=== PATIENT | female | born 1995 | race Caucasian/White ===

== ENCOUNTER 2023-02-11 06:39 | Emergency (ER) | payer OTHER, SELFPAY ==
[2023-02-11 06:40] VITALS: BP 120/84; PULSE 80; RESP 18; TEMP 36.5; O2SAT 100
--- NOTE | 2023-02-11 07:34 | ED_ITS ---
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 Patient went to [facility] at that time, patient reported that they have done nothing for her at that time. The patient denies any tingling, numbness or weakness or radiation of pain. Pat ient schedule to go to work today Related Data Allergies Allergy/AdvReac Type Severity Reaction Status Date / Time No Known Allergies Allergy Verified 02/11/23 07:12 Review of Systems Review of Systems: All systems reviewed & are unremarkable except as noted in HPI and below Exam Narrative: General appearance: Well-developed, well-nourished Skin: Normal color Head: Normocephalic, nontraumatic Eyes: Clear conjunctiva ENT: Oropharynx normal, ears normal, nose normal Neck: Supple, nontender Chest and respiratory: Airway patent, no respiratory distress, no accessory musc le use Heart: Regular rate/rhythm Abdomen: Soft, nontender, no organomegaly, quiet bowel sounds Vascular: Normal peripheral pulses, normal capillary refill. 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, no gross motor deficit Course Vital Signs Vital signs: Vital Signs Temperature 36.5 C 02/11/23 06:40 Pulse Rate 80 02/11/23 06:40 Respiratory Rate 18 02/11/23 06:40 Blood Pressure 120/84 02/11/23 06:40 Pulse Oximetry 100 02/11/23 06:40 Oxygen Delivery Room Air 02/11/23 06:40 Temperature 36.5 C 02/11/23 06:40 Pulse Rate 80 02/11/23 06:40 Respiratory Rate 18 02/11/23 06:40 Blood Pressure 120/84 02/11/23 06:40 Pulse Oximetry 100 02/11/23 06:40 Oxygen Delivery Room Air 02/11/23 06:40 Critical Care Time Critical Care Time Critical Care Time: No Discharge Plan Discharge Clinical Impression: Strain of lumbar region Patient Disposition: Home, Self-Care Condition: Stable Instructions: Acute Low Back Pain (ED) Additional Instructions: Return if symptoms are worsening , call your family physician for appointment, take Tylenol as as needed for aches and pain, continue home medications. Prescriptions: New cyclobenzaprine 10 mg tablet 10 mg PO TID PRN (Reason: muscle spasm) Qty: 20 0RF naproxen [Naprosyn] 500 mg tablet 500 mg PO BID PRN (Reason: pain) Qty: 14 0RF Follow-up/Referrals: George Noriega MD [Physician] - 02/15/23 UNKNOWN,DOCTOR [Primary Care Provider] - Stand Alone Forms: Work/School Release IP
[2023-02-11] MEDS: IBUPROFEN 600 MG TABLET PO (08:23)
[2023-02-11] MEDS: HYDROcodone/acetaminophen (*CRX) 5-325 MG TABLET 1 TAB PO (08:23)
[2023-02-11 08:29] VITALS: BP 122/83; PULSE 70; RESP 16; O2SAT 100
== END 2023-02-11 08:30 | disposition home or self-care (01) ==
LOC: ANHED 08:01
PROVIDERS: Emergency Provider Emergency Medicine
DX: S39.012A Strain of muscle, fascia and tendon of lower back, initial encounter (principal); X50.0XXA Overexertion from strenuous movement or load, initial encounter; Y93.F2 Activity, caregiving, lifting
CPT/HCPCS: 99283; A9270

== ENCOUNTER 2023-10-06 15:40 | Emergency (ER) | payer OTHER, SELFPAY ==
--- NOTE | ~2023-10-06 | CT_ITS ---
EXAMINATION: CT abdomen pelvis w con DATE: 10/06/2023 20:32 INDICATION: L sided abd/flank pain, nausea TECHNIQUE: Computed tomography (CT) of the abdomen and pelvis was performed with 100 mL Omnipaque-350 intravenous contrast. Automated exposure control and iterative reconstruction technique were employe d. The dose-length product was 381.55 mGy-cm. COMPARISON: None. FINDINGS: Lower thorax: Unremarkable Liver: Normal. Biliary/Gallbladder: Gallbladder is normal. No bile duct dilation. Pancreas: No mass or duct dilation. Spleen: Normal. Adrenals:No mass. Kidneys: No suspicious mass, obstructing stone, or hydronephrosis. GI tract: Mild distal esophageal and gastric wall edema. No small or large bowel dilation. Normal sonam endix. Diverticulosis. Subtle pericolonic stranding in the mid descending colon. Mesentery/Peritoneum: No ascites, mass, or free air. Retroperitoneum: No mass. Pelvis: Partially distended urinary bladder with mild wall thickening. Normal uterus and bilateral ov dayron. Soft Tissues: Soft tissues and body wall unremarkable. Bones: No acute osseous finding. IMPRESSION: Mild esophagitis/gastritis. Subtle pericolonic inflammatory stranding in the mid descending colon, may represent mild/early acute uncomplicated diverticulitis. Cystitis versus bladder wall thickening from incomplete distention, correlate with urinalysis. Reviewed, dictated and finalized at location K. IMPRESSION: Mild esophagitis/gastritis. Subtle pericolonic inflammatory stranding in the mid descending colon, may repr esent mild/early acute uncomplicated diverticulitis. Cystitis versus bladder wall thickening from incomplete distention, correlate w ith urinalysis.
[2023-10-06 15:51] VITALS: BP 119/81; PULSE 84; RESP 16; TEMP 36.2; O2SAT 100
--- NOTE | 2023-10-06 18:01 | ED.ABDPAIN ---
HPI - Abdominal Pain General Chief Complaint: Abdominal Pain <AVIVA Lares Last Filed: 10/07/23 19:02> Stated Complaint: worsening L side pain since yesterday <AVIVA Lares Last Filed: 10/07/23 19:02> Time Seen by Provider: 10/06/23 18:01 <AVIVA Lares Last Filed: 10/07/23 19:02> Focused HPI: This is a 28-year-old female that presents to the emergency department for left-sided flank pain. Ongoing over the last several days. The pain is sharp in nature. Associated with nausea. Denies fevers, vomiting, dysuria, hematuria, or diarrhea. GENERAL: Well-appearing, well-nourished, and in no acute distress. HEAD: Normocephalic, atraumatic. CHEST: Clear to auscultation. ?No respiratory distress. HEART: Regular rate and rhythm.? NEURO: ?Alert and oriented x3. Patient screened in triage and initial orders placed.? ?Additional care and disposition to be based upon?diagnostic testing and treatment. <AVIVA Lares Last Filed: 10/07/23 19:02> History of Present Illness HPI narrative: Agree with above HPI Patient is a 28 y/o female who presents to the ED with c/o left-sided abdominal pain. Patient reports she has had diffuse bloating discomfort over the last 1 week. Yesterday afternoon, she began having more sharp pain throughout her left-sided lower abdomen, wrapping around to her left lower back. Persisted into today. She reports she takes Tylenol and ibuprofen daily for a recent shoulder strain, but denies improvement of abdominal pain with this. Does report nausea with eating over the last 1 week, denies vomiting, diarrhea, constipation, fevers, dysuria, hematuria. No history of kidney stones. <AVIVA Man Last Filed: 10/06/23 21:53> Related Data Allergies/Adverse Reactions: Allergies Allergy/AdvReac Type Severity Reaction Status Date / Time No Known Allergies Allergy Verified 02/11/23 07:12 <AVIVA Lares Last Filed: 10/07/23 19:02> Review of Systems Review of Systems: CONSTITUTIONAL: Denies fever, chills, or sweats. GASTROINTESTINAL: See HPI. GENITOURINARY: Denies dysuria or hematuria. MUSCULOSKELETAL: See HPI. <Maricel Quinones PA-C - Last Filed: 10/06/23 21:53> All systems reviewed & are unremarkable except as noted in HPI and below <Maricel Quinones PA-C - Last Filed: 10/06/23 21:53> PMFSH Past Medical History Medical History: Medical History (Updated 10/07/23 @ 19:02 by Merly Qui PA-C) History of anxiety <Merly Qiu PA-C - Last Filed: 10/07/23 19:02> Social History Social History: Social History (Updated 10/07/23 @ 19:02 by Merly Qiu PA-C) Substance use: never <Merly Qiu PA-C - Last Filed: 10/07/23 19:02> Exam Narrative: GENERAL: Well appearing, well-nourished, non-toxic, in no acute distress. HEAD: Normocephalic, atraumatic. RESPIRATORY: Airway patent, respirations nonlabored. Clear to auscultation bilaterally, no rales, rhonchi, wheezing. CARDIOVASCULAR: Regular rate and rhythm without murmurs, rubs, or gallops. ABDOMINAL: Soft, tenderness throughout left lower abdomen, no rebound. Nondistended. Normoactive BS. +CVA tenderness on L. MUSCULOSKELETAL: Moves all extremities. No gross deformities. TTP throughout L lumbosacral region. SKIN: Warm, dry, normal color. NEURO: A&O X3. Speech clear. Cranial nerves II-XII grossly intact. Steady gait. No ataxic movements. PSYCHIATRIC: Appropriate mood and affect. Normal interaction. <Maricel Quinones PA-C - Last Filed: 10/06/23 21:53> Course Vital Signs Vital signs: Vital Signs Temperature 97.1 F L 10/06/23 15:51 Pulse Rate 84 10/06/23 15:51 Respiratory Rate 16 10/06/23 15:51 Blood Pressure 119/81 10/06/23 15:51 Pulse Oximetry 100 10/06/23 15:51 Oxygen Delivery Room Air 10/06/23 15:51 Temperature 97.1 F L 10/06/23 15:51 Pulse Rate 78 10/06/23 19:39 R
[2023-10-06 18:11] LABS: Basophils Absolute Auto 0.1 K/mm3 (0.0-0.1); Basophils Percent Auto 0.5 % (0.2-1.2); Eosinophils Absolute Auto 0.1 K/mm3 (0-0.3); Eosinophils Percent Auto 1.4 % (0-4.4); Hematocrit 39.5 % (37.0-47.0); Hemoglobin 12.8 g/dL (12.0-15.0); Immature Granulocyte Absolute 0.03 K/mm3 (0.00-0.031); Immature Granulocyte Percent A 0.3 % (0-0.5); Lymphocytes Absolute Auto 2.21 K/mm3 (0.9-3.2); Mean Corpuscular HGB Conc 32.4 g/dl (32-36); Mean Corpuscular Hemoglobin 30.9 pg (26-34); Mean Corpuscular Volume 95.4 fl (80-100); Mean Platelet Volume 9.2 fl (7.4-10.4); Monocytes Absolute Auto 0.6 K/mm3 (0.1-0.6); Monocytes Percent Auto 6.4 % (2.6-8.5); Neutrophils Percent Auto 69.4 % (45.5-73.1); Platelet Count Result 310 k/mm3 (150-375); Red Blood Count 4.14 M/mm3 (4.2-5.4); White Blood Count 10.1 K/mm3 (4.5-10.0)
[2023-10-06 18:21] LABS: Alanine Aminotransferase 22 U/L (6-35); Albumin Level 4.5 g/dL (3.5-5.1); Alkaline Phosphatase 45 U/L (38-126); Anion Gap 8 mmol/L (4-12); Aspartate Amino Transferase 28 U/L (14-36); Bilirubin,Total 0.2 mg/dL (0.2-1.3); Blood Urea Nitrogen 13 mg/dL (7-17); Calcium 8.7 mg/dL (8.4-10.2); Carbon Dioxide 26 mmol/L (22-30); Chloride 105 mmol/L (98-107); Estimated CRCL calculation 97 ml/min; Estimated Glomerular Filt Rate > 60; Glucose 105 mg/dL (65-110); Lipase 212 U/L (23-300); Potassium 3.9 mmol/L (3.4-5.0); Sodium 139 mmol/L (137-145)
[2023-10-06 19:36] LABS: BEDSIDEPREGUCG Negative
[2023-10-06 19:39] VITALS: BP 135/95; PULSE 78; RESP 19; O2SAT 100
[2023-10-06] MEDS: ACETAMINOPHEN 500 MG TABLET 1000 MG PO (19:56)
--- NOTE | 2023-10-06 20:24 | ED.ABDPAIN ---
HPI - Abdominal Pain General Chief Complaint: Abdominal Pain Stated Complaint: worsening L side pain since yesterday Time Seen by Provider: 10/06/23 18:01 Source: patient Mode of arrival: ambulatory Limitations: no limitations History of Present Illness HPI narrative: Patient is a 28 y/o female who presents to the ED with c/o left-sided abdominal pain. Patient reports she has had diffuse bloating discomfort over the last 1 week. Yesterday afternoon, she began having more sharp pain throughout her left-sided lower abdomen, wrapping around to her left lower back. Persisted into today. She reports she takes Tylenol and ibuprofen daily for a recent shoulder strain, but denies improvement of abdominal pain with this. Does report nausea with eating over the last 1 week, denies vomiting, diarrhea, constipation, fevers, dysuria, hematuria. No history of kidney stones. Related Data Allergies Allergy/AdvReac Type Severity Reaction Status Date / Time No Known Allergies Allergy Verified 02/11/23 07:12 Review of Systems Review of Systems: CONSTITUTIONAL: Denies fever, chills, or sweats. GASTROINTESTINAL: See HPI. GENITOURINARY: Denies dysuria or hematuria. MUSCULOSKELETAL: See HPI. All systems reviewed & are unremarkable except as noted in HPI and below Exam Narrative: GENERAL: Well appearing, well-nourished, non-toxic, in no acute distress. HEAD: Normocephalic, atraumatic. RESPIRATORY: Airway patent, respirations nonlabored. Clear to auscultation bilaterally, no rales, rhonchi, wheezing. CARDIOVASCULAR: Regular rate and rhythm without murmurs, rubs, or gallops. ABDOMINAL: Soft, Tenderness throughout left lower abdomen, no rebound., nondistended. Normoactive BS. MUSCULOSKELETAL: Moves all extremities. No gross deformities. SKIN: Warm, dry, normal color. NEURO: A&O X3. Speech clear. Cranial nerves II-XII grossly intact. Steady gait. No ataxic movements. PSYCHIATRIC: Appropriate mood and affect. Normal interaction. Course Vital Signs Vital signs: Vital Signs Temperature 97.1 F L 10/06/23 15:51 Pulse Rate 84 10/06/23 15:51 Respiratory Rate 16 10/06/23 15:51 Blood Pressure 119/81 10/06/23 15:51 Pulse Oximetry 100 10/06/23 15:51 Oxygen Delivery Room Air 10/06/23 15:51 Temperature 97.1 F L 10/06/23 15:51 Pulse Rate 78 10/06/23 19:39 Respiratory Rate 19 10/06/23 19:39 Blood Pressure 135/95 H 10/06/23 19:39 Pulse Oximetry 100 10/06/23 19:39 Oxygen Delivery Room Air 10/06/23 15:51 MDM - Abdominal Pain Lab Data 10/06/23 18:05 10/06/23 18:06 Labs: Lab Results 10/06/23 10/06/23 10/06/23 Range/Units 18:05 18:06 19:32 WBC 10.1 H (4.5-10.0) K/mm3 RBC 4.14 L (4.2-5.4) M/mm3 Hgb 12.8 (12.0-15.0) g/dL Hct 39.5 (37.0-47.0) % MCV 95.4 (80-100) fl MCH 30.9 (26-34) pg MCHC 32.4 (32-36) g/dl RDW 13.0 (11.5-14.5) % Plt Count 310 (150-375) k/mm3 MPV 9.2 (7.4-10.4) fl Immature Gran % (Auto) 0.3 (0-0.5) % Neut % (Auto) 69.4 (45.5-73.1) % Lymph % (Auto) 22.0 (18.3-44.2) % [place] % (Auto) 6.4 (2.6-8.5) % Eos % (Auto) 1.4 (0-4.4) % Baso % (Auto) 0.5 (0.2-1.2) % Lymph # (Auto) 2.21 (0.9-3.2) K/mm3 [place] # (Auto) 0.6 (0.1-0.6) K/mm3 Eos # (Auto) 0.1 (0-0.3) K/mm3 Baso # (Auto) 0.1 (0.0-0.1) K/mm3 Abs Immat Gran (auto) 0.03 (0.00-0.031) K/mm3 Absolute Neuts (auto) 7.0 H (1.3-6.7) K/mm3 Absolute Nucleated RBC 0.000 (0.0-0.012) K/mm3 Nucleated RBC % 0.0 (0.0-0.2) % Sodium 139 (137-145) mmol/L Potassium 3.9 (3.4-5.0) mmol/L Chloride 105 (98-107) mmol/L Carbon Dioxide 26 (22-30) mmol/L Anion Gap 8 (4-12) mmol/L BUN 13 (7-17) mg/dL Creatinine 0.70 (0.7-1.0) mg/dL Estim Creat Clear Calc 97 ml/min Estimated GFR > 60 (59 - ) Glucose 105 (65-110) mg/dL Calcium 8.7 (8.4-10.2) mg/dL Total
[2023-10-06 20:27] LABS: Appearance Urine Clear (Clear); Bacteria Urine 1+ /hpf; Bilirubin Urine Negative (Negative); Blood Urine Negative (Negative); Color Urine Yellow (Yellow); Glucose Urine UA Negative (Negative); Ketones Urine Negative (Negative); Leukocyte Esterase Ur Trace LEU/UL (Negative); Nitrate Urine Negative (Negative); Non Pathogenic Casts 0-2; Protein Urine Negative (Negative); RBC Urine 0-2 /hpf (0-2); Squamous Epithelial Cell Urine Few /hpf (Few); WBC Urine 0-5 /hpf (0-3)
[2023-10-06 20:28] LABS: Add Urine Microscopic? YES
[2023-10-06] MEDS: AMOXICILLIN/CLAVULANATE K 875-125 MG TAB 1 TABLET PO (21:57)
== END 2023-10-06 22:02 | disposition home or self-care (01) ==
PROVIDERS: Physician Assistant; Emergency Provider Physician Assistant
DX: K57.32 Diverticulitis of large intestine without perforation or abscess without bleeding (principal); K20.90 Esophagitis, unspecified without bleeding; K29.70 Gastritis, unspecified, without bleeding; R93.41 Abnormal radiologic findings on diagnostic imaging of renal pelvis, ureter, or bladder
CPT/HCPCS: 36415; 74177; 80053; 81001; 81025; 83690; 85025; 87086; 99284; A9270; Q9967

== ENCOUNTER 2024-01-18 09:32 | Emergency (ER) | payer SELFPAY ==
--- NOTE | ~2024-01-18 | CT_ITS ---
EXAMINATION: CT abdomen pelvis w con DATE: 01/18/2024 10:42 INDICATION: Left lower quadrant abdominal pain. TECHNIQUE: Computed tomography (CT) of the abdomen and pelvis was performed with 100 mL Omnipaque 350 intravenous contrast. Automated exposure control and iterative reconstruction technique were employe d. The dose-length product was 349.70 mGy-cm. COMPARISON: CT abdomen and pelvis 10/06/2023 FINDINGS: The visualized portions of the lung bases demonstrate minimal atelectasis. No pleural effus ion. The heart size is normal. No pericardial effusion. The liver, gallbladder, spleen, pancreas, adr enal glands, and kidneys are normal. There is diverticulosis of the colon without evidence of diverti culitis. There are no dilated loops of bowel. The appendix is normal. There are no pathologically enl arged lymph nodes. There is no free intraperitoneal fluid. There is mild chronic anterior wedging of multiple lower thoracic vertebral bodies. There is mild lumbar spondylosis. IMPRESSION: 1. No etiology for the patient's symptoms. Reviewed, dictated and finalized at location A. TACKER
[2024-01-18 09:37] VITALS: BP 120/81; PULSE 89; RESP 17; TEMP 36.4; O2SAT 100
[2024-01-18 09:47] LABS: BEDSIDEPREGUCG Negative (Negative)
--- NOTE | 2024-01-18 10:03 | ED.ABDPAIN ---
HPI - Abdominal Pain General Chief Complaint: Abdominal Pain Stated Complaint: abd pain Time Seen by Provider: 01/18/24 09:34 History of Present Illness HPI narrative: Patient with recent diagnosis of diverticulitis presents here with pain in her left upper quadrant asthma to her left lower quadrant, feels like when she had diverticulitis a month ago. Related Data Allergies Allergy/AdvReac Type Severity Reaction Status Date / Time No Known Allergies Allergy Verified 01/18/24 09:46 Review of Systems Review of Systems: All systems reviewed & are unremarkable except as noted in HPI and below PMFSH Past Medical History Medical History (Updated 01/18/24 @ 11:18 by Vandana Turner MD) History of anxiety Social History Social History (Updated 10/07/23 @ 19:02 by Merly Qiu PA-C) Substance use: never Exam Narrative: EXAMINATION OF ORGAN SYSTEMS/BODY AREAS: Constitutional: Vital signs per nursing GENERAL:[No acute distress, non-toxic appearing.] HEAD: Normal with no signs of head trauma. EYES: EOMI, conjunctiva normal ENT: Hearing grossly intact LUNGS: Nonlabored breathing. HEART: [Regular rate and rhythm] ABD: [Soft], Slightly tender to palpation left lower quadrant EXT: Normal range of motion SKIN: [No rashes or lesions.] NEURO: [Alert and oriented x 3. No gross focal sensory or strength deficits.] PSYCH: Normal affect Course Vital Signs Vital signs: Vital Signs Temperature 97.6 F 01/18/24 09:37 Pulse Rate 89 01/18/24 09:37 Respiratory Rate 17 01/18/24 09:37 Blood Pressure 120/81 01/18/24 09:37 Pulse Oximetry 100 01/18/24 09:37 Oxygen Delivery Room Air 01/18/24 09:37 Temperature 97.6 F 01/18/24 09:37 Pulse Rate 89 01/18/24 09:37 Respiratory Rate 17 01/18/24 09:37 Blood Pressure 120/81 01/18/24 09:37 Pulse Oximetry 100 01/18/24 09:37 Oxygen Delivery Room Air 01/18/24 09:37 MDM - Abdominal Pain MDM Narrative Medical decision making narrative: Electronic medical record was reviewed. Patient presented to the ED with complaint of [abdominal pain LLQ]. Vitals [were within acceptable limits]. Physical exam revealed well-appearing patient with some slight tenderness to the left upper abdomen. Based on the patient's history and physical exam, my differential includes but is not limited to [gastritis, gastroenteritis, UTI, diverticulitis]. [IV access was established by nursing staff. Patient was given toradol after negative test]. CBC, BMP, lipase, LFTs, bilirubin and alk phos were obtained. Labs were pertinent for UTI. [Decision was made to obtain a CT-abdomen to evaluate for acute abdominal process. CT-abdomen per radiology interpretation is unremarkable for acute intra-abdominal process, no signs of hydronephrosis, cholecystitis, appendicitis.] patient started on antibiotics and given a course of antibiotics. On reevaluation, the patient states that they are feeling much better. There were no witnessed episodes of vomiting in the emergency department. They are not complaining of any new abdominal pain. Repeat examination did not show any significant guarding or rebound. No new tenderness. At this time I do not feel there is any further emergent treatment to be provided. The patient was given strict return precautions, if they are to develop any worsening abdominal pain, vomiting, or blood in the vomit they are to return to the emergency department immediately. Patient verbally acknowledges understanding these directions. [The patient was informed of the above diagnostic test findings.] No further workup is necessary at this time. They will be discharged home [with prescriptions]. They were advised to follow-up with [their PCP] in 2 days. The patient feels that this is appropriate medical decision making and verbalizes an understanding of the discharge instructions. Lab Data 01/18/24 09:52 01/18/24 09:52 Labs: Lab Results 01/18/24 01/18/24 Range/Units 09:45 09:52 WBC 5.9 (4.5-10.0) K/mm3 RBC 4.16 L (4.2-5.4) M/mm3 Hgb 12.9 (12.0-15.0) g/dL Hct 38.8 (37.0-47.0) % MCV 93.3 (80-100) fl MCH 31.0 (26-34) pg MCHC 33.2 (32-36) g/dl RDW 12.6 (11.5-14.5) % Plt Count 307 (150-375) k/mm3 MPV 9.3 (7.4-10.4) fl Immature Gran % (Auto) 0.2 (0-0.5) % Neut % (Auto) 54.5 (45.5-73.1) % Lymph % (Auto) 35.2 (18.3-44.2) % [place] % (Auto) 7.6 (2.6-8.5) % Eos % (Auto) 1.7 (0-4.4) % Baso % (Auto) 0.8 (0.2-1.2) % Lymph # (Auto) 2.09 (0.9-3.2) K/mm3 [place] # (Auto) 0.5 (0.1-0.6) K/mm3 Eos # (Auto) 0.1 (0-0.3) K/mm3 Baso # (Auto) 0.1 (0.0-0.1) K/mm3 Abs Immat Gran (auto) 0.01 (0.00-0.031) K/mm3 Absolute Neuts (auto) 3.2 (1.3-6.7) K/mm3 Absolute Nucleated RBC 0.000 (0.0-0.012) K/mm3 Nucleated RBC % 0.0 (0.0-0.2) % Sodium 139 (137-145) mmol/L Potassium 4.0 (3.4-5.0) mmol/L Chloride 108 H (98-107) mmol/L Carbon Dioxide 22 (22-30) mmol/L Anion Gap 9 (4-12) mmol/L BUN 11 (7-17) mg/dL Creatinine 0.70 (0.7-1.0) mg/dL Estim Creat Clear Calc Not Reportable Estimated GFR > 60 (59 - ) Glucose 100 (65-110) mg/dL Calcium 8.8 (8.4-10.2) mg/dL Total Bilirubin 0.6 (0.2-1.3) mg/dL AST 22 (14-36) U/L ALT 15 (6-35) U/L Alkaline Phosphatase 46 (38-126) U/L Total Protein 8.0 (6.3-8.2) g/dL Albumin 4.4 (3.5-5.1) g/dL Lipase 166 (23-300) U/L Urine Color Yellow (Yellow) Urine Appearance Turbid H (Clear) Urine pH 6.0 (5.0-9.0) Ur Specific [place] 1.018 (1.001-1.035) Urine Protein Negative (Negative) mg/dL Urine Glucose (UA) Negative (Negative) mg/dL Urine Ketones Trace H (Negative) mg/dL Ur Blood (Man) Negative (Negative) Urine Nitrate Negative (Negative) Urine Bilirubin Negative (Negative) Urine Urobilinogen 0.2 (<2.0) mg/dL Add Ur Microanalysis Reviewed Leukocyte Esterase Rfl 1+ H (Negative) SCOTT/UL Urine RBC 0-2 (0-2) /hpf Urine WBC 11-20 H (0-3) /hpf Ur Squamous Epith Cells Few (Few) /hpf Urine Bacteria 1+ H /hpf Urine Casts 0-2 POC Urine HCG, Qual Negative (Negative) Imaging Data Radiologist's impression: ITS Impressions Abdomen/Pelvis CT 01/18/24 11:01 IMPRESSION: 1. No etiology for the patient's symptoms. Discharge Plan Discharge Clinical Impression: UTI (urinary tract infection), Left lower quadrant abdominal pain Patient Disposition: Home, Self-Care Condition: Stable Instructions: Antibiotic Form, Urinary Tract Infection in Women (ED), Abdominal Pain (ED) Additional Instructions: Please follow up with a PCP, you can call the number below if you need a new primary care doctor, and take the medications as prescribed; you can always return for any further issues. Prescriptions: New sulfamethoxazole-trimethoprim [Bactrim DS] 800-160 mg tablet 1 tablet PO Q12H Qty: 14 0RF No Action hydrocodone-acetaminophen 5-325 mg tablet 1 tablet PO Q6H PRN (Reason: pain) Qty: 10 0RF ondansetron 4 mg tablet,disintegrating 4 mg PO Q8H PRN (Reason: nausea and vomiting) Qty: 10 0RF amoxicillin-pot clavulanate 875-125 mg tablet 1 tablet PO Q12H 7 Days Qty: 14 0RF cyclobenzaprine 10 mg tablet 10 mg PO TID PRN (Reason: muscle spasm) Qty: 20 0RF naproxen [Naprosyn] 500 mg tablet 500 mg PO BID PRN (Reason: pain) Qty: 14 0RF Follow-up/Referrals: PHYSICIAN NOT ON STAFF,NONSTAFF [Non-Staff] - George Noriega MD [Physician] - 2 Days
[2024-01-18 10:07] LABS: Basophils Absolute Auto 0.1 K/mm3 (0.0-0.1); Basophils Percent Auto 0.8 % (0.2-1.2); Eosinophils Absolute Auto 0.1 K/mm3 (0-0.3); Eosinophils Percent Auto 1.7 % (0-4.4); Hematocrit 38.8 % (37.0-47.0); Hemoglobin 12.9 g/dL (12.0-15.0); Immature Granulocyte Absolute 0.01 K/mm3 (0.00-0.031); Immature Granulocyte Percent A 0.2 % (0-0.5); Lymphocytes Absolute Auto 2.09 K/mm3 (0.9-3.2); Lymphocytes Percent Auto 35.2 % (18.3-44.2); Mean Corpuscular HGB Conc 33.2 g/dl (32-36); Mean Corpuscular Volume 93.3 fl (80-100); Mean Platelet Volume 9.3 fl (7.4-10.4); Monocytes Absolute Auto 0.5 K/mm3 (0.1-0.6); Monocytes Percent Auto 7.6 % (2.6-8.5); Neutrophils Absolute Auto 3.2 K/mm3 (1.3-6.7); Neutrophils Percent Auto 54.5 % (45.5-73.1); Platelet Count Result 307 k/mm3 (150-375); Red Blood Count 4.16 M/mm3 (4.2-5.4); Red Cell Distribution Width 12.6 % (11.5-14.5); White Blood Count 5.9 K/mm3 (4.5-10.0)
[2024-01-18 10:17] LABS: Alanine Aminotransferase 15 U/L (6-35); Albumin Level 4.4 g/dL (3.5-5.1); Alkaline Phosphatase 46 U/L (38-126); Anion Gap 9 mmol/L (4-12); Aspartate Amino Transferase 22 U/L (14-36); Bilirubin,Total 0.6 mg/dL (0.2-1.3); Blood Urea Nitrogen 11 mg/dL (7-17); Calcium 8.8 mg/dL (8.4-10.2); Carbon Dioxide 22 mmol/L (22-30); Chloride 108 mmol/L (98-107); Estimated Glomerular Filt Rate > 60; Glucose 100 mg/dL (65-110); Lipase 166 U/L (23-300); Sodium 139 mmol/L (137-145)
[2024-01-18 10:19] LABS: Add Urine Microscopic? YES; Appearance Urine Turbid (Clear); Bacteria Urine 1+ /hpf; Bilirubin Urine Negative (Negative); Blood Urine Negative (Negative); Color Urine Yellow (Yellow); Glucose Urine UA Negative (Negative); Ketones Urine Trace mg/dL (Negative); Leukocyte Esterase Ur 1+ LEU/UL (Negative); Need Manual Microscopic Reviewed; Nitrate Urine Negative (Negative); Non Pathogenic Casts 0-2; Protein Urine Negative (Negative); RBC Urine 0-2 /hpf (0-2); Specific Grav Ur 1.018 (1.001-1.035); Squamous Epithelial Cell Urine Few /hpf (Few); Urobilinogen Urine 0.2 mg/dL (<2.0)
--- NOTE | 2024-01-18 10:33 | PC.NURSE ---
pt in CT scan at this time.
[2024-01-18] MEDS: KETOROLAC 15 MG/ML VIAL (*BKC) IV PUSH (11:25)
[2024-01-18 11:43] VITALS: BP 119/91; PULSE 82; RESP 16; O2SAT 100
== END 2024-01-18 11:46 | disposition home or self-care (01) ==
PROVIDERS: Emergency Provider Emergency Medicine
DX: N39.0 Urinary tract infection, site not specified (principal); R10.32 Left lower quadrant pain
CPT/HCPCS: 36415; 74177; 80053; 81001; 81025; 83690; 85025; 87086; 96365; 96375; 99284; J0696; J1885; Q9967

== ENCOUNTER 2024-01-28 06:24 | Emergency (ER) | payer SELFPAY ==
--- NOTE | ~2024-01-28 | US_ITS ---
EXAMINATION: US pelvic complete w TV DATE: 01/28/2024 08:10 INDICATION: Pelvic pain. TECHNIQUE: Multiple transabdominal and transvaginal sonographic images of the pelvis were obtained. COMPARISON: CT abdomen and pelvis 01/18/2024 FINDINGS: TRANSABDOMINAL ULTRASOUND: The uterus measures 7.2 x 3.8 x 4.7. There is physiologic free fluid in the pelvis. TRANSVAGINAL ULTRASOUND: The endometrial complex measures 8 mm in thickness. The right ovary measures 2.6 x 2.7 x 3.1 cm. The left ovary measures 3.1 x 2.4 x 2.1 cm. There is normal vascular flow in the ovaries. IMPRESSION: 1. Normal pelvis. Reviewed, dictated and finalized at location A. [employer] IMPRESSION: 1. Normal pelvis.
--- NOTE | ~2024-01-28 | XR_ITS ---
EXAMINATION: XR abdomen/kub 1V DATE: 01/28/2024 08:24 INDICATION: Constipation. TECHNIQUE: A supine view of the abdomen on 2 radiographs was obtained. COMPARISON: CT abdomen and pelvis 01/18/2024 FINDINGS: There are no dilated loops of bowel. There is a small volume of stool in the colon. There a re phleboliths in the pelvis. IMPRESSION: 1. Normal bowel gas pattern. Reviewed, dictated and finalized at location A. MER SAWYER
[2024-01-28 06:30] VITALS: BP 133/85; PULSE 76; RESP 14; TEMP 36.4; O2SAT 100
[2024-01-28 06:50] LABS: Basophils Absolute Auto 0.1 K/mm3 (0.0-0.1); Basophils Percent Auto 1.1 % (0.2-1.2); Eosinophils Absolute Auto 0.1 K/mm3 (0-0.3); Eosinophils Percent Auto 2.4 % (0-4.4); Hematocrit 38.8 % (37.0-47.0); Hemoglobin 13.1 g/dL (12.0-15.0); Immature Granulocyte Absolute 0.01 K/mm3 (0.00-0.031); Immature Granulocyte Percent A 0.2 % (0-0.5); Lymphocytes Absolute Auto 1.84 K/mm3 (0.9-3.2); Mean Corpuscular HGB Conc 33.8 g/dl (32-36); Mean Corpuscular Hemoglobin 31.1 pg (26-34); Mean Corpuscular Volume 92.2 fl (80-100); Mean Platelet Volume 9.2 fl (7.4-10.4); Monocytes Absolute Auto 0.4 K/mm3 (0.1-0.6); Monocytes Percent Auto 6.5 % (2.6-8.5); Neutrophils Percent Auto 55.8 % (45.5-73.1); Platelet Count Result 328 k/mm3 (150-375); Red Blood Count 4.21 M/mm3 (4.2-5.4); Red Cell Distribution Width 12.7 % (11.5-14.5); White Blood Count 5.4 K/mm3 (4.5-10.0)
[2024-01-28 06:54] LABS: Add Urine Microscopic? YES; Appearance Urine Cloudy (Clear); Bacteria Urine None Seen /hpf; Bilirubin Urine Negative (Negative); Blood Urine Negative (Negative); Color Urine Yellow (Yellow); Glucose Urine UA Negative (Negative); Ketones Urine Trace mg/dL (Negative); Leukocyte Esterase Ur Negative LEU/UL (Negative); Nitrate Urine Negative (Negative); Non Pathogenic Casts 0-2; Protein Urine Negative (Negative); RBC Urine 0-2 /hpf (0-2); Specific Grav Ur 1.015 (1.001-1.035); Squamous Epithelial Cell Urine Few /hpf (Few); WBC Urine 0-5 /hpf (0-3)
[2024-01-28 07:08] LABS: Alanine Aminotransferase 23 U/L (6-35); Albumin Level 4.3 g/dL (3.5-5.1); Alkaline Phosphatase 47 U/L (38-126); Anion Gap 10 mmol/L (4-12); Aspartate Amino Transferase 38 U/L (14-36); Bilirubin,Total 0.4 mg/dL (0.2-1.3); Blood Urea Nitrogen 12 mg/dL (7-17); Calcium 8.7 mg/dL (8.4-10.2); Carbon Dioxide 21 mmol/L (22-30); Chloride 108 mmol/L (98-107); Estimated CRCL calculation 73 ml/min; Estimated Glomerular Filt Rate > 60; Glucose 98 mg/dL (65-110); Lipase 231 U/L (23-300); Potassium 4.1 mmol/L (3.4-5.0); Sodium 139 mmol/L (137-145)
--- NOTE | 2024-01-28 07:27 | PC.NURSE ---
Assumed care of pt. Pt resting with reg resp. Awaiting diagnostic results
--- NOTE | 2024-01-28 08:28 | ED_ITS ---
HPI - Abdominal Pain General Chief Complaint: Abdominal Pain Stated Complaint: abd and pelvic pain Time Seen by Provider: 01/28/24 07:01 History of Present Illness HPI narrative: patient is a 29-year-old female who presents ER with pelvic pain. Ongoing over last week. Was seen by OB and seen in the ER. She had a negative CT scan. No dysuria. Occasionally will radiate into the proximal legs bilaterally. No low back pain. She is concerned she has an ovarian cyst. She has not patient ultrasound ordered. No aggravating factors. Hematuria. She did finish a course of antibiotics but urine culture was negative. Related Data Allergies Allergy/AdvReac Type Severity Reaction Status Date / Time No Known Allergies Allergy Verified 01/28/24 06:24 Review of Systems Review of Systems: All systems reviewed & are unremarkable except as noted in HPI and below Constitutional: Constitutional: Reports no additional constitutional complaints ENT: Reports system reviewed and no additional complaints, except as documented Cardiovascular: Cardiovascular: Reports no additional cardiovascular complaints Respiratory: Respiratory: Reports no additional respiratory complaints Gastrointestinal: Gastrointestinal: Reports no additional gastrointestinal complaints Genitourinary: Genitourinary: Denies abnormal vaginal bleeding, Denies hematuria, Denies nocturia, Reports pelvic pain, Denies flank pain and Denies vaginal discharge [facility] Past Medical History Medical History (Updated 01/28/24 @ 09:20 by Yong Black MD) History of anxiety Social History Social History (Updated 10/07/23 @ 19:02 by Merly Qiu PA-C) Substance use: never Exam Narrative: GENERAL: Well-appearing, well-nourished, and in no acute distress. HEAD: Normocephalic, atraumatic. ENT: Mucous membranes moist. CHEST: Clear to auscultation. No respiratory distress. HEART: Regular rate and rhythm. Normal peripheral pulses. ABDOMEN: Soft, nontender, nondistended. EXTREMITIES: Normal range of motion. No edema. SKIN: Warm, dry, no rash. NEURO: Alert and oriented x3. PSYCH: Normal mood and affect. Course Course Emergency Course: Resting comfortably. Informed of results. Appropriate for discharge home. Vital Signs Vital signs: Vital Signs Temperature 97.6 F 01/28/24 06:30 Pulse Rate 76 01/28/24 06:30 Respiratory Rate 14 01/28/24 06:30 Blood Pressure 133/85 01/28/24 06:30 Pulse Oximetry 100 01/28/24 06:30 Oxygen Delivery Room Air 01/28/24 06:30 Temperature 97.6 F 01/28/24 06:30 Pulse Rate 72 01/28/24 09:07 Respiratory Rate 16 01/28/24 09:07 Blood Pressure 121/86 01/28/24 09:07 Pulse Oximetry 100 01/28/24 09:07 Oxygen Delivery Room Air 01/28/24 06:30 MDM - Abdominal Pain Lab Data 01/28/24 06:42 01/28/24 06:42 Labs: Lab Results 01/28/24 Range/Units 06:42 WBC 5.4 (4.5-10.0) K/mm3 RBC 4.21 (4.2-5.4) M/mm3 Hgb 13.1 (12.0-15.0) g/dL Hct 38.8 (37.0-47.0) % MCV 92.2 (80-100) fl MCH 31.1 (26-34) pg MCHC 33.8 (32-36) g/dl RDW 12.7 (11.5-14.5) % Plt Count 328 (150-375) k/mm3 MPV 9.2 (7.4-10.4) fl Immature Gran % (Auto) 0.2 (0-0.5) % Neut % (Auto) 55.8 (45.5-73.1) % Lymph % (Auto) 34.0 (18.3-44.2) % [place] % (Auto) 6.5 (2.6-8.5) % Eos % (Auto) 2.4 (0-4.4) % Baso % (Auto) 1.1 (0.2-1.2) % Lymph # (Auto) 1.84 (0.9-3.2) K/mm3 [place] # (Auto) 0.4 (0.1-0.6) K/mm3 Eos # (Auto) 0.1 (0-0.3) K/mm3 Baso # (Auto) 0.1 (0.0-0.1) K/mm3 Abs Immat Gran (auto) 0.01 (0.00-0.031) K/mm3 Absolute Neuts (auto) 3.0 (1.3-6.7) K/mm3 Absolute Nucleated RBC 0.000 (0.0-0.012) K/mm3 Nucleated RBC % 0.0 (0.0-0.2) % Sodium 139 (137-145) mmol/L Potassium 4.1 (3.4-5.0) mmol/L Chloride 108 H (98-107) mmol/L Carbon Dioxide 21 L (22-30) mmol/L Anion Gap 10 (4-12) mmol/L BUN 12 (7-17) mg/dL Creatinine 0.90 (0.7-1.0) mg/dL Estim Creat Clear Calc 73 ml/min Estimated GFR > 60 (59 - ) Glucose 98 (65-110) mg/dL Calcium 8.7 (8.4-10.2) mg/dL Total Bilirubin 0.4 (0.2-1.3) mg/dL AST 38 H (14-36) U/L ALT 23 (6-35) U/L Alkaline Phosphatase 47 (38-126) U/L Total Protein 7.0 (6.3-8.2) g/dL Albumin 4.3 (3.5-5.1) g/dL Lipase 231 (23-300) U/L Urine Color Yellow (Yellow) Urine Appearance Cloudy H (Clear) Urine pH 7.0 (5.0-9.0) Ur Specific [place] 1.015 (1.001-1.035) Urine Protein Negative (Negative) mg/dL Urine Glucose (UA) Negative (Negative) mg/dL Urine Ketones Trace H (Negative) mg/dL Ur Blood (Man) Negative (Negative) Urine Nitrate Negative (Negative) Urine Bilirubin Negative (Negative) Urine Urobilinogen 1.0 (<2.0) mg/dL Leukocyte Esterase Rfl Negative (Negative) SCOTT/UL Urine RBC 0-2 (0-2) /hpf Urine WBC 0-5 (0-3) /hpf Ur Squamous Epith Cells Few (Few) /hpf Urine Bacteria None seen /hpf Urine Casts 0-2 Imaging Data Radiologist's impression: ITS Impressions Pelvic/Transvag US 01/28/24 08:25 IMPRESSION: 1. Normal pelvis. Abdomen X-Ray 01/28/24 08:26 IMPRESSION: 1. Normal bowel gas pattern. Discharge Plan Discharge Clinical Impression: Pelvic pain Patient Disposition: Home, Self-Care Condition: Stable Instructions: Pelvic Pain (ED) Additional Instructions: Return to the emergency department if you develop severe abdominal pain, severe nausea and vomiting to the point where you are unable to keep down fluids, if you develop chest pain or difficulty breathing, blood in your stool, dizziness or fainting, or if you develop any other new or concerning symptoms as these could be signs of more serious medical illness. Try to stay well hydrated. May discussed with her roll mechanic whether you have pelvic congestion syndrome Prescriptions: No Action hydrocodone-acetaminophen 5-325 mg tablet 1 tablet PO Q6H PRN (Reason: pain) Qty: 10 0RF ondansetron 4 mg tablet,disintegrating 4 mg PO Q8H PRN (Reason: nausea and vomiting) Qty: 10 0RF amoxicillin-pot clavulanate 875-125 mg tablet 1 tablet PO Q12H 7 Days Qty: 14 0RF cyclobenzaprine 10 mg tablet 10 mg PO TID PRN (Reason: muscle spasm) Qty: 20 0RF naproxen [Naprosyn] 500 mg tablet 500 mg PO BID PRN (Reason: pain) Qty: 14 0RF sulfamethoxazole-trimethoprim [Bactrim DS] 800-160 mg tablet 1 tablet PO Q12H Qty: 14 0RF Follow-up/Referrals: UNKNOWN,DOCTOR [Primary Care Provider] - 1 Week
[2024-01-28 09:07] VITALS: BP 121/86; PULSE 72; RESP 16; O2SAT 100
[2024-01-31 10:01] LABS: BEDSIDEPREGUCG Negative (Negative)
== END 2024-01-28 09:47 | disposition home or self-care (01) ==
PROVIDERS: Emergency Medicine; Emergency Provider Emergency Medicine
DX: R10.2 Pelvic and perineal pain (principal)
CPT/HCPCS: 36415; 74018; 76830; 76856; 80053; 81001; 81025; 83690; 85025; 99284

== ENCOUNTER 2024-02-28 09:17 | Inpatient (IN) | payer SELFPAY ==
[2024-02-28] VITALS (9 sets, daily range): BP systolic 109–156; BP diastolic 59–90; PULSE 57–117; RESP 17–23; TEMP 36.3–37.3; O2SAT 98–100
--- NOTE | ~2024-02-28 | MR_ITS ---
EXAMINATION: MR brain/brain stem wo/w con DATE: 02/29/2024 06:48 INDICATION: New onset seizure TECHNIQUE: Magnetic resonance imaging (MRI) of the brain and brainstem was performed without and with 15 mL Multihance intravenous contrast. Sequences included sagittal and axial T1-weighted SE, axial d iffusion-weighted FS SE, axial 3D SWAN, axial T2-weighted FLAIR, and axial T2-weighted FSE. Postcontr ast axial and coronal T1-weighted SE was obtained. Apparent diffusion coefficient (ADC) maps were cre ated. COMPARISON: Head CT dated 02/28/2024 FINDINGS: There are no areas of restricted diffusion to suggest acute infarction. No intracranial hemorrhage or abnormal intracranial mass lesion. There are no intraparenchymal signal abnormalities seen on the ot her pulse sequences. The ventricles are symmetric and normal in size. No evident ta matter heteroto pias or other developmental neuronal migration abnormalities. There are no abnormal extra-axial fluid collections. Flow voids are seen in the cerebral arteries on the T2-weighted sequences consistent wi th their expected patency. Moderate mucosal thickening in the bilateral maxillary and left sphenoid s inuses and mild mucosal thickening in the bilateral ethmoid sinuses. Visualized orbits and soft tissu es are unremarkable. There are no areas of abnormal enhancement on the post contrast images. IMPRESSION: 1. Normal brain. 2. Sinus disease. Reviewed, dictated and finalized at location A. IR COIL WINDER
--- NOTE | ~2024-02-28 | CT_ITS ---
EXAMINATION: CT cervical spine wo con DATE: 02/28/2024 10:26 INDICATION: Found down TECHNIQUE: Computed tomography (CT) of the cervical spine was performed without intravenous contrast. Automated exposure control and iterative reconstruction technique were employed. The dose-length pro duct was 194.74 mGy-cm. COMPARISON: None FINDINGS: Alignment is normal. Vertebral body and disc heights are normal. No fracture. Disc bulges with mild c entral canal stenosis at C5-C6 and C6-C7. Multilevel mild cervical facet and uncovertebral osteoarthr itis. There is mild neural foraminal stenosis on the right at C3-C4 and on the left at C4-C5 through C6-C7. 9 mm right thyroid nodule. Cervical soft tissues are unremarkable. Visualized apices of lungs are clear. IMPRESSION: 1. Mild cervical spondylosis. No acute osseous abnormality. 2. Likely benign 9 mm right thyroid nodule. Reviewed, dictated and finalized at location A. LE STITCH OPERATOR
--- NOTE | ~2024-02-28 | XR_ITS ---
EXAMINATION: XR chest 1V portable DATE: 02/28/2024 10:35 INDICATION: Found down TECHNIQUE: frontal view of the chest was obtained. COMPARISON: Chest radiograph dated 03/10/2023 FINDINGS: The lungs remain clear with no focal airspace opacities, pulmonary edema, pleural effusion or pneumot horax. The cardiomediastinal silhouette is normal. Visualized bones and soft tissues are unremarkable . IMPRESSION: 1. No acute cardiopulmonary disease. Reviewed, dictated and finalized at location A. MARKER INSTALLER
--- NOTE | ~2024-02-28 | CT_ITS ---
CT brain wo con Ordering provider: Nick Ibarra APRN History: 29 years Female with . NEW ONSET SEIZURE . Comparison: None. Technique: CT of the head without contrast. Radiation reduction technique utilized. The dose-length product was 605.33 mGy-cm. FINDINGS: BRAIN PARENCHYMA AND CSF SPACES: No midline shift, mass effect or hemorrhage. The brain parenchyma a nd CSF spaces are otherwise normal. VISUALIZED PARANASAL SINUSES: Bilateral maxillary sinus disease. Bilateral ethmoid sinus disease. MASTOIDS: Well aerated. BONES: The bones appear intact. SOFT TISSUES: Visualized nasopharynx is normal. Superficial soft tissues are normal. IMPRESSION: No acute intracranial findings. Reviewed, dictated and finalized at location A. Y ASSOCIATE
--- NOTE | 2024-02-28 09:34 | ECG_ITS ---
Test Date: 2024-02-28 09:38:19 Measurements Intervals [place] Rate: 113 P: 37 NE: 136 QRS: 102 QRSD: 94 T: 7 QT: 327 QTc: 449 Interpretive Statements SINUS TACHYCARDIA RIGHT AXIS DEVIATION [QRS AXIS > 100] No previous ECG available for comparison Electronically Signed On 02-28-2024 12:06:00 AIR BRAKE MECHANIC by Aguilar Hinton M.D.
[2024-02-28] MEDS: levETIRAcetam 1000MG/NACL100ML 1,000 MG/100 ML BAG 400 MG IVPB (09:54)
--- NOTE | 2024-02-28 10:00 | PC.NURSE ---
1mg IV push of Ativan given for active seizure activity.
--- NOTE | 2024-02-28 10:10 | ED.SEIZURE ---
HPI - Seizure General Chief Complaint: Seizure Stated Complaint: seizure Time Seen by Provider: 02/28/24 09:39 History of Present Illness HPI Narrative: 29 y/o female presents via ems after the patient was found down at work having seizure like activity. patient has no hx of seizures. 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 patient is post-itcal at this time but does open eyes and follow some commands. patient is non-verbal at this time. patient arrived in c-collar. Onset (ago): hour(s) Witnessed: Yes - by Bystander Seizure History: No Place: work Treatments prior to arrival: cervical collar Related Data Home Medications ?Medication ?Instructions ?Recorded ?Confirmed ?Last Taken ?Type hydroxyzine HCl 25 mg tablet mg 02/28/24 Unknown History Allergies Allergy/AdvReac Type Severity Reaction Status Date / Time No Known Allergies Allergy Verified 01/28/24 06:24 Review of Systems Review of Systems: All systems reviewed & are unremarkable except as noted in HPI and below Neurologic: Comments: seizure [facility] Past Medical History Medical History (Updated 02/28/24 @ 11:55 by Nick Ibarra APRN) History of anxiety Social History Social History (Updated 10/07/23 @ 19:02 by Merly Qiu PA-C) Substance use: never Exam Const: General: healthy appearing Orientation/consciousness: confusion Limitations: altered mental status HENMT: Head: normal to inspection Eyes: Conjunctivae: conjunctivae normal Other: pupils is equal and reactive. patient has EOM Neck: Neck: normal visual inspection Chest: Chest palpation & inspection: normal inspection of the chest Resp: Effort & Inspection: normal respiratory effort Cardio: Rate: tachycardic Rhythm: regular rhythm GI: GI Palp: Yes Soft to palpation Back/Spine/Pelvis: Back: no CVA tenderness Skin: General skin exam: normal color Neuro: General: moves all extremities and no focal motor deficits Speech: Abnormal speech present (patient attempts to answer questions but difficult to comprehend ) garbled Extrem: General: normal to inspection Psych: Appearance: grossly normal and well kempt Course Course Emergency Course: will work-up for new onset of seizure. ativan ordered for seizure activity. patient given loading dose of keppra. seizure precautions initiated Reevaluation(s) Reevaluation #1: called to the patient's bedside r/t having seizure like activity. 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 patient was post-itcal and hyperventilating upon arrival to the room. patient then held breath for approximately 30 seconds and then took a big breath. patient 1 mg of Ativan Date: 02/28/24 Time: 10:00 Date: 02/28/24 Time: 11:15 Reevaluation #3: patient is groggy but answering questions appropriately. patient is A&OX3. will admit the patient for new onset of seizures Consultations Consultation #1: Dr. Vasques with neurology. will admit the patient to hospitalist team Date: 02/28/24 Time: 11:05 Consultation #2: Dr. Sherman who accepted the patient to hospitalist team Date: 02/28/24 Time: 11:10 Vital Signs Vital signs: Vital Signs Temperature 37.3 C 02/28/24 09:21 Pulse Rate 117 H 02/28/24 09:21 Respiratory Rate 17 02/28/24 09:21 Blood Pressure 156/89 H 02/28/24 09:21 Pulse Oximetry 100 02/28/24 09:21 Oxygen Delivery Room Air 02/28/24 09:21 Temperature 37.3 C 02/28/24 09:21 Pulse Rate 105 H 02/28/24 11:11 Respiratory Rate 23 H 02/28/24 11:11 Blood Pressure 119/59 L 02/28/24 11:11 Pulse Oximetry 100 02/28/24 11:11 Oxygen Delivery Room Air 02/28/24 10:47 MDM - Seizure Medical Records Medical records narrative: ddx: substance abuse vs intracranial abnormalities vs electrolyte imbalance vs new onset of seizures Lab Data 02/28/24 10:08 02/28/24 10:08 Labs: Lab Results 02/28/24 02/28/24 02/28/24 Range/Units 10:08 10:09 10:14 WBC 7.5 (4.5-10.0) K/mm3 RBC 3.89 L (4.2-5.4) M/mm3 Hgb 11.9 L (12.0-15.0) g/dL Hct 35.7 L (37.0-47.0) % MCV 91.8 (80-100) fl MCH 30.6 (26-34) pg MCHC 33.3 (32-36) g/dl RDW 13.1 (11.5-14.5) % Plt Count 354 (150-375) k/mm3 MPV 9.2 (7.4-10.4) fl Immature Gran % (Auto) 0.3 (0-0.5) % Neut % (Auto) 74.9 H (45.5-73.1) % Lymph % (Auto) 18.2 L (18.3-44.2) % [place] % (Auto) 5.5 (2.6-8.5) % Eos % (Auto) 0.4 (0-4.4) % Baso % (Auto) 0.7 (0.2-1.2) % Lymph # (Auto) 1.37 (0.9-3.2) K/mm3 [place] # (Auto) 0.4 (0.1-0.6) K/mm3 Eos # (Auto) 0.0 (0-0.3) K/mm3 Baso # (Auto) 0.1 (0.0-0.1) K/mm3 Abs Immat Gran (auto) 0.02 (0.00-0.031) K/mm3 Absolute Neuts (auto) 5.6 (1.3-6.7) K/mm3 Absolute Nucleated RBC 0.000 (0.0-0.012) K/mm3 Nucleated RBC % 0.0 (0.0-0.2) % PT 14.9 H (11.1-14.7) Seconds INR 1.1 APTT 27.4 (22.3-36.8) Seconds Sodium 138 (137-145) mmol/L Potassium 3.5 (3.4-5.0) mmol/L Chloride 111 H (98-107) mmol/L Carbon Dioxide 19 L (22-30) mmol/L Anion Gap 8 (4-12) mmol/L BUN 9 (7-17) mg/dL Creatinine 0.60 L (0.7-1.0) mg/dL Estim Creat Clear Calc 106 ml/min Estimated GFR > 60 (59 - ) Glucose 130 H (65-110) mg/dL POC Capillary Glucose 127 H (65-105) mg/dl Calcium 8.7 (8.4-10.2) mg/dL Total Bilirubin 0.4 (0.2-1.3) mg/dL AST 23 (14-36) U/L ALT 20 (6-35) U/L Alkaline Phosphatase 46 (38-126) U/L Total Creatine Kinase 56 (30-135) U/L Troponin I < 0.012 (0.000-0.034) ng/mL Total Protein 7.0 (6.3-8.2) g/dL Albumin 4.1 (3.5-5.1) g/dL TSH (Reflex) 0.740 (0.465-4.68) uIU/mL Urine Color Yellow (Yellow) Urine Appearance Clear (Clear) Urine pH 5.5 (5.0-9.0) Ur Specific [place] 1.007 (1.001-1.035) Urine Protein Negative (Negative) mg/dL Urine Glucose (UA) Negative (Negative) mg/dL Urine Ketones Negative (Negative) mg/dL Ur Blood (Man) Negative (Negative) Urine Nitrate Negative (Negative) Urine Bilirubin Negative (Negative) Urine Urobilinogen 0.2 (<2.0) mg/dL Leukocyte Esterase Rfl Negative (Negative) SCOTT/UL Urine Opiates Screen Negative (Negative) Urine Methadone Screen Negative (Negative) Ur Barbiturates Screen Negative (Negative) Ur Phencyclidine Scrn Negative (Negative) Ur Amphetamine Screen Negative (Negative) U Benzodiazepines Scrn Negative (Negative) Urine Cocaine Screen Negative (Negative) U Cannabinoids Screen Positive A (Negative) Ethyl Alcohol < 10 (<10) mg/dL Influenza A (RT-PCR) Negative (Negative) Influenza B (RT-PCR) Negative (Negative) SARS-CoV-2 RNA (RT-PCR) Negative (Negative) Imaging Data Radiologist's impression: normal head CT and cervical ct Discharge Plan Discharge Clinical Impression: New onset seizure Patient Disposition: Acute Care Hospital Condition: Stable Patient Language: Azeri Prescriptions: No Action hydrocodone-acetaminophen 5-325 mg tablet 1 tablet PO Q6H PRN (Reason: pain) Qty: 10 0RF ondansetron 4 mg tablet,disintegrating 4 mg PO Q8H PRN (Reason: nausea and vomiting) Qty: 10 0RF amoxicillin-pot clavulanate 875-125 mg tablet 1 tablet PO Q12H 7 Days Qty: 14 0RF hydroxyzine HCl 25 mg tablet cyclobenzaprine 10 mg tablet 10 mg PO TID PRN (Reason: muscle spasm) Qty: 20 0RF naproxen [Naprosyn] 500 mg tablet 500 mg PO BID PRN (Reason: pain) Qty: 14 0RF sulfamethoxazole-trimethoprim [Bactrim DS] 800-160 mg tablet 1 tablet PO Q12H Qty: 14 0RF Follow-up/Referrals: UNKNOWN,DOCTOR [Primary Care Provider] - Time of Disposition: 11:55
[2024-02-28 10:17] LABS: Basophils Absolute Auto 0.1 K/mm3 (0.0-0.1); Basophils Percent Auto 0.7 % (0.2-1.2); Eosinophils Percent Auto 0.4 % (0-4.4); Hematocrit 35.7 % (37.0-47.0); Hemoglobin 11.9 g/dL (12.0-15.0); Immature Granulocyte Absolute 0.02 K/mm3 (0.00-0.031); Immature Granulocyte Percent A 0.3 % (0-0.5); Lymphocytes Absolute Auto 1.37 K/mm3 (0.9-3.2); Lymphocytes Percent Auto 18.2 % (18.3-44.2); Mean Corpuscular HGB Conc 33.3 g/dl (32-36); Mean Corpuscular Hemoglobin 30.6 pg (26-34); Mean Corpuscular Volume 91.8 fl (80-100); Mean Platelet Volume 9.2 fl (7.4-10.4); Monocytes Absolute Auto 0.4 K/mm3 (0.1-0.6); Monocytes Percent Auto 5.5 % (2.6-8.5); Neutrophils Absolute Auto 5.6 K/mm3 (1.3-6.7); Neutrophils Percent Auto 74.9 % (45.5-73.1); Platelet Count Result 354 k/mm3 (150-375); Red Blood Count 3.89 M/mm3 (4.2-5.4); Red Cell Distribution Width 13.1 % (11.5-14.5); White Blood Count 7.5 K/mm3 (4.5-10.0)
[2024-02-28 10:17] LABS: Glucose Point of Care 127 mg/dl (65-105)
[2024-02-28 10:20] LABS: Add Urine Microscopic? NO; Appearance Urine Clear (Clear); Bilirubin Urine Negative (Negative); Blood Urine Negative (Negative); Color Urine Yellow (Yellow); Glucose Urine UA Negative (Negative); Ketones Urine Negative (Negative); Leukocyte Esterase Ur Negative LEU/UL (Negative); Nitrate Urine Negative (Negative); Protein Urine Negative (Negative); Specific Grav Ur 1.007 (1.001-1.035); Urobilinogen Urine 0.2 mg/dL (<2.0); pH Urine 5.5 (5.0-9.0)
[2024-02-28] MEDS: LORazepam INJ (*CRX) 2 MG/ML VIAL 1 MG IV PUSH (10:26)
[2024-02-28 10:27] LABS: Alanine Aminotransferase 20 U/L (6-35); Albumin Level 4.1 g/dL (3.5-5.1); Alkaline Phosphatase 46 U/L (38-126); Anion Gap 8 mmol/L (4-12); Aspartate Amino Transferase 23 U/L (14-36); Bilirubin,Total 0.4 mg/dL (0.2-1.3); Blood Urea Nitrogen 9 mg/dL (7-17); Calcium 8.7 mg/dL (8.4-10.2); Carbon Dioxide 19 mmol/L (22-30); Chloride 111 mmol/L (98-107); Estimated CRCL calculation 106 ml/min; Estimated Glomerular Filt Rate > 60; Glucose 130 mg/dL (65-110); Potassium 3.5 mmol/L (3.4-5.0); Sodium 138 mmol/L (137-145)
[2024-02-28 10:28] LABS: Creatine Kinase 56 U/L (30-135)
[2024-02-28 10:32] LABS: Ethanol < 10 mg/dL (<10)
[2024-02-28 10:38] LABS: INR 1.1; Prothrombin Time 14.9 Seconds (11.1-14.7)
[2024-02-28 10:39] LABS: Partial Thromboplastin Time 27.4 Seconds (22.3-36.8); Troponin I < 0.012 ng/mL (0.000-0.034)
[2024-02-28 10:42] LABS: Amphetamine Screen Urine Negative (Negative); Barbiturate Screen Urine Negative (Negative); Benzodiazepines Screen Urine Negative (Negative); Cannabinoid Screen Urine Positive (Negative); Cocaine Screen Urine Negative (Negative); Methadone Screen Urine Negative (Negative); Opiate Screen Urine Negative (Negative); Phencyclidine Screen Urine Negative (Negative)
[2024-02-28 10:56] LABS: Influenza A QL RT-PCR Negative (Negative); Influenza B QL RT-PCR Negative (Negative); SARS-CoV-2 RNA PCR Negative (Negative)
[2024-02-28] MEDS: levETIRAcetam 500MG/NACL 100ML 500 MG/100 ML BAG 400 MG IVPB (11:20)
--- NOTE | 2024-02-28 12:23 | ADMGEN ---
This patient, Feli Garcia, was admitted to [facility] Surg Room 314-02. Patient/family oriented to hospital policies and general routines including ID bracelet, bed and alarms, visiting hours, pain management, procedures, bathroom and other care routines, personal items, smoking policy, room service/diet, and visiting hours. Information on how to activate the Rapid Response Team has been discussed. Patient/Family are encouraged to report perceived risks to care and to ask questions if they do not understand what they are told or what they should do.
--- NOTE | 2024-02-28 12:54 | P.HP_ITS ---
H&P: HPI History of Present Illness Date/Time: 02/28/24 12:55 Chief Complaint: Possible seizure. Narrative: This is a 29-year-old female with anxiety who presented to the emergency department via EMS from her place of work for evaluation of seizure-like activity. The patient provides the following history. 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 As she was leaving a residence room she began to feel strange and she was told that she ?blacked out or had a seizure.? EMS was summoned and she was reportedly postictal on arrival. She denies prior history of seizures. She has a lot of stress and does not sleep well, may be 3 hours at night. She has been surviving on a lot of caffeine to get through her shifts though has cut back qu ite heavily. She has been taking [id number] cold and flu medication the last few days but denies other supplements. She smokes marijuana flower but does not use hard drugs and she denies significant alcohol intake. She denies fever, headache, vertigo, diplopia, focal weakness, paresthesias, tongue bite, and chest pain. In the ED: Vital signs were stable on arrival. Labs were significant for a WBC count of 7.5, hemoglobin 11.9, chloride 111, carbon dioxide 19, anion gap 8, total CK 56, glucose 130. Urine drug screen was positive for cannabinoids. CT of the brain and cervical spine were without acute findings and chest x-ray was unremarkable. She had 2 other episodes of tonic clonic seizure-like activity while in the ED for which she was given a 1500 mg loading dose of levetiracetam. She is being admitted in this setting for monitoring, further workup, and neurology consult. Review of Systems Review of Systems: 12 systems were reviewed and are negativ e except for as per HPI. [facility] Past Medical History Medical History Right thyroid nodule 9 mm right thyroid nodule noted on CT scan February 2024, likely benign Diverticulitis Anxiety Surgical History Surgical History (Updated 02/28/24 @ 20:30 by Denise Cui PA-C) History of open reduction and internal fixation (ORIF) procedure repair right 5th finger fracture History of microdiscectomy (2019) L4-L5 Social History Social History Social History: Surrogate medical decision maker: Lynda Garcia. Code status: Full code. Smoking status: Current every day smoker Tobacco type: e-cigarettes/vaping Alcohol intake: never Substance use: never Substance use type: does not use Do You Feel Safe in your Home?: Yes Lack of Transportation: No Lack of Food: Never True Current Housing: I Have Housing Concerned About Future Housing: No Difficulty Paying Gas/Electric Bills: No Difficulty Paying for Meds: No Currently Unemployed: No Education: Don't Know Difficulty w/ Childcare or Family Care: No Spiritual care concerns: No Meds Home Medications and Allergies Home Medications ?Medication ?Instructions ?Recorded ?Confirmed ?Type hydroxyzine HCl 25 mg tablet 25 mg PO PRN anxiety 02/28/24 History Allergies Allergy/AdvReac Type Severity Reaction Status Date / Time No Known Allergies Allergy Verified 02/28/24 12:27 Vital Signs Vital Signs - 24 hr 02/28/24 09:21 02/28/24 10:47 02/28/24 10:47 Temperature 99.2 F Pulse Rate 117 H 85 Respiratory Rate 17 Blood Pressure 156/89 H Pulse Oximetry 100 100 Oxygen Delivery Room Air Room Air 02/28/24 10:47 02/28/24 10:51 02/28/24 11:11 Temperature Pulse Rate 90 105 H Respiratory Rate 18 23 H Blood Pressure 118/80 119/59 L Pulse Oximetry 100 100 100 Oxygen Delivery Room Air 02/28/24 12:00 Temperature 97.9 F Pulse Rate 92 Respiratory Rate 18 Blood Pressure 117/79 Pulse Oximetry 98 Oxygen Delivery Exam Narrative: General: Well-developed, nontoxic-appearing female sitting up in bed. Weight: 72.7 kg. BMI: 26.7. HEENT: PERRL, EOMI. Sclera anicteric. Tacky mucous membranes. Neck: Supple. No midline vertebral tenderness. Respiratory: Lungs are clear to auscultation bilaterally. Cardiovascular: Regular rate and rhythm with S1-S2. Gastrointestinal: Abdomen is soft, nontender, and nondistended with positive bowel sounds. Skin: Warm and dry. No rash or lesions on limited exam. Extremities: No cyanosis, clubbing, or edema. Radial and pedal pulses intact. Neurological: Alert. Cranial nerves 2-12 are grossly intact. No gross focal deficits to casual conversation. Psychiatric: Cooperative with appropriate mood and flat affect. H&P: Results Labs Labs: Short CBC 02/28/24 Range/Units 10:08 WBC 7.5 (4.5-10.0) K/mm3 Hgb 11.9 L (12.0-15.0) g/dL Hct 35.7 L (37.0-47.0) % Plt Count 354 (150-375) k/mm3 BMP 02/28/24 10:08 Sodium 138 Potassium 3.5 Chloride 111 H Carbon Dioxide 19 L BUN 9 Creatinine 0.60 L Glucose 130 H Calcium 8.7 Cardiac Enzymes 02/28/24 Range/Units 10:08 Total Creatine Kinase 56 (30-135) U/L Troponin I < 0.012 (0.000-0.034) ng/mL Liver Function 02/28/24 Range/Units 10:08 Total Bilirubin 0.4 (0.2-1.3) mg/dL AST 23 (14-36) U/L ALT 20 (6-35) U/L Alkaline Phosphatase 46 (38-126) U/L Albumin 4.1 (3.5-5.1) g/dL Urine 02/28/24 Range/Units 10:09 Urine Color Yellow (Yellow) Urine Appearance Clear (Clear) Urine pH 5.5 (5.0-9.0) Ur Specific [place] 1.007 (1.001-1.035) Urine Protein Negative (Negative) mg/dL Urine Glucose (UA) Negative (Negative) mg/dL Imaging Head CT 02/28/24 10:36 IMPRESSION: 1. No acute intracranial findings. Chest X-Ray 02/28/24 10:42 IMPRESSION: 1. No acute cardiopulmonary disease. Cervical Spine CT 02/28/24 10:44 IMPRESSION: 1. Mild cervical spondylosis. No acute osseous abnormality. 2. Likely benign 9 mm right thyroid nodule. Assessment and Plan Assessment and plan (1) Seizure-like activity: Code(s): R56.9 - Unspecified convulsions Status: Acute (2) Right thyroid nodule: Code(s): E04.1 - Nontoxic single thyroid nodule Status: Acute Plan The patient presented to the emergency department for evaluation of seizure-like activity and to witnessed tonic clonic seizures in the ED as detailed in HPI. Labs, imaging, EKG, and all reports were personally reviewed. At this time she is being admitted to the medical floor for close monitoring and neurology consultation. Initiate seizure precautions. Brain MRI and EEG have been ordered. Vital signs were reviewed and they are stable. Small right thyroid nodule is likely benign according to the radiologist and can be monitored as an outpatient. Her home medications will be reviewed and resumed as appropriate. Findings and treatment plan were discussed with the patient. Questions were solicited and answered to satisfaction. The patient's medical management will be taken over by the hospitalist team in a.m. Quality VTE Prophylaxis VTE prophylaxis: mechanical ordered If No VTE Prophylaxis Answer both mechanical and pharmacologic: Reason no pharmacologic proph: low risk/not indicated The patient has been admitted under observation status. Hospitalist MIPS Advance Care Plan I have confirmed that the patient's Advanced Care Plan is present, code status is documented, or surrogate decision maker is listed in patient medical record.: Yes Medication Reconciliation I have utilized all available resources to obtain, update and review the patients current medications (includes all prescriptions, OTC, herbals, cannabis, and nutritional supplements).: Yes
--- NOTE | 2024-02-28 18:05 | P.CONNEU_ITS ---
Assessment and Plan Assessment and plan (1) New onset seizure: Code(s): R56.9 - Unspecified convulsions Status: Acute (2) Right thyroid nodule: Code(s): E04.1 - Nontoxic single thyroid nodule Status: Acute Plan The initial evaluation reveals the CBC chemistry profile and CT scan of brain did not show any significant abnormalities. An MRI of the brain with and without contrast and EEG are recommended. Seizure precautions are to maintain. Since the patient has had 2 seizures including the 1 after arrival I would suggest to give her Keppra 1500 mg followed by 750 mg twice a day. Her urine toxicology was positive for cannabis but no other chemicals were found. We should continue to observe her and further management depending upon her progress and findings. Consult date: 02/28/24 HPI: Feli Garcia is a 29 year old female Or present to the emergency room after having had a seizure at work. She has had a 2nd seizure while taken to the CT scan room. She apparently had complete loss of consciousness and jerking of the body. She might have had incontinence of urine but no tongue biting. Urine toxicology was positive for cannabis. The patient is talking slowly and whispering. Her mother and stepfather were present the time when I saw her in the emergency room. No other injuries identified. She has not had any febrile illness or head trauma. There is no history of childhood seizures. She has occasional headache. Otherwise a fairly healthy individual and lives with her own father is working. She denies any other symptoms at this time. Review of Systems 2 Review of Systems: Patient denies any other symptoms however she appears to be somewhat drowsy and not very reliable in terms of symptoms. Her mother PMFSH Past Medical History Medical History Right thyroid nodule 9 mm right thyroid nodule noted on CT scan February 2024, likely benign Diverticulitis Anxiety Social History Social History Social History: Surrogate medical decision maker: Lynda Radha. Code status: Full code. Smoking status: Current every day smoker Tobacco type: e-cigarettes/vaping Alcohol intake: never Substance use: never Substance use type: does not use Do You Feel Safe in your Home?: Yes Lack of Transportation: No Lack of Food: Never True Current Housing: I Have Housing Concerned About Future Housing: No Difficulty Paying Gas/Electric Bills: No Difficulty Paying for Meds: No Currently Unemployed: No Education: Don't Know Difficulty w/ Childcare or Family Care: No Spiritual care concerns: No Meds Home Medications and Allergies Home Medications ?Medication ?Instructions ?Recorded ?Confirmed ?Type hydroxyzine HCl 25 mg tablet 25 mg PO PRN anxiety 02/28/24 History Allergies Allergy/AdvReac Type Severity Reaction Status Date / Time No Known Allergies Allergy Verified 02/28/24 12:27 Vital Signs Vital Signs - 24 hr 02/28/24 09:21 02/28/24 10:47 02/28/24 10:47 Temperature 99.2 F Pulse Rate 117 H 85 Respiratory Rate 17 Blood Pressure 156/89 H Pulse Oximetry 100 100 Oxygen Delivery Room Air Room Air 02/28/24 10:47 02/28/24 10:51 02/28/24 11:11 Temperature Pulse Rate 90 105 H Respiratory Rate 18 23 H Blood Pressure 118/80 119/59 L Pulse Oximetry 100 100 100 Oxygen Delivery Room Air 02/28/24 12:00 02/28/24 14:00 02/28/24 16:00 Temperature 97.9 F 97.9 F 97.9 F Pulse Rate 92 93 86 Respiratory Rate 18 18 18 Blood Pressure 117/79 142/90 H 132/83 Pulse Oximetry 98 99 100 Oxygen Delivery Exam 2 Const: General: cooperative, well developed and alert O rientation/consciousness: patient oriented x3 HENMT: Head: atraumatic Mouth: Yes oropharynx normal Eyes: Alignment and Position: position normal Pupils: Equal, round and reactive pupils present EOM: EOMs intact bilaterally Neck: Neck: supple Resp: Effort & Inspection: normal respiratory effort Neuro: General: patient oriented x3 Cranial nerves: Yes CN's II-XII intact bilaterally, Yes facial sensation intact/muscles of mastication intact, Yes Equal, round and reactive pupils present, Yes facial symmetry and Yes Midline tongue present Motor exam (neuro): 5/5 motor strength present throughout S ensory Exam: normal sensation Coordination: [id number] test normal and Normal rapid alternating movements of the distal upper extremity present (Neuro) Other: the patient speaks slowly however no aphasia or dysarthria. She appears appropriate. Results Labs 02/28/24 10:08 02/28/24 10:08 Labs: Short CBC 02/28/24 Range/Units 10:08 WBC 7.5 (4.5-10.0) K/mm3 Hgb 11.9 L (12.0-15.0) g/dL Hct 35.7 L (37.0-47.0) % Plt Count 354 (150-375) k/mm3 BMP 02/28/24 10:08 Sodium 138 Potassium 3.5 Chloride 111 H Carbon Dioxide 19 L BUN 9 Creatinine 0.60 L Glucose 130 H Calcium 8.7 Cardiac Enzymes 02/28/24 Range/Units 10:08 Total Creatine Kinase 56 (30-135) U/L Troponin I < 0.012 (0.000-0.034) ng/mL Liver Function 02/28/24 Range/Units 10:08 Total Bilirubin 0.4 (0.2-1.3) mg/dL AST 23 (14-36) U/L ALT 20 (6-35) U/L Alkaline Phosphatase 46 (38-126) U/L Albumin 4.1 (3.5-5.1) g/dL Urine 02/28/24 Range/Units 10:09 Urine Color Yellow (Yellow) Urine Appearance Clear (Clear) Urine pH 5.5 (5.0-9.0) Ur Specific [place] 1.007 (1.001-1.035) Urine Protein Negative (Negative) mg/dL Urine Glucose (UA) Negative (Negative) mg/dL
[2024-02-29] VITALS (7 sets, daily range): BP systolic 109–128; BP diastolic 61–75; PULSE 59–76; RESP 16–20; TEMP 36–36.8; O2SAT 98–100; BMI 27.3
[2024-02-29 06:02] LABS: Hematocrit 34.6 % (37.0-47.0); Hemoglobin 11.4 g/dL (12.0-15.0); Mean Corpuscular HGB Conc 32.9 g/dl (32-36); Mean Corpuscular Hemoglobin 30.8 pg (26-34); Mean Corpuscular Volume 93.5 fl (80-100); Mean Platelet Volume 9.3 fl (7.4-10.4); Platelet Count Result 318 k/mm3 (150-375); Red Cell Distribution Width 13.1 % (11.5-14.5); White Blood Count 6.2 K/mm3 (4.5-10.0)
[2024-02-29 06:21] LABS: Anion Gap 3 mmol/L (4-12); Blood Urea Nitrogen 11 mg/dL (7-17); Calcium 8.5 mg/dL (8.4-10.2); Carbon Dioxide 23 mmol/L (22-30); Chloride 111 mmol/L (98-107); Creatine Kinase 49 U/L (30-135); Estimated CRCL calculation 92 ml/min; Estimated Glomerular Filt Rate > 60; Glucose 83 mg/dL (65-110); Magnesium 1.9 mg/dL (1.6-2.3); Potassium 4.1 mmol/L (3.4-5.0); Sodium 137 mmol/L (137-145)
[2024-02-29] MEDS: ACETAMINOPHEN 325 MG TABLET 650 MG PO (08:55)
--- NOTE | 2024-02-29 11:54 | P.PNIM_ITS ---
Progress Note: A&P Assessment and Plan (1) Seizure-like activity: Code(s): R56.9 - Unspecified convulsions Status: Acute Assessment and Plan: * Reported seizure-like activity, with no history of seizures * Head CT was negative * CT of the cervical spine showed a right thyroid nodule which is likely benign, no osseous abnormalities * She was given a dose of Ativan and Levaquin 1500 mg while in the ED * Neurology was consulted * Continue neuro checks * We can DC telemetry * Continue with Ativan p.r.n. * Continue Levaquin 750 mg b.i.d. * EEG is pending * Continue seizure precautions * Urine drug screen was positive for cannabinoids (2) Right thyroid nodule: Code(s): E04.1 - Nontoxic single thyroid nodule Status: Acute Assessment and Plan: * CT of the cervical spine shown a right thyroid nodule measuring 9 mm * (3) Anxiety: Code(s): F41.9 - Anxiety disorder, unspecified Status: Acute Assessment and Plan: * Will hold Atarax for now considering she is on Ativan as needed for seizure activity Time Spent With Patient Time with patient: 25 - 35 minutes Subjective Date/time seen: 02/29/24 11:54 Interval history: Interval history: This is a 29-year-old female with a past medical history of anxiety who presented to the hospital with seizure-like activity on 02/28/2024. Workup in the hospital included a head CT which was negative for any acute intracranial findings. A chest x-ray which was negative for any acute cardiopulmonary disease. Cervical spine CT showed mild cervical spondylosis, no acute osseous abnormality, likely benign 9 mm right thyroid nodule. Brain MRI showed a normal brain with sinus disease. Initial labs showed a normal white blood cell count of 7.5, hemoglobin 11.9, chloride 111, bicarb 19, creatinine 0.60, troponin negative, TSH 0.740. UA was obtained and was negative. Urine tox screen was positive for cannabinoids. Respiratory panel was negative for influenza a and B, COVID. EKG showed sinus tachycardia with a rate of 113, QTC 449. Patient was given a dose of Ativan and 1500 mg of Keppra while in the ED. Neurology was consulted and she was started on Keppra. Subjective: Patient denies any new complaints today. She wants to be discharged. Patient endorses. Labs and imaging reviewed. Review of Systems Review of Systems: All systems reviewed & are unremarkable except as noted in HPI and below Constitutional: Constitutional: Reports as per HPI and Reports no additional constitutional complaints Eyes: Eyes: Reports as per HPI and Reports no additional eye complaints ENT: Reports system reviewed and no additional complaints, except as documented and Reports as per HPI Cardiovascular: Cardiovascular: Reports as per HPI and Reports no additional cardiovascular complaints Respiratory: Respiratory: Reports as per HPI and Reports no additional respiratory complaints Gastrointestinal: Gastrointestinal: Reports as per HPI and Reports no additional gastrointestinal complaints Genitourinary: Genitourinary: Reports no additional female genitourinary complaints and Reports as per HPI Musculoskeletal: Musculoskeletal: Reports no additional musculoskeletal complaints and Reports as per HPI Integumentary/Breasts: Skin/Breast: Reports system reviewed and no additional complaints, except as docu and Reports as per HPI Neurologic: Reports system reviewed and no additional complaints, except as documented and Reports as per HPI Psychiatric: Psychiatric: Reports no additional psychiatric complaints and Reports as per HPI Exam Narrative: General: In no acute distress, well nourished Head: atraumatic, no encephalopathy Eyes: EOMI, PERRLA, sclera clear ENT: moist mucous membranes, nasal passages clear Neck: supple, no JVD, no adenopathy, trachea midline Cardiac: Normal S1 and S2. No murmur, gallops or friction rubs, peripheral puls es intact. Respiratory: Lungs clear to auscultation, no adventitious lung sounds Gastrointestinal: soft, non-distended, non-tender, normoactive bowel sounds. : voiding without difficulty. Extremities: moves all extremities well, no edema, good ROM, strength 5/5 Skin: clean, dry, intact. No wounds or lesions. Neuro: Alert and oriented x4, cranial nerves intact, no neuro deficits. Psych: normal mood, normal affect, interactive Objective Data Vital Signs Vital Signs: Vital Signs - 24 hr 02/28/24 12:00 02/28/24 14:00 02/28/24 16:00 Temperature 97.9 F 97.9 F 97.9 F Pulse Rate 92 93 86 Respiratory Rate 18 18 18 Blood Pressure 117/79 142/90 H 132/83 Pulse Oximetry 98 99 100 Oxygen Delivery 02/28/24 18:21 02/28/24 20:00 02/28/24 20:00 Temperature 97.5 F L Pulse Rate 83 Respiratory Rate 18 Blood Pressure 123/79 Pulse Oximetry 99 Oxygen Delivery Room Air Room Air 02/28/24 20:00 02/28/24 23:49 02/29/24 00:00 Temperature 97.4 F L Pulse Rate 88 57 L 68 Respiratory Rate 20 Blood Pressure 109/67 Pulse Oximetry 99 Oxygen Delivery 02/29/24 04:00 02/29/24 04:00 02/29/24 06:31 Temperature 96.8 F L 96.8 F L Pulse Rate 64 64 64 Respiratory Rate 18 18 Blood Pressure 109/61 109/61 Pulse Oximetry 98 98 Oxygen Delivery 02/29/24 07:40 02/29/24 08:00 Temperature 97.8 F Pulse Rate 60 76 Respiratory Rate 16 Blood Pressure 128/75 Pulse Oximetry 100 Oxygen Delivery Intake/Output Intake/Output: Intake & Output 02/26/24 02/27/24 02/28/24 02/29/24 23:59 23:59 23:59 23:59 Intake Total 440 480 Balance 440 480 Meds/Results Medications: Active Medications Generic Name Dose Route Start Last Admin Trade Name Freq PRN Reason Stop Dose Admin Acetaminophen 650 mg 02/28/24 13:20 02/29/24 08:55 Acetaminophen 325 Mg Tablet PO 650 mg Q6H PRN Administration Mild Pain (1-3) or Fever Lorazepam 2 mg 02/28/24 13:20 Lorazepam Inj (*Crx) 2 Mg/Ml Vial IV PUSH Q2H PRN Seizure Activity Radiology Results: ITS Impressions Head CT 02/28/24 10:36 IMPRESSION: No acute intracranial findings. Chest X-Ray 02/28/24 10:42 IMPRESSION: 1. No acute cardiopulmonary disease. Cervical Spine CT 02/28/24 10:44 IMPRESSION: 1. Mild cervical spondylosis. No acute osseous abnormality. 2. Likely benign 9 mm right thyroid nodule. Brain MRI 02/29/24 09:09 IMPRESSION: 1. Normal brain. 2. Sinus disease. Labs Labs: Laboratory Results - last 24 hr 02/29/24 05:39 WBC 6.2 RBC 3.70 L Hgb 11.4 L Hct 34.6 L MCV 93.5 MCH 30.8 MCHC 32.9 RDW 13.1 Plt Count 318 MPV 9.3 Sodium 137 Potassium 4.1 Chloride 111 H Carbon Dioxide 23 Anion Gap 3 L BUN 11 Creatinine 0.70 Estim Creat Clear Calc 92 Estimated GFR > 60 Glucose 83 Calcium 8.5 Magnesium 1.9 Total Creatine Kinase 49 Quality VTE Prophylaxis VTE prophylaxis: mechanical ordered
[2024-02-29] MEDS: levETIRAcetam Tablet 250 MG, levETIRAcetam Tablet 500 MG 750 MG PO (12:25)
--- NOTE | 2024-02-29 12:56 | WPDNEUROLOGY ---
Neurology EEG Report General Information Date of Study: 02/29/24 TEST Eeg. DIAGNOSIS New onset seizures. CONDITION OF RECORDING Awake, drowsy and asleep. EEG NUMBER [id number] CLINICAL HISTORY Patient reported,she was at work yesterday when she lost consciousness and was told she had a seizure. She gave no history of previous seizure disorder. EEG DESCRIPTION Basic resting occipital frequency consists of well-organized voltage 11 to 13 hertz per 2nd alpha activity admixed with low-voltage 15 to 18 hertz per 2nd beta activity. Alpha activity is symmetrical blocked with eyes opening. Good anteroposterior gradient is noted. Low-voltage beta activity is seen admixed with waxing and waning intermittent theta activity during drowsiness evolving into bilateral mixture of beta, theta, and alpha activity. Bilateral symmetrical sleep spindles are noted during sleep . Hyperventilation not done photic stimulation not done. Non paroxysmal. Nonfocal. Nonlateralizing. IMPRESSION Normal record ,which does not rule out the possibility of seizure ,clinical correlation recommended .
--- NOTE | 2024-02-29 16:40 | P.DS_ITS ---
DS: Admitting Diagnosis Discharge Date 02/29/24 Admitting Diagnosis Seizure like activity Right thyroid nodule DS: Summary Hospital Course Reason for hospitalization: Seizure like activity Right thyroid nodule Hospital Course: This is a 29-year-old female with a past medical history of anxiety who presented to the hospital with seizure-like activity on 02/28/2024. Workup in the hospital included a head CT which was negative for any acute intracranial findings. A chest x-ray which was negative for any acute cardiopulmonary disease. Cervical spine CT showed mild cervical spondylosis, no acute osseous abnormality, likely benign 9 mm right thyroid nodule. Brain MRI showed a normal brain with sinus disease. Initial labs showed a normal white blood cell count of 7.5, hemoglobin 11.9, chloride 111, bicarb 19, creatinine 0.60, troponin negative, TSH 0.740. UA was obtained and was negative. Urine tox screen was positive for cannabinoids. Respiratory panel was negative for influenza a and B, COVID. EKG showed sinus tachycardia with a rate of 113, QTC 449. Patient was given a dose of Ativan and 1500 mg of Keppra while in the ED. Neurology was consulted and she was started on Keppra. EEG was essentially normal. She denies any new complaints today. She has been seizure free ever since she has been on the Keppra. She is wanting to be discharged. VSS, she is afebrile, she is currently on room air. She is stable for discharge at this time and will have to follow up with Neurology in 1 month. No driving for 6 months. She was noted to have a thyroid nodule that will need further work up on an outpatient basis. This was an incidental finding. Final diagnosis: seizure, right thyroid nodule Status at Discharge Cognitive/behavioral status at discharge: alert and oriented x3 Functional status at discharge: independent ambulation Overall status at discharge: patient is progressing back to baseline Time Spent with Patient Time attestation: Total time spent providing and/or coordinating discharge services: Time spent: Greater than 30 minutes Exam Narrative: General: In no acute distress, well nourished Head: atraumatic, no encephalopathy Eyes: EOMI, PERRLA, sclera clear ENT: moist mucous membranes, nasal passages clear Neck: supple, no JVD, no adenopathy, trachea midline Cardiac: Normal S1 and S2. No murmur, gallops or friction rubs, peripheral pulses intact. Respiratory: Lungs clear to auscultation, no adventitious lung sounds, currently on room air Gastrointestinal: soft, non-distended, non-tender, normoactive bowel sounds. : voiding without difficulty. Extremities: moves all extremities well, no edema, good ROM, strength 5/5 Skin: clean, dry, intact. No wounds or lesions. Neuro: Alert and oriented x4, cranial nerves intact, no neuro deficits. Psych: normal mood, normal affect, interactive DS: Data Data Completed and Pending Completed studies during hospitalization: Brain MRI Cervical spine CT Chest x-ray Pending studies at discharge: None Labs on day of discharge: Labs from last 24 hours 02/29/24 05:39 WBC 6.2 RBC 3.70 L Hgb 11.4 L Hct 34.6 L MCV 93.5 MCH 30.8 MCHC 32.9 RDW 13.1 Plt Count 318 MPV 9.3 Sodium 137 Potassium 4.1 Chloride 111 H Carbon Dioxide 23 Anion Gap 3 L BUN 11 Creatinine 0.70 Estim Creat Clear Calc 92 Estimated GFR > 60 Glucose 83 Calcium 8.5 Magnesium 1.9 Total Creatine Kinase 49 Procedures/Treatments: None Discharge Plan Discharge Attending physician on discharge: Benji Tan Consulting providers: Stef Vasques Discharging Clinician: Marie Smith Anticipated Discharge Date/Time: 02/29/24 16:36 Patient Disposition: Home, Self-Care Activity: as tolerated Diet: as tolerated Discharge Instructions: * Keep taking Keppra 750mg BID * No driving for 6 months * Follow up with Neurology in 1 month * You were noted to have a thyroid nodule on your Cervical spine CT. This is likely benign but you will need to see your primary care doctor in 1 week to send you for biopsy of this nodule. A requisite will be provided for the US guided biopsy of the thyroid nodule. Patient Instructions: Antibiotic Form Patient Language: Palauan Stand Alone Forms: General Discharge Information Follow-up/Referrals: Stef Vasques MD [Physician] - 4 Weeks Discharge Medications: New levetiracetam 750 mg Tablet 750 mg PO Q12HR Qty: 60 0RF Continued hydroxyzine HCl 25 mg tablet 25 mg PO Q8H PRN (Reason: anxiety) Other Ambulatory Orders: US biopsy thyroid (Routine) Timeframe: 1 Week Location: Determined by Patient Ordered By: Marie Smith Date of admission: 02/28/24 11:11 Primary Care Provider: UNKNOWN,DOCTOR Admitting Provider: Benji Tan Attending physician on admission: Marie Smith Condition: Improved
--- OUTSIDE RECORDS SUMMARY | 2024-03-06 11:04 | XMS_ITS | Encounter Summary ---
Author Organization [facility] Address [address] [place] [address]. [place], [place] [id number] [place] [id number] Care Team Providers Care Meal Miller Name Role Phone Jamila Reyes [facility] Primary Care Provider + Encounter Details Date Type Department Care Team (Latest Contact Info) Description 02/17/2023 Travel Social History Tobacco Use Types Packs/Day Years Used Date Smoking Tobacco: Former Cigarettes 1 2 1 04/27/2020 - 05/29/2022 Smokeless Tobacco: Never Alcohol Use Standard Drinks/Week Comments Yes 0 (1 standard drink = 0.6 oz pur e alcohol) rarely AUDIT-C Answer Date Recorded Frequency of Alcohol Consumption Never 09/30/2018 Average Number of Drinks Not on file 019 Frequency of Binge Drinking Not on file 09/12 PHQ-2 Answer Date Recorded Patient Health Questionnaire-2 Score 0 07/31/2022 Education Answer Date Recorded What is the highest level of school you have completed or the highest degree you have received? High school graduate 09/30/2018 Comments No Sex and Gender Information Value Date Recorded Sex Assigned at Female 11/02/2018 8:50 AM CDT Legal Sex Female 8:23 PM CDT Gender Identity Female 11/02/2018 8:50 AM CDT Sexual Orientation Not on file documented as of this encounter Plan of Treatment Not on file documented as of this encounter Visit Diagnoses Not on filedocumented in this encounter Additional Health Concerns Assessment Noted Time PHQ-9 Depression Total Score: 27 023 3:27 PM RECYCLING COORDINATOR documented as of this encounter Care Teams Meal Miller Relationship Specialty Start Date End Date Jamila Reyes, [facility]- [id number], [address] [place] [address] PCP - General Nurse Practitioner Family 01/01/2305/13 documented as of this encounter
--- OUTSIDE RECORDS SUMMARY | 2024-03-06 11:04 | XMS_ITS | Encounter Summary ---
Author Organization [facility] Address [address] [place] [address]. [place] [id number] [place] [id number] Care Team Providers Care Life Skills Consultant Name Role Phone Jamila Reyes [facility] Primary Care Provider + Reason for Visit * Reason Comments Follow Up Er visit left lower back Encounter Details Date Type Department Care Team (Late st Contact Info) Description 02/12/2023 4:20 PM CHILLER TECHNICIAN Office Visit [facility] [id number] [place] [phone] Jamila Reyes, [facility] [id number] [place] [id number] Follow Up (Er visit left lower back) Social History Tobacco Use Types Packs/Day Years Used Date Smoking Tobacco: Former Cigarettes 1 2 1 04/27/2020 - 05/29/2022 Smokeless Tobacco: Never Tobacco Cessation:Counseling Given: No Alcohol Use Standard Drinks/Week Comments Yes 0 [...] on file documented as of this encounter Last Filed Vital Signs Vital Sign Reading Time Taken Comments Blood Pressure 122/81 02/12/2023 4:19 PM CHILLER TECHNICIAN Pulse 68 02/12/2023 4:19 PM CHILLER TECHNICIAN Temperature 36.9 ??C (98.4 ??F) 02/12/2023 4:19 PM CS T Respiratory Rate 16 02/12/2023 4:19 PM CHILLER TECHNICIAN Oxygen Saturation 100% 02/12/2023 4:19 PM CHILLER TECHNICIAN Inhaled Oxygen Concentration - - Weight 82.6 kg (182 lb) 02/12/2023 4:19 PM CHILLER TECHNICIAN Height 167.6 cm (5' 6 ) 02/12/2023 4:19 PM CHILLER TECHNICIAN Body Mass Index 29.38 02/12/2023 4:19 PM CHILLER TECHNICIAN documented in this encounter Patient Instructions * Patient Instructions* Jamila Reyes, PHOTO MASK INSPECTOR-BC - 02/12/2023 4:20 PM CHILLER TECHNICIAN Recommend applying ice pack or heating pad to your lower back for 10-15 minutes 4-5 times per day. Avoid heavy lifting (no more 15 lbs), twisting or bending until the pain is improved. For mild to moderate pain: You may take over the counter acetaminophen (Tylenol) 650 mg by mouth every 4-6 hours as needed (maximum dose 4,000 mg in 24 hours) or over the counter ibuprofen (Motrin) 400-600 mg by mouth every 6-9 hours as needed (maximum dose 3200 mg in 24 hours) for pain. Take medications with food to decrease stomach upset. Diclofenac 75 mg by mouth twice daily. Take with food. Avoid taking ibuprofen with this medication due to potential side effects. For muscle spasms: Take tizanidine (muscle relaxer) 2 mg by mouth every 8 hours as needed. Recommend starting with a bedtime dose, as this medication can cause drowsiness. Do not operate heavy machinery or drive while taking this medication due to drowsiness side effects. Do not mix this medicationwith narcotic medications as this can cause severe drowsiness, decreased breathing and potential . LER TECHNICIAN documented in this encounter Progress Notes * CHRISTINA Sandoval - 02/12/2023 4:20 PM CST Reason for Visit: Follow Up (Er visit left lower back) History of Present Illness: Feli Garcia is a 28-year-old female who presents to the clinic today for ED follow up for low back pain. Past medical history is significant for previous lumbar discectomy, anxiety, depression andGERD. 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 She was seen in the ED that day. Imaging was not obtained or warranted based on physical exam. She was prescribed valium 5 mgQ8 hours PRN and recommended to take ibuprofen 800 mg Q6 hours PRN. She reports today that valium, lidoderm 5% and ibuprofen have been ineffective. She still has moderate to severe pain, difficulty sleeping and has not been able to go to work. She denies weakness, paresthesia, saddle anesthesia, loss of bowel and bladder. Current Outpatient Medications on File Prior to Visit Medication Sig Dispense Refill albuterol sulfate HFA 108 (90 Base) MCG/ACT inhaler Inhale 2 puffs into the lungs every 6 (six) hours as needed. 18 g 0 buPROPion XL (WELLBUTRIN XL) 300 MG 24 hr tablet Take 1 tablet (300 mg total) by mouth daily. 90 tablet 0 busPIRone (BUSPAR) 5 MG tablet Take 1 tablet (5 mg total) by mouth 2 (two) times daily. (Patient taking differently: Take 0.5 tablets (2.5 mg total) by mouth 2 (two) times daily.) 60 tablet 3 diazePAM (VALIUM) 5 MG tablet Take 1 tablet (5 mg total) by mouth every 8 (eight) hours as needed for Anxiety or Muscle Spasms. 9 tablet 0 hydrOXYzine (ATARAX) 25 MG tablet Take 1/2 tablet (12.5 mg) to 1 tablet (25 mg) up to three times aday as needed for anxiety 30 tablet 0 ibuprofen (MOTRIN) 600 MG tablet Take 1 tablet (600 mg total) by mouth every 6 (six) hours as needed for Pain. 40 tablet 0 lidocaine (LIDODERM) 5 % Place 1 patch onto the skin daily for 7 days. Remove & Discard patch within 12 hours or as directed by 7 patch 0 No current facility-administered medications on file prior to visit. Allergies Allergen Reactions Seasonal Other (see comment) congestion Past Medical History: Diagnosis Date Anxiety Depression Past Surgical History: Procedure Laterality Date BACK SURGERY 03/18/2020 micro disectomy of L4-L5 - NONE Social History Socioeconomic History Marital status: Single Highest education level: High school graduate Tobacco Use Smoking status: Former Packs/day: 1.00 Years: 2.00 Additional pack years: 0.00 Total pack years: 2.00 Types: Cigarettes Start date: 02/24/2021 Quit date: 05/29/2022 Years since quittin.7 Smokeless tobacco: Never Vaping Use Vaping Use: Never used Substance and Sexual Activity Alcohol use: Yes Comment: rarely Drug use: Yes Types: Marijuana Comment: recreational Sexual activity: Yes Partners: Female Social History Narrative Lives with girlfriend and her sonFeli has custody of two nephews (6 and 3 01/01/20) Family History Problem Relation Name Age of Onset Lung Cancer Paternal Grandmother Diabetes Paternal Grandfather Hypertension Mother Other (blood clot history) Mother Review of Systems Musculoskeletal: Positive for back pain. Neurological: Negative for tingling, weakness and numbness. All other systems reviewed and are negative. Physical exam: Filed Vitals: 02/12/23 1619 BP: 122/81 Pulse: 68 Resp: 16 Temp: 98.4 ??F (36.9 ??C) TempSrc: Temporal SpO2: 100% Weight: 82.6 kg (182 lb) Height: 1.676 m (5' 6 ) Body mass index is 29.38 kg/m??. General: No acute respiratory distress. Well developed and well groomed adult female. Grimacing with movements. Skin: Warm and dry. Normal color for ethnicity. No open wounds, rashes or lesions. HEENT: Normocephalic. Mucous membranes pink and moist. Lungs: RR regular and unlabored. Heart: <3 sec cap refill. Radial and anterior tibial pulses +2 bilaterally. Abdomen: No suprapubic tenderness. Back: No midline spinal or paraspinal tenderness. No deformity or trauma noted. Tenderness to palpation left lateral back and buttock region. Extremities: No cyanosis, clubbing, edema noted. Pain with straight leg raise bilaterally 40 degrees right and 25 degrees left side. Neurological: Alert and oriented x4. Motor and sensory examination of the upper and lower extremities is normal. Gait steady. Psychiatric: Mildly anxious mood and affect. Cooperative. Speech clear and nonpressured. Assessment/Plan Encounter Diagnose(s) ICD-10-CM SNOMED CT(R) 1. Acute left-sided low back pain with left-sided sciatica M54.42 ACUTE BACK PAIN WITH SCIATICA tiZANidine (ZANAFLEX) 2 MG tablet Acute. Trial tizanidine 2-4 mg PO Q8 hours PRN. Continue rest, ice/heat, and OTC NSAIDs. Consider PT if pain persists. Medications were reviewed and reconciled. The patient was counseled on appropriate use of medication as well as about potential side effects. Patient verbalized understanding and agrees with treatment plan. Tobacco cessation counseling: N/A. Follow up FU PRN if pain persists, worsens or new symptoms develop. CHRISTINA SANDOVAL 02/12/2023 4:26 PM I spent 20 minutes today reviewing the patient's medical record, obtaining history, performing an exam, ordering medications, tests and/or procedures, documenting in the medical record, referring and/or communicating with other health care providers, counseling and educating the patient/family/caregiver. This includes time spent prior to the visit and after the visit in direct care of patient. Reviewing and communicating test results & coordination of care. LER TECHNICIAN documented in this encounter Plan of Treatment Not on file documented as of this encounter Visit Diagnoses Diagnosis Acute left-sided low back pain with left-sided sciatica- Primary documented in this encounter Additional Health Concerns Assessment Noted Time PHQ-9 Depression Total Score: 27 023 3:27 PM CHILLER TECHNICIAN documented as of this encounter Care Teams Life Skills Consultant Relationship Specialty Start Date End Date Jamila Reyes FNP-BC [id number], [address] [place] [address] PCP - General Nurse Practitioner Family 01/01/2305/13 documented as of this encounter
--- OUTSIDE RECORDS SUMMARY | 2024-03-06 11:04 | XMS_ITS | Encounter Summary ---
Author Organization [facility] Address [address] [place] [address]. [place] [id number] [place] [address] Care Team Providers Care Second Worker Name Role Phone Indira Brown PA-C Primary Care Provider [phone] Reason for Referral * Imaging (Emergency) - New Request Specialty Diagnoses / Procedures Referred By Lele cornell Referred To Contact RADIOLOGY Procedures CT ABD+PEL WO CON Becki Cuba MD [address] [place] [address] Phone: tel: fax: Referral ID Status Reason Start Date Expiration Date V isits Requested Visits Authorized [id number] New Request 07/30/2023 07/29/2024 1 1 Reason for Visit * Reason Comments Pelvic Pain Encounter Details Date Type Department Care Team (Late st Contact Info) Description 07/30/2023 7:26 PM CDT - 07/30/2023 9:44 PM CDT Emergency [facility] Emergency Room [id number] [place] [address] Becki Cuba MD [address] [place] [address] Pelvic Pain Discharge Disposition: Home or Self Care (Routine Discharge) Social History Tobacco Use Types Packs/Day Years [...] have received? High school graduate 09/30/2018 Comments Unknown Sex and Gender Information Value Date Recorded Sex Assigned at Female 11/02/2018 8:50 AM CDT Legal Sex Female 8:23 PM CDT Gender Identity Female 11/02/2018 8:50 AM CDT Sexual Orientation Not on file documented as of this encounter Last Filed Vital Signs Vital Sign Reading Time Taken Comments Blood Pressure 140/90 07/30/2023 9:42 PM CDT Pulse 90 07/30/2023 9:42 PM CDT Temperature 36.3 ??C (97.3 ??F) 07/30/2023 9:42 PM CD T Respiratory Rate 18 07/30/2023 9:42 PM CDT Oxygen Saturation 100% 07/30/2023 9:42 PM CDT Inhaled Oxygen Concentration - - Weight 85.7 kg (189 lb) 07/30/2023 7:29 PM CDT Height 167.6 cm (5' 6 ) 07/30/2023 7:29 PM CDT Body Mass Index 30.51 07/30/2023 7:29 PM CDT documented in this encounter Discharge Instructions * Attachments The following attachments cannot be sent through Care Everywhere. * Urinary Tract Infection, Adult ED (Qatari) * Trichomoniasis (Qatari) documented in this encounter Medications at Time of Discharge hydrOXYzine (ATARAX) 25 MG tabletIndications :Anxiety TAKE 1/2 TO 1 (ONE-HALF TO ONE) TABLET BY MOUTH UP TO THREE TIMES DAILY NEEDED FOR ANXIETY 60 tablet 2 03/05/2023 cephALEXin (KEFLEX) 500 MG capsule Take 1 capsule (500 mg total) by mouth 3 (three) times daily for 7 days. 21 capsule 07/30/2023 08/06/2023 metroNIDAZOLE (FLAGYL) 500 MG tablet Take 1 tablet (500 mg total) by mouth 3 (three) times daily for 10 days. 30 tablet 07/30/2023 08/09/2023 documented as of this encounter ED Notes * Becki Cuba MD - 07/30/2023 9:16 PM CDT Emergency Department Note Chief Complaint Chief Complaint Patient presents with Pelvic Pain History of Present Illness 28-year-old female with no significant past medical history presents with 2 months of pelvic pain. She states the pain improves during her period. She denies any fevers or chills. She has noted a vaginal discharge. She has had some dysuria as well. She does note that in April she had unprotectedsexual activity. Medical History ALLERGIES: Review of patient's allergies indicates: Allergen Reactions Seasonal Other (see comment) congestion MEDICATIONS: Prior to Admission medications Medication Sig Start Date End Date Taking? Authorizing Provider cephALEXin (KEFLEX) 500 MG capsule Take 1 capsule (500 mg total) by mouth 3 (three) times daily for7 days. 07/30/23 08/06/23 Yes Becki Cuba MD hydrOXYzine (ATARAX) 25 MG tablet TAKE 1/2 TO 1 (ONE-HALF TO ONE) TABLET BY MOUTH UP TO THREE TIMESDAILY NEEDED FOR ANXIETY 03/05/23 Jamila Reyes, [facility]- metroNIDAZOLE (FLAGYL) 500 MG tablet Take 1 tablet (500 mg total) by mouth 3 (three) times daily for 10 days. 07/30/23 08/09/23 Yes Becki Cuba MD PAST MEDICAL HISTORY: Past Medical History: Diagnosis Date Anxiety Depression PAST SURGICAL HISTORY: Past Surgical History: Procedure Laterality Date BACK SURGERY 03/18/2020 micro disectomy of L4-L5 - NONE FAMILY HISTORY: Family History Problem Relation Name Age of Onset Lung Cancer Paternal Grandmother Diabetes Paternal Grandfather Hypertension Mother Other (blood clot history) Mother SOCIAL HISTORY: Social History Tobacco Use Smoking status: Former Current packs/day: 0.00 Average packs/day: 1 pack/day for 2.0 years (2.0 ttl pk-yrs) Types: Cigarettes Start date: 02/24/2021 Quit date: 05/29/2022 Years since quittin.1 Smokeless tobacco: Never Vaping Use Vaping status: Never Used Substance Use Topics Alcohol use: Yes Comment: rarely Drug use: Yes Types: Marijuana Comment: recreational Review of Systems Review of systems included in HPI, otherwise 10 systems are reviewed and negative. Physical Exam Filed Vitals: 07/30/231928 BP: (!) 141/99 Pulse: 91 Resp: 20 Temp: 97.3 ??F (36.3 ??C) TempSrc: Temporal SpO2: 100% Weight: 85.7 kg (189 lb) Height: 1.676 m (5' 6 ) Pulse oximetry on room air is 100% which is normal. Physical Exam General-no distress HEENT-pupils equal reactive, sclera anicteric, oral mucosa pink and moist Neck-supple, no meningismus Chest-clear to auscultation, no rales rhonchi or wheezes Cardiovascular-regular rate and rhythm, no murmurs rubs or gallops Abdomen-soft, nontender, nondistended, normal bowel sounds -deferred Extremities-capillary refills less than 2 seconds, full range of motion without pain Skin-warm, no pallor Neuro-5 out of 5 strength bilateral upper and lower extremities, no facial droop, clear speech Psychiatric-patient appears calm, no signs of anxiety or distress Diagnostic Studies / Procedures LABORATORY STUDIES: Results for orders placed or performed during the hospital encounter of 07/30/23 URINALYSIS, AUTO, COMPLETE Result Value Ref Range COLOR (U) YELLOW TRANSPARENCY HAZY SPECIFIC GRAVITY (U) >1.030 (H) 1.000 - 1.030 U PH 6.0 5.0 - 9.0 LEUKOCYTES (U) 2+ (A) NEGATIVE NITRITES NEGATIVE NEGATIVE PROTEIN RANDOM (U) NEGATIVE NEGATIVE GLUCOSE (U) NEGATIVE NEGATIVE KETONES (U) 1+ (A) NEGATIVE BILIRUBIN (U) NEGATIVE NEGATIVE BLOOD (U) NEGATIVE NEGATIVE WBC/HPF 25-50 0 - 5 /HPF RBC/HPF 0-5 0 - 5 /HPF EPI/HPF MODERATE /HPF CULTURE & SENSITIVITY INDICATED? SPECIMEN SETUP FOR CULTURE CRYSTALS (U) FEW /HPF URINE RASMUSSEN MOTILE TRICHOMONAS SEEN TEST URINE Result Value Ref Range URINE HCG TEST NEGATIVE NEGATIVE IMAGING STUDIES CT ABD+PEL WO CON Final Result by User, [id number] (07/30 2055) PROCEDURE: CT ABD+PEL WO CON HISTORY: Pelvic pain. TECHNIQUE: Helical CT of the abdomen and pelvis was performed without intravenous contrast. A dose lowering technique was used for this procedure, which may include, but is not limited to, dose reduction technique, automated exposure control, the use of iterative reconstruction, and ALARA (As Low As Reasonably Achievable) / Image Gently techniques. COMPARISON: None. FINDINGS CT ABDOMEN/PELVIS: Lower thorax: The lung bases are clear. The heart size is normal. Liver: The liver is normal in size. No intrahepatic mass is seen on this non-contrast exam. Biliary tree: The gallbladder is present. There is no biliary ductal dilatation. Spleen: The spleen is normal in size. Pancreas: The pancreas is normal in size. There are no pancreatic calcifications. The pancreatic duct is not dilated. Adrenal glands: The adrenal glands are normal in size and shape. Kidneys: There is no hydronephrosis. No renal stones are seen. Lymph nodes: Abdomen: There is no abdominal adenopathy. Pelvis: There is no pelvic adenopathy. Vasculature: The aorta is normal caliber. Peritoneum/mesentery/omentum: There is no free fluid or free air. GI tract: There is no bowel obstruction. The appendix is normal. There is no abnormal bowel wall thickening to suggest acute inflammation. Pelvic urogenital structures:The bladder is grossly unremarkable. The uterus is present. There is no adnexal mass. Body wall: The osseous structures are unremarkable. Limitations: Evaluation of the solid parenchymal organs and vasculature is limited due to lack of intravenous contrast. Rasmussen: (S/I) = series number / image number IMPRESSION: No acute abnormality is seen within the abdomen or pelvis. Ordered By: BECKI CUBA Interpreted By: Shiva Ray MD, 07/30/2023 8:50 PM ED Course / Medical Decision Making Medical Decision Making Patient presents with pelvic pain. No ultrasound available, therefore CT of the abdomen pelvis was obtained which is unremarkable. GC chlamydia is still pending. Urine does show positive for trichomoniasis and UTI. She is started on Flagyl and Keflex. 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 Return for worsening or any concerns. Medications cephALEXin (KEFLEX) capsule 500 mg (has no administration in time range) metroNIDAZOLE (FLAGYL) tablet 500 mg (has no administration in time range) Clinical Impression UTI (urinary tract infection) (Primary) Trichomoniasis Current Discharge Medication List START taking these medications Details cephALEXin (KEFLEX) 500 MG capsule Take 1 capsule (500 mg total) by mouth 3 (three) times daily for7 days. Qty: 21 capsule, Refills: 0 Class: Eprescribe Pharmacy: [facility] [address] [place] [address] [address] (Ph #: [phone]) metroNIDAZOLE (FLAGYL) 500 MG tablet Take 1 tablet (500 mg total) by mouth 3 (three) times daily for 10 days. Qty: 30 tablet, Refills: 0 Class: Eprescribe Pharmacy: [facility] [address] [place] [address] [address] (Ph #: [phone]) Disposition: Discharge Follow-Up: Indira Brown PA-C [address] [facility] [address] [place], [place] [id number] In 2 days As needed BECKI CUBA MD 07/30/2023 9:19 PM Becik Cuba MD 07/30/232118 * Mahnaz Lentz RN - 07/30/2023 7:26 PM CDT TO ED with c/o pelvic pain. Patient states she started having pelvic pain at the end Apr. Has her period and everything is fine, but then after she has a bloated pressure like feeling. Rates pain at a 5/10 pressure. documented in this encounter Plan of Treatment Not on file documented as of this encounter Procedures Procedure Name Priority Date/Time Associated Diagnosis Comments CT ABD+PEL WO CON STAT 07/30/2023 8:2 3 PM CDT CHLAMYDIA GC RNA STAT 07/30/2023 7:45 PM CDT TEST URINE STAT 07/30/2023 7:45 PM CDT URINE BACTERIA CULTURE Routine 07/30/2023 7:45 PM CDT URINALYSIS, AUTO, COMPLETE STAT 07/30/2023 7:45 PM CDT documented in this encounter Results * CT ABD+PEL WO CON (07/30/2023 8:23 PM CDT) Anatomical Region Laterality Modality Abdomen Computed Tomogra phy 07/30/2023 8:50 PM CDT Impressions 07/30/2023 8:53 PM CDT IMPRESSION: ?? No acute abnormality is seen within the abdomen or pelvis. Ordered By: BECKI CUBA Interpreted By: Shiva Ray MD, 07/30/2023 8:50 PM Narrative 07/30/2023 8:53 PM CDT PROCEDURE: ??CT ABD+PEL WO CON HISTORY: ??Pelvic pain. TECHNIQUE: ??Helical CT of the abdomen and pelvis was performed without intravenous contrast. ?? A dose lowering technique was used for this procedure, which may include, but is not limited to, dose reduction technique, automated exposure control, the use of iterative reconstruction, and ALARA (As Low As Reasonably Achievable) / Image Gently techniques. COMPARISON: ??None. FINDINGS CT ABDOMEN/PELVIS: Lower thorax: ??The lung bases are clear. The heart size is normal. Liver: The liver is normal in size. No intrahepatic mass is seen on this non- contrast exam. Biliary tree: The gallbladder is present. There is no biliary ductal dilatation. Spleen: The spleen is normal in size. Pancreas: ??The pancreas is normal in size. There are no pancreatic calcifications. The pancreatic duct is not dilated. Adrenal glands: ??The adrenal glands are normal in size and shape. Kidneys: ??There is no hydronephrosis. No renal stones are seen. Lymph nodes: Abdomen: There is no abdominal adenopathy. Pelvis: There is no pelvic adenopathy. Vasculature: The aorta is normal caliber. Peritoneum/mesentery/omentum: ??There is no free fluid or free air. GI tract: ??There is no bowel obstruction. The appendix is normal. There is no abnormal bowel wall thickening to suggest acute inflammation. Pelvic urogenital structures:The bladder is grossly unremarkable. ??The uterus is present. There is no adnexal mass. Body wall: ??The osseous structures are unremarkable. Limitations: Evaluation of the solid parenchymal organs and vasculature is limited due to lack of intravenous contrast. Rasmussen: (S/I) = series number / image number Procedure Note Shiva Ray MD - 07/30/2023 PROCEDURE: CT ABD+PEL WO CON HISTORY: Pelvic pain. TECHNIQUE: Helical CT of the abdomen and pelvis was performed withoutintravenous contrast. A dose lowering technique was used for this procedure, which may include,but is not limited to, dose reduction technique, automated exposurecontrol, the use of iterative reconstruction, and ALARA (As Low AsReasonably Achievable) / Image Gently techniques. COMPARISON: None. FINDINGS CT ABDOMEN/PELVIS: Lower thorax: The lung bases are clear. The heart size is normal. Liver: The liver is normal in size. No intrahepatic mass is seen on thisnon- contrast exam. Biliary tree: The gallbladder is present. There is no biliary ductaldilatation. Spleen: The spleen is normal in size. Pancreas: The pancreas is normal in size. There are no pancreaticcalcifications. The pancreatic duct is not dilated. Adrenal glands: The adrenal glands are normal in size and shape. Kidneys: There is no hydronephrosis. No renal stones are seen. Lymph nodes: Abdomen: There is no abdominal adenopathy. Pelvis: There is no pelvic adenopathy. Vasculature: The aorta is normal caliber. Peritoneum/mesentery/omentum: There is no free fluid or free air. GI tract: There is no bowel obstruction. The appendix is normal. There isno abnormal bowel wall thickening to suggest acute inflammation. Pelvic urogenital structures:The bladder is grossly unremarkable. Theuterus is present. There is no adnexal mass. Body wall: The osseous structures are unremarkable. Limitations: Evaluation of the solid parenchymal organs and vasculature islimited due to lack of intravenous contrast. Rasmussen: (S/I) = series number / image number IMPRESSION: No acute abnormality is seen within the abdomen or pelvis. Ordered By: BECKI CUBA Interpreted By: Shiva Ray MD, 07/30/2023 8:50 PM us Becki Cuba MD CT Final Result * URINE BACTERIA CULTURE (07/30/2023 7:45 PM CDT) SPEC DESCRIPTION URINE CLEAN CATCH 07/30/2023 8:28 PM CDT [facility] SPECIAL REQUESTS NO SPECIAL REQUEST 07/30/2023 8:28 PM CDT [facility] CULTURE RESULT POLYMICROBIAL GROWTH CONSISTENT WITH NORMAL GENITAL SERENITY. ?? SUSCEPTIBILITIES NOT ROUTINELY PERFORMED. 08/01/2023 11:09 AM CDT [facility] URINE SPECIMEN OBTAINED BY CLEAN CATCH PROCEDURE / Unknown 07/30/2023 7:45 PM CDT 07/30/2023 8:27 PM CDT us Becki Cuba MD MICROBIOLOGY - GENERAL ORDERAB LES Final Result Performing Organization Address City/[facility]/ZIP Co de Phone Number [facility] [address] [place] [address], [place] [phone] [facility] [address] [place] [address], [place] [phone] * TEST URINE (07/30/2023 7:45 PM CDT) URINE HCG TEST NEGATIVE NEGATIVE 07/30/2023 7:57 PM CDT [facility] Comment: VERY DILUTE URINE SPECIMENS MAY NOT CONTAIN HELP DESK ADMINISTRATOR LEVELS OF HCG. IF IS STILL SUSPECTED, A SERUM HCG TEST IS RECOMMENDED. URINE SPECIMEN FROM URETHRA / Unknown 07/30/2023 7:45 PM CDT us Becki Cuba MD URINE ORDERABLES Final Result [facility] [address] [place] [address], [place] [phone] * (ABNORMAL) URINALYSIS, AUTO, COMPLETE (07/30/2023 7:45 PM CDT) COLOR (U) YELLOW 07/30/2023 8:[address] [facility] TRANSPARENCY HAZY 07/30/2023 8:[address] [facility] SPECIFIC GRAVITY (U) >1.030(H) 1.000 - 1.030 07/30/2023 8:25 PM CDT [facility] U PH 6.0 5.0 - 9.0 07/30/2023 8:25 PM CDT [facility] LEUKOCYTES (U) 2+(A) NEGATIVE 07/30/2023 8:25 PM CDT [facility] NITRITES NEGATIVE NEGATIVE 07/30/2023 8:25 PM CDT [facility] PROTEIN RANDOM (U) NEGATIVE NEGATIVE 07/30/2023 8:25 PM CDT [facility] GLUCOSE (U) NEGATIVE NEGATIVE 07/30/2023 8:25 PM T [facility] KETONES MG/DL (U) 1+(A) NEGATIVE 07/30/2023 8:25 PM CDT [facility] BILIRUBIN (U) NEGATIVE NEGATIVE 07/30/2023 8:25 PM T [facility] BLOOD (U) NEGATIVE NEGATIVE 07/30/2023 8:25 PM CDT [facility] WBC/HPF 25-50 0 - 5 /HPF 07/30/2023 8:25 PM CDT [facility] RBC/HPF 0-5 0 - 5 /HPF 07/30/2023 8:25 PM CDT [facility] EPI/HPF MODERATE /HPF 07/30/2023 8:25 PM CDT [facility] CULTURE & SENSITIVITY INDICATED? SPECIMEN SETUP FOR CULTURE 07/30/2023 8:25 PM CDT [facility] CRYSTALS (U) FEW /HPF 07/30/2023 8:25 PM CDT [facility] Comment:CA OXALATE URINE RASMUSSEN MOTILE TRICHOMONAS SEEN 07/30/2023 8:25 PM CDT [facility] URINE SPECIMEN OBTAINED BY CLEAN CATCH PROCEDURE / Unknown 07/30/2023 7:45 PM CDT Becki Cuba MD URINE ORDERABLES Final Result Performing Organization Address City/[facility]/ZIP Co de Phone Number [facility] [address] [place] [address], [place] [phone] * CHLAMYDIA GC RNA (07/30/2023 7:45 PM CDT) SPECIMEN SOURCE URINE 7:44 PM CDT [facility] CHLAMYDIA PCR NEGATIVE NEGATIVE 08/03/2023 2:01 AM CDT [facility] Comment:PERFORMED BY NUCLEIC ACID AMPLIFICATION N.GONORRHOEAE RNA TMA NEGATIVE NEGATIVE 08/03/2023 2:01 AM CDT [facility] Comment:PERFORMED BY NUCLEIC ACID AMPLIFICATION URINE SPECIMEN / Unknown 07/30/2023 7:45 PM CDT Becki Cuba MD MICROBIOLOGY - GENERAL ORDERAB LES Final Result [facility] [address] [place] [address], [place] [phone] [facility] [address] [place] [address], [place] [phone] documented in this encounter Visit Diagnoses Diagnosis UTI (urinary tract infection)- Primary Urinary tract infection, site not specified Trichomoniasis Trichomoniasis, unspecified documented in this encounter Administered Medications Inactive Administered Medications - up to 3 most recent administrations Medication Order MAR Action Action Date Dose Rate Site cephALEXin (KEFLEX) capsule 500 mg 500 mg, Oral, Once, 1 dose, On Wed07/30/23 at 2129 Given 07/30/2023 9:24 PM CDT 500 mg metroNIDAZOLE (FLAGYL) tablet 500 mg 500 mg, Oral, Once, 1 dose, On Wed07/30/23 at 2129 Given 07/30/2023 9:24 PM CDT 500 mg documented in this encounter Active and Recently Administered Medications Times are shown in CDT. Scheduled Medication Order 07/28/2023 07/29/2023 07/30/2023 cephALEXin (KEFLEX) capsule 500 mg (COMPLETED) 500 mg, Oral, Once, 1 dose, On Wed07/30/23 at 2129 2123 (Given - Provid er: Mahnaz Lentz RN) metroNIDAZOLE (FLAGYL) tablet 500 mg (COMPLETED) 500 mg, Oral, Once, 1 dose, On Wed07/30/23 at 2129 2123 (Given - Provid er: Mahnaz Lentz RN) documented in this encounter Additional Health Concerns Assessment Noted Time PHQ-9 Depression Total Score: 27 023 3:27 PM PUBLIC HEALTH EPIDEMIOLOGIST documented as of this encounter Care Teams Second Worker Relationship Specialty Start Date End Date Indira Brown PA-C [address] [address] PCP - General PHYSICIAN ENVIRONMENTAL MONITORING SPECIALIST 05/24/23 documented as of this encounter
--- OUTSIDE RECORDS SUMMARY | 2024-03-06 11:04 | XMS_ITS | Encounter Summary ---
Author Organization [facility] Address [address] [place] [address]. [place] [id number] [place] [address] Care Team Providers Care Quality Review Trainer Name Role Phone Abimbola Cuba [facility] Primary Care Provider + Jamila Reyes [facility] Primary Care Provider + Indira Brown-Allyn Primary Care Provider [phone] Encounter Details Date Type Department Care Team (Late st Contact Info) Description 08/27/2022 MyCTasspasst Message Enc [facility] Family & Internal Medicine [address] [address] Abimbola Cuba [facility] [address] [place] [address] Therapist Social History Tobacco Use Types Packs/Day Years Used Date Smoking Tobacco: Former Cigarettes 1 2 1 04/27/2020 - 05/29/2022 Smokeless Tobacco: Never Alcohol Use Standard Drinks/Week Comments No 0 (1 standard drink = 0.6 oz pur e alcohol) AUDIT-C Answer Date Recorded Frequency of Alcohol [...] AM CDT Sexual Orientation Not on file COVID-19 Exposure Response Date Recorded In the last 10 days, have yo u been in contact with someone who was confirmed or suspected to have Coronavirus/COVID-19? No / Unsure 07/31/2022 11:41 AM CDT documented as of this encounter Progress Notes * CHRISTINA Escalona - 09/09/2022 1:34 PM CDT Okay to initiate referral however one is generally not needed for therapy. Recommend to contact insurance for in network providers and then she can call to schedule an appointment. * Alejandra Hall MA - 08/27/2022 3:02 PM CDT Ok for referral?? 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
--- OUTSIDE RECORDS SUMMARY | 2024-03-06 11:04 | XMS_ITS | Encounter Summary ---
Author Organization [facility] Address [address] [place] [address]. [place], [place] [id number] [place] [id number] Care Team Providers Care Band Reamer Machine Operator Name Role Phone Indira Brown PA-C Primary Care Provider [phone] Reason for Visit * Reason Comments URI S/s x 5-6 days Encounter Details Date Type Department Care Team (Late st Contact Info) Description 02/14/2024 9:00 AM MATCHER LEATHER [employer]S Office Visit [facility] Family & Internal Medicine [facility] [address] [place] [address] Elodia Uriostegui [place] [id number] [place] [id number] URI (S/s x 5-6 days ) Social History Tobacco Use Types Packs/Day Years [...] Date Recorded Patient Health Questionnaire-2 Score 0 02/14/2024 Education Answer Date Recorded What is the [...] Sign Reading Time Taken Comments Blood Pressure 133/87 02/14/2024 8:59 AM MATCHER LEATHER [employer]S Pulse 79 02/14/2024 8:59 AM M[employer]ATHER [employer]S Temperature 37.3 ??C (99.2 ??F) 02/14/2024 8:59 AM CS T Respiratory Rate 16 02/14/2024 8:59 AM MATCHER LEATHER [employer]S Oxygen Saturation 97% 02/14/2024 8:59 AM MATCHER LE[employer]ER [employer]S Inhaled Oxygen Concentration - - Weight 73.3 kg (161 lb 9.6 oz) 02/14/2024 8:59 A M M[employer] LE[employer]ER [employer]S Height 167.6 cm (5' 6 ) 02/14/2024 8:59 AM MATCHER LEATHER [employer]S Body Mass Index 26.08 02/14/2024 8:59 AM MATCHER LEATHER [employer]S documented in this encounter Patient Instructions * Attachments The following attachments cannot be sent through Care Everywhere. * Acute bronchitis (Japanese) documented in this encounter Progress Notes * YAEL Freire - 02/14/2024 9:00 AM CST Images from the original note were not included. _ Reason for Visit: URI (S/s x 5-6 days ) [facility] Bsom History of Present Illness: HPI Feli Garcia is a 29-year-old female here for patient or evaluation through the walk-in clinic for symptoms of upper respiratory infection to include nasal congestion, sore throat, and headache. Patient denies symptoms of visual disturbance or vomiting. Patient hasnoticed a fever. Patient has a cough with out wheezing. Patient denies shortness of breath. Patienthas not had loose stools. Patient has been symptomatic for almost a week and is not improving with symptoms. ROS: Review of Systems Feeling ill. Denies vision or hearing problems. Denies dysphagia, heartburn or indigestion. No dyspnea or chest pain on exertion. No nausea, abdominal pain, change in bowel habits, black or bloody stools. No urinary tract symptoms. No muscle or joint aches or pains. No foot or leg edema. No numbness, tingling,or weakness. No anxiety or depressive symptoms, Sleeping well. No significant weight gain or loss. Positive fatigue. Medications: Outpatient Medications Marked as Taking for the 02/14/24 encounter (Office Visit) with YAEL Freire Medication Sig Dispense Refill doxycycline hyclate (VIBRAMYCIN) 100 MG capsule Take 1 capsule (100 mg total) by mouth 2 (two) times daily for 10 days. 20 capsule 0 HYDROcodone-acetaminophen (NORCO) 5-325 MG tablet Take 1 tablet by mouth every 6 (six) hours as needed. hydrOXYzine (ATARAX) 25 MG tablet TAKE 1/2 TO 1 (ONE-HALF TO ONE) TABLET BY MOUTH UP TO THREE TIMESDAILY NEEDED FOR ANXIETY 60 tablet 2 Review of patient's allergies indicates: Allergen Reactions Seasonal Other (see comment) congestion Past Medical History: Diagnosis Date Anxiety Depression Past Surgical History: Procedure Laterality Date BACK SURGERY 03/18/2020 micro disectomy of L4-L5 - NONE Social History Tobacco Use Smoking status: Former Current packs/day: 0.00 Average packs/day: 1 pack/day for 2.0 years (2.0 ttl pk-yrs) Types: Cigarettes Start date: 02/24/2021 Quit date: 05/29/2022 Years since quittin.7 Smokeless tobacco: Never Vaping Use Vaping status: Never Used Substance Use Topics Alcohol use: Yes Comment: rarely Drug use: Yes Types: Marijuana Comment: recreational Family History Problem Relation Name Age of Onset Lung Cancer Paternal Grandmother Diabetes Paternal Grandfather Hypertension Mother Other (blood clot history) Mother Family Status Relation Name Status PGM PGF Mother Alive Father Alive No partnership data on file Physical Exam Constitutional: Patient is oriented to person, place, and time. Patient appears well-developed and well-nourished. HENT: Right Ear: External ear normal. Left Ear: External ear normal. Head: Normocephalic. Positive frontal sinus tenderness Nose: Nose normal. Turbinates are swollen Mouth/Throat: Oropharynx is clear and moist. Positive postnasal drainage yellow drainage Eyes: Pupils are equal, round, and reactive to light. Neck: No JVD present. No thyromegaly present. No nuchal rigidity Cardiovascular: Normal rate, regular rhythm, normal heart sounds and intact distal pulses. No murmur heard. Pulmonary/Chest: No respiratory distress. Patient has no wheezes. Patient has no rales. Patient exhibits no tenderness. Rhonchi is noted Abdominal: Patient exhibits no distension and no mass. There is no tenderness. There is no rebound and no guarding. Musculoskeletal: Normal range of motion. Patient exhibits no edema, tenderness or deformity. Lymphadenopathy: Patient has positive cervical adenopathy. Neurological: Patient is alert and oriented to person, place, and time. Skin: No rash noted. No erythema. Psychiatric: Patient has a normal mood and affect. The behavior is normal. Thought content normal. No data to display Vitals: 02/14/24 0859 BP: 133/87 Pulse: 79 Body mass index is 26.08 kg/m??. Assessment and Plan Encounter Diagnose(s) ICD-10-CM SNOMED CT(R) 1. Acute non-recurrent frontal sinusitis J01.10 ACUTE FRONTAL SINUSITIS doxycycline hyclate (VIBRAMYCIN) 100 MG capsule 2. Bronchitis J40 BRONCHITIS doxycycline hyclate (VIBRAMYCIN) 100 MG capsule Orders Placed This Encounter doxycycline hyclate (VIBRAMYCIN) 100 MG capsule Patient was told to push liquids and get lots of rest. Patient was told to use Tylenol for fever. Patient was told that if symptoms do not improve to utilize the emergency room, call their PCP, or follow back up with the walk-in clinic. If patient needs any additional time off not discussed and spelled out in a work release at this office visit they will need to contact the PCP or be seen in the walk in clinic. Patient should follow annual wellness exams recommended for age and sex of patient. Items to consider but not limited included yearly annual fasting labs, colonscopy or cologuard when indicated. PSA and prostate for males. Mammogram and female exam for females, Portions of this note were dictated using [employer] speech recognition software. Occasional wrong wordor sound-alike substitutions may have occurred due to the inherent limitations of voice recognition software. Please read the chart carefully and recognize, using context, where the substitutions may have occurred. Elodia Uriostegui PA-C evaluated and Dr. Tiarra Mckay reviewed and agrees with plan. HER [employer]ATHER [employer]S documented in this encounter Plan of Treatment Not on file documented as of this encounter Visit Diagnoses Diagnosis Acute non-recurrent frontal sinusitis- Primary Bronchitis Bronchitis, not specified as acute or chronic documented in this encounter Additional Health Concerns Assessment Noted Time PHQ-9 Depression Total Score: 27 023 3:27 PM [employer] documented as of this encounter Care Teams Band Reamer Machine Operator Relationship Specialty Start Date End Date Indira Brown PA-C [address] [place] [address] PCP - General PHYSICIAN [employer] 05/24/23 documented as of this encounter
--- OUTSIDE RECORDS SUMMARY | 2024-03-06 11:04 | XMS_ITS | Encounter Summary ---
Author Organization [facility] Address [address] [place] [address]. [place], [place] [id number] [place] [id number] Care Team Providers Care Seamless Tube Roller Name Role Phone Jamila Reyes 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
--- OUTSIDE RECORDS SUMMARY | 2024-03-06 11:04 | XMS_ITS | Encounter Summary ---
Author Organization [facility] Address [address] [place] [address]. [place], [place] [id number] [place] [id number] Care Team Providers Care Design Transferrer Name Role Phone Abimbola CubaJUAN JOSE Primary Care Provider + Reason for Referral * Surgical (Routine) - Closed Specialty Diagnoses / Procedures Referred By Lele cornell Referred To Contact PLASTIC SURGERY Diagnoses Chronic midline low back pain without sciatica Excess skin of abdomen Procedures OFFICE/OUTPT VISIT,NEW,LEVL III OFFICE/OUTPT VISIT,NEW,LEVL IV OFFICE/OUTPT VISIT,NEW,LEVL V OFFICE/OUTPT VISIT,EST,LEVL III OFFICE/OUTPT VISIT,EST,LEVL IV OFFICE/OUTPT VISIT,EST,LEVL V Abimbola Cuba FNP-BC Phone: tel: fax: Nick Gardiner MD [address] [facility] [address] [place] [address] Phone: tel: fax: Referral ID Status Reason Start Date Expiration Date V isits Requested Visits Authorized [id number] Closed Specialty Services 07/31/2022 08/30/2023 1 1 * Consultation (Routine) - Closed Specialty Diagnoses / Procedures Referred By Lele cornell Referred To Contact Psychiatry Diagnoses Severe depression ([facility]) Anxiety Procedures OFFICE/OUTPT VISIT,NEW,LEVL III OFFICE/OUTPT VISIT,NEW,LEVL IV OFFICE/OUTPT VISIT,NEW,LEVL V OFFICE/OUTPT VISIT,EST,LEVL III OFFICE/OUTPT VISIT,EST,LEVL IV OFFICE/OUTPT VISIT,EST,LEVL V Abimbola Cuba FNP-BC Phone: tel: fax: Wang Tenorio MD [facility] [place] [address] Phone: tel: fax: Referral ID Status Reason Start Date Expiration Date V isits Requested Visits Authorized [id number] Closed Specialty Services 07/31/2022 08/30/2023 1 1 * Physical Medicine (Routine) - Closed Specialty Diagnoses / Procedures Referred By Lele cornell Referred To Contact PHYSICAL THERAPY / [facility] Physical Therapy Diagnoses Chronic midline low back pain without sciatica Excess skin of abdomen Procedures OFFICE/OUTPT VISIT,NEW,LEVL III OFFICE/OUTPT VISIT,NEW,LEVL IV OFFICE/OUTPT VISIT,NEW,LEVL V OFFICE/OUTPT VISIT,EST,LEVL III OFFICE/OUTPT VISIT,EST,LEVL IV OFFICE/OUTPT VISIT,EST,LEVL V Abimbola Cuba FNP-BC Phone: tel: fax: [facility] [address] [place] [address] Phone: tel: fax: Referral ID Status Reason Start Date Expiration Date V isits Requested Visits Authorized [id number] Closed Physical Therapy 07/31/2022 08/30/2023 1 1 Reason for Visit * Reason Comments Depression Follow Up 4 week Encounter Details Date Type Department Care Team (Late st Contact Info) Description 07/31/2022 12:20 PM CDT Office Visit [facility] Family & Internal Medicine [facility] [address] [place] [address] Abimbola Cuba, [facility] [address] [place] [address] Depression; Follow Up (4 week) Social History Tobacco Use Types Packs/Day Years Used Date Smoking Tobacco: Former Cigarettes 1 2 1 04/27/2020 - 05/29/2022 Smokeless Tobacco: Never Tobacco Cessation:Counseling Given: No Alcohol Use Standard Drinks/Week Comments No 0 [...] AM CDT documented as of this encounter Last Filed Vital Signs Vital Sign Reading Time Taken Comments Blood Pressure 118/81 07/31/2022 12:02 PM CDT Pulse 59 07/31/2022 12:02 PM CDT Temperature 37.2 ??C (98.9 ??F) 07/31/2022 12:02 PM C DT Respiratory Rate 12 07/31/2022 12:02 PM CDT Oxygen Saturation 99% 07/31/2022 12:02 PM CDT Inhaled Oxygen Concentration - - Weight 84.5 kg (186 lb 3.2 oz) 07/31/2022 12:02 PM CDT Height 167.6 cm (5' 6 ) 07/31/2022 12:02 PM CDT Body Mass Index 30.05 07/31/2022 12:02 PM CDT documented in this encounter Patient Instructions * Patient Instructions* CHRISTINA Escalona - 07/31/2022 12:20 PM CDT Thank you for your visit! - Increase wellbutrin to 300 mg daily. - Continue buspar and hydroxyzine as needed. - Referrals have been entered for psychiatry. The referral team will contact you regarding who you may call to schedule an appointment. - Physical therapy referral has been entered for [facility]. You may call [phone] to schedule an appointment. - A referral for plastics has been entered. You will be called regarding an appointment. - Continue healthy diet choices. - Continue exercise as able. -Over the counter pain medications fall into two groups. Anti-inflammatories include ibuprofen and naproxen. Analgesics include Tylenol. Please read the product label for possible side effects. If you are NOT allergic and do NOT have a medical condition that stops you from taking, you may take the following: Ibuprofen (other names are motrin or advil) comes in 200 mg tablets. You may take 600 mg (3 tablets) to 800 mg (4 tablets) every 8 hours with food. Do not take more than 2400 mg in a 24 hour period. Naproxen (other name Aleve) comes in 200 mg tablets. You may take 400 mg (2 tablets) every 12 hourswith food. Acetaminophen (other name Tylenol) comes in 325 mg and 500 mg tablets. You may take up to 1000 mg every 8 hours. Do not take more than 3000 mg in a 24 hour period. May take ibuprofen + tylenol or aleve + tylenol. Do NOT take Aleve + Ibuprofen Congrats on stopping smoking!!!!!! * Attachments The following attachments cannot be sent through Care Everywhere. * TMJ Exercises (Bolivian) documented in this encounter Progress Notes * CHRISTINA Escalona - 07/31/2022 12:20 PM CDT Images from the original note were not included. Reason for Visit: Depression and Follow Up (4 week) History of Present Illness: Feli Garcia is a 27-year-old female who presents to the office for chronic disease management. Past medical history significant for anxiety, depression obesity, among others. Reports taking medications as prescribed with no known adverse effects or intolerances. At last visit mental health medications were restarted due to exacerbation of anxiety and depression that was affecting her relationship as well as her job. Symptoms manifest as irritability, anger, outbursts. Overall feels an improvement in her mental health. Denies suicidal or homicidal ideation. Has not restarted counseling however is making significant improvements in her overall health. Since last visit she has stopped smoking. Significant family history of mental health disorders. Stopping smoking she was chewing or gum. Reports her jaws sore. Previous issues with popping and locking of her jaw. No formal diagnosis of TMJ. Has been working diligently to lose weight. Her weight loss journey began approximately when she had her back surgery. She was 298 pounds prior to surgery with current weight to date of 186pounds. Weight loss through lifestyle modifications. Notes some improvement in her back pain however due to her excess abdominal skin back she is actually having increased pain at this time. 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 Her excess skin is also negatively impacting her mental health and her relationships. Would like to discuss potential surgical intervention with the goal of improving her back pain. ROS: Review of Systems Constitutional: Negative. Negative for chills, fever and malaise/fatigue. HENT: Negative. Negative for congestion, ear pain, sinus pain and sore throat. Eyes: Negative. Respiratory: Negative. Negative for cough and shortness of breath. Cardiovascular: Negative. Negative for chest pain and palpitations. Gastrointestinal: Negative. Negative for abdominal pain, constipation, diarrhea, nausea and vomiting. Genitourinary: Negative. Negative for dysuria. Musculoskeletal: Positive for back pain. Negative for myalgias. Skin: Negative. Negative for rash. Neurological: Negative. Negative for headaches. Endo/Heme/Allergies: Negative. Psychiatric/Behavioral: Positive for depression. Negative for hallucinations, substance abuse and suicidal ideas. The patient is nervous/anxious. PHQ-9: 05/15/2022 3:27 PM 07/31/2022 12:36 PM PHQ2/PHQ 9 DEPRESSION SCREEN QUESTIONAIRE Little interest or pleasure in doing things Almost all Not at all Feeling down, depressed, or hopeless Almost all Not at all Patient Health Questionnaire-2 Score 6 0 Trouble falling or staying asleep, or sleeping too much Almost all Feeling tired or having little energy Almost all Poor appetite or overeating Almost all Feeling bad about yourself - or that you are a failure or have let yourself or your family down Almost all Trouble concentrating on things, such as reading the newspaper or watching television Almost all Moving or speaking so slowly that other people could have noticed? Or the opposite - being so fidgety or restless that you have been moving around a lot more than usual. Almost all Thoughts that you would be better off or hurting yourself in some way Almost all Patient Health Questionnaire-9 Score 27 How difficult have these problems made it for you to do your work, take care of things at home, or get along with other people? Extremely difficult Medications: Current Outpatient Medications: buPROPion XL (WELLBUTRIN XL) 300 MG 24 hr tablet, Take 1 tablet (300 mg total) by mouth daily., Disp: 90 tablet, Rfl: 0 busPIRone (BUSPAR) 5 MG tablet, Take 1 tablet (5 mg total) by mouth 2 (two) times daily. (Patient taking differently: Take 0.5 tablets (2.5 mg total) by mouth 2 (two) times daily.), Disp: 60 tablet, Rfl: 3 hydrOXYzine (ATARAX) 25 MG tablet, Take 1/2 tablet (12.5 mg) to 1 tablet (25 mg) up to three times a day as needed for anxiety, Disp: 30 tablet, Rfl: 0 Review of patient's allergies indicates: Allergen Reactions Seasonal Other (see comment) congestion Past Medical History: Diagnosis Date Anxiety Depression Past Surgical History: Procedure Laterality Date BACK SURGERY 03/18/2020 micro disectomy of L4-L5 - NONE Social History Tobacco Use Smoking status: Former Packs/day: 1.00 Years: 2.00 Pack years: 2.00 Types: Cigarettes Start date: 02/24/2021 Quit date: 05/29/2022 Years since quittin.1 Smokeless tobacco: Never Vaping Use Vaping Use: Never used Substance Use Topics Alcohol use: No Drug use: Yes Types: Marijuana Comment: recreational Family History Problem Relation Name Age of Onset Lung Cancer Paternal Grandmother Diabetes Paternal Grandfather Hypertension Mother Other (blood clot history) Mother Family Status Relation Name Status PGM PGF Mother Alive Father Alive Physical Exam Vitals and nursing note reviewed. Constitutional: Appearance: Normal appearance. She is well-developed and well-groomed. HENT: Head: Normocephalic and atraumatic. Right Ear: External ear normal. Left Ear: External ear normal. Eyes: General: Lids are normal. Extraocular Movements: Extraocular movements intact. Conjunctiva/sclera: Conjunctivae normal. Neck: Trachea: Trachea normal. No tracheal deviation. Cardiovascular: Rate and Rhythm: Normal rate and regular rhythm. Heart sounds: Normal heart sounds. Pulmonary: Effort: Pulmonary effort is normal. Breath sounds: Normal breath sounds. Abdominal: Comments: Excess skin of the lower abdomen that is hanging to the bilateral groin area. Musculoskeletal: Cervical back: Full passive range of motion without pain, normal range of motion and neck supple. Lumbar back: Tenderness and bony tenderness present. Decreased range of motion. Positive right straight leg raise test and positive left straight leg raise test. Back: Neurological: Mental Status: She is alert. Psychiatric: Mood and Affect: Mood and affect normal. Speech: Speech normal. Behavior: Behavior normal. Behavior is cooperative. Thought Content: Thought content normal. Judgment: Judgment normal. Filed Vitals: 07/31/22 1202 BP: 118/81 Pulse: (!) 59 Resp: 12 Temp: 98.9 ??F (37.2 ??C) TempSrc: Temporal SpO2: 99% Weight: 84.5 kg (186 lb 3.2 oz) Height: 5' 6 (1.676 m) Assessment Encounter Diagnose(s) ICD-10-CM ICD-9-CM SNOMED CT(R) 1. Severe depression (CMS/HCC) F32.2 311 SEVERE DEPRESSION buPROPion XL (WELLBUTRIN XL) 300 MG 24 hr tablet Ambulatory Referral to Psychiatry 2. Generalized anxiety disorder F41.1 300.02 GENERALIZED ANXIETY DISORDER Ambulatory Referral to Psychiatry 3. Chronic midline low back pain without sciatica M54.50 724.2 CHRONIC LOW BACK PAIN Ambulatory referral to Physical Therapy G89.29 338.29 Ambulatory referral to Plastic Surgery 4. Excess skin of abdomen L98.7 701.9 EXCESS SKIN OF ABDOMINAL WALL Ambulatory referral to PhysicalTherapy Ambulatory referral to Plastic Surgery 5. Annual physical exam Z00.00 V70.0 PATIENT ENCOUNTER STATUS CBC W/DIFF AUTOMATED COMPREHENSIVE METABOLIC PANEL LIPID PANEL TSH W/REFLEX CBC W/DIFF AUTOMATED COMPREHENSIVE METABOLIC PANEL LIPID PANEL TSH W/REFLEX VENIPUNC ARM DRAW 6. Lipid screening Z13.220 V77.91 PATIENT ENCOUNTER STATUS LIPID PANEL LIPID PANEL VENIPUNC ARM DRAW 7. Thyroid disorder screening Z13.29 V77.0 PATIENT ENCOUNTER STATUS TSH W/REFLEX TSH W/REFLEX VENIPUNC ARM DRAW Recommendations and Plan: 1. Severe depression (CMS/HCC) 2. Generalized anxiety disorder -Chronic. Significantly improved. -Due to continued underlying anger and short fuse mutually agreed to increase Wellbutrin to 300 mg daily. -Currently taking half dose of BuSpar as she reports full dose causes her to be excessively tired. -Continue use of hydroxyzine as needed. -Patient referred for psychiatry for further evaluation and treatment. Appreciate input. - buPROPion XL (WELLBUTRIN XL) 300 MG 24 hr tablet; Take 1 tablet (300 mg total) by mouth daily. Dispense: 90 tablet; Refill: 0 - Ambulatory Referral to Psychiatry 3. Chronic midline low back pain without sciatica -Acute on chronic. Stable. - No red flag symptoms noted. -Referral to physical therapy for core strengthening, as well as further evaluation and treatment. -May use tyfp-mby-[id number] medications as needed. -Limit activities that cause pain and slowly increase activities as pain allows -Given amount of excess abdominal skin it is pulling on lumbar spine which is exacerbating her chronic pain. - Ambulatory referral to Physical Therapy - Ambulatory referral to Plastic Surgery 4. Excess skin of abdomen -Aggressively worsening given weight loss. -No sign of infection today under skin fold. -Condition is negatively impacting mental health as well as impact on chronic back pain. -Referral to plastic surgery for further evaluation and treatment. - Ambulatory referral to Physical Therapy - Ambulatory referral to Plastic Surgery 5. Class 1 obesity due to excess calories without serious comorbidity with body mass index (BMI) of30.0 to 30.9 in adult -Chronic. Progressively improving. - Continue to try to work on healthy diet choices. Try to work on getting regular exercise; goal isto increase to 30 minutes 5 days a week as tolerated. 6. Annual physical exam 7. Lipid screening 8. Thyroid disorder screening -Labs ordered to be completed with physical to be completed at next visit. - CBC W/DIFF AUTOMATED; Future - COMPREHENSIVE METABOLIC PANEL; Future - LIPID PANEL; Future - TSH W/REFLEX; Future - CBC W/DIFF AUTOMATED - COMPREHENSIVE METABOLIC PANEL - LIPID PANEL - TSH W/REFLEX - VENIPUNC ARM DRAW 9. Former smoker -Congratulated on smoking cessation. -Jaw exercises provided due to soreness. Follow up 3 months for annual physical. Return to clinic with new, persistent, or worsening symptoms. Feli Garcia is in agreement to and verbalized understanding of treatment plan with no further questions at this time. CHRISTINA ESCALONA 07/31/2022 1:06 PM * CHRISTINA Escalona - 07/31/2022 12:20 PM CDT Feli Labs are normal. Thanks! CHRISTINA ESCALONA documented in this encounter Plan of Treatment Scheduled Referrals Name Type Priority Associated Diagnoses Orde r Schedule Ambulatory referral to Physical Therapy Referral Routine Chronic midline low back pain without sciatica Excess skin of abdomen Ordered: 07/31/2022 Ambulatory Referral to Psychiatry Referral Routine Severe depression (CMS/HCC HHS/HCC) Generalized anxiety disorder Ordered: 07/31/2022 Ambulatory referral to Plastic Surgery Referral Routine Chronic midline low back pain without sciatica Excess skin of abdomen Ordered: 07/31/2022 documented as of this encounter Procedures Procedure Name Priority Date/Time Associated Diagnosis Comments VENIPUNC ARM DRAW Routine 07/31/2022 12: 35 PM CDT Annual physical exam Lipid screening Thyroid disorder screening TSH W/REFLEX Routine 07/31/2022 12:35 PM CDT Annual physical exam Thyroid disorder screening COMPREHENSIVE METABOLIC PANEL Routine 07/31/2022 12:35 PM CDT Annual physical exam LIPID PANEL Routine 07/31/2022 12:35 PM CDT Annual physical exam Lipid screening CBC W/DIFF AUTOMATED Routine 07/31/2022 12:35 PM CDT Annual physical exam documented in this encounter Results * TSH W/REFLEX (07/31/2022 12:35 PM CDT) TSH 1.54 mIU/L [facility] [employer] [facility] Comment: ?Reference Range ?> or = 20 Years ??0.40-4.50 ? Ranges ?First trimester ?0.26-2.66 ?Second trimester ?? 0.55-2.73 ?Third trimester ?0.43-2.91 07/31/2022 12:3 5 PM CDT 08/01/2022 4:36 AM CDT Narrative Resulting Agency Comment Performing Organization Information: ?Site ID: [place] ?Name: [employer] ?Address: [address] [place] [address] ?Director: Jaquan Arias MD Abimbola [facility] Final Re sult [employer] [facility] [address] [place] [address], * (ABNORMAL) LIPID PANEL (07/31/2022 12:35 PM CDT) CHOLESTEROL 146 <200 mg/dL [facility] [employer] [facility] HDL 43(L) > OR = 50 mg/dL [facility] [employer] [facility] TRIGLYCERIDES 61 <150 mg/dL [facility] [employer] [facility] LDL (CALCULATED) 88 mg/dL (calc) [facility] Comment: Reference range: <100 Desirable range <100 mg/dL for primary prevention; ?? <70 mg/dL for patients with CHD or diabetic patients with > or = 2 CHD risk factors. LDL-C is now calculated using the Garcia calculation, which is a validated novel method providing better accuracy than the Friedewald equation in the estimation of LDL-C. Nirmal RYAN et al. WING. 2013;310(19): 0517-1447 (http://education.MOBEXO/faq/PCD317) CHOL/HDL RATIO 3.4 <5.0 (calc) [employer] [facility] NON HDL CHOLESTEROL 103 <130 mg/dL (calc) [employer] [facility] Comment: For patients with diabetes plus 1 major ASCVD risk factor, treating to a non-HDL-C goal of <100 mg/dL (LDL-C of <70 mg/dL) is considered a therapeutic option. 07/31/2022 12:3 5 PM CDT 08/01/2022 4:36 AM CDT Narrative Resulting Agency Comment Performing Organization Information: ?Site ID: [place] ?Name: [employer] ?Address: [address] [place] [address] ?Director: Jaquan Arias MD Abimbola Cuba [facility] Final Re sult [employer] [facility] [address] [place] [address], * COMPREHENSIVE METABOLIC PANEL (07/31/2022 12:35 PM CDT) [facility] GLUCOSE 88 65 - 99 mg/dL [facility] [employer] [facility] Comment: ? Fasting reference interval BUN 14 7 - 25 mg/dL [facility] CREATININE S/P/B 0.82 0.50 - 0.96 mg/dL [employer] GFR ESTIMATE 100 > OR = 60 mL/min/1 .73m2 [employer] Comment: The eGFR is based on the CKD-EPI 2020 equation. To calculate the new eGFR from a previous Creatinine or Cystatin C result, go to https://www.kidney.org/professionals/ kdoqi/gfr%5Fcalculator BUN CREATININE RATIO NOT APPLICABLE 6 - 22 (calc) [facility] SODIUM S/P/B 139 135 - 146 mmol/L [facility] POTASSIUM S/P/B 4.2 3.5 - 5.3 mmol/L [facility] CHLORIDE S/P/B 110 98 - 110 mmol/L [employer] CO2 22 20 - 32 mmol/L [facility] CALCIUM S/P/B 9.0 8.6 - 10.2 mg/dL [facility] TOTAL PROTEIN S/P/B 6.6 6.1 - 8.1 g/dL [facility] ALBUMIN S/P/B 4.2 3.6 - 5.1 g/dL [facility] GLOBULIN 2.4 1.9 - 3.7 g/dL (calc) [facility] ALBUMIN/GLOBULI N RATIO 1.8 1.0 - 2.5 (calc) [facility] BILIRUBIN TOTAL S/P/B 0.5 0.2 - 1.2 mg/dL [facility] ALKALINE PHOSPHATASE S/P/B 40 31 - 125 U/L [facility] AST 13 10 - 30 U/L [employer] ALT 13 6 - 29 U/L [facility] 07/31/2022 12:3 5 PM CDT 08/01/2022 4:36 AM CDT Narrative Resulting Agency Comment Performing Organization Information: ?Site ID: [place] ?Name: [employer] ?Address: [address] [place] [address] ?Director: Jaquan Arias MD Abimbola [facility] Final Re sult [employer] [address] [facility] [id number] [place] [address], * CBC W/DIFF AUTOMATED (07/31/2022 12:35 PM CDT) WBC 6.4 3.8 - 10.8 Thousand/u L [employer] [facility] RBC 4.19 3.80 - 5.10 Million/uL [employer] HGB 12.3 11.7 - 15.5 g/dL [facility] HCT 37.0 35.0 - 45.0 % [facility] MCV 88.3 80.0 - 100.0 fL [facility] MCH 29.4 27.0 - 33.0 pg [facility] MCHC 33.2 32.0 - 36.0 g/dL [facility] RDW 12.8 11.0 - 15.0 % [employer] PLT 350 140 - 400 Thousand/u L [employer] MPV 10.3 7.5 - 12.5 fL [employer] [facility] ABS. NEUTROPHILS 3,181 1,500 - 7,800 cells/uL [employer] [facility] ABS. LYMPHOCYTES 2,630 850 - 3,900 cells/uL [employer] [facility] ABS. MONOCYTES 429 200 - 950 cells/uL [employer] [facility] ABS. EOSINOPHILS 102 15 - 500 cells/uL [employer] [facility] ABS. BASOPHILS 58 0 - 200 cells/uL [employer] [facility] SEG NEUTROPHILS 49.7 % [facility] LYMPHOCYTES 41.1 % [employer] [facility] MONOCYTES 6.7 % [employer] [facility] EOSINOPHILS 1.6 % [employer] JOEY BASOPHILS 0.9 % [employer] 07/31/2022 12:3 5 PM CDT 08/01/2022 4:36 AM CDT Narrative Resulting Agency Comment Performing Organization Information: ?Site ID: [place] ?Name: [employer] ?Address: [address] [place] [address] ?Director: Jaquan Arias MD Abimbola Cuba [facility] Final Re sult [employer] [facility] [address] [place], [place] [address] documented in this encounter Visit Diagnoses Diagnosis Severe depression (CMS/HCC HHS/HCC)- Primary Depressive disorder, not elsewhere classified Generalized anxiety disorder Chronic midline low back pain without sciatica Excess skin of abdomen Unspecified hypertrophic and atrophic condition of skin Class 1 obesity due to excess calories without serious comorbidity with body mass index (BMI) of 30.0 to 30.9 in adult Annual physical exam Routine general medical examination at a health care facility Lipid screening Screening for lipoid disorders Thyroid disorder screening Screening for thyroid disorder Former smoker Personal history of tobacco use, presenting hazards to health documented in this encounter Additional Health Concerns Assessment Noted Time PHQ-9 Depression Total Score: 27 05/15/ 023 3:27 PM [employer] documented as of this encounter Care Teams Design Transferrer Relationship Specialty Start Date End Date Abimbola Cuba FNP- PCP - General Nurse Practitioner Family 01/01/20 documented as of this encounter
--- OUTSIDE RECORDS SUMMARY | 2024-03-06 11:04 | XMS_ITS | Encounter Summary ---
Author Organization [facility] Address [address] [place] [address]. [place] [id number] [place] [id number] Care Team Providers Care Curing Pickling Packer Name Role Phone Indira Brown PA-C Primary Care Provider [phone] Encounter Details Date Type Department Care Team (Latest Contact Info) Description 07/30/2023 Travel Social History Tobacco Use Types Packs/Day [...] Depression Total Score: 27 023 3:27 PM ORDER ANALYST documented as of this encounter Care Teams Curing Pickling Packer Relationship Specialty Start Date End Date Indira Brown PA-C [address] [place] [address] PCP - General PHYSICIAN DATA CONTROL CLERK 05/24/23 documented as of this encounter
--- OUTSIDE RECORDS SUMMARY | 2024-03-06 11:04 | XMS_ITS | Encounter Summary ---
Author Organization [facility] Address [address] [place] [address]. [place], [place] [id number] [place] [address] Care Team Providers Care Cost Control Supervisor Name Role Phone Jamila Reyes [facility] Primary Care Provider + Encounter Details Date Type Department Care Team (Latest Contact Info) Description 02/12/2023 Travel Social History Tobacco Use Types Packs/Day [...] Depression Total Score: 27 023 3:27 PM BUTCHER documented as of this encounter Care Teams Cost Control Supervisor Relationship Specialty Start Date End Date Jamila Reyes, [facility]- [address] [place] [address] PCP - General Nurse Practitioner Family 01/01/2305/13 documented as of this encounter
--- OUTSIDE RECORDS SUMMARY | 2024-03-06 11:04 | XMS_ITS | Encounter Summary ---
Author Organization [facility] Address [address] [place] [address]. [place], [place] [id number] [place] [address] Care Team Providers Care Rotary Drier Feeder Name Role Phone Travis Vaughn [facility] Primary Care Provider + Reason for Visit * Reason Comments WorkComp/Disability/FMLA Report (SCAN) W ORK COMP FOLLOW UP Encounter Details Date Type Department Care Team (Late st Contact Info) Description 02/17/2023 7:40 AM AUTOMOBILE SPRING REPAIRER Office Visit [facility] [address] [place] [phone] Travis Vaughn, [address] [address] WorkComp/Disability/F MLA Report (SCAN) (WORK COMP FOLLOW UP) Social History Tobacco Use Types Packs/Day Years [...] Sign Reading Time Taken Comments Blood Pressure 121/67 02/17/2023 7:35 AM AUTOMOBILE SPRING REPAIRER Pulse 68 02/17/2023 7:35 AM AUTOMOBILE SPRING REPAIRER Temperature 36.2 ??C (97.2 ??F) 02/17/2023 7:35 AM CS T Respiratory Rate 16 02/17/2023 7:35 AM AUTOMOBILE SPRING REPAIRER Oxygen Saturation 100% 02/17/2023 7:35 AM AUTOMOBILE SPRING REPAIRER Inhaled Oxygen Concentration - - Weight 85.7 kg (189 lb) 02/17/2023 7:35 AM AUTOMOBILE SPRING REPAIRER Height 167.6 cm (5' 6 ) 02/17/2023 7:35 AM AUTOMOBILE SPRING REPAIRER Body Mass Index 30.51 02/17/2023 7:35 AM AUTOMOBILE SPRING REPAIRER documented in this encounter Progress Notes * Travis Vaughn, CLOTH INSPECTOR-BC - 02/17/2023 7:40 AM CST Reason for Visit: Work comp follow up History of Present Illness: Feli Garcia is a 28-year-old female who presents to the clinic today for follow up for low back pain. She was seen in the office on 02/12/23 for similar complaint and prescribed tizanidine. She reports over the weekend her back pain was somewhat improved, however, she returned to work on Wednesday and had significant pain even with light duty. 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 The muscle relaxant and heating pad have helped some. She still has intermittent numbness toher left leg, but no saddle anesthesia or bowel and bladder dysfunction. Pain is chronic, but worsewith moving and is a pulling sensation Current Outpatient Medications on File Prior to [...] facility-administered medications on file prior to visit. Review of patient's allergies indicates: Allergen Reactions [...] systems reviewed and are negative. Physical exam: Vitals: 02/17/23 0735 BP: 121/67 Pulse: 68 Resp: 16 Temp: 97.2 ??F (36.2 ??C) SpO2: 100% Body mass index is 30.51 kg/m??. General: No acute respiratory distress. Well [...] 40 degrees right and 25 degrees left side unchanged. Neurological: Alert and oriented x4. Motor and sensory examination of the upper and lower extremities is normal. Gait steady. Psychiatric: Neutral mood and affect. Cooperative. Speech clear and nonpressured. Assessment/Plan Encounter Diagnose(s) ICD-10-CM SNOMED CT(R) 1. Acute left-sided low back pain with left-sided sciatica M54.42 ACUTE BACK PAIN WITH SCIATICA Acute. Was improving but worsened with return to work. Continue RICE. Continue tizanidine 2-4 mg POQ8 hours PRN. Continue rest, ice/heat, and OTC NSAIDs. Work excuse note given. Consider PT if pain persists. Medications were reviewed and reconciled. The patient was counseled on appropriate use of medication as well as about potential side effects. Patient verbalized understanding and agrees with treatment plan. Tobacco cessation counseling: N/A. Follow up FU PRN if pain persists, worsens or new symptoms develop. CHRISTINA SANDOVAL 02/17/2023 7:13 AM I spent 15 minutes today reviewing the patient's medical record, obtaining history, performing an exam, ordering medications, tests and/or procedures, documenting in the medical record, referring and/or communicating with other health care providers, counseling and educating the patient/family/caregiver. This includes time spent prior to the visit and after the visit in direct care of patient. Reviewing and communicating test results & coordination of care. MOBILE SPRING REPAIRER documented in this encounter Plan of Treatment Not on file documented as of this encounter Results * XR LUMB SPINE 3V (02/17/2023 10:10 AM AUTOMOBILE SPRING REPAIRER) Anatomical Region Laterality Modality Spine Radiographic Bailey ging 02/17/2023 11:2 1 AM AUTOMOBILE SPRING REPAIRER Impressions 02/17/2023 11:24 AM AUTOMOBILE SPRING REPAIRER IMPRESSION: Minimal degenerative changes and similar to 2021 study. Ordered By: TRAVIS VAUGHN Interpreted By: Mario Clark, 02/17/2023 11:21 AM Narrative 02/17/2023 11:24 AM AUTOMOBILE SPRING REPAIRER IMAGING STUDIES: XR LUMB SPINE 3V ? DATE: ??02/17/2023 9:54 AM HISTORY: ??back pain ?28-year-old female. Lower back pain. COMPARISON: ??Lumbar spine radiographs 12/10/2021. DISCUSSION: AP, lateral, and coned lateral view at the lumbosacral spine. Five lumbar vertebral bodies. Mild right to left angulation of the spine from superior to inferior is likely due to positioning. Mild disc space narrowing at L5-S1 is similar to 202 study. Facet degenerative changes most prominent in the mid to lower lumbar spine and probably greatest at L5-S1 level. Mild endplate hypertrophic changes at T11-T12 level. Sacroiliac joints within normal limits. Mild colonic stool. Bilateral pelvic phleboliths. Procedure Note Mario Clark MD - 02/17/2023 IMAGING STUDIES: XR LUMB SPINE 3VDATE: 02/17/2023 9:54 AM HISTORY: back pain 28-year-old female. Lower back pain. COMPARISON: Lumbar spine radiographs 12/10/2021. DISCUSSION: AP, lateral, and coned lateral view at the lumbosacral spine. Five lumbar vertebral bodies. Mild right to left angulation of the spine from superior to inferior islikely due to positioning. Mild disc space narrowing at L5-S1 is similar to 202 study. Facetdegenerative changes most prominent in the mid to lower lumbar spine andprobably greatest at L5-S1 level. Mild endplate hypertrophic changes at T11-T12 level. Sacroiliac joints within normal limits. Mild colonic stool. Bilateral pelvic phleboliths. IMPRESSION: Minimal degenerative changes and similar to 2021 study. Ordered By: TRAVIS VAUGHN Interpreted By: Mario Clark, 02/17/2023 11:21 AM us Travis Vaughn CLOTH INSPECTOR-BC GENERAL IMAGING Final Re sult documented in this encounter Visit Diagnoses Diagnosis Acute left-sided low back pain with left-sided sciatica- Primary Acute left-sided low back pain with left-sided sciatica documented in this encounter Additional Health Concerns Assessment Noted Time PHQ-9 Depression Total Score: 27 05/15/ 023 3:27 PM AUTOMOBILE SPRING REPAIRER documented as of this encounter Care Teams Rotary Drier Feeder Relationship Specialty Start Date End Date Travis Vaughn, CLOTH INSPECTOR-BC [address] [facility], [address] [place] [address] PCP - General Nurse Practitioner Family 01/01/2305/13 documented as of this encounter
--- OUTSIDE RECORDS SUMMARY | 2024-03-06 11:04 | XMS_ITS | Encounter Summary ---
Author Organization [facility] Address [address] [place] [address]. [place], [place] [id number] [place] [address] Care Team Providers Care Arrt Technologist Name Role Phone Jamila Reyes CLINICAL RESEARCH TECH- Primary Care Provider + Reason for Visit * Reason Comments Back Pain Encounter Details Date Type Department Care Team (Late st Contact Info) Description 02/07/2023 2:22 PM WOOD PATTERNMAKER - 02/07/2023 4:21 PM WOOD PATTERNMAKER Emergency [facility] Emergency Room [address] [place] [address] Negrita Mathews MD [address] [place] [address] Back Pain Discharge Disposition: Home or Self Care [...] Sign Reading Time Taken Comments Blood Pressure 110/66 02/07/2023 2:23 PM WOOD PATTERNMAKER Pulse 77 02/07/2023 2:23 PM WOOD PATTERNMAKER Temperature 37 ??C (98.6 ??F) 02/07/2023 2:23 PM WOOD PATTERNMAKER Respiratory Rate 20 02/07/2023 2:23 PM WOOD PATTERNMAKER Oxygen Saturation 100% 02/07/2023 2:23 PM WOOD PATTERNMAKER Inhaled Oxygen Concentration - - Weight 78.9 kg (174 lb) 02/07/2023 2:23 PM WOOD PATTERNMAKER Height 167.6 cm (5' 6 ) 02/07/2023 2:23 PM WOOD PATTERNMAKER Body Mass Index 28.08 02/07/2023 2:23 PM WOOD PATTERNMAKER documented in this encounter Discharge Instructions * Discharge Instructions* Negrita Mathews MD - 02/07/2023 4:10 PM WOOD PATTERNMAKER It is imperative that you follow-up closely with your primary care physician for reevaluation. If your pain persists or if you develop any other concerning symptoms, you will require outpatient imaging for further evaluation. Please return to the emergency department for any worsening, new symptomsor other concerns. PATTERNMAKER * Attachments The following attachments cannot be sent through Care Everywhere. * Low Back Pain Discharge Instructions ([place]) * Back Muscle Strain ([place]) documented in this encounter Medications at Time of Discharge albuterol sulfate HFA 108 (90 Base) MCG/ACT inhalerIndicatio ns:COVID-19 Inhale 2 puffs into the lungs every 6 (six) hours as needed. 18 g 12/08/2022 07/30/2023 buPROPion XL (WELLBUTRIN XL) 300 MG 24 hr tabletIndication s:Severe depression (CMS/HCC HHS/HCC) Take 1 tablet (300 mg total) by mouth daily. 90 tablet 08/03/2022 07/30/2023 busPIRone (BUSPAR) 5 MG tabletIndication s:Anxiety Take 1 tablet (5 mg total) by mouth 2 (two) times daily. 60 tablet 3 05/15/2022 07/30/2023 diazePAM (VALIUM) 5 MG tabletIndication s:Lumbar strain Take 1 tablet (5 mg total) by mouth every 8 (eight) hours as needed for Anxiety or Muscle Spasms. 9 tablet 02/07/2023 07/30/2023 hydrOXYzine (ATARAX) 25 MG tabletIndication s:Anxiety Take 1/2 tablet (12.5 mg) to 1 tablet (25 mg) up to three times a day as needed for anxiety 30 tablet 01/27/2023 02/21/2023 ibuprofen (MOTRIN) 600 MG tablet Take 1 tablet (600 mg total) by mouth every 6 (six) hours as needed for Pain. 40 tablet 02/07/2023 02/17/2023 lidocaine (LIDODERM) 5 % Place 1 patch onto the skin daily for 7 days. Remove & Discard patch within 12 hours or as directed by 7 patch 02/07/2023 02/14/2023 documented as of this encounter ED Notes * Negrita Mathews MD - 02/07/2023 4:21 PM CST Chief Complaint Chief Complaint Patient presents with Back Pain History of Present Illness 28-year-old female presents complaining of left lumbar pain. The patient reports that when she was at work at [employer] about an hour ago, she was standing on the side of someone's toilet and attempting to help to lift them off of it, and states that she suddenly experienced onset of left-sided lumbar pain that radiates into her left buttock. She states that she had a microdiscectomy performed on her lumbar spine years ago after a fall at [facility]. She does not have any associated urinary or fecal incontinence or retention, she does not have any radiation of pain into her left lower extremity, she denies any tingling or numbness or weakness in the lower extremity. She states that after her pain began, she had a panic attack, which caused her to have upper carpal spasm, which is now improving. She arrives via EMS. She states that she has not taken any pain medications for this thus far. She denies a history of chronic daily back pain. She denies the possibility of since she is a lesbian. Medical History ALLERGIES: Allergies Allergen Reactions Seasonal Other (see comment) congestion MEDICATIONS: Prior to Admission medications Medication Sig Start Date End Date Taking? Authorizing Provider buPROPion XL (WELLBUTRIN XL) 300 MG 24 hr tablet Take 1 tablet (300 mg total) by mouth daily. 08/03/22 Yes CHRISTINA Escalona busPIRone (BUSPAR) 5 MG tablet Take 1 tablet (5 mg total) by mouth 2 (two) times daily. Patient taking differently: Take 0.5 tablets (2.5 mg total) by mouth 2 (two) times daily. 05/15/22 Yes CHRISTINA Escalona diazePAM (VALIUM) 5 MG tablet Take 1 tablet (5 mg total) by mouth every 8 (eight) hours as needed for Anxiety or Muscle Spasms. 02/07/23 Yes Negrita Mathews MD ibuprofen (MOTRIN) 600 MG tablet Take 1 tablet (600 mg total) by mouth every 6 (six) hours as needed for Pain. 02/07/23 02/17/23 Yes Negrita Mathews MD lidocaine (LIDODERM) 5 % Place 1 patch onto the skin daily for 7 days. Remove & Discard patch within 12 hours or as directed by 02/07/23 02/14/23 Yes Negrita Mathews MD albuterol sulfate HFA 108 (90 Base) MCG/ACT inhaler Inhale 2 puffs into the lungs every 6 (six) hours as needed. 12/08/22 Ileana Lentz APRN hydrOXYzine (ATARAX) 25 MG tablet Take 1/2 tablet (12.5 mg) to 1 tablet (25 mg) up to three times aday as needed for anxiety 01/27/23 CHRISTINA Carvajal PAST MEDICAL HISTORY: Past Medical History: Diagnosis [...] date: 02/24/2021 Quit date: 05/29/2022 Years since quittin.6 Smokeless tobacco: Never Vaping Use Vaping Use: Never used Substance Use Topics Alcohol use: No Drug use: Not Currently Types: Marijuana Comment: recreational Review of Systems Review of Systems Constitutional: Negative for fever. Gastrointestinal: Negative for abdominal pain and vomiting. Musculoskeletal: Positive for back pain. All other systems reviewed and are negative. Physical Exam Filed Vitals: 02/07/23 1423 BP: 110/66 Pulse: 77 Resp: 20 Temp: 98.6 ??F (37 ??C) TempSrc: Temporal SpO2: 100% Weight: 78.9 kg (174 lb) Height: 1.676 m (5' 6 ) Physical Exam Vitals and nursing note reviewed. Constitutional: General: She is in acute distress (mild). Appearance: Normal appearance. HENT: Head: Normocephalic and atraumatic. Eyes: Conjunctiva/sclera: Conjunctivae normal. Cardiovascular: Rate and Rhythm: Normal rate. Pulmonary: Effort: Pulmonary effort is normal. Musculoskeletal: Comments: No midline vertebral tenderness. No tenderness to palpation in the lumbar spine. No back abrasion, erythema, swelling or external evidence of trauma is present. Skin: General: Skin is warm. Neurological: Mental Status: She is alert and oriented to person, place, and time. Comments: Normal sensation to light touch throughout the bilateral lower extremities. 2+ bilateral patellar and Achilles reflexes. 5/5 strength bilateral hip flexion, knee flexion, knee extension, plantarflexion, dorsiflexion. Psychiatric: Mood and Affect: Mood normal. Behavior: Behavior normal. Diagnostic Studies / Procedures ELECTROCARDIOGRAMS: No results found for this visit on 02/07/23. LABORATORY STUDIES: No results found for this visit on 02/07/23. IMAGING STUDIES No orders to display ED Course / Medical Decision Making Medical Decision Making 28-year-old female presents with left low back pain that radiates into her buttock without associated neurologic symptoms nor deficit appreciated on exam. 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 She has no midline tenderness or step-off, I do not suspect a fracture at this time and do not feel that an x- ray or CT would be of much benefit. Her presentation appears to be consistent with a likely lumbar strain. She has no motor or sensory or reflex abnormality on exam of her lower extremities. The patient was given Valium for muscle spasm, a Toradol injection, and a lidocaine patch for pain. She was advised follow-up closely with her primary care physician for reevaluation, as she was instructed that ifthis pain persists, she may benefit from outpatient MRI for further evaluation, although without any neurologic symptoms nor deficit on exam, an MRI is not indicated emergently. I will prescribe Valium for muscle spasm, I did review her PDMP prior to prescribing this. I also instructed her to take i buprofen for its anti-inflammatory effect, and I will also prescribe lidocaine patches and instructed her that she can also take x-ray strength Tylenol at home at a recommended dose for help with this pain. Instructed to return for reevaluation with any worsening, new symptoms or other concerns. The patient was ambulatory in the room upon my reevaluation, seemingly much improved compared to when she first arrived and was having difficulty with movement secondary to pain. Provided with a work note per her request. Problems Addressed: Lumbar strain: acute illness or injury Risk OTC drugs. Prescription drug management. Clinical Impression Lumbar strain (Primary) Disposition: Discharge Negrita Mathews MD 02/08/23 0822 PATTERNMAKER * Kathleen Felix RN - 02/07/2023 2:25 PM CST Was at work at [employer] and states I was moving a patient and felt a pull in my low back Hyperventilating States she has has had previous back surgery PRACTICE CLINICIAN intact PATTERNMAKER documented in this encounter Plan of Treatment Not on file documented as of this encounter Visit Diagnoses Diagnosis Lumbar strain- Primary Sprain of lumbar region documented in this encounter Administered Medications Inactive Administered Medications - up to 3 most recent administrations Medication Order MAR Action Action Date Dose Rate Site diazePAM (VALIUM) tablet 5 mg 5 mg, Oral, Once, 1 dose, On 02/07/23 at 1445 Given 02/07/2023 2:53 PM WOOD PATTERNMAKER 5 mg ketorolac (TORADOL) injection 30 mg 30 mg, Intramuscular, Once, 1 dose, On 02/07/23 at 1500, For IV administration, give over 15 seconds. Given 02/07/2023 2:54 PM WOOD PATTERNMAKER 30 mg Left Deltoid lidocaine 4 % patch 1 patch 1 patch, Transdermal, Administer over 12 Hours, Once, 1 dose, On 02/07/23 at 1445 Patch Applied 02/07/2023 2:54 PM WOOD PATTERNMAKER 1 patch Back documented in this encounter Active and Recently Administered Medications Times are shown in WOOD PATTERNMAKER. Scheduled Medication Order 02/05/2023 02/06/2023 02/07/2023 diazePAM (VALIUM) tablet 5 mg (COMPLETED) 5 mg, Oral, Once, 1 dose, On 02/07/23 at 1445 1453 (Given - Provid er: Kathleen Felix RN) ketorolac (TORADOL) injection 30 mg (COMPLETED) 30 mg, Intramuscular, Once, 1 dose, On 02/07/23 at 1500, For IV administration, give over 15 seconds. 1454 (Given - Provid er: Kathleen Felix RN) lidocaine 4 % patch 1 patch 1 patch, Transdermal, Administer over 12 Hours, Once, 1 dose, On 02/07/23 at 1445 1454 (Patch Applied - Provider: Kathleen Felix RN)1621 (Due: Patch Removed - Provider: Automatic Discharge Provider - Comment: Time automatically adjusted from order being discontinued) documented in this encounter Additional Health Concerns Assessment Noted Time PHQ-9 Depression Total Score: 27 05/15/ 023 3:27 PM WOOD PATTERNMAKER documented as of this encounter Care Teams Arrt Technologist Relationship Specialty Start Date End Date Jamila Reyes, [facility]- [address] [place] [address] PCP - General Nurse Practitioner Family 01/01/2305/13 documented as of this encounter
--- OUTSIDE RECORDS SUMMARY | 2024-03-06 11:04 | XMS_ITS | Encounter Summary ---
Author Organization [facility] Address [address] [place] [address]. [place] [id number] [place] [address] Care Team Providers Care Field Staff Name Role Phone Abimbola Cuba [facility] Primary Care Provider + Reason for Visit * Reason Comments Congestion Covid positive 12/04/22CongestionChest tightness and sob x2 days Encounter Details Date Type Department Care Team (Late st Contact Info) Description 12/08/2022 1:40 PM CDT Office Visit [facility] Family & Internal Medicine [facility] [id number] [place] [phone] Ileana Lentz, CAR STARTER [address] [address] Congestion (Covid positive Wednesday12/04/22/Congestion/Ch est tightness and sob x2 days) Social History Tobacco Use Types Packs/Day Years [...] Sign Reading Time Taken Comments Blood Pressure 125/89 12/08/2022 12:18 PM CDT Pulse 73 12/08/2022 12:18 PM CDT Temperature 36.9 ??C (98.4 ??F) 12/08/2022 12:18 PM C DT Respiratory Rate 18 12/08/2022 12:18 PM CDT Oxygen Saturation 100% 12/08/2022 12:18 PM CDT Inhaled Oxygen Concentration - - Weight 79.2 kg (174 lb 9.6 oz) 12/08/2022 12:18 PM CDT Height 167.6 cm (5' 6 ) 12/08/2022 12:18 PM CDT Body Mass Index 28.18 12/08/2022 12:18 PM CDT documented in this encounter Patient Instructions * Patient Instructions* Ileana Lentz APRN - 12/08/2022 1:40 PM CDT Thank you for your visit today! Please restart zyrtec/claritin/allergra and utilize nasal supportive therapy with ibuprofen or tylenol as listed below. Also increase fluid intake to help thin nasal secretions. Sore throat-May try as needed: salt water gargles (1/4-1/2 teaspoon of salt per 8 oz glass warm water), Chloroseptic spray as directed on the bottle for age/weight, cough drops as directed on the package for age/weight or hard candy, or teaspoon honey or heavy peach syrup. Nasal congestion-May try as needed: May utilize nasal saline flushes/Deja Pot and then Flonase/Nasacort. May try oral antihistamines (claritin/ant/zyrtec) as directed on the package for age/weight. Headache: May try Tylenol (acetaminophen) 500 to 1000mg every 6 hours or Advil/Motrin (ibuprofen) 600-800mg every 6 hours as directed on the bottle for age/weight as needed. documented in this encounter Progress Notes * Ileana Lentz APRN - 12/08/2022 1:40 PM CDT Reason for Visit: Congestion (Covid positive Wednesday12/04/22/Congestion/Chest tightness and sob x2 days) History of Present Illness: Feli Garcia is a 27-year-old female who presents to the office with acute concern for COVID symptoms. Congestion Associated symptoms include congestion, coughing, fatigue, headaches, a sore throat and swollen glands. Pertinent negatives include no abdominal pain, chest pain, chills, fever, nausea, rash or vomiting. ROS: Review of Systems Constitutional: Positive for fatigue. Negative for activity change, appetite change, chills, fever and night sweats. HENT: Positive for congestion, postnasal drip and sore throat. Negative for sinus pressure. Eyes: Negative for pain. Respiratory: Positive for cough, chest tightness, shortness of breath and wheezing. Negative for sputum production. Cardiovascular: Negative for chest pain and palpitations. Gastrointestinal: Negative for abdominal pain, bowel incontinence, diarrhea, nausea and vomiting. Genitourinary: Negative for dysuria. Skin: Negative for rash. Neurological: Positive for headaches. Negative for dizziness, imbalance, bowel incontinence and bladder incontinence. Medications: Current Outpatient Medications: albuterol sulfate HFA 108 (90 Base) MCG/ACT inhaler, Inhale 2 puffs into the lungs every 6 (six) hours as needed., Disp: 18 g, Rfl: 0 busPIRone (BUSPAR) 5 MG tablet, [...] for anxiety, Disp: 30 tablet, Rfl: 0 predniSONE (DELTASONE) 20 MG tablet, Take 2 tablets (40 mg total) by mouth every morning for 5 days., Disp: 10 tablet, Rfl: 0 benzonatate (TESSALON PERLES) 100 MG capsule, Take 2 capsules (200 mg total) by mouth 3 (three) times daily as needed., Disp: 20 capsule, Rfl: 0 buPROPion XL (WELLBUTRIN XL) 300 MG 24 hr tablet, Take 1 tablet (300 mg total) by mouth daily., Disp: 90 tablet, Rfl: 0 Review of patient's allergies [...] date: 02/24/2021 Quit date: 05/29/2022 Years since quittin.5 Smokeless tobacco: Never Vaping Use Vaping Use: Never used Substance and Sexual Activity Alcohol use: No Drug use: Not Currently Types: Marijuana Comment: recreational Sexual activity: Yes Partners: Female Social History Narrative Lives with girlfriend and her son, Feli has custody of two nephews (6 and 3 01/01/20) E-Cigarettes Questions Responses E-Cigarette Use Never User Family History Problem Relation Name Age of Onset Lung Cancer Paternal Grandmother Diabetes Paternal Grandfather Hypertension Mother Other (blood clot history) Mother Family Status Relation Name Status PGM PGF Mother Alive Father Alive Physical Exam Vitals reviewed. Constitutional: General: She is awake. She is not in acute distress. Appearance: Normal appearance. She is well-developed and well-groomed. She is not toxic-appearing or diaphoretic. HENT: Head: Normocephalic and atraumatic. Right Ear: Tympanic membrane, external ear and ear canal normal. Patient has no impacted cerumen right. Left Ear: Tympanic membrane, external ear and ear canal normal. Patient has no impacted cerumen left. Nose: Rhinorrhea present. Mouth/Throat: Uvula is midline. Mucous membranes are dry. Posterior oropharyngeal erythema present. Eyes: General: Lids are normal. Right eye: No discharge. Left eye: No discharge. Extraocular Movements: Extraocular movements intact. Conjunctiva/sclera: Conjunctivae normal. Cardiovascular: Rate and Rhythm: Normal rate and regular rhythm. Heart sounds: No murmur heard. Pulmonary: Effort: Pulmonary effort is normal. No respiratory distress. Breath sounds: Normal breath sounds and air entry. No stridor. No wheezing. Musculoskeletal: General: Normal range of motion. Cervical back: Normal range of motion and neck supple. No tenderness. Skin: General: Skin is warm and dry. Findings: No rash. Neurological: Mental Status: She is alert and oriented to person, place, and time. Psychiatric: Attention and Perception: Attention normal. Mood and Affect: Affect normal. Speech: Speech normal. Behavior: Behavior is cooperative. Cognition and Memory: Cognition normal. Filed Vitals: 12/08/22 1218 BP: 125/89 Pulse: 73 Resp: 18 Temp: 98.4 ??F (36.9 ??C) TempSrc: Temporal SpO2: 100% Weight: 79.2 kg (174 lb 9.6 oz) Height: 5' 6 (1.676 m) Diagnoses/Impression: 1. COVID-19 albuterol sulfate HFA 108 (90 Base) MCG/ACT inhaler 2. Nasal congestion predniSONE (DELTASONE) 20 MG tablet 3. Acute cough benzonatate (TESSALON PERLES) 100 MG capsule Recommendations and Plan: 1. COVID-19 - tested positive for COVID at home. - albuterol sulfate HFA 108 (90 Base) MCG/ACT inhaler; Inhale 2 puffs into the lungs every 6 (six) hours as needed. Dispense: 18 g; Refill: 0 2. Nasal congestion - Discussed differentials and etiologies; viral vs allergic given seasons. Reviewed supportive careas below. Increase fluid intake and get plenty of rest. Sore throat-May try as needed: salt water gargles (1/4-1/2 teaspoon of salt per 8 oz glass warm water), Chloroseptic spray as directed on the bottle for age/weight, cough drops as directed on the package for age/weight or hard candy, or teaspoon honey or heavy peach syrup. Nasal congestion-May try as needed: May utilize nasal saline flushes/Deja Pot and then Flonase/Nasacort. May try oral antihistamines (claritin/ant/zyrtec) as directed on the package for age/weight. Headache: May try Tylenol (acetaminophen) 500 to 1000mg every 6 hours or Advil/Motrin (ibuprofen) 600-800mg every 6 hours as directed on the bottle for age/weight as needed. - predniSONE (DELTASONE) 20 MG tablet; Take 2 tablets (40 mg total) by mouth every morning for 5 days. Dispense: 10 tablet; Refill: 0 3. Acute cough - benzonatate (TESSALON PERLES) 100 MG capsule; Take 2 capsules (200 mg total) by mouth 3 (three) times daily as needed. Dispense: 20 capsule; Refill: 0, Orders Placed This Encounter predniSONE (DELTASONE) 20 MG tablet albuterol sulfate HFA 108 (90 Base) MCG/ACT inhaler benzonatate (TESSALON PERLES) 100 MG capsule Return to clinic with new, persistent, or worsening symptoms. Feli Garcia is in agreement to andverbalized understanding of treatment plan with no further questions at this time. Reviewed and updated this visit by provider: ILEANA LENTZ APRN Referring Provider: No ref. provider found PCP: CHRISTINA VIVEROS documented in this encounter Plan of Treatment Not on file documented as of this encounter Visit Diagnoses Diagnosis COVID-19- Primary Nasal congestion Other diseases of nasal cavity and sinuses Acute cough documented in this encounter Additional Health Concerns Assessment Noted Time PHQ-9 Depression Total Score: 27 023 3:27 PM PHONE TECHNICIAN documented as of this encounter Care Teams Field Staff Relationship Specialty Start Date End Date Abimbola Cuba FNP-BC PCP - General Nurse Practitioner Family 01/01/20 documented as of this encounter
--- OUTSIDE RECORDS SUMMARY | 2024-03-06 11:04 | XMS_ITS | Clinical Summary ---
Author Organization [facility] Address [address] [place] [address]. [place], [place] [address] [place] [address] Care Team Providers Care Button Attaching Machine Operator Name Role Phone Indira Brown PA-C Primary Care Provider [phone] Allergies Active Allergy Reactions Criticality Noted Date Comments Seasonal Other (see comment) Low 07/15/2011 congestion Medications hydrOXYzine (ATARAX) 25 MG tabletIndications: Anxiety TAKE 1/2 TO 1 (ONE-HALF TO ONE) TABLET BY MOUTH UP TO THREE TIMES DAILY NEEDED FOR ANXIETY 60 tablet 2 03/05/20 23 Active HYDROcodone-acetam inophen (NORCO) 5-325 MG tablet Take 1 tablet by mouth every 6 (six) hours as needed. 10/07/19 24 Active ondansetron (ZOFRAN-ODT) 4 MG disintegrating tablet DISSOLVE 1 TABLET IN MOUTH EVERY 8 HOURS NEEDED FOR NAUSEA AND VOMITING 10/07/19 24 Active amoxicillin-clavul anate (AUGMENTIN) 875-125 MG tablet Take 1 tablet (875 mg total) by mouth every 12 (twelve) hours. for 7 days 10/07/19 24 024 Discontinu ed(Therapy completed) doxycycline hyclate (VIBRAMYCIN) 100 MG capsuleIndications :Acute non-recurrent frontal sinusitis,Bronchit is Take 1 capsule (100 mg total) by mouth 2 (two) times daily for 10 days. 20 capsule 02/14/20 24 024 Active Problems Problem Noted Date Diagnosed Date Chronic midline low back pain without sciatica 0 07/31/2022 Excess skin of abdomen 07/31/2022 Former smoker 07/31/2022 Closed nondisplaced fracture of distal phalanx of right little finger 12/11/2020 Class 1 obesity due to exces s calories without serious comorbidity with body mass index (BMI) of 30.0 to 30.9 in adult 11/27/2019 Gastroesophageal reflux disease without esophagi tis 02/01/2019 Acute upper respiratory infection 11/29/2018 Fatigue, unspecified type 09/30/2018 Severe depression ([facility]) 09/30/2018 Anxiety 02/11/2016 Abnormal heart rhythm 04/30/2015 Encounters Date Type Department Care Team Description 02/14/2024 9:00 AM SHEAR SETTER Office Visit [facility] Medical Group Family & Internal Medicine [address] [address] Elodia Uriostegui, YAEL URI (S/s x 5-6 days ) 02/14/2024 Travel from Last 3 Months Immunizations Name Administration Dates Next Due Dtap 10/23/1999 Dtp/Hib 05/02/1996, 6,1995,04/12 Fluzone 6 Months+ Quad (0.5 mL Prefilled Syringe) 01/01/2020 HPV4 (Gardasil) 09/10/2010,05/09/2010,12/25/2009 Hepatitis A (Generic) 09/10/2010,12/25/2009 Hepatitis B Pediatric 1995, 996,1995,01/22 MMR 10/23/1999,01/27/1996 MODERNA COVID-19 (12+) MRNA, LNP-S, PF, 100 MCG/ 0.5 ML DOSE 08/29/2020,07/30/2020 MODERNA COVID-19 (CENTERLESS GRINDER OPERATOR OSMAN BREA), MRNA, LNP-S, PF, 50 MCG/ 0.25 ML DOSE 04/12/2021 Meningococcal (Generic) 05/09/2010 Opv 05/02/1996, 6,1995,04/12 Polio Ipv (Generic) 10/23/1999 Tdap (Adacel) 05/11/2017,02/13/2016 Tdap (Boostrix) 12/25/2009 Family History Medical History Relation Comments Hypertension Mother blood clot history Mother Diabetes Paternal Grandfather Lung Cancer Paternal Grandmother Relation Status Comments Father Alive Mother Alive Paternal Grandfather Paternal Grandmother Social History Tobacco Use Types Packs/Day Years [...] AM CDT Sexual Orientation Not on file Last Filed Vital Signs Vital Sign Reading Time Taken Comments Blood Pressure 133/87 02/14/2024 8:59 AM SHEAR SETTER Pulse 79 02/14/2024 8:59 AM SHEAR SETTER Temperature 37.3 ??C (99.2 ??F) 02/14/2024 8:59 AM CS T Respiratory Rate 16 02/14/2024 8:59 AM SHEAR SETTER Oxygen Saturation 97% 02/14/2024 8:59 AM SHEAR SETTER Inhaled Oxygen Concentration - - Weight 73.3 kg (161 lb 9.6 oz) 02/14/2024 8:59 A M SHEAR SETTER Height 167.6 cm (5' 6 ) 02/14/2024 8:59 AM SHEAR SETTER Body Mass Index 26.08 02/14/2024 8:59 AM SHEAR SETTER Plan of Treatment Health Maintenance Due Date Last Done Comments Cervical Cancer Screening Pap Smear (Age 21 to 29) Every 3 Years 1995 Cervical Cancer Screening 1995 Annual Physical 1998 Hepatitis C 2013 COVID-19 Vaccine ( season) 2023 04/12/2021, 08/29/2020, 07/30/2020 Influenza Adult (#1) 2023 01/01/2020 DTaP, Tdap and Td Vaccines (5 - Td or Tdap) 05/11/2027 05/11/2017, 02/13/2016, 12/25/2009, Additional history exists Hepatitis B Vaccines Completed 1995, 1995, 1995, Additional history exists Meningococcal Vaccine Aged Out 05/09/2010 No milla jagruti eligible based on patient's age to complete this topic HPV Vaccines Completed 09/10/2010, 04/16, 12/25/2009 Pneumococcal Vaccine: Pediatrics (0 to 5 Years) and At-Risk Patients (6 to 64 Years) Aged Out No longer eligible based on patient's age to complete this topic RSV Immunizations Under 20 Months Aged Out No longer eligible based on patient's age to complete this topic Care Teams Button Attaching Machine Operator Relationship Specialty Start Date End Date Indira Brown PA-C [address] [facility] [address] [place] [id number] PCP - General PHYSICIAN GASKET NOTCHER 05/24/23
--- OUTSIDE RECORDS SUMMARY | 2024-03-06 11:04 | XMS_ITS | Encounter Summary ---
Author Organization [facility] Address [address] [place] [address]. [place], [place] [address] [place] [address] Care Team Providers Care Ethnic Origins Teacher Name Role Phone Jamila Reyes [facility] Primary Care Provider + Indira Brown PA-C Primary Care Provider [phone] Encounter Details Date Type Department Care Team (Late st Contact Info) Description 02/16/[address] [facility] Family & Internal Medicine [facility] [address] [place] [address] Jamila Reyes, [facility] [address] [facility] [address] [place] [address] Back Pain Social History Tobacco Use Types Packs/Day Years [...] on file documented as of this encounter Progress Notes * Namrata Colbert RN - 02/22/2023 2:17 PM CST Please advise. She will need to be seen correct? L PRESS OPERATOR NUMERICAL CONTROL * Bambi Denton LPN - 02/22/2023 1:04 PM CST Pt is set to go back to work on 02/25/23 the workman's comp wants her seen before she goes back to work Jamila has a 02/25/23 appt available pt declined states that is the day I go back to work will jamila just go ahead and release her sooner pt said she is feeling a lot better and wants released sooner Please call back L PRESS OPERATOR NUMERICAL CONTROL * Namrata Colbert RN - 02/16/2023 12:00 PM CST Patient came to office to be seen. Prefers to be seen by previous provider-appt made for 02/17/2023 7:40 am. Letter given to patient to be off work today and tomorrow and instructed if she tarts feeling worse or if the pain is unbearable she should go to the ER-voiced understanding. L PRESS OPERATOR NUMERICAL CONTROL documented in this encounter Plan of Treatment Not on file documented as of this encounter Visit Diagnoses Not on filedocumented in this encounter Additional Health Concerns Assessment Noted Time PHQ-9 Depression Total Score: 27 023 3:27 PM DRILL PRESS OPERATOR NUMERICAL CONTROL documented as of this encounter Care Teams Ethnic Origins Teacher Relationship Specialty Start Date End Date Jamila Reyes, RADIATION THERAPY TECHNICIAN- [address] [place] [address] PCP - General Nurse Practitioner Family 01/01/2305/13 Indira Brown PA-C [address] [place] [address] PCP - General PHYSICIAN INDUSTRIAL GAS FITTER HELPER 05/24/23 documented as of this encounter
--- OUTSIDE RECORDS SUMMARY | 2024-03-06 11:04 | XMS_ITS | Encounter Summary ---
Author Organization [facility] Address [address] [place] [address]. [place], [place] [address] [place] [address] Care Team Providers Care Continuous Improvement Consultant Name Role Phone Abimbola Cuba [facility] Primary Care Provider + Encounter Details Date Type Department Care Team (Latest Contact Info) Description 07/31/2022 Travel Social History Tobacco Use Types Packs/Day [...] AM CDT documented as of this encounter Plan of Treatment Not on file documented as of this encounter Visit Diagnoses Not on filedocumented in this encounter Additional Health Concerns Assessment Noted Time PHQ-9 Depression Total Score: 27 05/15/ 023 3:27 PM CLINICAL INFORMATICS MANAGER documented as of this encounter Care Teams Continuous Improvement Consultant Relationship Specialty Start Date End Date Abimbola Cuba FNP- PCP - General Nurse Practitioner Family 01/01/20 documented as of this encounter
--- OUTSIDE RECORDS SUMMARY | 2024-03-06 11:04 | XMS_ITS | Encounter Summary ---
Author Organization [facility] Address [address] [place] [address]. [place] [id number] [place] [address] Care Team Providers Care Construction Representative Name Role Phone Indira Brown PA-C Primary Care Provider [phone] Encounter Details Date Type Department Care Team (Latest Contact Info) Description 02/14/2024 Travel Social History Tobacco Use Types Packs/Day [...] Depression Total Score: 27 023 3:27 PM MIMEOGRAPH OPERATOR documented as of this encounter Care Teams Construction Representative Relationship Specialty Start Date End Date Indira Brown PA-C [address] [place] [address] PCP - General PHYSICIAN SUPPLY CHAIN TECHNICIAN 05/24/23 documented as of this encounter
--- OUTSIDE RECORDS SUMMARY | 2024-03-06 11:04 | XMS_ITS | Encounter Summary ---
Author Organization [facility] Address [address] [place] [address]. [place] [id number] [place] [address] Care Team Providers Care Lead Sharepoint Developer Name Role Phone Indira Brown PA-C Primary Care Provider [phone] Reason for Visit * Reason Onset Date Comments Error 05/24/2023 Encounter Details Date Type Department Care Team (Late Contact Info) Description 05/24/2023 Telephone [facility] Family & Internal Medicine [facility] [address] [place] [address] Jamila Reyes, [facility] [id number] [place] [address], [address] [place] [address] Error Social History Tobacco Use Types Packs/Day Years [...] as of this encounter Progress Notes * Mariah Diaz - 05/24/2023 2:35 PM CDT error documented in this encounter Plan of Treatment Not on file documented as of this encounter Visit Diagnoses Not on filedocumented in this encounter Additional Health Concerns Assessment Noted Time PHQ-9 Depression Total Score: 27 023 3:27 PM INFRASTRUCTURE SOLUTIONS ARCHITECT documented as of this encounter Care Teams Lead Sharepoint Developer Relationship Specialty Start Date End Date Indira Brown PA-C [address] [place] [address] PCP - General PHYSICIAN TAPE FASTENER MACHINE OPERATOR 05/24/23 documented as of this encounter
--- OUTSIDE RECORDS SUMMARY | 2024-03-06 11:04 | XMS_ITS | Encounter Summary ---
Author Organization [facility] Address [address] [place] [address]. [place], [place] [address] [place] [address] Care Team Providers Care Tool Design Drafter Name Role Phone Abimbola Cuba [facility] Primary Care Provider + Reason for Visit * Reason Onset Date Comments Medication Problem 08/03/2022 Encounter Details Date Type Department Care Team (Late st Contact Info) Description 08/03/2022 Telephone [facility] Medical Group Family & Internal Medicine [facility] [address] [place] [address] Abimbola Cuba [place] [address] [place] [id number] Medication Problem Social History Tobacco Use Types Packs/Day Years [...] as of this encounter Progress Notes * Cristina Link MA - 08/03/2022 7:25 AM CDT Sent to [facility] and cancelled at [facility]. * Bambi Denton LPN - 08/03/2022 7:09 AM CDT Pt called please resend bupropion xl 300 mg to [facility] [phone] documented in this encounter Plan of Treatment Not on file documented as of this encounter Visit Diagnoses Not on filedocumented in this encounter Additional Health Concerns Assessment Noted Time PHQ-9 Depression Total Score: 27 05/15/ 023 3:27 PM HAM DOCTOR documented as of this encounter Care Teams Tool Design Drafter Relationship Specialty Start Date End Date Abimbola Cuba FNP-JUAN JOSE PCP - General Nurse Practitioner Family 01/01/20 documented as of this encounter
--- OUTSIDE RECORDS SUMMARY | 2024-03-06 11:04 | XMS_ITS | Encounter Summary ---
Author Organization [facility] Address [address] [place] [address]. [place] [phone] [place] [address] Care Team Providers Care Union Carpenter Name Role Phone Abimbola Cuba [facility] Primary Care Provider + Encounter Details Date Type Department Care Team (Latest Contact Info) Description 12/08/2022 Travel Social History Tobacco Use Types Packs/Day [...] Depression Total Score: 27 023 3:27 PM CONSTRUCTION PROJECT ADMINISTRATOR documented as of this encounter Care Teams Union Carpenter Relationship Specialty Start Date End Date Abimbola Cuba, [facility] PCP - General Nurse Practitioner Family 01/01/20 documented as of this encounter
--- OUTSIDE RECORDS SUMMARY | 2024-03-06 11:04 | XMS_ITS | Encounter Summary ---
Author Organization [facility] Address [address] [place] [address]. [place], [place] [id number] [place] [address] Care Team Providers Care Supervisor Car Installations Name Role Phone Travis Vaughn [facility] Primary Care Provider + Encounter Details Date Type Department Care Team (Latest Contact Info) Description 02/17/2023 9:50 AM ELECTRONIC DESIGN ENGINEER - 02/17/2023 11:59 PM [facility] Hospital Encounter [facility] [address] [facility] [place] [place] [address] Travis Vaughn, [facility] [address] [facility], [address] [address] Discharge Disposition: Home or Self Care (Routine [...] on file documented as of this encounter Medications at Time of Discharge albuterol sulfate HFA 108 (90 Base) MCG/ACT inhalerIndication s:COVID-19 Inhale 2 puffs into the lungs every 6 (six) hours as needed. 18 g 12/08/2022 07/30/2023 buPROPion XL (WELLBUTRIN XL) 300 MG 24 hr tabletIndications :Severe depression (CMS/HCC HHS/HCC) Take 1 tablet (300 mg total) by mouth daily. 90 tablet 08/03/2022 07/30/2023 busPIRone (BUSPAR) 5 MG tabletIndications :Anxiety Take 1 tablet (5 mg total) by mouth 2 (two) times daily. 60 tablet 3 05/15/2022 07/30/2023 cyclobenzaprine (FLEXERIL) 10 MG tablet Take 1 tablet (10 mg total) by mouth 3 (three) times daily as needed for Muscle Spasms. 02/11/2023 07/30/2023 diazePAM (VALIUM) 5 MG tabletIndications :Lumbar strain Take 1 tablet (5 mg total) by mouth every 8 (eight) hours as needed for Anxiety or Muscle Spasms. 9 tablet 02/07/2023 07/30/2023 hydrOXYzine (ATARAX) 25 MG tabletIndications :Anxiety Take 1/2 tablet (12.5 mg) to 1 tablet (25 mg) up to three times a day as needed for anxiety 30 tablet 01/27/2023 02/21/2023 methylPREDNISolon e, DARLIN, (MEDROL DOSEPAK) 4 MG tabletIndications :Acute left-sided low back pain with left-sided sciatica 6 TABLETS ON DAY ONE, 5 TABLETS DAY TWO, 4 TABLETS DAY THREE, 3 TABLETS DAY FOUR, 2 TABLETS DAY FIVE, AND 1 TABLET DAY SIX 1 each 02/17/2023 07/30/2023 naproxen (NAPROSYN) 500 MG tablet Take 1 tablet (500 mg total) by mouth 2 (two) times daily as needed. 02/11/2023 07/30/2023 tiZANidine (ZANAFLEX) 2 MG tabletIndications :Acute left-sided low back pain with left-sided sciatica Take 1 tablet (2 mg total) by mouth every 8 (eight) hours as needed. 30 tablet 02/12/2023 02/22/2023 documented as of this encounter Plan of Treatment Not on file documented as of this encounter Procedures Procedure Name Priority Date/Time Associated Diagnosis Comments XR LUMB SPINE 3V Today 02/17/2023 10:1 0 AM ELECTRONIC DESIGN ENGINEER Acute left-sided low back pain with left-sided sciatica documented in this encounter Results * XR LUMB SPINE 3V (02/17/2023 10:10 AM ELECTRONIC DESIGN ENGINEER) Anatomical Region Laterality Modality Spine Radiographic Bailey ging 02/17/2023 11:2 1 AM ELECTRONIC DESIGN ENGINEER Impressions 02/17/2023 11:24 AM ELECTRONIC DESIGN ENGINEER IMPRESSION: Minimal degenerative changes and similar to 2021 study. Ordered By: TRAVIS VAUGHN Interpreted By: Mario Clark, 02/17/2023 11:21 AM Narrative 02/17/2023 11:24 AM ELECTRONIC DESIGN ENGINEER IMAGING STUDIES: XR LUMB SPINE 3V ? [...] space narrowing at L5-S1 is similar to 2021 study. Facet degenerative changes most prominent in [...] space narrowing at L5-S1 is similar to 2021 study. Facetdegenerative changes most prominent in the mid to lower lumbar spine andprobably greatest at L5-S1 level. Mild endplate hypertrophic changes at T11-T12 level. Sacroiliac joints within normal limits. Mild colonic stool. Bilateral pelvic phleboliths. IMPRESSION: Minimal degenerative changes and similar to 2021 study. Ordered By: TRAVIS VAUGHN Interpreted By: Mario Clark, 02/17/2023 11:21 AM Travis Vaughn FRONT OFFICE CLERK-BC GENERAL IMAGING Final Re sult documented in this encounter Visit Diagnoses Diagnosis Acute left-sided low back pain with left-sided sciatica documented in this encounter Additional Health Concerns Assessment Noted Time PHQ-9 Depression Total Score: 27 023 3:27 PM ELECTRONIC DESIGN ENGINEER documented as of this encounter Care Teams Supervisor Car Installations Relationship Specialty Start Date End Date Travis Vaughn, FRONT OFFICE CLERK-BC [address] [facility], [address] [place] [address] PCP - General Nurse Practitioner Family 01/01/2305/13 documented as of this encounter
--- OUTSIDE RECORDS SUMMARY | 2024-03-06 11:04 | XMS_ITS | Encounter Summary ---
Author Organization [facility] Address [address] [place] [address]. [place], [place] [address] [place] [address] Care Team Providers Care Bearing Ring Assembler Name Role Phone Abimbola Cuba [facility] Primary Care Provider + Encounter Details Date Type Department Care Team (Latest Contact Info) Description 05/15/2022 Travel Social History Tobacco Use Types Packs/Day Years Used Date Smoking Tobacco: Every Day Cigarettes 1 2 Smokeless Tobacco: Never Alcohol Use Standard Drinks/Week Comments No 0 (1 standard drink = 0.6 oz pur e alcohol) AUDIT-C Answer Date Recorded Frequency of Alcohol Consumption Never 09/30/2018 Average Number of Drinks Not on file 019 Frequency of Binge Drinking Not on file 09/12 PHQ-2 Answer Date Recorded Patient Health Questionnaire-2 Score 6 05/15/2022 Education Answer Date Recorded What is the [...] suspected to have Coronavirus/COVID-19? No / Unsure 05/15/2022 2:39 PM DIRECTOR OF CORPORATE COMMUNICATIONS documented as of this encounter Plan of Treatment Not on file documented as of this encounter Visit Diagnoses Not on filedocumented in this encounter Additional Health Concerns Assessment Noted Time PHQ-9 Depression Total Score: 27 05/15/ 023 3:27 PM DIRECTOR OF CORPORATE COMMUNICATIONS documented as of this encounter Care Teams Bearing Ring Assembler Relationship Specialty Start Date End Date [facility]imbola [facility] P[facility] - General Nurse Practitioner Family 01/01/20 documented as of this encounter
--- OUTSIDE RECORDS SUMMARY | 2024-03-06 11:05 | XMS_ITS | Encounter Summary ---
Author Organization [facility] Address [address] [place] [address]. [place], [place] [id number] [place] [address] Care Team Providers Care Human Resources Executive Assistant Name Role Phone Ericka Ward NP Primary Care Provider Abimbola Soto [facility] Primary Care Provider + Jamila Reyes [facility] Primary Care Provider + Indira BrownC Primary Care Provider [phone] Encounter Details Date Type Department Care Team (Late st Contact Info) Description 12/06/2019 Telephone [facility] Cardiop[facility] Services [address] [place] [address] Lacey Hastings, ELECTRICAL DISCHARGE MACHINE OPERATOR Social History Tobacco Use Types Packs/Day Years Used Date Smoking Tobacco: Former Cigarettes 1 2 0 09/25/2017 - 09/26/2019 Smokeless Tobacco: Never Alcohol Use Standard Drinks/Week Comments No 0 (1 standard drink = 0.6 oz pur e alcohol) AUDIT-C Answer Date Recorded Frequency of Alcohol Consumption Never 09/30/2018 Average Number of Drinks Not on file 019 Frequency of Binge Drinking Not on file 09/12 PHQ-2 Answer Date Recorded PHQ-2 Score 5 11/27/2019 Education Answer Date Recorded What is the [...] Exposure Response Date Recorded In the last month, have you been in contact with someone who was confirmed or suspected to have Coronavirus / COVID-19? No / Unsure 11/27/2019 11:03 AM CDT documented as of this encounter Progress Notes * Lacey Hastings CRT - 12/06/2019 2:17 PM CDT Pt given date, time and location of Covid test needed for PFT on 12/11/19. documented in this encounter Plan of Treatment Not on file documented as of this encounter Visit Diagnoses Not on filedocumented in this encounter Additional Health Concerns Infection Onset Date Last Indicated Resolved Time COVID-19 Rule Out 01/07/2020 01/07/2020 01/08/2020 8:36 PM CDT COVID-19 Rule Out 01/29/2020 01/29/2020 02/02/2020 2:10 PM PARCEL POST ORDER CLERK COVID-19 Rule Out 02/19/2020 02/19/2020 02/19/2020 1:29 PM PARCEL POST ORDER CLERK COVID-19 Confirmed 02/19/2020 02/19/2020 12:34 AM PARCEL POST ORDER CLERK COVID-19 Rule Out 11/08/2020 11/08/2020 11/08/2020 12:43 PM CDT COVID-19 Rule Out 11/08/2020 11/08/2020 11/10/2020 3:30 AM CDT COVID-19 Rule Out 03/30/2021 03/30/2021 03/30/2021 10:39 AM PARCEL POST ORDER CLERK Assessment Noted Time PHQ-9 Depression Total Score: 23 020 9:31 AM CDT documented as of this encounter Care Teams Human Resources Executive Assistant Relationship Specialty Start Date End Date Ericka Ward NP PCP - General NURSE PRACTITIONER 09/30/18 12/31/19 Abimbola Cuba FNP-BC PCP - General Nurse Practitioner Family 01/01/20 Jamila Reyes, DIRECTOR BUILDING-BC [address] [place] [address] PCP - General Nurse Practitioner Family 01/01/2305/13 Indira Brown PA-C [address] [place] [address] PCP - General PHYSICIAN BASEBALL SEWER HAND 05/24/23 documented as of this encounter
--- OUTSIDE RECORDS SUMMARY | 2024-03-06 11:05 | XMS_ITS | Encounter Summary ---
Author Organization [facility] Address [address] [place] [address]. [place], [place] [id number] [place] [address] Care Team Providers Care Fisheries Inspector Name Role Phone Abimbola Cuba [facility] Primary Care Provider + Reason for Visit * Reason Onset Date Comments COVID-19 01/05/2020 PT GIVEN INSTRUC TIONS FOR COVID TEST FOR PFT Encounter Details Date Type Department Care Team (Late st Contact Info) Description 01/05/2020 Telephone [facility] Cardiopulmonary Services [address] [place] [address] Lacey Hastings, VORTEX OPERATOR COVID-19 (PT GIVEN INSTRUCTIONS FOR COVID TEST FOR PFT) Social History Tobacco Use Types Packs/Day Years [...] 09/12 PHQ-2 Answer Date Recorded PHQ-2 Score - If the patient scores above 3, please move on to questions 3-9 5 01/01/2020 Education Answer Date Recorded What is the [...] have Coronavirus / COVID-19? No / Unsure 01/01/2020 6:55 AM CDT documented as of this encounter Plan of Treatment Not on file documented as of this encounter Visit Diagnoses Not on filedocumented in this encounter Additional Health Concerns Assessment Noted Time PHQ-9 Depression Total Score: 26 020 7:37 AM CDT documented as of this encounter Care Teams Fisheries Inspector Relationship Specialty Start Date End Date Abimbola Cuba FNP- PCP - General Nurse Practitioner Family 01/01/20 documented as of this encounter
--- OUTSIDE RECORDS SUMMARY | 2024-03-06 11:05 | XMS_ITS | Encounter Summary ---
Author Organization [facility] Address [address] [place] [address]. [place], [place] [phone] [place] [address] Care Team Providers Care Production Line Name Role Phone Abimbola Cuba [facility] Primary Care Provider + Jamila Reyes [facility] Primary Care Provider + Indira Brown PA-C Primary Care Provider [phone] Encounter Details Date Type Department Care Team (Late st Contact Info) Description 07/22/2020 [facility] Patient Accounts [address] [place] [address] [employer], [facility] Provider [facility] Patient Financial Services Social History Tobacco Use Types Packs/Day Years [...] Last Indicated Resolved Time COVID-19 Rule Out 11/08/2020 11/08/2020 11/08/2020 12:43 PM CDT COVID-19 Rule Out 11/08/2020 11/08/2020 11/10/2020 3:30 AM CDT COVID-19 Rule Out 03/30/2021 03/30/2021 03/30/2021 10:39 AM RETIREMENT BENEFITS SPECIALIST Assessment Noted Time PHQ-9 Depression Total Score: 26 020 7:37 AM CDT documented as of this encounter Care Teams Production Line Relationship Specialty Start Date End Date Abimbola Cuba [facility] PCP - General Nurse Practitioner Family 01/01/20 Jamila Reyes, [facility] [address] [place] [address] PCP - General Nurse Practitioner Family 01/01/2305/13 Indira Brown PA-C [address] [place] [address] PCP - General PHYSICIAN STEEL POST INSTALLER SUPERVISOR 05/24/23 documented as of this encounter
--- OUTSIDE RECORDS SUMMARY | 2024-03-06 11:05 | XMS_ITS | Encounter Summary ---
Author Organization [facility] Address [address] [place] [address]. [place] [id number] [place] [address] Care Team Providers Care Tea Tree Farmer Name Role Phone Abimbola Cuba [facility] Primary Care Provider + Reason for Visit * Reason Comments Exposure Coronavirus (Covid-19) BEEN EXP OSED 4X IN A WEEK / FATIGUE / NO TEMP / SICK TO STOMACH / HEADACHES / HAD COVID IN FEBRUARY Encounter Details Date Type Department Care Team (Late st Contact Info) Description 11/08/2020 12:40 PM CDT Telemedicine [facility] Family & Internal Medicine [address] [phone] Marlene Pretty, NORA [address] [place] [id number] Exposure Coronavirus (Covid-19) (BEEN EXPOSED 4X IN A WEEK / FATIGUE / NO TEMP / SICK TO STOMACH / HEADACHES / HAD COVID IN FEBRUARY) Social History Tobacco Use Types Packs/Day Years [...] 3, please move on to questions 3-9 1 10/31/2020 Education Answer Date Recorded What is the [...] or suspected to have Coronavirus / COVID-19? Unable to assess 11/08/2020 10:22 AM CDT documented as of this encounter Progress Notes * Tiffanie Torres LPN - 11/08/2020 12:40 PM CDTAddended by: TIFFANIE TORRES on: 11/08/2020 12:49 PM Modules accepted: Orders * NORA Jorge - 11/08/2020 12:40 PM CDT Reason for Visit: Exposure Coronavirus (Covid-19) (BEEN EXPOSED 4X IN A WEEK / FATIGUE / NO TEMP / SICK TO STOMACH / HEADACHES / HAD COVID IN FEBRUARY) History of Present Illness: Feli Garcia is a 25-year-old female who presents via video visit with complaints of fatigue, nausea and headaches. Feli reports she has been exposed to covid several tiimes this week and notes hersymptoms started two days ago. She additionally reports congestion, rhinorrhea, post nasal drainage, productive cough and nausea. She has has been using sinus x and tylenol. She additionally notes body aches as well. She as been tolerating oral liquids. She denies fever, chills, sore throat, SOB, wheeze, vomiting, diarrhea or dizziness. She has no additional concerns today. I introduced and identified myself, received verbal consent?? from the patient to proceed with thisvideo visit and made the patient aware that the same confidentiality and career information specialist practices apply. The patient joined the video visit from Home. I completed the virtual visit from Office.The following clinical staff helped with this visit Nurse: Tiffanie Campos Total Time Spent in Minutes: 7 ROS: Review of Systems Constitutional: Positive for fatigue. Negative for chills and fever. HENT: Positive for congestion, postnasal drip and rhinorrhea. Negative for sore throat. Respiratory: Positive for cough and sputum production. Negative for shortness of breath. Gastrointestinal: Positive for nausea. Negative for diarrhea and vomiting. Musculoskeletal: Positive for myalgias. Neurological: Positive for headaches. Negative for dizziness. Medications: Current Outpatient Medications: ??? hydrOXYzine 25 MG tablet, Take 1/2 tablet (12.5 mg) to 1 tablet (25 mg) up to three times a dayas needed for anxiety, Disp: 30 tablet, Rfl: 0 ??? ibuprofen 800 MG tablet, Take 800 mg by mouth 2 (two) times daily., Disp: , Rfl: ??? omeprazole 40 MG capsule, Take 1 capsule (40 mg total) by mouth daily., Disp: 30 capsule, Rfl: 3 ??? ondansetron (ZOFRAN ODT) 4 MG disintegrating tablet, Take 1 tablet (4 mg total) by mouth every 8 (eight) hours as needed for Nausea., Disp: 12 tablet, Rfl: 0 Allergies Allergen Reactions ??? Seasonal Other (see comment) congestion Past Medical History: Diagnosis Date ??? Anxiety ??? Depression Past Surgical History: Procedure Laterality Date ??? NONE Social History Socioeconomic History ??? Marital status: Single Spouse name: Not on file ??? Number of children: Not on file ??? Years of education: Not on file ??? Highest education level: High school graduate Occupational History ??? Not on file Tobacco Use ??? Smoking status: Former Smoker Packs/day: 1.00 Years: 2.00 Pack years: 2.00 Types: Cigarettes Quit date: 09/26/2019 Years since quittin.1 ??? Smokeless tobacco: Never Used Substance and Sexual Activity ??? Alcohol use: No ??? Drug use: No ??? Sexual activity: Yes Other Topics Concern ??? Not on file Social History Narrative Lives with girlfriend and her son, Feli has custody of two nephews (6 and 3 01/01/20) Social Determinants of Health Financial Resource Strain: ??? Difficulty of Paying Living Expenses: Food Insecurity: ??? Worried About Running Out of Food in the Last Year: ??? Ran Out of Food in the Last Year: Transportation Needs: ??? Lack of Transportation (Medical): ??? Lack of Transportation (Non-Medical): Physical Activity: ??? Days of Exercise per Week: ??? Minutes of Exercise per Session: Stress: ??? Feeling of Stress : Social Connections: ??? Frequency of Communication with Friends and Family: ??? Frequency of Social Gatherings with Friends and Family: ??? Attends Religion Services: ??? Active Member of Clubs or Organizations: ??? Attends Club or Organization Meetings: ??? Marital Status: Intimate Partner Violence: ??? Fear of Current or Ex-Partner: ??? Emotionally Abused: ??? Physically Abused: ??? Sexually Abused: E-Cigarettes Questions Responses E-Cigarette Use Never User Family History Problem Relation Name Age of Onset ??? Lung Cancer Paternal Grandmother ??? Diabetes Paternal Grandfather ??? Hypertension Mother ??? Other (blood clot history) Mother Family Status Relation Name Status ??? PGM ??? PGF ??? Mother Alive ??? Father Alive Physical Exam Vitals and nursing note reviewed. Constitutional: General: She is awake. She is not in acute distress. Appearance: Normal appearance. She is well-developed and well-groomed. She is not ill-appearing, toxic-appearing or diaphoretic. Comments: Vitals and assessment are both limited due to video visit. HENT: Head: Normocephalic and atraumatic. Right Ear: Hearing and external ear normal. Left Ear: Hearing and external ear normal. Eyes: General: Lids are normal. Extraocular Movements: Extraocular movements intact. Conjunctiva/sclera: Conjunctivae normal. Pulmonary: Effort: Pulmonary effort is normal. Comments: Speaking clearly and in complete sentences without noted SOB or coughing. Musculoskeletal: Cervical back: Normal range of motion. Neurological: Mental Status: She is alert and oriented to person, place, and time. Psychiatric: Attention and Perception: Attention and perception normal. Mood and Affect: Mood and affect normal. Speech: Speech normal. Behavior: Behavior normal. Behavior is cooperative. Thought Content: Thought content normal. Cognition and Memory: Cognition and memory normal. Judgment: Judgment normal. There were no vitals filed for this visit. Diagnoses/Impression: 1. URI with cough and congestion CORONAVIRUS (COVID-19) ANTIGEN 2. Exposure to confirmed case of COVID-19 CORONAVIRUS (COVID-19) ANTIGEN Recommendations and Plan: 1. URI with cough and congestion Etiology, typical progression of symptoms, and duration of illness discussed for viral upper respiratory infections. Recommended to increase fluid intake, rest, use of cool mist humidification, steamfrom a hot shower, normal saline nasal spray, gargle with warm salt water, steroid nasal spray. Encouraged hand and respiratory hygiene with return demonstration of covering coughs. May use Tylenol and/or ibuprofen as needed per product recommendation. Recommend to monitor household contacts for similar symptoms and transmission of virus discussed. - CORONAVIRUS (COVID-19) ANTIGEN 2. Exposure to confirmed case of COVID-19 Patient with URI symptoms and concern for COVID-19. Recommended Tylenol(acetaminophen) as main fever pulpwood dealer and comfort per WHO recommendations. Discussed symptom care of increasing plain water intake, rest, and good handwashing. Patient advised to call PCP if symptoms do not improve, new fever after 10 days or symptoms longer than 14 days. ER precautions given in detail and patient agrees to follow-up if symptoms worsen. Advised to call ahead if ER treatment is needed. Discussed current self-quarantine recommendations in detail for the patient and current CDC and IDPH guidelines. - CORONAVIRUS (COVID-19) ANTIGEN Return to clinic with new, persistent, or worsening symptoms. Feli H Radha is in agreement to andverbalized understanding of treatment plan with no further questions at this time. Orders Placed This Encounter ??? CORONAVIRUS (COVID-19) ANTIGEN Reviewed and updated this visit by provider: NORA JORGE Referring Provider: No ref. provider found PCP: NORA VIVEROS- Cosigned by Chandrakant Garrison MD at 11/08/2020 11:23 AM CDT * NORA Jorge - 11/08/2020 12:40 PM CDT Patient aware of results and will send PCR testing sent. documented in this encounter Plan of Treatment Not on file documented as of this encounter Procedures Procedure Name Priority Date/Time Associated Diagnosis Comments CORONAVIRUS (COVID 19) Routine 11/08/2020 12:50 PM CDT URI with cough and congestion Exposure to confirmed case of COVID-19 CORONAVIRUS (COVID-19) ANTIGEN Routine 11/08/2020 URI with cough and congestion Exposure to confirmed case of COVID-19 documented in this encounter Results * [facility] SARS-COV RNA QUAL NAAT (11/08/2020 12:50 PM CDT) CORONAVIRUS SARS COV 2 PCR (RESP) NOT DETECTED NOT DETECTED [facility] [place] Comment: A Not Detected result means that SARS-CoV-2 RNA was not present in the specimen above the limit of detection. ?? A Not Detected result does not rule out the possibility of COVID-19 and should not be used as the sole basis for treatment or patient management decisions. If COVID-19 is still suspected, based on exposure history together with other clinical findings, re-testing should be considered in the context of clinical observations and epidemiological data for patient management decisions. ?? Test Method: Nucleic Acid Amplification Test including reverse business specialist polymerase chain reaction (RT-PCR and business specialist mediated amplification (TMA). The test method meets the [place] Centers for Disease Control and prevention (CDC) pre departure and arrival requirement for viral test for COVID-19 dated April 11, 2020. Testing requirements for traveling may change with time. The patient is responsible for determining the test requirements for each nation while they are traveling. This test has been authorized by the FDA under an Emergency Use Authorization (EUA) for use by authorized laboratories. ?? Please review the Fact Sheets and FDA authorized labeling available for health care providers and patients using the following websites: https://www.[employer].com/home/Covid-19/HCP/NAAT/fact-sheet2 https://www.[employer]/home/Covid-19/Patients/NAAT/ fact-sheet2 ?? Due to the current public health emergency, [facility] is accepting samples from appropriate clinical sources collected using wide variety of swabs and transport media for COVID-19. Not detected test results derived from specimens received in non- commercially manufactured viral collection kits or those not yet authorized by FDA for COVID-19 testing should be cautiously evaluated and take extra precautions such as such as additional clinical monitoring, including collection of an additional specimen. ? Additional information about COVID-19 can be found at the [facility] website: www.[employer]/Covid19. NASAL STRUCTURE / Unknown 11/08/2020 12:50 PM CDT 11/09/2020 8:27 AM CDT Malrene Pretty [facility] MICROBIOLOGY - GENERAL ORD ERABLES Final Result Performing Organization Address City/[facility]/ZIP Co de Phone Number [employer] DIAGNOSTICS - GEE ORDERS [facility] [address] [place] [address] * CORONAVIRUS (COVID-19) ANTIGEN (11/08/2020) CORONAVIRUS ANTIGEN [place] NEGATIVE NEGATIVE -[id number] CM CARDONAJennifer, [place] Internal Control: VALID VALID -[id number] CM BRENDANE, [place] Specimen from nose (specimen) NASAL STRUCTURE / Unknown 11/08/2020 Marlene Pretty [facility] MICROBIOLOGY - GENERAL ORD ERABLES Final Result Performing Organization Address City/[facility]/ZIP Co de Phone Number [phone], [place] [address] [place] [address], documented in this encounter Visit Diagnoses Diagnosis URI with cough and congestion- Primary Exposure to confirmed case of COVID-19 documented in this encounter Additional Health Concerns Infection Onset Date Last Indicated Resolved Time COVID-19 Rule Out 11/08/2020 11/08/2020 11/08/2020 12:43 PM CDT COVID-19 Rule Out 11/08/2020 11/08/2020 11/10/2020 3:30 AM CDT Assessment Noted Time PHQ-9 Depression Total Score: 1 11/01/19 21 1:56 PM CDT documented as of this encounter Care Teams Tea Tree Farmer Relationship Specialty Start Date End Date Abimbola Cuba FNP- PCP - General Nurse Practitioner Family 01/01/20 documented as of this encounter
--- OUTSIDE RECORDS SUMMARY | 2024-03-06 11:05 | XMS_ITS | Encounter Summary ---
Author Organization [facility] Address [address] [place] [address]. [place], [place] [id number] [place] [address] Care Team Providers Care Access Director Name Role Phone Abimbola Cuba [facility] Primary Care Provider + Encounter Details Date Type Department Care Team (Latest Contact Info) Description 01/10/2020 Travel Social History Tobacco Use Types Packs/Day [...] have Coronavirus / COVID-19? No / Unsure 01/10/2020 8:46 AM CDT documented as of this encounter Plan of Treatment Not on file documented as of this encounter Visit Diagnoses Not on filedocumented in this encounter Additional Health Concerns Assessment Noted Time PHQ-9 Depression Total Score: 26 020 7:37 AM CDT documented as of this encounter Care Teams Access Director Relationship Specialty Start Date End Date Abimbola Cuba FNP- PCP - General Nurse Practitioner Family 01/01/20 documented as of this encounter
--- OUTSIDE RECORDS SUMMARY | 2024-03-06 11:05 | XMS_ITS | Encounter Summary ---
Author Organization [facility] Address [address] [place] [address]. [place], [place] [id number] [place] [address] Care Team Providers Care Kettle Worker Name Role Phone Abimbola Cuba [facility] Primary Care Provider + Encounter Details Date Type Department Care Team (Latest Contact Info) Description 03/30/2021 Travel Social History Tobacco Use Types Packs/Day [...] have Coronavirus / COVID-19? No / Unsure 03/30/2021 9:57 AM YARD COUPLER documented as of this encounter Plan of Treatment Not on file documented as of this encounter Visit Diagnoses Not on filedocumented in this encounter Additional Health Concerns Infection Onset Date Last Indicated Resolved Time COVID-19 Rule Out 03/30/2021 03/30/2021 03/30/2021 10:39 AM YARD COUPLER Assessment Noted Time PHQ-9 Depression Total Score: 1 11/01/19 21 1:56 PM CDT documented as of this encounter Care Teams Kettle Worker Relationship Specialty Start Date End Date Abimbola Cuba FNP- PCP - General Nurse Practitioner Family 01/01/20 documented as of this encounter
--- OUTSIDE RECORDS SUMMARY | 2024-03-06 11:05 | XMS_ITS | Encounter Summary ---
Author Organization [facility] Address [address] [place] [address]. [place], [place] [address] [place] [address] Care Team Providers Care Civil Structural Designer Name Role Phone Abimbola Cuba [facility] Primary Care Provider + Encounter Details Date Type Department Care Team (Late st Contact Info) Description 02/18/2020 [facility] [address] [place] [address] [facility] Provider Social History Tobacco Use Types Packs/Day Years [...] documented as of this encounter Care Teams Civil Structural Designer Relationship Specialty Start Date End Date [facility] P[facility] - General Nurse Practitioner Family 01/01/20 documented as of this encounter
--- OUTSIDE RECORDS SUMMARY | 2024-03-06 11:05 | XMS_ITS | Encounter Summary ---
Author Organization [facility] Address [address] [place] [address]. [place], [place] [id number] [place] [address] Care Team Providers Care Cfd Engineer Name Role Phone Abimbola Cuba [facility] Primary Care Provider + Encounter Details Date Type Department Care Team (Latest Contact Info) Description 10/14/2021 Travel Social History Tobacco Use Types Packs/Day [...] suspected to have Coronavirus/COVID-19? No / Unsure 10/14/2021 3:00 PM CDT documented as of this encounter Plan of Treatment Not on file documented as of this encounter Visit Diagnoses Not on filedocumented in this encounter Additional Health Concerns Assessment Noted Time PHQ-9 Depression Total Score: 1 11/01/19 21 1:56 PM CDT documented as of this encounter Care Teams Cfd Engineer Relationship Specialty Start Date End Date Abimbola Cuba FNP- PCP - General Nurse Practitioner Family 01/01/20 documented as of this encounter
--- OUTSIDE RECORDS SUMMARY | 2024-03-06 11:05 | XMS_ITS | Encounter Summary ---
Author Organization [facility] Address [address] [place] [address]. [place], [place] [phone] [place] [address] Care Team Providers Care Undercutter Name Role Phone Abimbola Cuba [facility] Primary Care Provider + Encounter Details Date Type Department Care Team (Latest Contact Info) Description 12/06/2020 Travel Social History Tobacco Use Types Packs/Day [...] have Coronavirus / COVID-19? No / Unsure 12/06/2020 3:20 PM CDT documented as of this encounter Plan of Treatment Not on file documented as of this encounter Visit Diagnoses Not on filedocumented in this encounter Additional Health Concerns Assessment Noted Time PHQ-9 Depression Total Score: 1 11/01/19 21 1:56 PM CDT documented as of this encounter Care Teams Undercutter Relationship Specialty Start Date End Date Abimbola Cuba FNP- PCP - General Nurse Practitioner Family 01/01/20 documented as of this encounter
--- OUTSIDE RECORDS SUMMARY | 2024-03-06 11:05 | XMS_ITS | Encounter Summary ---
Author Organization [facility] Address [address] [place] [address]. [place], [place] [address] [place] [address] Care Team Providers Care End Maker Name Role Phone Ericka Ward NP Primary Care Provider Prakash cruz Encounter Details Date Type Department Care Team (Late st Contact Info) Description 12/06/2019 Orders Only [facility] [address] [place] [address] Abimbola Cuba, [facility] [address] [place] [address] Social History Tobacco Use Types Packs/Day Years [...] as of this encounter Visit Diagnoses Diagnosis Screening examination for infectious disease- Primary Screening examination for unspecified infectious disease documented in this encounter Additional Health Concerns Assessment Noted Time PHQ-9 Depression Total Score: 23 020 9:31 AM CDT documented as of this encounter Care Teams End Maker Relationship Specialty Start Date End Date Ericka Ward NP PCP - General NURSE PRACTITIONER 09/30/18 12/31/19 documented as of this encounter
--- OUTSIDE RECORDS SUMMARY | 2024-03-06 11:05 | XMS_ITS | Encounter Summary ---
Author Organization [facility] Address [address] [place] [address]. [place], [place] [id number] [place] [address] Care Team Providers Care Operating Room Orderly Name Role Phone Abimbola Cuba OPTOMETRIST PRESIDENT/PRACTICE OWNER- Primary Care Provider + Reason for Visit * Reason Comments Cough Encounter Details Date Type Department Care Team (Late st Contact Info) Description 06/17/2020 8:59 AM CDT - 06/17/2020 10:[address] [facility] Emergency Room [address] [place] [address] Pascual Reyes MD [address] [place] [address] Cough Discharge Disposition: Home or Self Care (Routine [...] have Coronavirus / COVID-19? No / Unsure 06/17/2020 8:54 AM CDT documented as of this encounter Last Filed Vital Signs Vital Sign Reading Time Taken Comments Blood Pressure 170/116 06/17/2020 8:59 AM CDT Pulse 97 06/17/2020 8:59 AM CDT Temperature 36.2 ??C (97.2 ??F) 06/17/2020 8:59 AM CD T Respiratory Rate 18 06/17/2020 8:59 AM CDT Oxygen Saturation 98% 06/17/2020 8:59 AM CDT Inhaled Oxygen Concentration - - Weight 136.1 kg (300 lb) 06/17/2020 8:59 AM CDT Height 167.6 cm (5' 6 ) 06/17/2020 8:59 AM CDT Body Mass Index 48.42 06/17/2020 8:59 AM CDT documented in this encounter Discharge Instructions * Discharge Instructions* Pascual Reyes MD - 06/17/2020 9:54 AM CDT Rest. Drink plenty of fluids. Follow up with your PCP. Ibuprofen and tylenol as needed. Our practice is committed to providing you the very best in healthcare. We want to hear from you! Please fill out the survey you get from us. Your feedback is anonymous & helps us improve the patient experience for you and others in the community we serve. * Attachments The following attachments cannot be sent through Care Everywhere. * Viral Upper Respiratory Infection Discharge Instructions, Adult ([place]) documented in this encounter Medications at Time of Discharge fluticasone propionate (FLONASE) 50 MCG/ACT nasal sprayIndications:Sea dana allergies 2 sprays by Nasal route daily. 16 g 5 01/01/2020 1 hydrOXYzine 25 MG tabletIndications:An xiety Take 1/2 tablet (12.5 mg) to 1 tablet (25 mg) up to three times a day as needed for anxiety 30 tablet 11/27/2019 3 ibuprofen 800 MG tablet Take 800 mg by mouth 2 (two) times daily. 01/23/2020 3 loratadine 10 MG tabletIndications:Se asonal allergies Take 1 tablet (10 mg total) by mouth daily. 90 tablet 1 01/01/2020 1 omeprazole 40 MG capsuleIndications:A cute upper respiratory infection Take 1 capsule (40 mg total) by mouth daily. 30 capsule 3 02/05/2020 3 ondansetron (ZOFRAN ODT) 4 MG disintegrating tabletIndications:Na usea Take 1 tablet (4 mg total) by mouth every 8 (eight) hours as needed for Nausea. 12 tablet 03/25/2020 1 oxyCODONE-acetaminop hen 5-325 MG tablet Take 1 tablet by mouth 3 (three) times daily. 01/23/2020 1 documented as of this encounter ED Notes * Pascual Reyes MD - 06/17/2020 9:17 AM CDT Chief Complaint Chief Complaint Patient presents with ??? Cough Provider at Bedside Date/Time Event User Comments 06/17/20 0904 Provider at Bedside Assessing Patient PASCUAL REYES [facility] Care patient. Patient/family informed of level of care and verbalizes understanding. History of Present Illness Patient presents with URI symptoms x5 days. She describes bilateral ear pressure, occasional wheezing, sore throat, congestion and headache. No documented fevers. She has been using DayQuil and NyQuil and Mucinex. She was diagnosed with Covid 4 months ago. No known sick contacts. No history of asthma. Says she is otherwise healthy. Had back surgery 3 months ago that was uneventful. Cough Associated symptoms: no chest pain, no chills, no fever and no shortness of breath Medical History ALLERGIES: Allergies Allergen Reactions ??? Seasonal Other (see comment) congestion MEDICATIONS: Prior to Admission medications Medication Sig Start Date End Date Taking? Authorizing Provider fluticasone propionate (FLONASE) 50 MCG/ACT nasal spray 2 sprays by Nasal route daily. 01/01/20 Abimbola CubaCHRISTINA hydrOXYzine 25 MG tablet Take 1/2 tablet (12.5 mg) to 1 tablet (25 mg) up to three times a day as needed for anxiety 11/27/19 Abimbola GarciaCHRISTINA flannery ibuprofen 800 MG tablet Take 800 mg by mouth 2 (two) times daily. 01/23/20 Doc Abstract loratadine 10 MG tablet Take 1 tablet (10 mg total) by mouth daily. 01/01/20 Abimbola CubaCHRISTINA omeprazole 40 MG capsule Take 1 capsule (40 mg total) by mouth daily. 02/05/20 Abimbola GarciaalbertonoraCHRISTINA ondansetron (ZOFRAN ODT) 4 MG disintegrating tablet Take 1 tablet (4 mg total) by mouth every 8 (eight) hours as needed for Nausea. 03/25/20 Abimbola GarciaalbertonoraCHRISTINA oxyCODONE-acetaminophen 5-325 MG tablet Take 1 tablet by mouth 3 (three) times daily. 01/23/20 Doc Abstract PAST MEDICAL HISTORY: Past Medical History: Diagnosis Date ??? Anxiety ??? Depression PAST SURGICAL HISTORY: Past Surgical History: Procedure Laterality Date ??? NONE FAMILY HISTORY: Family History Problem Relation Name Age of Onset ??? Lung Cancer Paternal Grandmother ??? Diabetes Paternal Grandfather ??? Hypertension Mother ??? Other (blood clot history) Mother SOCIAL HISTORY: Social History Tobacco Use ??? Smoking status: Former Smoker Packs/day: 1.00 Years: 2.00 Pack years: 2.00 Types: Cigarettes Quit date: 09/26/2019 Years since quittin.7 ??? Smokeless tobacco: Never Used Substance Use Topics ??? Alcohol use: No Frequency: Never ??? Drug use: No Review of Systems Review of Systems Constitutional: Negative for chills and fever. HENT: Positive for sinus pressure. Negative for nosebleeds. Eyes: Negative for photophobia. Respiratory: Positive for cough. Negative for shortness of breath and stridor. Cardiovascular: Negative for chest pain. Gastrointestinal: Negative for abdominal pain, diarrhea, nausea and vomiting. Genitourinary: Negative for difficulty urinating. Musculoskeletal: Negative for back pain. Neurological: Negative for dizziness. Psychiatric/Behavioral: Negative for agitation. All other systems reviewed and are negative. Physical Exam Filed Vitals: 06/17/20 0859 BP: (!) 170/116 Pulse: 97 Resp: 18 Temp: 97.2 ??F (36.2 ??C) TempSrc: Skin SpO2: 98% Weight: 136.1 kg (300 lb) Height: 5' 6 (1.676 m) Physical Exam Constitutional: General: She is not in acute distress. Appearance: She is well-developed. HENT: Head: Normocephalic. Right Ear: Tympanic membrane normal. Left Ear: Tympanic membrane normal. Nose: Congestion present. Mouth/Throat: Pharynx: Posterior oropharyngeal erythema present. No oropharyngeal exudate. Eyes: Conjunctiva/sclera: Conjunctivae normal. Neck: Musculoskeletal: Normal range of motion. Cardiovascular: Rate and Rhythm: Normal rate and regular rhythm. Pulmonary: Effort: Pulmonary effort is normal. Breath sounds: Normal breath sounds. No stridor. No wheezing. Abdominal: General: There is no distension. Musculoskeletal: Normal range of motion. Skin: General: Skin is dry. Neurological: Mental Status: She is alert and oriented to person, place, and time. Psychiatric: Mood and Affect: Mood normal. Diagnostic Studies / Procedures ELECTROCARDIOGRAMS: No results found for this visit on 06/17/20. LABORATORY STUDIES: Results for orders placed or performed during the hospital encounter of 06/17/20 RAPID STREP A Specimen: THROAT Result Value Ref Range RAPID STREP TEST NEGATIVE NEGATIVE STREP A, DNA Result Value Ref Range STREP A MOLECULAR NEGATIVE NEGATIVE IMAGING STUDIES No orders to display ED Course / Medical Decision Making Medications dexamethasone (DECADRON) tablet 10 mg (10 mg Oral Given 06/17/20 1010) MDM Number of Diagnoses or Management Options Upper respiratory infection: Diagnosis management comments: Dexamethasone given. Rapid strep is negative. She will continue [id number] medications. She is in no acute distress here. I do not think the patient has an emergent medical condition requiring admission at this time. On reevaluation, the patient is tolerating PO, ambulatory in the ED, and in no distress. The patient will be discharged home. Return precautions are discussed. Clinical Impression Upper respiratory infection (Primary) Disposition: Discharge Pascual Reyes MD 06/17/20 9217 * Rosa Beauchamp RN - 06/17/2020 9:01 AM CDT Patient presents with complaints of cough, congestion, sore throat, headache and SOB on exertion for approx 1 week. documented in this encounter Plan of Treatment Not on file documented as of this encounter Procedures Procedure Name Priority Date/Time Associated Diagnosis Comments STREP A, DNA STAT 06/17/2020 9:19 AM CDT RAPID STREP A STAT 06/17/2020 9:19 AM CDT documented in this encounter Results * STREP A, DNA (06/17/2020 9:19 AM CDT) Pathologist [facility] STREP A MOLECULAR NEGATIVE NEGATIVE 06/17/2020 11:09 AM CDT [facility] Comment: NOTE: A negative result is highly sensitive for S. pyogenes in throat specimens. This test does not distinguish between viable and non-viable organisms. If the result is negative and symptoms persist, additional testing is recommended to rule out other pathogens. 06/17/2020 9:19 AM CDT Pascual Reyes MD MICROBIOLOGY - GENERAL ORDJennifer CARLTON Final Result [facility] [address] [place] [address], * RAPID STREP A (06/17/2020 9:19 AM CDT) Pathologist [facility] RAPID STREP TEST NEGATIVE NEGATIVE 06/17/2020 9:35 AM CDT [facility] STRUCTURE OF ANTERIOR PORTION OF NECK / Unknown 06/17/2020 9:19 AM CDT Pascual Reyes MD MICROBIOLOGY - GENERAL KARINA CARLTON Final Result [facility] [address] [place] [address], [place] [phone] documented in this encounter Visit Diagnoses Diagnosis Upper respiratory infection- Primary Acute upper respiratory infections of unspecified site documented in this encounter Administered Medications Inactive Administered Medications - up to 3 most recent administrations Medication Order MAR Action Action Date Dose Rate Site dexamethasone (DECADRON) tablet 10 mg 10 mg, Oral, Once, 1 dose, On Wed06/17/20 at 0930 Given 06/17/2020 10:10 AM CDT 10 mg documented in this encounter Active and Recently Administered Medications Times are shown in CDT. Scheduled Medication Order 06/15/2020 06/16/2020 06/17/2020 dexamethasone (DECADRON) tablet 10 mg (COMPLETED) 10 mg, Oral, Once, 1 dose, On Wed06/17/20 at 0930 1010 (Given - Provid er: Sydney Monterroso RN) documented in this encounter Additional Health Concerns Assessment Noted Time PHQ-9 Depression Total Score: 26 020 7:37 AM CDT documented as of this encounter Care Teams Operating Room Orderly Relationship Specialty Start Date End Date Abimbola Cuba FNP-BC PCP - General Nurse Practitioner Family 01/01/20 documented as of this encounter
--- OUTSIDE RECORDS SUMMARY | 2024-03-06 11:05 | XMS_ITS | Encounter Summary ---
Author Organization [facility] Address [address] [place] [address]. [place], [place] [id number] [place] [address] Care Team Providers Care Field Specialist Name Role Phone Abimbola Cuba [facility] Primary Care Provider + Encounter Details Date Type Department Care Team (Latest Contact Info) Description 11/05/2021 Travel Social History Tobacco Use Types Packs/Day [...] suspected to have Coronavirus/COVID-19? No / Unsure 11/05/2021 6:56 AM CDT documented as of this encounter Plan of Treatment Not on file documented as of this encounter Visit Diagnoses Not on filedocumented in this encounter Additional Health Concerns Assessment Noted Time PHQ-9 Depression Total Score: 1 11/01/19 21 1:56 PM CDT documented as of this encounter Care Teams Field Specialist Relationship Specialty Start Date End Date Abimbola Cuba FNP- PCP - General Nurse Practitioner Family 01/01/20 documented as of this encounter
--- OUTSIDE RECORDS SUMMARY | 2024-03-06 11:05 | XMS_ITS | Encounter Summary ---
Author Organization [facility] Address [address] [place] [address]. [place] [id number] [place], [place] [id number] Care Team Providers Care Boiler Installer Name Role Phone Abimbola Cuba [facility] Primary Care Provider + Reason for Referral * (Routine) - Closed Specialty Diagnoses / Procedures Referred By Lele cornell Referred To Contact Procedures SPLINT APPLICATION Daryn Delgado MD 1 [place] [address] Phone: tel: fax: Referral ID Status Reason Start Date Expiration Date Visits Re quested Visits Authorized [id number] Closed 12/06/2020 01/05/2022 1 1 * (Routine) - Closed Specialty Diagnoses / Procedures Referred By Lele cornell Referred To Contact Procedures LACERATION REPAIR Daryn Delgado MD 1 [place] [address] Phone: tel: fax: Referral ID Status Reason Start Date Expiration Date Visits Re quested Visits Authorized [id number] Closed 12/06/2020 01/05/2022 1 1 Reason for Visit * Reason Comments Finger Injury pinkie finger on rig ht hand Encounter Details Date Type Department Care Team (Late st Contact Info) Description 12/06/2020 3:24 PM CDT - 12/06/2020 5:[address] [facility] Emergency Room [address] [place] [address] Daryn Delgado MD 1 [facility] [place] [address] Finger Injury (pinkie finger on right hand) Discharge Disposition: Home or Self Care (Routine [...] PM CDT documented as of this encounter Last Filed Vital Signs Vital Sign Reading Time Taken Comments Blood Pressure 142/105 12/06/2020 3:25 PM CDT Pulse 112 12/06/2020 3:25 PM CDT Temperature 36.6 ??C (97.8 ??F) 12/06/2020 3:25 PM CD T Respiratory Rate 24 12/06/2020 3:25 PM CDT Oxygen Saturation 99% 12/06/2020 3:25 PM CDT Inhaled Oxygen Concentration - - Weight - - Height - - Body Mass Index - - documented in this encounter Discharge Instructions * Attachments The following attachments cannot be sent through Care Everywhere. * Finger Fracture (Persian) * Common Finger Injuries (Persian) documented in this encounter Medications at Time of Discharge amoxicillin-clavulan ate (AUGMENTIN) 875-125 MG tablet Take 1 tablet (875 mg total) by mouth 2 (two) times daily for 5 days. 10 tablet 12/06/2020 1 HYDROcodone-acetamin ophen (NORCO) 5-325 MG tabletIndications:Ac eneida Pain < 3 Day Supply Take 1 tablet by mouth every 6 (six) hours as needed for Pain. Indications: Acute Pain < 3 Day Supply 12 tablet 12/06/2020 3 hydrOXYzine 25 MG tabletIndications:An xiety Take 1/2 tablet (12.5 mg) to 1 tablet (25 mg) up to three times a day as needed for anxiety 30 tablet 11/27/2019 3 ibuprofen 800 MG tablet Take 800 mg by mouth 2 (two) times daily. 01/23/2020 3 omeprazole 40 MG capsuleIndications:A cute upper respiratory infection Take 1 capsule (40 mg total) by mouth daily. 30 capsule 3 02/05/2020 3 ondansetron (ZOFRAN ODT) 4 MG disintegrating tabletIndications:Na usea Take 1 tablet (4 mg total) by mouth every 8 (eight) hours as needed for Nausea. 20 tablet 11/13/2020 3 documented as of this encounter ED Notes * Kimberly Rushing RN - 12/06/2020 4:45 PM CDT Adaptic dressing applied to finger wound, covered with telfa, and wrapped with conform. Splint applied under conform to small finger. larry well. * Daryn Delgado MD - 12/06/2020 4:05 PM CDTAssociated Order(s): Lac Repair; Splint Application Urgent Care Note Chief Complaint Chief Complaint Patient presents with ??? Finger Injury pinkie finger on right hand History of Present Illness Patient presents with right pinky finger injury after she accidentally slammed it in a door just prior to arrival. The patient has severe pain at the fingertip but otherwise no injuries. Medical History ALLERGIES: Allergies Allergen Reactions ??? Seasonal Other (see comment) congestion MEDICATIONS: Prior to Admission medications Medication Sig Start Date End Date Taking? Authorizing Provider amoxicillin-clavulanate (AUGMENTIN) 875-125 MG tablet Take 1 tablet (875 mg total) by mouth 2 (two)times daily for 5 days. 12/06/20 12/11/20 Yes Daryn Delgado MD HYDROcodone-acetaminophen (NORCO) 5-325 MG tablet Take 1 tablet by mouth every 6 (six) hours as needed for Pain. Indications: Acute Pain < 3 Day Supply 12/06/20 Yes Daryn Delgado MD hydrOXYzine 25 MG tablet Take 1/2 tablet (12.5 mg) to 1 tablet (25 mg) up to three times a day as needed for anxiety 11/27/19 CHRISTINA Escalona ibuprofen 800 MG tablet Take 800 mg by mouth 2 (two) times daily. 01/23/20 Doc Abstract omeprazole 40 MG capsule Take 1 capsule (40 mg total) by mouth daily. 02/05/20 CHRISTINA Escalona ondansetron (ZOFRAN ODT) 4 MG disintegrating tablet Take 1 tablet (4 mg total) by mouth every 8 (eight) hours as needed for Nausea. 11/13/20 CHRISTINA Escalona PAST MEDICAL HISTORY: Past Medical History: Diagnosis [...] quittin.1 ??? Smokeless tobacco: Never Used Substance Use Topics ??? Alcohol use: No ??? Drug use: Yes Types: Marijuana Comment: recreational Review of Systems Review of Systems Musculoskeletal: Right 5th fingertip injury per HPI. Skin: Positive for wound. Neurological: Negative for weakness and numbness. Hematological: Does not bruise/bleed easily. Physical Exam Filed Vitals: 12/06/20 1525 BP: (!) 142/105 Pulse: 112 Resp: 24 Temp: 97.8 ??F (36.6 ??C) TempSrc: Temporal SpO2: 99% Physical Exam Vitals and nursing note reviewed. Constitutional: Comments: Appears uncomfortable. Skin: General: Skin is warm and dry. Comments: There is bleeding from the right 5th digit nailbed. The nail is avulsed from the base. Neurological: General: No focal deficit present. Mental Status: She is alert. Psychiatric: Mood and Affect: Mood normal. Diagnostic Studies / Procedures RHYTHM STRIP INTERPRETATION: Rhythm: Sinus tachycardia, No ventricular ectopy Pulse: 112 PULSE OX INTERPRETATION: SpO2: 99 % Oxygen delivery: Room air Interpretation: No hypoxia at this time EKG: No results found for this visit on 12/06/20. EKG interpretation: EKG not performed. Dr. Delgado has personally visualized and interpreted the EKG. LABORATORY STUDIES: No results found for this visit on 12/06/20. IMAGING STUDIES XR FIFTH FINGER RT 3V Final Result by User, [id number] (12/06 6244) IMAGING STUDIES: XR FIFTH FINGER RT 3V DATE: 12/06/2020 3:35 PM CLINICAL HISTORY: crush injury distal phalanx . . COMPARISON STUDIES: No previous available. FINDINGS AND IMPRESSION: 1. Acute compound, comminuted, transverse fracture of the fifth distal phalanx. 2. Soft tissue injury of the dorsal aspect of the finger and nailbed. 3. No radiopaque foreign bodies. Referred By: DARYN DELGADO Interpreted By: Basil Santiago, 12/06/2020 3:48 PM Lac Repair Date/Time: 12/06/2020 5:28 PM Performed by: Daryn Delgado MD Authorized by: Daryn Delgado MD Consent: Consent obtained: Verbal Consent given by: Patient Risks discussed: Infection and pain Alternatives discussed: No treatment Anesthesia (see MAR for exact dosages): Anesthesia method: Nerve block Block needle gauge: 27 G Block anesthetic: Lidocaine 1% w/o epi Block technique: Digital block Block injection procedure: Anatomic landmarks identified, introduced needle, incremental injection,anatomic landmarks palpated and negative aspiration for blood Block outcome: Anesthesia achieved Laceration details: Location: Finger Finger location: R small finger Length (cm): 1.5 Repair type: Repair type: Intermediate Pre-procedure details: Preparation: Patient was prepped and draped in usual sterile fashion Exploration: Hemostasis achieved with: Direct pressure Contaminated: no Treatment: Area cleansed with: Betadine Amount of cleaning: Standard Irrigation solution: Sterile saline Visualized foreign bodies/material removed: no Skin repair: Repair method: Sutures Suture size: 5-0 Suture material: Plain gut Suture technique: Simple interrupted Number of sutures: 4 Approximation: Approximation: Close Post-procedure details: Dressing: Adhesive bandage Patient tolerance of procedure: Tolerated well, no immediate complications Comments: Nail was removed, cleaned, trimmed, and reinserted into the nailbed. Splint Application Date/Time: 12/06/2020 5:28 PM Performed by: Daryn Delgado MD Authorized by: Daryn Delgado MD Consent: Consent obtained: Verbal Consent given by: Patient Risks discussed: Pain Alternatives discussed: No treatment Pre-procedure details: Sensation: Normal Procedure details: Laterality: Right Location: Finger Finger: R small finger Strapping: no Supplies: Aluminum splint Post-procedure details: Pain: Improved Sensation: Normal Skin color: Well-perfused Patient tolerance of procedure: Tolerated well, no immediate complications Dr. Delgado has personally visualized and interpreted all imaging studies. ED Course / Medical Decision Making MDM Number of Diagnoses or Management Options Fingernail avulsion: new and requires workup Open displaced fracture of distal phalanx of right little finger, initial encounter: new and requires workup Diagnosis management comments: DDx: Fracture, laceration, contusion Patient with fingernail avulsion, fracture, and nailbed laceration. Lac repaired as above, nail reinserted into nail base. Aluminum splint applied. Rx oral antibiotics and analgesics. Follow up with hand surgery for fracture. Return with signs of infection. Amount and/or Complexity of Data Reviewed Tests in the radiology section of CPT??: ordered and reviewed Independent visualization of images, tracings, or specimens: yes Risk of Complications, Morbidity, and/or Mortality Presenting problems: moderate Diagnostic procedures: low Management options: moderate Patient Progress Patient progress: improved Medications lidocaine (XYLOCAINE) 1 % injection SOLN 10 mL (10 mLs Intradermal Given by Other 12/06/20 1547) ketorolac (TORADOL) injection 60 mg (60 mg Intramuscular Given 12/06/20 1548) amoxicillin-clavulanate (AUGMENTIN) 500-125 MG tablet 500 mg of amoxicillin (500 mg of amoxicillin Oral Given 12/06/20 1650) SNOMED CT(R) 1. Open displaced fracture of distal phalanx of right little finger, initial encounter OPEN FRACTURE OF DISTAL PHALANX OF LITTLE FINGER 2. Fingernail avulsion AVULSION INJURY OF FINGERNAIL Discharge Medication List as of 12/06/2020 5:02 PM START taking these medications Details amoxicillin-clavulanate (AUGMENTIN) 875-125 MG tablet Take 1 tablet (875 mg total) by mouth 2 (two)times daily for 5 days., Starting Wed12/06/2020, Until Wed12/11/2020, Eprescribe Class: Eprescribe Pharmacy: [facility] [address] [place] [address] [address] (Ph #: [phone]) HYDROcodone-acetaminophen (NORCO) 5-325 MG tablet Take 1 tablet by mouth every 6 (six) hours as needed for Pain. Indications: Acute Pain < 3 Day Supply, Starting Wed12/06/2020, Eprescribe Class: Eprescribe Pharmacy: [facility] [address] [place] [address] [address] (Ph #: [phone]) Disposition: Discharge Follow-Up: Ashkan Armstrong MD [address] [place] [address] Schedule an appointment as soon as possible for a visit As needed Daryn Delgado MD 12/06/2020 5:31 PM Daryn Delgado MD 12/06/20 1734 * Kimberly Rushing RN - 12/06/2020 3:50 PM CDT Right hand small finger injury. Nail partially torn off. Bleeding controlled * Mahnaz Jean RN - 12/06/2020 3:24 PM CDT To ER with injury to pinkie finger on right hand after shutting it in car door. documented in this encounter Plan of Treatment Not on file documented as of this encounter Procedures Procedure Name Priority Date/Time Associated Diagnosis Comments SPLINT APPLICATION Routine 12/06/2020 4: 05 PM CDT LACERATION REPAIR Routine 12/06/2020 4:0 5 PM CDT XR FIFTH FINGER RT 3V STAT 12/06/2020 3:45 PM CDT documented in this encounter Results * Splint Application (12/06/2020 4:05 PM CDT) Narrative Daryn Delgado MD - 12/06/2020 4:05 PM CDT Daryn Delgado MD ? 12/06/2020 ??5:32 PM Splint Application Date/Time: 12/06/2020 5:28 PM Performed by: Daryn Delgado MD Authorized by: Daryn Delgado MD Consent: ??Consent obtained: ??Verbal ??Consent given by: ??Patient ??Risks discussed: ??Pain ??Alternatives discussed: ??No treatment Pre-procedure details: ??Sensation: ??Normal Procedure details: ??Laterality: ??Right ??Location: ??Finger ??Finger: ??R small finger ??Strapping: no ?Supplies: ??Aluminum splint Post-procedure details: ??Pain: ??Improved ??Sensation: ??Normal ??Skin color: ??Well-perfused ??Patient tolerance of procedure: ??Tolerated well, no immediate complications us Daryn Delgado MD PROCEDURE/MINOR SURGICAL ORDERAB LES Final Result * Lac Repair (12/06/2020 4:05 PM CDT) Narrative Daryn Delgado MD - 12/06/2020 4:05 PM CDT Daryn Delgado MD ? 12/06/2020 ??5:32 PM Lac Repair Date/Time: 12/06/2020 5:28 PM Performed by: Daryn Delgado MD Authorized by: Daryn Delgado MD Consent: ??Consent obtained: ??Verbal ??Consent given by: ??Patient ??Risks discussed: ??Infection and pain ??Alternatives discussed: ??No treatment Anesthesia (see MAR for exact dosages): ??Anesthesia method: ??Nerve block ??Block needle gauge: ??27 G ??Block anesthetic: ??Lidocaine 1% w/o epi ??Block technique: ??Digital block ??Block injection procedure: ??Anatomic landmarks identified, introduced needle, incremental injection, anatomic landmarks palpated and negative aspiration for blood ??Block outcome: ??Anesthesia achieved Laceration details: ??Location: ??Finger ??Finger location: ??R small finger ??Length (cm): ??1.5 Repair type: ??Repair type: ??Intermediate Pre-procedure details: ??Preparation: ??Patient was prepped and draped in usual sterile fashion Exploration: ??Hemostasis achieved with: ??Direct pressure ??Contaminated: no ?? Treatment: ??Area cleansed with: ??Betadine ??Amount of cleaning: ??Standard ??Irrigation solution: ??Sterile saline ??Visualized foreign bodies/material removed: no ?? Skin repair: ??Repair method: ??Sutures ??Suture size: ??5-0 ??Suture material: ??Plain gut ??Suture technique: ??Simple interrupted ??Number of sutures: ??4 Approximation: ??Approximation: ??Close Post-procedure details: ??Dressing: ??Adhesive bandage ??Patient tolerance of procedure: ??Tolerated well, no immediate complications Comments: ?? Nail was removed, cleaned, trimmed, and reinserted into the nailbed. Daryn Delgado MD PROCEDURE/MINOR SURGICAL ORDERAB LES Final Result * XR FIFTH FINGER RT 3V (12/06/2020 3:45 PM CDT) Anatomical Region Laterality Modality Hand Radiographic Bailey ging 12/06/2020 3:48 PM CDT Impressions 12/06/2020 3:50 PM CDT FINDINGS AND IMPRESSION: 1. ??Acute compound, comminuted, transverse fracture of the fifth distal phalanx. 2. ??Soft tissue injury of the dorsal aspect of the finger and nailbed. 3. ??No radiopaque foreign bodies. Referred By: DARYN DELGADO Interpreted By: Basil Santiago, 12/06/2020 3:48 PM Narrative 12/06/2020 3:50 PM CDT IMAGING STUDIES: ??XR FIFTH FINGER RT 3V ? DATE: ??12/06/2020 3:35 PM CLINICAL HISTORY: ??crush injury distal phalanx ?? . . COMPARISON STUDIES: No previous available. ?? Procedure Note Basil Santiago MD - 12/06/2020 IMAGING STUDIES: XR FIFTH FINGER RT 3V DATE: 12/06/2020 3:35 PM CLINICAL HISTORY: crush injury distal phalanx . . COMPARISON STUDIES: No previous available. FINDINGS AND IMPRESSION: 1. Acute compound, comminuted, transverse fracture of the fifth distalphalanx. 2. Soft tissue injury of the dorsal aspect of the finger and nailbed. 3. No radiopaque foreign bodies. Referred By: DARYN DELGADO Interpreted By: Basil Santiago, 12/06/2020 3:48 PM Daryn Delgado MD GENERAL IMAGING Final Result documented in this encounter Visit Diagnoses Diagnosis Open displaced fracture of distal phalanx of right little finger, initial encounter- Primary Fingernail avulsion Open wound of finger(s) , without mention of complication documented in this encounter Administered Medications Inactive Administered Medications - up to 3 most recent administrations Medication Order MAR Action Action Date Dose Rate Site amoxicillin-clavul anate (AUGMENTIN) 500-125 MG tablet 500 mg of amoxicillin 500 mg of amoxicillin (1 tablet), Oral, Once, 1 dose, On Wed12/06/20 at 1645 Given 12/06/2020 4:50 PM CDT 500 mg of amoxicillin ketorolac (TORADOL) injection 60 mg 60 mg, Intramuscular, Once, 1 dose, On Wed12/06/20 at 1545, For IV administration, give over 15 seconds. Given 12/06/2020 3:48 PM CDT 60 mg Left Ventrogluteal lidocaine (XYLOCAINE) 1 % injection SOLN 10 mL 10 mL, Intradermal, Once, 1 dose, On Wed12/06/20 at 1545 Given by Other 12/06/2020 3:47 PM CDT 10 mLs Right Hand documented in this encounter Active and Recently Administered Medications Times are shown in CDT. Scheduled Medication Order 12/04/2020 12/05/2020 12/06/2020 amoxicillin-clavulanate (AUGMENTIN) 500-125 MG tablet 500 mg of amoxicillin (COMPLETED) 500 mg of amoxicillin (1 tablet), Oral, Once, 1 dose, On Wed12/06/20 at 1645 1650 (Given - Provid er: Kimberly Rushing RN) ketorolac (TORADOL) injection 60 mg (COMPLETED) 60 mg, Intramuscular, Once, 1 dose, On Wed12/06/20 at 1545, For IV administration, give over 15 seconds. 1548 (Given - Provid er: Kimberly Rushing RN) lidocaine (XYLOCAINE) 1 % injection SOLN 10 mL (COMPLETED) 10 mL, Intradermal, Once, 1 dose, On Wed12/06/20 at 1545 1547 (Given by Other - Provider: Kimberly Rushing RN) documented in this encounter Additional Health Concerns Assessment Noted Time PHQ-9 Depression Total Score: 1 11/01/19 21 1:56 PM CDT documented as of this encounter Care Teams Boiler Installer Relationship Specialty Start Date End Date Abimbola Cuba FNP-JUAN JOSE PCP - General Nurse Practitioner Family 01/01/20 documented as of this encounter
--- OUTSIDE RECORDS SUMMARY | 2024-03-06 11:05 | XMS_ITS | Encounter Summary ---
Author Organization [facility] Address [address] [place] [address]. [place], [place] [id number] [place] [id number] Care Team Providers Care Hydraulic Plumber Helper Name Role Phone Abimbola Cuba [facility]- Primary Care Provider + Encounter Details Date Type Department Care Team (Latest Contact Info) Description 06/17/2020 Travel Social History Tobacco Use Types Packs/Day [...] documented as of this encounter Care Teams Hydraulic Plumber Helper Relationship Specialty Start Date End Date Abimbola Cuba FNP- PCP - General Nurse Practitioner Family 01/01/20 documented as of this encounter
--- OUTSIDE RECORDS SUMMARY | 2024-03-06 11:05 | XMS_ITS | Encounter Summary ---
Author Organization [facility] Address [address] [place] [address]. [place] [id number] [place] [id number] Care Team Providers Care Security Investigator Name Role Phone Abimbola Cuba [facility] Primary Care Provider + Reason for Visit * Reason Comments Follow Up pt here for medicati on F/U Encounter Details Date Type Department Care Team (Late st Contact Info) Description 01/01/2020 7:00 AM CDT Office Visit [facility] Family & Internal Medicine [facility] [address] [place] [address] Abimbola Cuba [place] [id number] [place] [id number] Follow Up (pt here for medication F/U) Social History Tobacco Use Types Packs/Day Years [...] Sign Reading Time Taken Comments Blood Pressure 138/88 01/01/2020 7:32 AM CDT Pulse 78 01/01/2020 7:07 AM CDT Temperature 36.5 ??C (97.7 ??F) 01/01/2020 7:07 AM CD T Respiratory Rate 16 01/01/2020 7:07 AM CDT Oxygen Saturation 98% 01/01/2020 7:07 AM CDT Inhaled Oxygen Concentration - - Weight 135.9 kg (299 lb 9.6 oz) 01/01/2020 7:07 AM CDT Height 167.6 cm (5' 6 ) 01/01/2020 7:07 AM CDT Body Mass Index 48.36 01/01/2020 7:07 AM CDT documented in this encounter Patient Instructions * Patient Instructions* NORA Escalona-JUAN JOSE - 01/01/2020 7:00 AM CDT - Stop sertraline and start duloxetine (cymbalta). Cymbalta needs to be taken twice a day. - Use flonase, daily non-drowsy antihistamine, and short burst of steroids for your allergies. Patient Education Patient Education Duloxetine (doo LOX e teen) Brand Names: [place] Cymbalta; izalma Spremle Brand Names: Charley AG-Duloxetine; APO-Duloxetine; Auro-Duloxetine; Cymbalta; JAMP-Duloxetine; M-Duloxetine; Mar-Duloxetine; MINT-Duloxetine; MYLAN-Duloxetine [DSC]; NRA-Duloxetine; PMS-Duloxetine; PRIVA-Duloxetine; RAN-Duloxetine; LAZ- Duloxetine; SANDOZ Duloxetine; TEVA-Duloxetine Warning ?? Drugs like this one have raised the chance of suicidal thoughts or actions in children and youngadults. The risk may be greater in people who have had these thoughts or actions in the past. All people who take this drug need to be watched closely. Call the doctor right away if signs like low mood (depression), nervousness, restlessness, grouchiness, panic attacks, or changes in mood or actions are new or worse. Call the doctor right away if any thoughts or actions of suicide occur. What is this drug used for? ?? It is used to treat low mood (depression). ?? It is used to treat anxiety. ?? It is used to help painful nerve diseases and diabetic nerve problems. ?? It is used to ease long-term pain problems. ?? It is used to treat fibromyalgia. ?? It may be given to you for other reasons. Talk with the doctor. What do I need to tell my doctor BEFORE I take this drug? ?? If you are allergic to this drug; any part of this drug; or any other drugs, foods, or substances. Tell your doctor about the allergy and what signs you had. ?? If you have any of these health problems: Kidney disease or liver disease. ?? If you are taking thioridazine. ?? If you are taking any of these drugs: Ciprofloxacin or fluvoxamine. ?? If you are taking any of these drugs: Linezolid or methylene blue. ?? If you have taken certain drugs for depression or Parkinson's disease in the last 14 days. This includes isocarboxazid, phenelzine, tranylcypromine, selegiline, or rasagiline. Very high blood pressure may happen. This is not a list of all drugs or health problems that interact with this drug. Tell your doctor and pharmacist about all of your drugs (prescription or OTC, natural products, vitamins) and health problems. You must check to make sure that it is safe for you to take this drug with all of your drugs and health problems. Do not start, stop, or change the dose of any drug withoutchecking with your doctor. What are some things I need to know or do while I take this drug? ?? Tell all of your health care providers that you take this drug. This includes your doctors, nurses, pharmacists, and dentists. ?? Avoid driving and doing other tasks or actions that call for you to be alert until you see how this drug affects you. ?? To lower the chance of feeling dizzy or passing out, rise slowly if you have been sitting or lying down. Be careful going up and down stairs. ?? Low blood pressure, falls, and passing out have happened with this drug. Falls may lead to problems like broken bones and the need to go to the hospital. The chance of falling is raised with olderpeople. Talk with the doctor. ?? If you have high blood sugar (diabetes), you will need to watch your blood sugar closely. ?? High blood pressure has happened with this drug. Have your blood pressure checked as you have been told by your doctor. ?? Talk with your doctor before you drink alcohol or use other drugs and natural products that slowyour actions. ?? This drug may raise the chance of bleeding. Sometimes, bleeding can be life- threatening. Talk with the doctor. ?? A severe and sometimes deadly problem called serotonin syndrome may happen. The risk may be greater if you also take certain other drugs. Call your doctor right away if you have agitation; change in balance; confusion; hallucinations; fever; fast or abnormal heartbeat; flushing; muscle twitchingor stiffness; seizures; shivering or shaking; sweating a lot; severe diarrhea, upset stomach, or throwing up; or very bad headache. ?? Some people may have a higher chance of eye problems with this drug. Your doctor may want you tohave an eye exam to see if you have a higher chance of these eye problems. Call your doctor right away if you have eye pain, change in eyesight, or swelling or redness in or around the eye. ?? This drug can cause low sodium levels. Very low sodium levels can be life- threatening, leading to seizures, passing out, trouble breathing, or . ?? This drug may affect certain lab tests. Tell all of your health care providers and lab workers that you take this drug. ?? If you are 65 or older, use this drug with care. You could have more side effects. ?? This drug may affect growth in children and teens in some cases. They may need regular growth checks. Talk with the doctor. ?? This drug may cause harm to the unborn baby if you take it while you are . If you are or you get while taking this drug, call your doctor right away. ?? Taking this drug in the third trimester of may lead to some health problems in the . Talk with the doctor. ?? Tell your doctor if you are breast-feeding or plan to breast-feed. This drug passes into breast milk and may harm your baby. What are some side effects that I need to call my doctor about right away? WARNING/CAUTION: Even though it may be rare, some people may have very bad and sometimes deadly side effects when taking a drug. Tell your doctor or get medical help right away if you have any of thefollowing signs or symptoms that may be related to a very bad side effect: ?? Signs of an allergic reaction, like rash; hives; itching; red, swollen, blistered, or peeling skin with or without fever; wheezing; tightness in the chest or throat; trouble breathing, swallowing,or talking; unusual hoarseness; or swelling of the mouth, face, lips, tongue, or throat. ?? Signs of low sodium levels like headache, trouble focusing, memory problems, feeling confused, weakness, seizures, or change in balance. ?? Signs of bleeding like throwing up or coughing up blood; vomit that looks like coffee grounds; blood in the urine; black, red, or tarry stools; bleeding from the gums; abnormal vaginal bleeding; bruises without a cause or that get bigger; or bleeding you cannot stop. ?? Signs of high or low blood pressure like very bad headache or dizziness, passing out, or change in eyesight. ?? Seizures. ?? Trouble passing urine. ?? Sex problems like lowered interest in sex or ejaculation problems. ?? Very bad and sometimes deadly liver problems have happened with this drug. Call your doctor right away if you have signs of liver problems like dark urine, feeling tired, not hungry, upset stomachor stomach pain, light-colored stools, throwing up, or yellow skin or eyes. ?? A very bad skin reaction (England-Kwesi syndrome/toxic epidermal necrolysis) may happen. It can cause very bad health problems that may not go away, and sometimes . Get medical help right away if you have signs like red, swollen, blistered, or peeling skin (with or without fever); red or i rritated eyes; or sores in your mouth, throat, nose, or eyes. What are some other side effects of this drug? All drugs may cause side effects. However, many people have no side effects or only have minor sideeffects. Call your doctor or get medical help if any of these side effects or any other side effects bother you or do not go away: ?? Constipation, diarrhea, stomach pain, upset stomach, throwing up, or feeling less hungry. ?? Headache. ?? Dry mouth. ?? Trouble sleeping. ?? Feeling dizzy, sleepy, tired, or weak. ?? Sweating a lot. ?? Weight loss. ?? Nose or throat irritation. These are not all of the side effects that may occur. If you have questions about side effects, call your doctor. Call your doctor for medical advice about side effects. You may report side effects to your national health agency. You may report side effects to the FDA at . You may also report side effects at https://www.fda.gov/medwatch. How is this drug best taken? Use this drug as ordered by your doctor. Read all information given to you. Follow all instructionsclosely. All products: ?? Keep taking this drug as you have been told by your doctor or other health care provider, even if you feel well. ?? Take with or without food. ?? Do not stop taking this drug all of a sudden without calling your doctor. You may have a greaterrisk of side effects. If you need to stop this drug, you will want to slowly stop it as ordered by your doctor. Capsules: ?? Swallow whole. Do not chew, open, or crush. Sprinkle capsule: ?? Swallow whole. Do not chew or crush. ?? If you cannot swallow this drug whole, you may sprinkle the contents on applesauce. If you do this, swallow the mixture right away without chewing. ?? Those who have feeding tubes may use this drug. Use as you have been told. Flush the feeding tube after this drug is given. What do I do if I miss a dose? ?? Take a missed dose as soon as you think about it. ?? If it is close to the time for your next dose, skip the missed dose and go back to your normal time. ?? Do not take 2 doses at the same time or extra doses. How do I store and/or throw out this drug? ?? Store at room temperature in a dry place. Do not store in a bathroom. ?? Keep all drugs in a safe place. Keep all drugs out of the reach of children and pets. ?? Throw away unused or drugs. Do not flush down a toilet or pour down a drain unless you are told to do so. Check with your pharmacist if you have questions about the best way to throw out drugs. There may be drug take-back programs in your area. General drug facts ?? If your symptoms or health problems do not get better or if they become worse, call your doctor. ?? Do not share your drugs with others and do not take anyone else's drugs. ?? Some drugs may have another patient information leaflet. If you have any questions about this drug, please talk with your doctor, nurse, pharmacist, or other health care provider. ?? This drug comes with an extra patient fact sheet called a Medication Guide. Read it with care. Read it again each time this drug is refilled. If you have any questions about this drug, please talkwith the doctor, pharmacist, or other health care provider. ?? If you think there has been an overdose, call your poison control center or get medical care right away. Be ready to tell or show what was taken, how much, and when it happened. Consumer Information Use and Disclaimer This information should not be used to decide whether or not to take this medicine or any other medicine. Only the healthcare provider has the knowledge and training to decide which medicines are right for a specific patient. This information does not endorse any medicine as safe, effective, or approved for treating any patient or health condition. This is only a brief summary of general information about this medicine. It does NOT include all information about the possible uses, directions, warnings, precautions, interactions, adverse effects, or risks that may apply to this medicine. This information is not specific medical advice and does not replace information you receive from the healthcare provider. You must talk with the healthcare provider for complete information about the risksand benefits of using this medicine. Last Reviewed Date 2019-08-21 Copyright ?? 2020 [employer]. and its affiliates and/or licensors. All rights reserved. documented in this encounter Progress Notes * CHRISTINA Escalona - 01/01/2020 7:00 AM CDT Reason for Visit: Follow Up (pt here for medication F/U) History of Present Illness: Feli Garcia is a 24-year-old female who presents to the office for one month follow-up for chronic disease management of anxiety and depression. Does not feel a difference in anxiety/depression. No known adverse effects or intolerances. Use of counseling with significant improvement in symptoms.Denies HI/SI. Would like to change medications to see if a difference. Reports she had her PFT scheduled but she forgot due to dealing with back issues after sustaining fall at [facility] after last visit. Has treatment today with injections. Not currently taking any painmedication. Acute concern for flare in seasonal allergies with symptoms of chest congestion and sinus pressure.Reports she has the symptoms every year. Denies fever, chills, ear pain, sore throat, chest pain, shortness of breath, GI upset. Not currently taking allergy medication. Denies known exposure to COVID. ROS: Review of Systems Constitutional: Negative. Negative for chills, fever and malaise/fatigue. HENT: Positive for congestion and sinus pain. Negative for ear pain and sore throat. Eyes: Negative. Respiratory: Negative for cough, shortness of breath and wheezing. Cardiovascular: Negative. Negative for chest pain and palpitations. Gastrointestinal: Negative. Negative for abdominal pain, constipation, diarrhea, nausea and vomiting. Genitourinary: Negative. Negative for dysuria. Musculoskeletal: Negative. Negative for myalgias. Skin: Negative. Negative for rash. Neurological: Negative. Negative for headaches. Endo/Heme/Allergies: Negative. Psychiatric/Behavioral: Positive for depression. Negative for hallucinations, substance abuse and suicidal ideas. The patient is nervous/anxious and has insomnia. RUSTY-7 (Generalized Anxiety Disorder) Screening RUSTY-7 11/27/2019 01/01/2020 Feeling nervous, anxious and on edge 3 - nearly every day 3 - nearly every day Not being able to stop or control worrying 3 - nearly every day 3 - nearly every day Worrying too much about different things 3 - nearly every day 3 - nearly every day Trouble Relaxing 3 - nearly every day 3 - nearly every day Being so restless that it's hard to sit still 2 - more than half the days 3 - nearly every day Becoming easily annoyed or irritable 3 - nearly every day 3 - nearly every day Feeling afraid as if something awful might happen 3 - nearly every day 3 - nearly every day Total Score 20 21 If you checked off any problems, how difficult have those problems made it for you to do your work take care of things at home or get along with other people? somewhat difficult somewhat difficult PHQ-9: Over the last two weeks, how often have you been bothered by any of the following problems? 11/27/2019 01/01/2020 LITTLE INTEREST OR PLEASURE IN DOING THINGS 2-More than half the days 2-More than half the days FEELING DOWN, DEPRESSSED,OR HOPELESS 3-Nearly every day 3-Nearly every day PHQ2 DEPRESSION TOTAL SCORE 5 5 TROUBLE FALLING OR STAYING ASLEEP OR SLEEPING TOO MUCH 3-Nearly every day 3- Nearly every day FEELING TIRED OR HAVING LITTLE ENERGY 3-Nearly every day 3-Nearly every day POOR APPETITE OR OVEREATING 2-More than half the days 3-Nearly every day FEELING BAD ABOUT YOURSELF 3-Nearly every day 3-Nearly every day TROUBLE CONCENTRATING ON THINGS 2-More than half the days 3-Nearly every day MOVING OR SPEAKING SO SLOWLY THAT OTHER PEOPLE COULD HAVE NOTICED 2-More than half the days 3-Nearly every day THOUGHTS THAT YOU WOULD BE BETTER OFF 3-Nearly every day 3-Nearly every day DEPRESSION SCREENING TOTAL SCORE 23 26 IF YOU CHECKED OFF ANY PROBLEMS Somewhat difficult Somewhat difficult Medications: Current Outpatient Medications: ??? DULoxetine 30 MG capsule, Take 1 capsule (30 mg total) by mouth 2 (two) times daily for 30 days., Disp: 60 capsule, Rfl: 0 ??? fluticasone propionate (FLONASE) 50 MCG/ACT nasal spray, 2 sprays by Nasal route daily., Disp: 16 g, Rfl: 5 ??? loratadine 10 MG tablet, Take 1 tablet (10 mg total) by mouth daily., Disp: 90 tablet, Rfl: 1 ??? omeprazole 40 MG capsule, Take 1 capsule (40 mg total) by mouth daily., Disp: 90 capsule, Rfl: 3 ??? predniSONE 20 MG tablet, Take 2 tablets (40 mg total) by mouth daily for 5 days., Disp: 10 tablet, Rfl: 0 ??? hydrOXYzine 25 MG tablet, Take 1/2 tablet (12.5 mg) to 1 tablet (25 mg) up to three times a dayas needed for anxiety, Disp: 30 tablet, Rfl: 0 ??? ondansetron (ZOFRAN ODT) 4 MG disintegrating [...] graduate Occupational History ??? Not on file Social Needs ??? Financial resource strain: Not on file ??? Food insecurity Worry: Not on file Inability: Not on file ??? Transportation needs Medical: Not on file Non-medical: Not on file Tobacco Use ??? Smoking status: Former Smoker Packs/day: 1.00 Years: 2.00 Pack years: 2.00 Types: Cigarettes Quit date: 09/26/2019 Years since quittin.2 ??? Smokeless tobacco: Never Used Substance and Sexual Activity ??? Alcohol use: No Frequency: Never ??? Drug use: No ??? Sexual activity: Yes Lifestyle ??? Physical activity Days per week: Not on file Minutes per session: Not on file ??? Stress: Not on file Relationships ??? Social connections Talks on phone: Not on file Gets together: Not on file Attends temple service: Not on file Active member of club or organization: Not on file Attends meetings of clubs or organizations: Not on file Relationship status: Not on file ??? Intimate partner violence Fear of current or ex partner: Not on file Emotionally abused: Not on file Physically abused: Not on file Forced sexual activity: Not on file Other Topics Concern ??? Not on file [...] Alive ??? Father Alive Physical Exam Vitals signs and nursing note reviewed. Constitutional: General: She is not in acute distress. Appearance: Normal appearance. She is well-developed. She is obese. She is not ill-appearing. HENT: Head: Normocephalic and atraumatic. Right Ear: External ear normal. A middle ear effusion is present. Left Ear: External ear normal. A middle ear effusion is present. Nose: Mucosal edema (pale, boggy membranes) present. Mouth/Throat: Uvula is midline, oropharynx is clear and moist and mucous membranes are normal. Tonsils are 0 on the right. Tonsils are 0 on the left. No tonsillar exudate. Eyes: General: Lids are normal. Right eye: No discharge. Left eye: No discharge. Extraocular Movements: Extraocular movements intact. Conjunctiva/sclera: Conjunctivae normal. Neck: Musculoskeletal: Normal range of motion and neck supple. Trachea: Trachea and phonation normal. No tracheal deviation. Cardiovascular: Rate and Rhythm: Normal rate and regular rhythm. Heart sounds: Normal heart sounds. Pulmonary: Effort: Pulmonary effort is normal. No respiratory distress. Breath sounds: Normal breath sounds. Lymphadenopathy: Head: Right side of head: No submental, submandibular, tonsillar, preauricular, posterior auricular or occipital adenopathy. Left side of head: No submental, submandibular, tonsillar, preauricular, posterior auricular or occipital adenopathy. Cervical: No cervical adenopathy. Skin: General: Skin is warm and dry. Neurological: Mental Status: She is alert and oriented to person, place, and time. Psychiatric: Attention and Perception: Attention and perception normal. Mood and Affect: Mood and affect normal. Speech: Speech normal. Behavior: Behavior normal. Behavior is cooperative. Thought Content: Thought content normal. Thought content does not include homicidal or suicidal ideation. Thought content does not include homicidal or suicidal plan. Cognition and Memory: Cognition normal. Judgment: Judgment normal. Filed Vitals: 01/01/20 0707 01/01/20 0732 BP: (!) 132/98 138/88 Pulse: 78 Resp: 16 Temp: 97.7 ??F (36.5 ??C) TempSrc: Temporal SpO2: 98% Weight: 135.9 kg (299 lb 9.6 oz) Height: 5' 6 (1.676 m) Assessment Encounter Diagnose(s) ICD-10-CM ICD-9-CM SNOMED CT(R) 1. Seasonal allergies J30.2 477.9 SEASONAL ALLERGY predniSONE 20 MG tablet fluticasone propionate (FLONASE) 50 MCG/ACT nasal spray loratadine 10 MG tablet 2. Anxiety F41.9 300.00 ANXIETY DULoxetine 30 MG capsule 3. Depression, unspecified depression type F32.9 311 DEPRESSIVE DISORDER DULoxetine 30 MG capsule 4. Need for immunization against influenza Z23 V04.81 NEEDS INFLUENZA IMMUNIZATION FLU VACC QUAD PRSRV FREE 0.5 ML DOSE Recommendations and Plan: 1. Seasonal allergies - Discussed antibiotic therapy is not indicated. Declined COVID testing and exam leads more to an allergy cause. - predniSONE 20 MG tablet; Take 2 tablets (40 mg total) by mouth daily for 5 days. Dispense: 10 tablet; Refill: 0 - fluticasone propionate (FLONASE) 50 MCG/ACT nasal spray; 2 sprays by Nasal route daily. Dispense:16 g; Refill: 5 - loratadine 10 MG tablet; Take 1 tablet (10 mg total) by mouth daily. Dispense: 90 tablet; Refill:1 2. Anxiety 3. Depression, unspecified depression type - Sertraline discontinued. Duloxetine started. No indication for taper as we are switching products. - DULoxetine 30 MG capsule; Take 1 capsule (30 mg total) by mouth 2 (two) times daily for 30 days. Dispense: 60 capsule; Refill: 0 4. Need for immunization against influenza - Patient education provided. - FLU VACC QUAD PRSRV FREE 0.5 ML DOSE Follow up in one month. Return to clinic with new, persistent, or worsening symptoms. Feli Garcia is in agreement to and verbalized understanding of treatment plan with no further questions at this time. CHRISTINA ESCALONA 01/01/2020 7:53 AM Cosigned by Chandrakant Garrison MD at 01/01/2020 7:58 AM CDT documented in this encounter Plan of Treatment Not on file documented as of this encounter Visit Diagnoses Diagnosis Seasonal allergies- Primary Allergic rhinitis, cause unspecified Anxiety Anxiety state, unspecified Depression, unspecified depression type Need for immunization against influenza Need for prophylactic vaccination and inoculation against influenza documented in this encounter Additional Health Concerns Assessment Noted Time PHQ-9 Depression Total Score: 26 020 7:37 AM CDT documented as of this encounter Care Teams Security Investigator Relationship Specialty Start Date End Date Abimbola Cuba FNP-BC PCP - General Nurse Practitioner Family 01/01/20 documented as of this encounter
--- OUTSIDE RECORDS SUMMARY | 2024-03-06 11:05 | XMS_ITS | Encounter Summary ---
Author Organization [facility] Address [address] [place] [address]. [place], [place] [id number] [place] [id number] Care Team Providers Care Hat Marker Name Role Phone Abimbola Cuba [facility] Primary Care Provider + Encounter Details Date Type Department Care Team (Latest Contact Info) Description 11/08/2020 Travel Social History Tobacco Use Types Packs/Day [...] documented as of this encounter Care Teams Hat Marker Relationship Specialty Start Date End Date Abimbola Cuba FNP- PCP - General Nurse Practitioner Family 01/01/20 documented as of this encounter
--- OUTSIDE RECORDS SUMMARY | 2024-03-06 11:05 | XMS_ITS | Encounter Summary ---
Author Organization [facility] Address [address] [place] [address]. [place], [place] [id number] [place] [id number] Care Team Providers Care Research Coordinator Name Role Phone Abimbola Cuba [facility] Primary Care Provider + Reason for Visit * Reason Comments Blood Pressure Acute- Here for a bl ood pressure check, was elevated when getting a back injection Encounter Details Date Type Department Care Team (Late st Contact Info) Description 10/31/2020 1:40 PM CDT Office Visit [facility] [address] [place] [address] Marlene Pretty, VALIDATION LEADER[address] [id number] Blood Pressure (Acute- Here for a blood pressure check, was elevated when getting a back injection) Social History Tobacco Use Types Packs/Day Years [...] have Coronavirus / COVID-19? No / Unsure 10/31/2020 1:43 PM CDT documented as of this encounter Last Filed Vital Signs Vital Sign Reading Time Taken Comments Blood Pressure 128/86 10/31/2020 1:53 PM CDT Pulse 97 10/31/2020 1:53 PM CDT Temperature 36.6 ??C (97.8 ??F) 10/31/2020 1:53 PM CD T Respiratory Rate 20 10/31/2020 1:53 PM CDT Oxygen Saturation 98% 10/31/2020 1:53 PM CDT Inhaled Oxygen Concentration - - Weight 120.3 kg (265 lb 3.2 oz) 10/31/2020 1:53 PM CDT Height 167.6 cm (5' 6 ) 10/31/2020 1:53 PM CDT Body Mass Index 42.8 10/31/2020 1:53 PM CDT documented in this encounter Patient Instructions * Patient Instructions* Marlene Pretty, VALIDATION LEADER - 10/31/2020 1:40 PM CDT Images from the original note were not included. - keep diary of blood pressure reading daily and return to the office in one - two weeks any sustained blood pressure readings over 140/90 please call office for sooner appointment. - discussed to seek ER evaluation if any new or worsening symptoms. Patient Education Patient Education Lowering Your Risk of High Blood Pressure About this topic High blood pressure happens when your heart must work harder than normal to pump blood to the body.Blood pressure measures the pressure in your arteries when your heart beats. Your arteries are tubes that carry blood from your heart to the rest of your body. If the arteries are clogged, stiff, or squeeze too tightly, the pressure goes up and your heart must work harder than normal. Your blood pressure has two numbers. The top number is the systolic number. It measures the highestamount of pressure in the artery when the heart is beating. The second number or bottom number is the diastolic number. It is the lowest pressure in the artery when the heart is resting. Sometimes diseases, like kidney disease or abnormal hormones, can lead to high blood pressure. Mostpeople have no known cause or reason for high blood pressure. In most cases, high blood pressure cannot be cured. You must control it with drugs and lifestyle changes. If high blood pressure is not controlled, it can lead to heart attack, stroke, and kidney problems. Many people with high blood pressure do not feel sick and don???t know that they have it until their blood pressure is checked. However, this does not mean that you do not need treatment for high blood pressure. General Many things can raise your chances of having high blood pressure. Some of them you can control and others you cannot. It is important to know about all of them. Some health conditions may raise your chances for having high blood pressure. Take extra care and work with your doctor to keep these health problems under control. Your risk for high blood pressure is higher if you have: ?? Diabetes ?? Kidney disease ?? High cholesterol ?? Obstructive sleep apnea ?? Hormone problems - thyroid disease, [place]???s syndrome, acromegaly, hyperaldosteronism, and pheochromocytoma ?? Lupus ?? Scleroderma You may have control over some things that make you more likely to have high blood pressure. It is important to know about them and work to keep these problems under control. You are at a higher riskof high blood pressure if you: ?? Smoke or use tobacco ?? Use alcohol or illegal drugs ?? Do not exercise regularly ?? Are overweight ?? Have a lot of stress in your life ?? Have a poor diet or a diet high in salt or sodium ?? Have a diet low in potassium ?? Take certain medications Some things you are not able to control, but they are important to know about. For example, men aremore likely to have high blood pressure before about age 60. However, women are more likely to havehigh blood pressure after menopause. You are also at a higher risk for high blood pressure if you: ?? Are older. Your risk gets higher the older you are. ?? Have a family history of high blood pressure ?? Are What lifestyle changes are needed? ?? You may be asked to get a blood pressure monitor to use at home. Learn how to use it and record your blood pressure results between doctor visits. ?? Stop smoking and using tobacco. Smoking causes your arteries to narrow and raises your blood pressure. Talk to your doctor if you need help quitting. ?? Limit how much alcohol you drink to no more than 1 drink a day for women or 2 drinks a day for men. ?? Do not use illegal drugs. Talk to your doctor if you need help quitting. ?? If you are under a great deal of stress, ask your doctor for advice on how to lower the stress. You may need to learn a variety of stress reduction methods, such as yoga, meditation, guided imagery, missy chi, or even have a drug prescribed to help you. ?? Eat a healthy, well-balanced diet. Try to limit how much salt or sodium you eat each day. ?? Lose weight if you are overweight. ?? Get regular exercise. This can help your heart pump better, lower your blood pressure, and help you lose weight. ?? Work with your doctor to treat problems like sleep apnea, diabetes, high cholesterol, and kidneyproblems. ?? Talk with your doctor or pharmacist about all of your drugs, including pvmo-xzf-vgervkd medicines, to see if they may cause high blood pressure. What drugs may be needed? Your doctor may order drugs to: ?? Lower blood pressure ?? Control blood sugar ?? Lower cholesterol levels ?? Help with your mood ?? Help you stop using tobacco Take your drugs exactly as ordered. Controlling problems like high blood pressure, diabetes, or high cholesterol are all ways to lower your chances of having high blood pressure. Will physical activity be limited? It is good to get some kind of exercise each day. Walking, gardening, swimming, riding a bike, or dancing are all good ways to add exercise to your life. Always check with your doctor if you have questions about starting an exercise program. What changes to diet are needed? Eat a healthy diet. Talk to your doctor or a dietitian if you need to lose weight. ?? Do not use salt on your food. Use herbs and spices to improve the taste. ?? Do not eat more than 2.3 grams of sodium a day. If you have high blood pressure, aim for 1.5 grams of sodium a day. Read food labels to see how much sodium is in a food. ?? Limit coffee, tea, and soda to 2 cups (480 mL) a day. ?? Eat lots of fruits, vegetables, and low-fat dairy products. ?? Avoid fatty foods, like fried foods or chips. ?? Talk with your dietitian about the diet changes you need and the number of calories you should eat each day. When do I need to call the doctor? Activate the emergency medical system right away if you have signs of a heart attack. Call 911 in the [place] or [place]. The sooner treatment begins, the better your chances for recovery. Call for emergency help right away if you have: ?? Signs of heart attack: ? Chest pain ? Pain in other areas of the upper body (either or both arms, jaw, neck, etc.) ? Trouble breathing ? Fast heartbeat ? Feeling dizzy ?? Signs of stroke: ? Sudden numbness or weakness of the face, arm, or leg, especially on one side of the body ? Sudden confusion, trouble speaking or understanding ? Sudden trouble seeing in one or both eyes ? Sudden trouble walking, dizziness, loss of balance or coordination ? Sudden severe headache with no known cause ? Face droops on one side Call your doctor if you have: ?? Blood pressure that is 20 points higher than your normal top or bottom number ?? Two blood pressure readings higher than 180/120 ?? Very bad headache ?? Confusion ?? Sudden change in hearing or eyesight ?? Nosebleed Where can I learn more? [place] https://www.heart.org/en/health-topics/irjn-gluqg-mrbknwxn/nzjlzmo-bmo-vap-make- dp-kvfkhc-zmxw-blood-pressure [place] https://www.heart.org/en/health-topics/jluz-gkiuc-kguukdwv/qhl-stmh-gzguj-pressu pa-yz-w-silent-killer/prbn-ccfv-ftdk-ryciufg-sxy-owqp-blood-pressure Centers for Disease Control and Prevention https://www.cdc.gov/bloodpressure/risk_factors.htm NHS Choices https://www.nhs.uk/conditions/vldh-xygqw-fimeikhv-hypertension/ Last Reviewed Date 2019-06-08 Consumer Information Use and Disclaimer This information is not specific medical advice and does not replace information you receive from your health care provider. This is only a brief summary of general information. It does NOT include all information about conditions, illnesses, injuries, tests, procedures, treatments, therapies, discharge instructions or life-style choices that may apply to you. You must talk with your health care provider for complete information about your health and treatment options. This information should not be used to decide whether or not to accept your health care provider???s advice, instructions or recommendations. Only your health care provider has the knowledge and training to provide advice that is right for you. Copyright Copyright ?? 2020 [employer] and its affiliates and/or licensors. All rights reserved. Patient Education Patient Education Prehypertension About this topic Blood pressure is the measure of the force of blood pumped through your arteries. When your blood pressure is slightly above normal you have prehypertension. This may turn into hypertension if you donot make changes to how you are living. Hypertension is also known as high blood pressure. Doctors diagnose this by taking your blood pressure. Your blood pressure has two numbers. The top number is the systolic number. The second number or bottom number is the diastolic number. You have prehypertension when the top number is between 120 and 139 mm Hg or the bottom number is 80 to 89 mm Hg. The doctor may say your blood pressure is between 120/80 and 139/89 mm Hg. This means that the pressure inside your blood vessels is too high What are the causes? ?? Genetics ? it is inherited from your parents ?? Fats may be blocking your blood vessels ?? Kidney disease ?? Thyroid problems ?? Drugs like control pills and pain relievers ?? Use of illegal drugs ?? Tobacco and alcohol use ?? Too much salt in your diet ?? Obesity What can make this more likely to happen? ?? High blood pressure runs in the family ?? Lifestyle choices like too much drinking and smoking, or living with too much stress ?? Lifestyle choices like lack of exercise or an unhealthy diet ?? Other illnesses that affect blood pressure, like kidney and lung problems What are the main signs? Sometimes, people have no signs. Others may feel: ?? Headache ?? Dizziness ?? Breathing problems ?? Blurred eyesight ?? Passing out How does the doctor diagnose this health problem? Your doctor will take your history and do an exam. The doctor will check your blood pressure and listen to your heartbeat. Your doctor may ask about other people in your family with high blood pressure. Talk with your doctor about all of the drugs you are taking, including buxy-spg-mikrqrk drugs, vitamins, herbal supplements, and illegal drugs. Your doctor may order: ?? Lab tests ?? Electrocardiogram (ECG) How does the doctor treat this health problem? Treatment may include: ?? Lifestyle changes like: ? Exercise ? Weight loss ? Low salt diet ? Lowering stress ? Limit beer, wine, and mixed drinks (alcohol) ?? Drugs if you have other certain health conditions Are there other health problems to treat? You may have other problems if your blood pressure is not controlled. Some of them are: ?? Heart problems like heart attack or heart failure ?? Stroke ?? Swelling of blood vessels ?? Kidney failure ?? Loss of eyesight ?? Trouble with memory What lifestyle changes are needed? ?? Keep a normal weight. If you are too heavy, make a plan with your doctor to lose weight. ?? Exercise regularly. A 30-minute workout each day will help keep your heart healthy. ?? Talk to your doctor about how you need to change your diet. ? Try to eat more low fat or lean meats. Eat less red meat and eat more fish, chicken, turkey, and beans instead. ? Stay away from sugars and fats. Limit sweets and fatty foods such as desserts, fried foods, and chips. Use good fats found in fish, nuts, avocados, and oils, like olive oil and canola oil. Cut backon solid fats (butter, lard, margarine). ? Lower the salt in your diet. Ask about the DASH diet. ?? Limit beer, wine, and mixed drinks (alcohol). ?? Stop smoking. It can harm your heart, stomach, and lungs. What drugs may be needed? The doctor may order drugs to: ?? Control high blood pressure ?? Help get rid of extra fluid in your body Will there be any other care needed? ?? You will need to have regular visits with your doctor to monitor your blood pressure. Ask your doctor how often to visit. ?? Ask the doctor what you need to do when you go home. Make sure you ask questions if you do not understand what the doctor says. This way you will know what you need to do. ?? Learn how to take your blood pressure at home. Ask your doctor about the best device for BP monitoring and how to use it. When do I need to call the doctor? ?? Two blood pressure readings higher than 180/120 ?? Chest pain ?? Breathing problems ?? Very bad headache ?? Very bad muscle pain or weakness ?? Trouble speaking ?? Drowsiness ?? Confusion ?? Dizziness ?? Sudden change in hearing or seeing ?? Nosebleed ?? Dizziness or passing out when standing up Where can I learn more? NHS Choices http://www.nhs.uk/conditions/blood-pressure-(high)/pages/introduction.aspx Last Reviewed Date 2017-04-22 Consumer Information Use and Disclaimer This information is not specific medical advice and does not replace information you receive from your health care provider. This is only a brief summary of general information. It does NOT include all information about conditions, illnesses, injuries, tests, procedures, treatments, therapies, discharge instructions or life-style choices that may apply to you. You must talk with your health care provider for complete information about your health and treatment options. This information should not be used to decide whether or not to accept your health care provider???s advice, instructions or recommendations. Only your health care provider has the knowledge and training to provide advice that is right for you. Copyright Copyright ?? 2020 [employer]. and its affiliates and/or licensors. All rights reserved. documented in this encounter Progress Notes * NORA Jorge - 10/31/2020 1:40 PM CDT Reason for Visit: Blood Pressure (Acute- Here for a blood pressure check, was elevated when getting a back injection) History of Present Illness: Feli Garcia is a 25-year-old female who presents to the office with complaints of elevated bloodpressure reading. Feli reports she was having an injection done yesterday and while at the hospitalfor her procedure she was found to have an elevated reading 130/110. She notes she does not routinely check her blood pressure at home. She reports when she was a teenager she recalls a doctor telling her she had elevated blood pressure, but has never been on medication. Blood pressure in office today is 128/86. She denies fever, chills, fatigue, nausea, vomiting, visual changes, chest pain, chest tightness, palpitation, leg swelling, dizziness or headaches. She has no additional concerns today. ROS: Review of Systems Constitutional: Negative for chills, fatigue and fever. Eyes: Negative for visual disturbance. Respiratory: Negative for chest tightness and shortness of breath. Cardiovascular: Negative for chest pain, palpitations and leg swelling. Gastrointestinal: Negative for diarrhea, nausea and vomiting. Neurological: Negative for dizziness and headaches. Medications: Current Outpatient Medications: ??? hydrOXYzine 25 [...] for Nausea., Disp: 12 tablet, Rfl: 0 ??? fluticasone propionate (FLONASE) 50 MCG/ACT nasal spray, 2 sprays by Nasal route daily., Disp: 16 g, Rfl: 5 ??? loratadine 10 MG tablet, Take 1 tablet (10 mg total) by mouth daily., Disp: 90 tablet, Rfl: 1 ??? oxyCODONE-acetaminophen 5-325 MG tablet, Take 1 tablet by mouth 3 (three) times daily., Disp: ,Rfl: Allergies Allergen Reactions ??? Seasonal Other (see [...] Types: Cigarettes Quit date: 09/26/2019 Years since quittin.0 ??? Smokeless tobacco: Never Used Substance and [...] Gatherings with Friends and Family: ??? Attends Sikhism Services: ??? Active Member of Clubs or [...] She is well-developed and well-groomed. She is morbidly obese. She is not ill-appearing, toxic-appearing or diaphoretic. HENT: Head: Normocephalic and atraumatic. Right Ear: Hearing and external ear normal. Left Ear: Hearing and external ear normal. Nose: Nose normal. Mouth/Throat: Uvula is midline, oropharynx is clear and moist and mucous membranes are normal. Eyes: General: Lids are normal. Extraocular Movements: Extraocular movements intact. Conjunctiva/sclera: Conjunctivae normal. Pupils: Pupils are equal, round, and reactive to light. Cardiovascular: Rate and Rhythm: Normal rate and regular rhythm. Heart sounds: Normal heart sounds. No murmur. No gallop. Pulmonary: Effort: Pulmonary effort is normal. Breath sounds: Normal breath sounds and air entry. Musculoskeletal: Cervical back: Normal range of motion. Skin: General: Skin is warm and dry. Capillary Refill: Capillary refill takes less than 2 seconds. Findings: No rash. Neurological: General: No focal deficit present. Mental Status: She is alert and oriented to person, place, and time. Cranial Nerves: Cranial nerves are intact. Motor: No weakness or tremor. Gait: Gait normal. Psychiatric: Attention and Perception: Attention and perception normal. Mood and Affect: Mood and affect normal. Speech: Speech normal. Behavior: Behavior normal. Behavior is cooperative. Thought Content: Thought content normal. Cognition and Memory: Cognition and memory normal. Judgment: Judgment normal. Filed Vitals: 10/31/20 1353 BP: 128/86 Pulse: 97 Resp: 20 Temp: 97.8 ??F (36.6 ??C) TempSrc: Temporal SpO2: 98% Weight: 120.3 kg (265 lb 3.2 oz) Height: 5' 6 (1.676 m) Diagnoses/Impression: 1. Elevated blood pressure reading Recommendations and Plan: 1. Elevated blood pressure reading - discussed with patient to obtain at home blood pressure monitor and monitor at least daily keeping log. If she has any symptoms she should check her blood pressure at that time as well and seek attention in the ER for new or worseing symptoms. - discussed weight loss and diet modifications - will return to the office in 1-2 weeks or sooner if blood pressure is sustained at >140/90. Return to clinic with new, persistent, or worsening symptoms. Feli Chaim Garcia is in agreement to andverbalized understanding of treatment plan with no further questions at this time. No orders of the defined types were placed in this encounter. Reviewed and updated this visit by provider: NORA JORGE Referring Provider: No ref. provider found PCP: NORA VIVEROS- Cosigned by Chandrakant Garrison MD at 10/31/2020 3:12 PM CDT documented in this encounter Plan of Treatment Not on file documented as of this encounter Visit Diagnoses Diagnosis Elevated blood pressure reading- Primary Elevated blood pressure reading without diagnosis of hypertension documented in this encounter Additional Health Concerns Infection Onset Date Last Indicated Resolved Time COVID-19 Rule Out 11/08/2020 11/08/2020 11/08/2020 12:43 PM CDT COVID-19 Rule Out 11/08/2020 11/08/2020 11/10/2020 3:30 AM CDT Assessment Noted Time PHQ-9 Depression Total Score: 1 11/01/19 21 1:56 PM CDT documented as of this encounter Care Teams Research Coordinator Relationship Specialty Start Date End Date Abimbola Cuba FNP- PCP - General Nurse Practitioner Family 01/01/20 documented as of this encounter
--- OUTSIDE RECORDS SUMMARY | 2024-03-06 11:05 | XMS_ITS | Encounter Summary ---
Author Organization [facility] Address [address] [place] [address]. [place] [id number] [place] [address] Care Team Providers Care Barbering Instructor Name Role Phone Abimbola Cuba [facility] Primary Care Provider + Reason for Visit * Reason Comments Exposure Coronavirus (Covid-19) Pt rebekah e was exposed 2 days ago and pt step mother tested positive 2 days ago. Pt c/o headache, nausea, sore throat and slight loss of taste and smell Encounter Details Date Type Department Care Team (Late st Contact Info) Description 01/29/2020 4:20 PM HARNESS PULLER Telemedicine [facility] Family & Internal Medicine [address] [phone] Abimbola Cuba, [place] [id number] [place] [address] Exposure Coronavirus (Covid-19) (Pt fiance was exposed 2 days ago and pt step mother tested positive 2 days ago. Pt c/o headache, nausea, sore throat and slight loss of taste and smell) Social History Tobacco Use Types Packs/Day Years [...] Sign Reading Time Taken Comments Blood Pressure - - Pulse 92 01/29/2020 2:58 PM HARNESS PULLER Temperature - - Respiratory Rate - - Oxygen Saturation - - Inhaled Oxygen Concentration - - Weight - - Height 167.6 cm (5' 6 ) 01/29/2020 2:58 PM HARNESS PULLER Body Mass Index - - documented in this encounter Patient Instructions * Patient Instructions* QUE EscalonaP-BC - 01/29/2020 4:20 PM HARNESS PULLER Images from the original note were not included. 10 things you can do to manage your COVID-19 symptoms at home If you have possible or confirmed COVID-19: 1.Stay home from work and school. And stay away from other public places. If you must go out, avoidusing any kind of public transportation, ridesharing, or taxis. 2. Monitor your symptoms carefully. If your symptoms get worse, call your healthcare provider immediately. 3. Get rest and stay hydrated. 4. If you have a medical appointment, call the healthcare provider ahead of time and tell them you have or may have COVID-19. 5. For medical emergencies, call 911 and notify the dispatch personnel that you have or may have COVID-19. 6. Cover your cough and sneezes. 7. Wash your hands often with soap and water for at least 20 seconds or clean your hands with an alcohol-based hand ice cream freezer assistant that contains at least 60% alcohol. 8. As much as possible, stay in a specific room and away from other people in your home. Also, you should use a separate bathroom, if available. If you need to be around other people in or outside ofthe home, wear a cloth face covering. 9. Avoid sharing personal items with other people in your household, like dishes, towels, and bedding. 10.Clean all surfaces that are touched often, like counters, tabletops, and doorknobs. Use household cleaning sprays or wipes according to the label instructions. cdc.gov/coronavirus ESS PULLER documented in this encounter Progress Notes * CHRISTINA Escalona - 01/29/2020 4:20 PM CST Reason for Visit: Exposure Coronavirus (Covid-19) (Pt fiance was exposed 2 days ago and pt step mother tested positive 2 days ago. Pt c/o headache, nausea, sore throat and slight loss of taste and smell) History of Present Illness: Feli Garcia is a 25-year-old female who consents to video visit with complain of headache, nausea, sore throat, altered taste and smell, feeling feverish, nasal congestion especially in the supineposition with overall symptom onset of 2 days ago. Denies chills, myalgias that are new, ear pain, sinus pressure pain, chest pain, shortness of breath that is new, GI upset. Use of normal saline nasa l spray and gargling warm salt water with moderate improvement of symptoms. Multiple potential exposures between her stepmother, rebekah??, and work. Use of mask while in public. I introduced and identified myself, received verbal consent?? from the patient to proceed with thisvideo visit and made the patient aware that the same confidentiality and senior information security consultant practices apply. The patient joined the video visit from Home. I completed the virtual visit from Office.The following clinical staff helped with this visit MA: Cam Chang. Total Time Spent in Minutes: 10 ROS: Review of Systems Constitutional: Positive for fever and malaise/fatigue. Negative for chills. HENT: Positive for congestion and sore throat. Negative for ear pain and sinus pain. Eyes: Negative. Respiratory: Negative. Negative for cough and shortness of breath. Cardiovascular: Negative. Negative for chest pain and palpitations. Gastrointestinal: Positive for nausea. Negative for abdominal pain, constipation, diarrhea and vomiting. Genitourinary: Negative. Negative for dysuria. Musculoskeletal: Negative. Negative for myalgias. Skin: Negative. Negative for rash. Neurological: Positive for headaches. Endo/Heme/Allergies: Negative. Psychiatric/Behavioral: Negative. Medications: Current Outpatient Medications: ??? DULoxetine 30 MG capsule, Take 1 capsule (30 mg total) by mouth 2 (two) times daily for 30 days., Disp: 60 capsule, Rfl: 0 ??? fluticasone propionate (FLONASE) 50 MCG/ACT nasal spray, 2 sprays by Nasal route daily., Disp: 16 g, Rfl: 5 ??? hydrOXYzine 25 MG tablet, Take 1/2 tablet (12.5 mg) to 1 tablet (25 mg) up to three times a dayas needed for anxiety, Disp: 30 tablet, Rfl: 0 ??? ibuprofen 800 MG tablet, Take 800 mg by mouth 2 (two) times daily., Disp: , Rfl: ??? loratadine 10 MG tablet, Take 1 [...] Nausea., Disp: 12 tablet, Rfl: 0 ??? oxyCODONE-acetaminophen 5-325 MG tablet, Take 1 [...] Types: Cigarettes Quit date: 09/26/2019 Years since quittin.3 ??? Smokeless tobacco: Never Used Substance and Sexual Activity ??? Alcohol use: No Frequency: Never ??? Drug use: No ??? Sexual activity: Yes Lifestyle ??? Physical activity Days per week: Not on file Minutes per session: Not on file ??? Stress: Not on file Relationships ??? Social connections Talks on phone: Not on file Gets together: Not on file Attends jehovah's witness service: Not on file Active member of [...] in acute distress. Appearance: She is well-developed. She is not ill-appearing or toxic-appearing. HENT: Head: Normocephalic and atraumatic. Right Ear: External ear normal. Left Ear: External ear normal. Eyes: General: Right eye: No discharge. Left eye: No discharge. Conjunctiva/sclera: Conjunctivae normal. Neck: Trachea: No tracheal deviation. Pulmonary: Effort: Pulmonary effort is normal. No respiratory distress. Skin: General: Skin is warm and dry. Neurological: Mental Status: She is alert and oriented to person, place, and time. Psychiatric: Behavior: Behavior normal. Thought Content: Thought content normal. Judgment: Judgment normal. Filed Vitals: 01/29/20 1458 Pulse: 92 Height: 5' 6 (1.676 m) Assessment Encounter Diagnose(s) ICD-10-CM ICD-9-CM SNOMED CT(R) 1. Sore throat J02.9 462 SORE THROAT SYMPTOM CORONAVIRUS (COVID 19) [facility] CORONAVIRUS (COVID 19) [facility] 2. Close exposure to COVID-19 virus Z20.828 V01.79 EXPOSURE TO SARS-COV-2 CORONAVIRUS (COVID 19) [facility] CORONAVIRUS (COVID 19) [facility] Recommendations and Plan: Given current symptoms and high amount of exposure Covid testing ordered. Directed to remain quarantined until results received. Note for work provided with instructions on whether positive or negative result is received. Continue symptomatic treatment. If shortness of breath worsens or chest pain develops directed to go to ER. Encouraged to remain isolated from hospital contacts if able. If unable to remain isolated encouraged to wear a mask. Return to clinic with new, persistent, or worseningsymptoms. Feli Chaim Garcia is in agreement to and verbalized understanding of treatment plan with no further questions at this time. CHRISTINA ESCALONA 01/29/2020 4:10 PM Cosigned by Chandrakant Garrison MD at 01/29/2020 5:12 PM HARNESS PULLER ESS PULLER ESS PULLER documented in this encounter Plan of Treatment Not on file documented as of this encounter Procedures Procedure Name Priority Date/Time Associated Diagnosis Comments CORONAVIRUS (COVID 19) Routine 01/29/2020 3:39 PM HARNESS PULLER Sore throat Close exposure to COVID-19 virus documented in this encounter Results * CORONAVIRUS (COVID 19) [facility] (01/29/2020 3:39 PM HARNESS PULLER) Pathologist [facility] CORONAVIRUS SARS COV 2 PCR (RESP) NOT DETECTED NOT DETECTED [facility] [place] Comment: A Not Detected (negative) test result for this test means that SARS- CoV-2 RNA was not present in the specimen above the limit of detection. A negative result does not rule out the possibility of COVID-19 and should not be used as the sole basis for treatment or patient management decisions. ??If COVID-19 is still suspected, based on exposure history together with other clinical findings, re-testing should be considered in consultation with public health authorities. Laboratory test results should always be considered in the context of clinical observations and epidemiological data in making a final diagnosis and patient management decisions. Please review the Fact Sheets and FDA authorized labeling available for health care providers and patients using the following websites: https://www.[employer].DataXu/home/Covid-19/HCP/NAAT/fact-sheet2 https://www.[employer]u/home/Covid-19/Patients/NAAT/ fact-sheet2 This test has been authorized by the FDA under an Emergency Use Authorization (EUA) for use by authorized laboratories. Due to the current public health emergency, [facility] is receiving a high volume of samples from a wide variety of swabs and media for COVID-19 testing. In order to serve patients during this public health crisis, samples from appropriate clinical sources are being tested. Negative test results derived from specimens received in non-commercially manufactured viral collection and transport media, or in media and sample collection kits not yet authorized by FDA for COVID-19 testing should be cautiously evaluated and the patient potentially subjected to extra precautions such as additional clinical monitoring, including collection of an additional specimen. Methodology: ??Nucleic Acid Amplification Test (NAAT) includes RT-PCR or TMA ?? Additional information about COVID-19 can be found at the [facility] website: www.[employer].DataXu/Covid19. NASOPHARYNGEAL SWAB / Unknown 01/29/2020 3:39 PM HARNESS PULLER 01/30/2020 1:16 PM HARNESS PULLER Abimbola [place] [facility]- MICROBIOLOGY - GENERAL O RDERABLES Final Result [facility] - GEE ORDERS [facility] [id number] [place] [id number] documented in this encounter Visit Diagnoses Diagnosis Sore throat- Primary Acute pharyngitis Close exposure to COVID-19 virus documented in this encounter Additional Health Concerns Infection Onset Date Last Indicated Resolved Time COVID-19 Rule Out 01/29/2020 01/29/2020 02/02/2020 2:10 PM HARNESS PULLER Assessment Noted Time PHQ-9 Depression Total Score: 26 020 7:37 AM CDT documented as of this encounter Care Teams Barbering Instructor Relationship Specialty Start Date End Date Abimbola Cuba FNP- PCP - General Nurse Practitioner Family 01/01/20 documented as of this encounter
--- OUTSIDE RECORDS SUMMARY | 2024-03-06 11:05 | XMS_ITS | Encounter Summary ---
Author Organization [facility] Address [address] [place] [address]. [place], [place] [id number] [place] [address] Care Team Providers Care Welder/Installer Name Role Phone Abimbola Cuba [facility] Primary Care Provider + Encounter Details Date Type Department Care Team (Latest Contact Info) Description 12/10/2021 Travel Social History Tobacco Use Types Packs/Day [...] suspected to have Coronavirus/COVID-19? No / Unsure 12/10/2021 2:45 PM CDT documented as of this encounter Plan of Treatment Not on file documented as of this encounter Visit Diagnoses Not on filedocumented in this encounter Additional Health Concerns Assessment Noted Time PHQ-9 Depression Total Score: 1 11/01/19 21 1:56 PM CDT documented as of this encounter Care Teams Welder/Installer Relationship Specialty Start Date End Date Abimbola Cuba FNP- PCP - General Nurse Practitioner Family 01/01/20 documented as of this encounter
--- OUTSIDE RECORDS SUMMARY | 2024-03-06 11:05 | XMS_ITS | Encounter Summary ---
Author Organization [facility] Address [address] [place] [address]. [place], [place] [id number] [place] [address] Care Team Providers Care Sausage Stringer Name Role Phone Abimbola Cuba [facility] Primary Care Provider + Encounter Details Date Type Department Care Team (Latest Contact Info) Description 01/07/2020 Travel Social History Tobacco Use Types Packs/Day [...] have Coronavirus / COVID-19? No / Unsure 01/07/2020 10:04 AM CDT documented as of this encounter Plan of Treatment Not on file documented as of this encounter Visit Diagnoses Not on filedocumented in this encounter Additional Health Concerns Infection Onset Date Last Indicated Resolved Time COVID-19 Rule Out 01/07/2020 01/07/2020 01/08/2020 8:36 PM CDT Assessment Noted Time PHQ-9 Depression Total Score: 26 020 7:37 AM CDT documented as of this encounter Care Teams Sausage Stringer Relationship Specialty Start Date End Date Abimbola Cuba FNP- PCP - General Nurse Practitioner Family 01/01/20 documented as of this encounter
--- OUTSIDE RECORDS SUMMARY | 2024-03-06 11:05 | XMS_ITS | Encounter Summary ---
Author Organization [facility] Address [address] [place] [address]. [place] [id number] [place] [address] Care Team Providers Care Senior Asset Manager Name Role Phone Abimbola Cuba [facility] Primary Care Provider + Reason for Visit * Reason Comments COVID-19 Pt c/o chills,nausea , vomitting, congestion and loss ot taste and smell. Girlfriend positive fridy Encounter Details Date Type Department Care Team (Late st Contact Info) Description 02/19/2020 7:40 AM MEDICAL IMAGING TECH Telemedicine [facility] Family & Internal Medicine [address] [address] [address]imbola Cuba [address] [phone] COVID-19 (Pt c/o chills,nausea, vomitting, congestion and loss ot taste and smell. Girlfriend positive fridy) Social History Tobacco Use Types Packs/Day Years [...] have Coronavirus / COVID-19? Unable to assess 02/19/2020 1:05 PM MEDICAL IMAGING TECH documented as of this encounter Last Filed Vital Signs Vital Sign Reading Time Taken Comments Blood Pressure - - Pulse - - Temperature - - Respiratory Rate - - Oxygen Saturation - - Inhaled Oxygen Concentration - - Weight - - Height 167.6 cm (5' 6 ) 02/19/2020 7:28 AM MEDICAL IMAGING TECH Body Mass Index - - documented in this encounter Patient Instructions * Patient Instructions* NORA Escalona-JUAN JOSE - 02/19/2020 7:40 AM MEDICAL IMAGING TECH Images from the original note were not included. Continue to take over the counter medication. If chest pain or shortness of breath develops please go directly to ER. 10 things you can do to manage [...] clean your hands with an alcohol-based hand information systems director that contains at least 60% alcohol. 8. [...] wipes according to the label instructions. cdc.gov/coronavirus CAL IMAGING TECH documented in this encounter Progress Notes * CHRISTINA Escalona - 02/19/2020 7:40 AM CST Reason for Visit: COVID-19 (Pt c/o chills,nausea, vomitting, congestion and loss ot taste and smell. Girlfriend positive fridy) History of Present Illness: Feli Garcia is a 25-year-old female who consents to video visit due to exposure to COVID with symptoms of chills, nausea, vomiting, loss of taste and smell, generalized myalgias, nasal congestion,intermittent sore throat, non- productive cough that is frequent with onset of 3 days ago. Use of mucinex, dayquil for symptoms. Pushing fluids. Significant other tested positive for COVID one day prior to her symptom onset. Denies fever, ear pain, chest pain, severe abdominal pain, shortness of breath. I introduced and identified myself, received verbal consent?? from the patient to proceed with thisvideo visit and made the patient aware that the same confidentiality and geographic information scientist practices apply. The patient joined the video visit from Home. I completed the virtual visit from Office.The following clinical staff helped with this visit MA: Cam Chang. Total Time Spent in Minutes: 5 ROS: Review of Systems Constitutional: Positive for chills and malaise/fatigue. Negative for fever. HENT: Positive for congestion, sinus pain and sore throat. Negative for ear pain. Eyes: Negative. Respiratory: Positive for cough and sputum production. Negative for shortness of breath. Cardiovascular: Negative. Negative for chest pain and palpitations. Gastrointestinal: Positive for nausea and vomiting. Negative for abdominal pain, constipation and diarrhea. Genitourinary: Negative. Negative for dysuria. Musculoskeletal: Positive for myalgias. Skin: Negative. Negative for rash. Neurological: Positive for headaches. Endo/Heme/Allergies: Negative. Psychiatric/Behavioral: Negative. Medications: Current Outpatient Medications: ??? fluticasone propionate (FLONASE) 50 MCG/ACT nasal [...] Types: Cigarettes Quit date: 09/26/2019 Years since quittin.4 ??? Smokeless tobacco: Never Used Substance and Sexual Activity ??? Alcohol use: No Frequency: Never ??? Drug use: No ??? Sexual activity: Yes Lifestyle ??? Physical activity Days per week: Not on file Minutes per session: Not on file ??? Stress: Not on file Relationships ??? Social connections Talks on phone: Not on file Gets together: Not on file Attends druze service: Not on file Active member of [...] distress. Appearance: She is well-developed. She is ill-appearing. HENT: Head: Normocephalic and atraumatic. Right [...] time. Psychiatric: Mood and Affect: Mood normal. Behavior: Behavior normal. Thought Content: Thought content normal. Judgment: Judgment normal. Filed Vitals: 02/19/20 0728 Height: 5' 6 (1.676 m) Assessment Encounter Diagnose(s) ICD-10-CM ICD-9-CM SNOMED CT(R) 1. Cough with exposure to COVID-19 virus R05 786.2 EXPOSURE TO SARS-COV-2 CORONAVIRUS (COVID-19) ANTIGEN Z20.828 V01.79 CORONAVIRUS (COVID 19) [facility] CORONAVIRUS (COVID 19) [facility] 2. Loss of taste R43.2 781.1 LOSS OF TASTE CORONAVIRUS (COVID-19) ANTIGEN CORONAVIRUS (COVID 19) [facility] CORONAVIRUS (COVID 19) [facility] 3. Loss of sense of smell R43.0 781.1 LOSS OF SENSE OF SMELL CORONAVIRUS (COVID- 19) ANTIGEN CORONAVIRUS (COVID 19) [facility] CORONAVIRUS (COVID 19) [facility] Recommendations and Plan: Discussed does not necessarily need Covid testing due to her exposure of a household contact with development of symptoms. 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 Rapid testing ordered and discussed will need confirmation testing if negative. C ontinue uefs-gaa-alhovta treatments. ER for chest pain or shortness of breath. Note for work provided. If positive quarantine and February 26. Return to clinic with new, persistent, or worsening symptoms. Feli H Col[place]an is in agreement to and verbalized understanding of treatment planwith no further questions at this time. CHRISTINA ESCALONA 02/19/2020 7:48 AM Cosigned by Chandrakant Garrison MD at 02/19/2020 9:08 AM MEDICAL IMAGING TECH CAL IMAGING TECH CAL IMAGING TECH documented in this encounter Plan of Treatment Not on file documented as of this encounter Procedures Procedure Name Priority Date/Time Associated Diagnosis Comments CORONAVIRUS (COVID-19) ANTIGEN Routine 02/19/2020 Cough with exposure to COVID-19 virus Loss of taste Loss of sense of smell documented in this encounter Results * (ABNORMAL) CORONAVIRUS (COVID-19) ANTIGEN (02/19/2020) CORONAVIRUS ANTIGEN IA POSITIVE( Crit) NEGATIVE [address] ([id number] [facility]) [place] Internal Control: VALID VALID [address] ([id number] [facility]) [place] Specimen from nose (specimen) NASAL STRUCTURE / Unknown 02/19/2020 Result [facility] Abimbola [place] [facility]- MICROBIOLOGY - GENERAL O RDERABLES Final Result LAYA PENALOZA ([id number] [facility]) [place] [address] [place] [address], documented in this encounter Visit Diagnoses Diagnosis Cough with exposure to COVID-19 virus- Primary Loss of taste Disturbances of sensation of smell and taste Loss of sense of smell Disturbances of sensation of smell and taste documented in this encounter Additional Health Concerns Infection Onset Date Last Indicated Resolved Time COVID-19 Rule Out 02/19/2020 02/19/2020 02/19/2020 1:29 PM MEDICAL IMAGING TECH COVID-19 Confirmed 02/19/2020 02/19/2020 1 12:34 AM MEDICAL IMAGING TECH Assessment Noted Time PHQ-9 Depression Total Score: 26 020 7:37 AM CDT documented as of this encounter Care Teams Senior Asset Manager Relationship Specialty Start Date End Date Abimbola Cuba FNP-BC PCP - General Nurse Practitioner Family 01/01/20 documented as of this encounter
--- OUTSIDE RECORDS SUMMARY | 2024-03-06 11:05 | XMS_ITS | Encounter Summary ---
Author Organization [facility] Address [address] [place] [address]. [place] [id number] [place] [address] Care Team Providers Care Plate Fitter Name Role Phone Ericka Ward NP Primary Care Provider Prakash cruz Reason for Visit * Reason Comments Fall Encounter Details Date Type Department Care Team (Late st Contact Info) Description 11/27/2019 11:09 AM CDT - 11/27/2019 12:20 PM CDT [facility] Emergency Room [id number] [place] [address] Macario Baldwin MD [address] [place] [address] Fall Discharge Disposition: Home or Self Care (Routine [...] Sign Reading Time Taken Comments Blood Pressure 134/93 11/27/2019 12:14 PM CDT Pulse 74 11/27/2019 12:14 PM CDT Temperature 35.8 ??C (96.5 ??F) 11/27/2019 11:11 AM C DT Respiratory Rate 16 11/27/2019 12:14 PM CDT Oxygen Saturation 97% 11/27/2019 12:14 PM CDT Inhaled Oxygen Concentration - - Weight 131.5 kg (290 lb) 11/27/2019 11:11 AM CDT Height 167.6 cm (5' 6 ) 11/27/2019 11:11 AM CDT Body Mass Index 46.81 11/27/2019 11:11 AM CDT documented in this encounter Discharge Instructions * Attachments The following attachments cannot be sent through Care Everywhere. * Contusion Discharge Instructions (Gibraltarian) * Back Muscle Strain Discharge Instructions (Gibraltarian) documented in this encounter Medications at Time of Discharge hydrOXYzine 25 MG tabletIndications:An xiety Take 1/2 tablet (12.5 mg) to 1 tablet (25 mg) up to three times a day as needed for anxiety 30 tablet 11/27/2019 3 omeprazole 40 MG capsuleIndications:A cute upper respiratory infection Take 1 capsule (40 mg total) by mouth daily. 90 capsule 3 02/01/2019 0 ondansetron (ZOFRAN ODT) 4 MG disintegrating tablet Take 1 tablet (4 mg total) by mouth every 8 (eight) hours as needed for Nausea. 12 tablet 03/15/2019 0 sertraline 100 MG tabletIndications:An xiety Take 1.5 tablets (150 mg total) by mouth daily for 60 days. 45 tablet 1 11/27/2019 0 documented as of this encounter ED Notes * JJ Gunderson - 11/27/2019 11:51 AM CDT Patient returned from radiology. Dad at bedside. Lidocaine patch applied to mid lumbar region. Denies any further needs at this time. Instructed stereoptic projection topographer light use. * Macario Baldwin MD - 11/27/2019 11:11 AM CDT Chief Complaint Chief Complaint Patient presents with ??? Fall History of Present Illness 24 yo F presenting with R knee & low back pain following a mechanical fall - slipped on a wet spot at [employer] causing her slip & fall directly onto her R knee. Also twisted her lower back asshe fell. No head strike or LOC. Was able to get off the floor under her own power after several attempts and ambulate with a limp but due to severe pain came to ED for evaluation History provided by: Patient Fall The accident occurred less than 1 hour ago. The fall occurred while walking. She landed on a hard floor. There was no blood loss. The point of impact was the right knee. Pain location: low back. The pain is at a severity of 10/10. The pain is severe. She was ambulatory at the scene. Pertinent negatives include no visual change and no loss of consciousness. Medical History ALLERGIES: Allergies Allergen Reactions ??? Seasonal Unknown MEDICATIONS: Prior to Admission medications Medication Sig Start Date End Date Taking? Authorizing Provider hydrOXYzine 25 MG tablet Take 1/2 tablet (12.5 mg) to 1 tablet (25 mg) up to three times a day as needed for anxiety 11/27/19 NORA Escalona-BC omeprazole 40 MG capsule Take 1 capsule (40 mg total) by mouth daily. 02/01/19 Ericka Ward NP ondansetron (ZOFRAN ODT) 4 MG disintegrating tablet Take 1 tablet (4 mg total) by mouth every 8 (eight) hours as needed for Nausea. 03/15/19 Esau Herrera MD sertraline 100 MG tablet Take 1.5 tablets (150 mg total) by mouth daily for 60 days. 11/27/19 01/26/20 NORA Escalona-BC PAST MEDICAL HISTORY: Past Medical History: Diagnosis [...] Years: 2.00 Pack years: 2.00 Types: Cigarettes Last attempt to quit: 09/26/2019 Years since quittin.1 ??? Smokeless tobacco: Never Used Substance Use Topics ??? Alcohol use: No Frequency: Never ??? Drug use: No Review of Systems Review of Systems Musculoskeletal: Positive for arthralgias, back pain and gait problem. Negative for neck pain. Neurological: Negative for loss of consciousness. All other systems reviewed and are negative. Physical Exam Filed Vitals: 11/27/19 1111 11/27/19 1214 BP: (!) 140/105 (!) 134/93 Pulse: 92 74 Resp: 16 16 Temp: 96.5 ??F (35.8 ??C) TempSrc: Temporal SpO2: 99% 97% Weight: 131.5 kg (290 lb) Height: 5' 6 (1.676 m) Physical Exam Constitutional: She is oriented to person, place, and time. She appears well- developed and well-nourished. She appears distressed. HENT: Head: Normocephalic and atraumatic. Nose: Nose normal. Eyes: Pupils are equal, round, and reactive to light. EOM are normal. Neck: Normal range of motion. No midline or paraspinal ttp Cardiovascular: Normal rate and intact distal pulses. Pulmonary/Chest: Effort normal. No respiratory distress. She exhibits no tenderness. Abdominal: Soft. There is no tenderness. Musculoskeletal: Normal range of motion. She exhibits no deformity. Diffuse tenderness to R knee worse to patella - No crepitus. Full ROM. Otherwise RLE atraumatic Midline & paraspinal lumbar ttp without stepoffs Neurological: She is alert and oriented to person, place, and time. No sensory deficit. She exhibits normal muscle tone. Skin: Skin is warm and dry. Psychiatric: She has a normal mood and affect. Nursing note and vitals reviewed. Diagnostic Studies / Procedures ELECTROCARDIOGRAMS: No results found for this visit on 11/27/19. LABORATORY STUDIES: No results found for this visit on 11/27/19. IMAGING STUDIES XR LUMB SPINE 3V Final Result by User, [id number] (11/26 1153) IMAGING STUDIES: XR LUMB SPINE 3V DATE: 11/27/2019 11:28 AM INDICATION: pain s/p fall COMPARISON: No comparisons. TECHNIQUE: 3 views IMPRESSION: Five lumbar type verterbrae. Normal vertebral body heights. No subluxation. No significant degenerative changes. Should symptoms warrant further evaluation, consider MRI. Interpreted By: Morales Latif, 11/27/2019 11:49 AM XR KNEE RT 3V Final Result by User, [id number] (11/26 1152) IMAGING STUDIES: XR KNEE RT 3V DATE: 11/27/2019 11:28 AM INDICATION: pain s/p fall COMPARISON: No comparisons. TECHNIQUE: 3 views IMPRESSION: No evidence of joint effusion, radiopaque loose body, acute fracture, or dislocation. Interpreted By: Morales Latif, 11/27/2019 11:49 AM ED Course / Medical Decision Making MDM Number of Diagnoses or Management Options Contusion of right knee: Fall: Lumbar strain: Diagnosis management comments: 24 yo F presenting with pain following a mechanical fall & twisting injury. No extremity deformity & no neurologic deficits. Ambulatory afterwards prior to any treatment. Will reassess following pain control & X ray imaging Amount and/or Complexity of Data Reviewed Tests in the radiology section of CPT??: ordered and reviewed Patient Progress Patient progress: improved ED Course as of Nov 26 1313 Mon Nov 27, 2019 1202 Negative XR. Pain much improved - ambulatory without assistance. Father is at bedside & will take patient home. Understands strict return precautions, will dc with work note through tomorrow [CA] ED Course User Index [CA] Macario Baldwin MD Clinical Impression Fall (Primary) Contusion of right knee Lumbar strain Disposition: Discharge Macario Baldwin MD 11/27/19 1313 * JJ Gunderson - 11/27/2019 11:09 AM CDT At [employer], going to check out, there was a slick spot on the floor and left foot slid forward. Landed on right knee and on my way down my back jerked. Severe lower back pain. Happened about 1000 this am. documented in this encounter Plan of Treatment Not on file documented as of this encounter Procedures Procedure Name Priority Date/Time Associated Diagnosis Comments XR LUMB SPINE 3V STAT 11/27/2019 11:5 1 AM CDT XR KNEE RT 3V STAT 11/27/2019 11:51 AM CDT documented in this encounter Results * XR KNEE RT 3V (11/27/2019 11:51 AM CDT) Anatomical Region Laterality Modality Knee Radiographic Bailey ging 11/27/2019 11:4 9 AM CDT Impressions 11/27/2019 11:49 AM CDT IMPRESSION: No evidence of joint effusion, radiopaque loose body, acute fracture, or dislocation. Interpreted By: Morales Latif, 11/27/2019 11:49 AM Narrative 11/27/2019 11:49 AM CDT IMAGING STUDIES: XR KNEE RT 3V DATE: 11/27/2019 11:28 AM INDICATION: pain s/p fall ? COMPARISON: No comparisons. TECHNIQUE: 3 views Procedure Note Morales Latif MD - 11/27/2019 IMAGING STUDIES: XR KNEE RT 3V DATE: 11/27/2019 11:28 AM INDICATION: pain s/p fall COMPARISON: No comparisons. TECHNIQUE: 3 views IMPRESSION: No evidence of joint effusion, radiopaque loose body, acute fracture, or dislocation. Interpreted By: Morales Latif, 11/27/2019 11:49 AM Macario Baldwin MD GENERAL IMAGING Final Result * XR LUMB SPINE 3V (11/27/2019 11:51 AM CDT) Anatomical Region Laterality Modality Spine Radiographic Bailey ging 11/27/2019 11:4 9 AM CDT Impressions 11/27/2019 11:50 AM CDT IMPRESSION: Five lumbar type verterbrae. Normal vertebral body heights. No subluxation. No significant degenerative changes. Should symptoms warrant further evaluation, consider MRI. Interpreted By: Morales Latif, 11/27/2019 11:49 AM Narrative 11/27/2019 11:50 AM CDT IMAGING STUDIES: XR LUMB SPINE 3V DATE: 11/27/2019 11:28 AM INDICATION: pain s/p fall ? COMPARISON: No comparisons. TECHNIQUE: 3 views Procedure Note Morales Latif MD - 11/27/2019 IMAGING STUDIES: XR LUMB SPINE 3V DATE: 11/27/2019 11:28 AM INDICATION: pain s/p fall COMPARISON: No comparisons. TECHNIQUE: 3 views IMPRESSION: Five lumbar type verterbrae. Normal vertebral body heights. No subluxation. No significantdegenerative changes. Should symptoms warrant further evaluation, consider MRI. Interpreted By: Morales Latif, 11/27/2019 11:49 AM us Macario Baldwin MD GENERAL IMAGING Final Result documented in this encounter Visit Diagnoses Diagnosis Fall- Primary Unspecified fall Contusion of right knee Contusion of knee Lumbar strain Sprain of lumbar region documented in this encounter Administered Medications Inactive Administered Medications - up to 3 most recent administrations Medication Order MAR Action Action Date Dose Rate Site diazePAM (VALIUM) tablet 2 mg 2 mg, Oral, Once, 1 dose, On 11/27/19 at 1130 Given 11/27/2019 11:30 AM CDT 2 mg ketorolac (TORADOL) injection 30 mg 30 mg, Intramuscular, Once, 1 dose, On Wed11/27/19 at 1130, For IV administration, give over 15 seconds. Given 11/27/2019 11:30 AM CDT 30 mg Left Dorsal Gluteal lidocaine 4 % patch 1 patch 1 patch, Transdermal, Administer over 12 Hours, Every 24 hours, First dose on Wed11/27/19 at 1130, Until Discontinued Patch Applied 11/27/2019 11:48 AM CDT 1 patch Other documented in this encounter Active and Recently Administered Medications Times are shown in CDT. Scheduled Medication Order 11/25/2019 11/26/2019 11/27/2019 diazePAM (VALIUM) tablet 2 mg (COMPLETED) 2 mg, Oral, Once, 1 dose, On Wed11/27/19 at 1130 1130 (Given - Provid er: JJ Gunderson) ketorolac (TORADOL) injection 30 mg (COMPLETED) 30 mg, Intramuscular, Once, 1 dose, On Wed11/27/19 at 1130, For IV administration, give over 15 seconds. 1130 (Given - Provid er: JJ Gunderson) lidocaine 4 % patch 1 patch 1 patch, Transdermal, Administer over 12 Hours, Every 24 hours, First dose on Wed11/27/19 at 1130, Until Discontinued 1148 (Patch Applied - Provider: JJ Gunderson - Comment: mid lumbar back)1220 (Due: Patch Removed - Provider: Automatic Discharge Provider - Comment: Time automatically adjusted from order being discontinued) documented in this encounter Additional Health Concerns Assessment Noted Time PHQ-9 Depression Total Score: 23 020 9:31 AM CDT documented as of this encounter Care Teams Plate Fitter Relationship Specialty Start Date End Date Ericka Ward NP PCP - General NURSE PRACTITIONER 09/30/18 12/31/19 documented as of this encounter
--- OUTSIDE RECORDS SUMMARY | 2024-03-06 11:05 | XMS_ITS | Encounter Summary ---
Author Organization [facility] Address [address] [place] [address]. [place], [place] [id number] [place] [address] Care Team Providers Care Wedger Machine Name Role Phone Abimbola Cuba [facility] Primary Care Provider + Reason for Visit * Reason Comments Follow Up Follow up depression and anxiety Encounter Details Date Type Department Care Team (Late st Contact Info) Description 05/15/2022 2:40 PM TRIAGE REGISTERED NURSE Office Visit [facility] Family & Internal Medicine [facility] [address] [place] [address] Abimbola Cuba [place] [id number] [place] [id number] Follow Up (Follow up depression and anxiety) Social History Tobacco Use Types Packs/Day Years Used Date Smoking Tobacco: Every Day Cigarettes 1 2 Smokeless Tobacco: Never Tobacco Cessation:Ready to Q uit: No; Counseling Given: Yes Alcohol Use Standard Drinks/Week Comments No 0 [...] Coronavirus/COVID-19? No / Unsure 05/15/2022 2:39 PM TRIAGE REGISTERED NURSE documented as of this encounter Last Filed Vital Signs Vital Sign Reading Time Taken Comments Blood Pressure 113/81 05/15/2022 2:41 PM TRIAGE REGISTERED NURSE Pulse 97 05/15/2022 2:41 PM TRIAGE REGISTERED NURSE Temperature 36.7 ??C (98.1 ??F) 05/15/2022 2:41 PM CS T Respiratory Rate 22 05/15/2022 2:41 PM TRIAGE REGISTERED NURSE Oxygen Saturation 100% 05/15/2022 2:41 PM TRIAGE REGISTERED NURSE Inhaled Oxygen Concentration - - Weight 85.5 kg (188 lb 9.6 oz) 05/15/2022 2:41 P M TRIAGE REGISTERED NURSE Height 167.6 cm (5' 6 ) 05/15/2022 2:41 PM TRIAGE REGISTERED NURSE Body Mass Index 30.44 05/15/2022 2:41 PM TRIAGE REGISTERED NURSE documented in this encounter Progress Notes * Abimbola Cuba, FINISHING SUPERVISOR [employer]-BC - 05/15/2022 2:40 PM CST Reason for Visit: Follow Up (Follow up depression and anxiety) History of Present Illness: Feli Garcia is a 27-year-old female who presents to the office for chronic disease management ofanxiety and depression. Mental health is starting to affect relationships and job. Symptoms manifest as irritability, anger, outbursts. Currently having family member or friend stay with her at all times due to SI. No plan with intent. Plans to restart counseling. Significant family history of mental health disorders. Is requesting to restart medications. Her sister is present for the encounter. ROS: Review of Systems Constitutional: Negative. Negative [...] headaches. Endo/Heme/Allergies: Negative. Psychiatric/Behavioral: Positive for depression. The patient is nervous/anxious. PHQ-9: 10/31/2020 1:56 PM 05/15/2022 3:27 PM PHQ2/PHQ 9 DEPRESSION SCREEN QUESTIONAIRE Little interest or pleasure in doing things Almost all Feeling down, depressed, or hopeless Almost all Patient Health Questionnaire-2 Score 6 Trouble falling or staying asleep, or sleeping [...] get along with other people? Extremely difficult LITTLE INTEREST OR PLEASURE IN DOING THINGS 0-Not at All FEELING DOWN, DEPRESSSED,OR HOPELESS 1-Several Days PHQ2 DEPRESSION TOTAL SCORE 1 DEPRESSION SCREENING TOTAL SCORE 1 RUSTY-7 (Generalized Anxiety Disorder) Screening 01/01/2020 7:00 AM 05/15/2022 2:40 PM RUSTY-7 Feeling nervous, anxious and on edge 3 [...] restless that it's hard to sit still 3 - nearly every day 3 - nearly every day Becoming easily annoyed or irritable 3 - nearly every day 3 - nearly every day Feeling afraid as if something awful might happen 3 - nearly every day 3 - nearly every day Total Score 21 21 If you checked off any problems, how difficult have those problems made it for you to do your work take care of things at home or get along with other people? somewhat difficult extremely difficult 1. Wish to be (Past 1 Month): Y (05/15/2022 3:04 PM) 2. Non-Specific Active Suicidal Thoughts (Past 1 Month): Y (05/15/2022 3:04 PM) 3. Active Suicidal Ideation with any Methods (Not Plan) Without Intent to Act (Past 1 Month): Y (05/15/2022 3:04 PM) 4. Active Suicidal Ideation with Some Intent to Act, Without Specific Plan (Past 1 Month): N (05/15/2022 3:04 PM) 5. Active Suicidal Ideation with Specific Plan and Intent (Past 1 Month): N (05/15/2022 3:04 PM) 6. Suicidal Behavior (Lifetime): N (05/15/2022 3:04 PM) Calculated C-SSRS Risk Score (Lifetime/Recent): Moderate Risk (05/15/2022 3:04 PM) Medications: Current Outpatient Medications: ??? buPROPion XL (WELLBUTRIN XL) 150 MG 24 hr tablet, Take 1 tablet (150 mg total) by mouth daily.,Disp: 30 tablet, Rfl: 1 ??? busPIRone (BUSPAR) 5 MG tablet, Take 1 tablet (5 mg total) by mouth 2 (two) times daily., Disp:60 tablet, Rfl: 3 ??? hydrOXYzine (ATARAX) 25 MG tablet, Take 1/2 tablet (12.5 mg) to 1 tablet (25 mg) up to three times a day as needed for anxiety, Disp: 30 tablet, Rfl: 0 Allergies Allergen Reactions ??? Seasonal Other (see comment) congestion Past Medical History: Diagnosis Date ??? Anxiety ??? Depression Past Surgical History: Procedure Laterality Date ??? BACK SURGERY 03/18/2020 micro disectomy of L4-L5 - ??? NONE Social History Tobacco Use ??? Smoking status: Every Day Packs/day: 1.00 Years: 2.00 Pack years: 2.00 Types: Cigarettes ??? Smokeless tobacco: Never Vaping Use ??? Vaping Use: Never used Substance Use Topics ??? Alcohol use: No [...] is well-developed and well-groomed. She is not ill-appearing. HENT: Head: Normocephalic and atraumatic. Right Ear: Tympanic membrane, external ear and ear canal normal. Left Ear: Tympanic membrane, external ear and ear canal normal. Nose: Nose normal. Mouth/Throat: Uvula is midline, oropharynx is clear and moist and mucous membranes are normal. Eyes: General: Lids are normal. Right eye: No discharge. Left eye: No discharge. Extraocular Movements: Extraocular movements intact. Conjunctiva/sclera: Conjunctivae normal. Neck: Trachea: Trachea normal. No tracheal deviation. Cardiovascular: Rate and Rhythm: Normal rate and regular rhythm. Pulses: Normal pulses. Heart sounds: Normal heart sounds. Pulmonary: Effort: Pulmonary effort is normal. Breath sounds: Normal breath sounds. Musculoskeletal: General: Normal range of motion. Cervical back: Full passive range of motion without pain, normal range of motion and neck supple. Right lower leg: No edema. Left lower leg: No edema. Lymphadenopathy: Head: Right side of head: No submental, submandibular, tonsillar, preauricular, posterior auricular or occipital adenopathy. Left side of head: No submental, submandibular, tonsillar, preauricular, posterior auricular or occipital adenopathy. Cervical: No cervical adenopathy. Skin: General: Skin is warm and dry. Neurological: General: No focal deficit present. Mental Status: She is alert and oriented to person, place, and time. Gait: Gait is intact. Psychiatric: Mood and Affect: Affect normal. Mood is depressed. Speech: Speech normal. Behavior: Behavior normal. Behavior is cooperative. Thought Content: Thought content normal. Judgment: Judgment normal. Filed Vitals: 05/15/22 1441 BP: 113/81 Pulse: 97 Resp: 22 Temp: 98.1 ??F (36.7 ??C) TempSrc: Temporal SpO2: 100% Weight: 85.5 kg (188 lb 9.6 oz) Height: 5' 6 (1.676 m) Assessment Encounter Diagnose(s) ICD-10-CM ICD-9-CM SNOMED CT(R) 1. Severe depression (CMS/HCC) F32.2 311 SEVERE DEPRESSION buPROPion XL (WELLBUTRIN XL) 150 MG 24 hr tablet 2. Anxiety F41.9 300.00 ANXIETY hydrOXYzine (ATARAX) 25 MG tablet busPIRone (BUSPAR) 5 MG tablet Recommendations and Plan: 1. Anxiety - Chronic. Exacerbated. - pharmacological and non-pharmacological treatment options discussed. - Mutually agreed to restart buspar with atarax as needed. - Recommend to restart counseling. Continue to lean on support systems. - hydrOXYzine (ATARAX) 25 MG tablet; Take 1/2 tablet (12.5 mg) to 1 tablet (25 mg) up to three times a day as needed for anxiety Dispense: 30 tablet; Refill: 0 - busPIRone (BUSPAR) 5 MG tablet; Take 1 tablet (5 mg total) by mouth 2 (two) times daily. Dispense: 60 tablet; Refill: 3 2. Severe depression (CMS/HCC) - Chronic. Uncontrolled. - A prescription was placed for wellbutrin. The patient was counseled on appropriate use of medication as well as about potential side effects. Patient verbalized understanding and agrees with treatment plan. - buPROPion XL (WELLBUTRIN XL) 150 MG 24 hr tablet; Take 1 tablet (150 mg total) by mouth daily. Dispense: 30 tablet; Refill: 1 Follow up one month for chronic disease management. Return to clinic with new, persistent, or worsening symptoms. Feli Garcia is in agreement to and verbalized understanding of treatment plan withno further questions at this time. CHRISTINA ESCALONA 05/25/2022 10:25 PM documented in this encounter Plan of Treatment Not on file documented as of this encounter Visit Diagnoses Diagnosis Severe depression (CMS/HCC HHS/HCC)- Primary Depressive disorder, not elsewhere classified Anxiety Anxiety state, unspecified documented in this encounter Additional Health Concerns Assessment Noted Time PHQ-9 Depression Total Score: 27 023 3:27 PM TRIAGE REGISTERED NURSE documented as of this encounter Care Teams Wedger Machine Relationship Specialty Start Date End Date Abimbola Cuba [facility] PCP - General Nurse Practitioner Family 01/01/20 documented as of this encounter
--- OUTSIDE RECORDS SUMMARY | 2024-03-06 11:05 | XMS_ITS | Encounter Summary ---
Author Organization [facility] Address [address] [place] [address]. [place] [id number] [place] [address] Care Team Providers Care Gear Cutting Machine Operator Name Role Phone Abimbola [place] [facility] Primary Care Provider + Reason for Visit * Reason Onset Date Comments Medication 01/19/2020 Encounter Details Date Type Department Care Team (Late st Contact Info) Description 01/19/2020 Telephone [facility] Family & Internal Medicine [facility] [address] [place] [address] Abimbola [place] [id number] [place] [phone] Medication Social History Tobacco Use Types Packs/Day Years [...] as of this encounter Progress Notes * Cam Chang MA - 01/19/2020 4:57 PM CST Left detailed message for pt that Rx has been sent to pharmacy ADVISOR * CHRISTINA Escalona - 01/19/2020 4:00 PM CST Medication sent to pharmacy. CHRISTINA ESCALONA ADVISOR * Joana Davis - 01/19/2020 3:46 PM CST Patient called in and said that she didn't make it into the pharmacy in time to get her Duloxetine and when she went to get it, they didn't have it anymore. She is wondering if we could send it in again for her to get. Please advise. Pharmacy is [facility] ADVISOR documented in this encounter Plan of Treatment Not on file documented as of this encounter Visit Diagnoses Diagnosis Anxiety Anxiety state, unspecified Depression, unspecified depression type documented in this encounter Additional Health Concerns Assessment Noted Time PHQ-9 Depression Total Score: 26 020 7:37 AM CDT documented as of this encounter Care Teams Gear Cutting Machine Operator Relationship Specialty Start Date End Date Abimbola Cuba FNP-BC PCP - General Nurse Practitioner Family 01/01/20 documented as of this encounter
--- OUTSIDE RECORDS SUMMARY | 2024-03-06 11:05 | XMS_ITS | Encounter Summary ---
Author Organization [facility] Address [address] [place] [address]. [place], [place] [phone] [place] [address] Care Team Providers Care House Mover Supervisor Name Role Phone Ericka Ward NP Primary Care Provider Prakash cruz Encounter Details Date Type Department Care Team (Latest Contact Info) Description 11/27/2019 Travel Social History Tobacco Use Types Packs/Day [...] Noted Time PHQ-9 Depression Total Score: 23 11/26/ 020 9:31 AM CDT documented as of this encounter Care Teams House Mover Supervisor Relationship Specialty Start Date End Date Ericka Ward, RN AMBULATORY PCP - General NURSE PRACTITIONER 09/30/18 12/31/19 documented as of this encounter
--- OUTSIDE RECORDS SUMMARY | 2024-03-06 11:05 | XMS_ITS | Encounter Summary ---
Author Organization [facility] Address [address] [place] [address]. [place], [place] [address] [place] [address] Care Team Providers Care Magnetic Testing Technician Name Role Phone Abimbola Cuba [facility] Primary Care Provider + Jamila Reyes [facility] Primary Care Provider + Indira Brown-Allyn Primary Care Provider [phone] Encounter Details Date Type Department Care Team (Late st Contact Info) Description 02/17/2020 [facility] Family [facility] Internal Medicine [address] [address] Abimbola Cuba [facility] [address] [place] [address] Other Social History Tobacco Use Types Packs/Day Years [...] COVID-19? Unable to assess 02/19/2020 1:05 PM ADOPTION AGENT documented as of this encounter Progress Notes * CHRISTINA Escalona - 02/19/2020 7:26 AM CST Video visit 02/19/2020 TION AGENT documented in this encounter Plan of Treatment Not on file documented as of this encounter Visit Diagnoses Not on filedocumented in this encounter Additional Health Concerns Infection Onset Date Last Indicated Resolved Time COVID-19 Rule Out 02/19/2020 02/19/2020 02/19/2020 1:29 PM ADOPTION AGENT COVID-19 Confirmed 02/19/2020 02/19/2020 12:34 AM ADOPTION AGENT COVID-19 Rule Out 11/08/2020 11/08/2020 11/08/2020 12:43 PM CDT COVID-19 Rule Out 11/08/2020 11/08/2020 11/10/2020 3:30 AM CDT COVID-19 Rule Out 03/30/2021 03/30/2021 03/30/2021 10:39 AM ADOPTION AGENT Assessment Noted Time PHQ-9 Depression Total Score: 26 020 7:37 AM CDT documented as of this encounter Care Teams Magnetic Testing Technician Relationship Specialty Start Date End Date Abimbola Cuba FNP-BC PCP - General Nurse Practitioner Family 01/01/20 Jamila Reyes FNP-BC [address] [place] [address] PCP - General Nurse Practitioner Family 01/01/2305/13 Indira Brown PA-C [address] [place], [place] [id number] PCP - General PHYSICIAN [employer] COUNSELOR 05/24/23 documented as of this encounter
--- OUTSIDE RECORDS SUMMARY | 2024-03-06 11:05 | XMS_ITS | Encounter Summary ---
Author Organization [facility] Address [address] [place] [address]. [place], [place] [address] [place] [address] Care Team Providers Care Press Hand Supervisor Name Role Phone Abimbola Cuba [facility] Primary Care Provider + Encounter Details Date Type Department Care Team (Latest Contact Info) Description 10/31/2020 Travel Social History Tobacco Use Types Packs/Day [...] documented as of this encounter Care Teams Press Hand Supervisor Relationship Specialty Start Date End Date Abimbola Cuba FNP- PCP - General Nurse Practitioner Family 01/01/20 documented as of this encounter
--- OUTSIDE RECORDS SUMMARY | 2024-03-06 11:05 | XMS_ITS | Encounter Summary ---
Author Organization [facility] Address [address] [place] [address]. [place], [place] [address] [place] [address] Care Team Providers Care Planning Analyst Name Role Phone Abimbola Cuba HYBRID TESTER- Primary Care Provider + Reason for Visit * Reason Comments Sore Throat Encounter Details Date Type Department Care Team (Late st Contact Info) Description 11/05/2021 7:12 AM CDT - 11/05/2021 8:02 AM CDT Emergency [facility] Emergency Room [address] [place] [address] Mariah Cole MD [address] [place] [address] Sore Throat Discharge Disposition: Home or Self Care (Routine [...] Sign Reading Time Taken Comments Blood Pressure 126/84 11/05/2021 7:15 AM CDT Pulse 82 11/05/2021 7:15 AM CDT Temperature 36.1 ??C (97 ??F) 11/05/2021 7:21 AM CDT Respiratory Rate 18 11/05/2021 7:16 AM CDT Oxygen Saturation 98% 11/05/2021 7:15 AM CDT Inhaled Oxygen Concentration - - Weight - - Height - - Body Mass Index - - documented in this encounter Discharge Instructions * Discharge Instructions* Mariah Cole MD - 11/05/2021 7:50 AM CDT May take acetaminophen 1000 mg every 6 hours as needed for pain. May take ibuprofen 400 to 600 mg every 6 hours as needed for pain. May use throat spray and/or lozenges to help with pain. Drink plenty of fluids to avoid dehydration. Stay well-hydrated will also help with the sore throat. * Attachments The following attachments cannot be sent through Care Everywhere. * Viral Pharyngitis Discharge Instructions (Kyrgyz) documented in this encounter Medications at Time of Discharge HYDROcodone-acetamin ophen (NORCO) 5-325 MG tabletIndications:Ac [place] Pain < 3 Day Supply Take 1 [...] as of this encounter ED Notes * Dalila Mena RN - 11/05/2021 8:01 AM CDT Provider discussed today's findings with the patient/family. The patient has been given informationregarding their treatment, follow up and concerning symptoms for which they should seek urgent or emergent attention. I have expressed the importance of seeking attention should there be any new, or w orsening symptoms or persistence of their condition. Patient verbalized understanding of the discharge instructions. * Mariah Cole MD - 11/05/2021 7:22 AM CDT Chief Complaint Chief Complaint Patient presents with ??? Sore Throat History of Present Illness Patient is a 26-year-old female who presents to the [facility] for evaluation of sore throat. Reports onset of symptoms yesterday. Symptoms worsened overnight. Patient has noticed swelling and tenderness in her neck. She has not had any fever that she is aware of. She has had a mild dry cough. She has not noted any rhinorrhea, congestion, vomiting, or diarrhea. She does note a little bit of nausea after taking DayQuil. Medical History ALLERGIES: Allergies Allergen Reactions ??? Seasonal Other (see comment) congestion MEDICATIONS: Prior to Admission medications Medication Sig Start Date End Date Taking? Authorizing Provider HYDROcodone-acetaminophen (NORCO) 5-325 MG tablet Take 1 tablet by mouth every 6 (six) hours as needed for Pain. Indications: Acute Pain < 3 Day Supply 12/06/20 Daryn Craven MD hydrOXYzine 25 MG tablet Take 1/2 tablet (12.5 mg) to 1 tablet (25 mg) up to three times a day as needed for anxiety 11/27/19 Abimbola CHRISTINA Cuba ibuprofen 800 MG tablet Take 800 mg by mouth 2 (two) times daily. 01/23/20 Doc Abstract omeprazole 40 MG capsule Take 1 capsule (40 mg total) by mouth daily. 02/05/20 Abimbola CHRISTINA Cuba ondansetron (ZOFRAN ODT) 4 MG disintegrating tablet Take 1 tablet (4 mg total) by mouth every 8 (eight) hours as needed for Nausea. 11/13/20 Abimbola CHRISTINA Cuba PAST MEDICAL HISTORY: Past Medical History: Diagnosis Date ??? Anxiety ??? Depression PAST SURGICAL HISTORY: Past Surgical History: Procedure Laterality Date ??? NONE FAMILY HISTORY: Family History Problem Relation Name Age of Onset ??? Lung Cancer Paternal Grandmother ??? Diabetes Paternal Grandfather ??? Hypertension Mother ??? Other (blood clot history) Mother SOCIAL HISTORY: Social History Tobacco Use ??? Smoking status: Current Every Day Smoker Packs/day: 1.00 Years: 2.00 Pack years: 2.00 Types: Cigarettes ??? Smokeless tobacco: Never Used Vaping Use ??? Vaping Use: Never used Substance Use Topics ??? Alcohol use: No ??? Drug use: Yes Types: Marijuana Comment: recreational Review of Systems Review of Systems Constitutional: Negative for chills and fever. HENT: Positive for ear pain and sore throat. Negative for congestion and rhinorrhea. Respiratory: Positive for cough. Gastrointestinal: Positive for nausea. Negative for diarrhea and vomiting. Musculoskeletal: Negative for myalgias. Neurological: Negative for headaches. All other systems reviewed and are negative. Physical Exam Filed Vitals: 11/05/21 0715 11/05/21 0716 11/05/21 0721 BP: 126/84 Pulse: 82 Resp: 18 Temp: 97 ??F (36.1 ??C) TempSrc: Temporal SpO2: 98% Physical Exam Vitals and nursing note reviewed. Constitutional: Appearance: Normal appearance. She is well-developed. HENT: Right Ear: Tympanic membrane, ear canal and external ear normal. Left Ear: Tympanic membrane, ear canal and external ear normal. Mouth/Throat: Lips: [place]. Mouth: Mucous membranes are moist. Pharynx: Uvula midline. Posterior oropharyngeal erythema present. Tonsils: Tonsillar exudate present. No tonsillar abscesses. Cardiovascular: Rate and Rhythm: Normal rate and regular rhythm. Pulmonary: Effort: Pulmonary effort is normal. Breath sounds: Normal breath sounds. Abdominal: General: Bowel sounds are normal. Palpations: Abdomen is soft. Musculoskeletal: General: Normal range of motion. Cervical back: Tenderness present. Lymphadenopathy: Cervical: Cervical adenopathy present. Skin: General: Skin is warm and dry. Neurological: Mental Status: She is alert and oriented to person, place, and time. Psychiatric: Mood and Affect: Mood normal. Behavior: Behavior normal. Diagnostic Studies / Procedures ELECTROCARDIOGRAMS: No results found for this visit on 11/05/21. LABORATORY STUDIES: Results for orders placed or performed during the hospital encounter of 11/05/21 RAPID STREP A Specimen: THROAT Result Value Ref Range RAPID STREP TEST NEGATIVE NEGATIVE IMAGING STUDIES No orders to display ED Course / Medical Decision Making MDM Number of Diagnoses or Management Options Acute viral pharyngitis Diagnosis management comments: Patient presents with sore throat. Strep testing negative. Consistent with viral pharyngitis. Discussed with patient symptomatic management Amount and/or Complexity of Data Reviewed Clinical lab tests: ordered and reviewed Patient Progress Patient progress: stable Clinical Impression Acute viral pharyngitis (Primary) Disposition: Discharge Mariah Cole MD 11/05/21 0751 * Dalila Mena RN - 11/05/2021 7:22 AM CDT Patient presents to ED for chief complaint of sore throat that began yesterday. Patient reports symptoms began initially to right tonsil, becoming red and spotted with white patches. Upon waking today, patient states it spread to the left tonsil. Endorses pain with swallowing. Airway clear with patient in no obvious distress. documented in this encounter Plan of Treatment Not on file documented as of this encounter Procedures Procedure Name Priority Date/Time Associated Diagnosis Comments RAPID STREP A STAT 11/05/2021 7:25 AM CDT documented in this encounter Results * RAPID STREP A (11/05/2021 7:25 AM CDT) RAPID STREP TEST NEGATIVE NEGATIVE 11/05/2021 7:42 AM CDT [facility] STRUCTURE OF ANTERIOR PORTION OF NECK / Unknown 11/05/2021 7:25 AM CDT Mariah Cole MD MICROBIOLOGY - GENERAL ORD ERABLES Final Result [facility] [address] [place] [address], [place] [phone] documented in this encounter Visit Diagnoses Diagnosis Acute viral pharyngitis- Primary Acute pharyngitis documented in this encounter Administered Medications Inactive Administered Medications - up to 3 most recent administrations Medication Order MAR Action Action Date Dose Rate Site ibuprofen (MOTRIN) tablet 600 mg 600 mg, Oral, Once, 1 dose, On Wed11/05/21 at 0730 Given 11/05/2021 7:28 AM CDT 600 mg documented in this encounter Active and Recently Administered Medications Times are shown in CDT. Scheduled Medication Order 11/03/2021 11/04/2021 11/05/2021 ibuprofen (MOTRIN) tablet 600 mg (COMPLETED) 600 mg, Oral, Once, 1 dose, On Wed11/05/21 at 0730 0728 (Given - Provid er: Dalila Mena RN) documented in this encounter Additional Health Concerns Assessment Noted Time PHQ-9 Depression Total Score: 1 11/01/19 21 1:56 PM CDT documented as of this encounter Care Teams Planning Analyst Relationship Specialty Start Date End Date Abimbola Cuba FNP- PCP - General Nurse Practitioner Family 01/01/20 documented as of this encounter
--- OUTSIDE RECORDS SUMMARY | 2024-03-06 11:05 | XMS_ITS | Encounter Summary ---
Author Organization [facility] Address [address] [place] [address]. [place] [id number] [place] [address] Care Team Providers Care Paste Up Worker Name Role Phone [facility] Care Provider + Reason for Referral * (Routine) - Closed Specialty Diagnoses / Procedures Referred By Lele cornell Referred To Contact Diagnoses Shortness of breath Procedures Complete PFT (pre/post Chris, Lung Vol, Diff Capacity) (28441, 12547, 06407, 98815) Abimbola Cuba FNP-BC Phone: tel: fax: Referral ID Status Reason Start Date Expiration Date Visits Re quested Visits Authorized [id number] Closed 11/27/2019 12/27/2020 1 1 Reason for Visit * (Routine) - Closed Specialty Diagnoses / Procedures Referred By Lele cornell Referred To Contact Diagnoses Shortness of breath Procedures Complete PFT (pre/post Chris, Lung Vol, Diff Capacity) (59718, 77832, 53719, 31443) Abimbola Cuba FNP-BC Phone: tel: fax: Referral ID Status Reason Start Date Expiration Date Visits Re quested Visits Authorized [id number] Closed 11/27/2019 12/27/2020 1 1 Encounter Details Date Type Department Care Team (Latest Contact Info) Description 01/10/2020 8:48 AM CDT - 01/10/2020 11:59 PM CDT Hospital Encounter [facility] Cardiop[facility] [address] [place] [address] RadhaalbertonoraAnikaAbimbola, [facility] [address] [place] [address] Discharge Disposition: Home or Self Care (Routine [...] AM CDT documented as of this encounter Medications at Time of Discharge DULoxetine 30 MG capsuleIndications:A nxiety,Depression, unspecified depression type Take 1 capsule (30 mg total) by mouth 2 (two) times daily for 30 days. 60 capsule 01/01/2020 0 fluticasone propionate (FLONASE) 50 MCG/ACT nasal sprayIndications:Sea dana allergies 2 sprays by Nasal route daily. 16 g 5 01/01/2020 1 hydrOXYzine 25 MG tabletIndications:An xiety Take 1/2 tablet (12.5 mg) to 1 tablet (25 mg) up to three times a day as needed for anxiety 30 tablet 11/27/2019 3 loratadine 10 MG tabletIndications:Se asonal allergies Take 1 tablet (10 mg total) by mouth daily. 90 tablet 1 01/01/2020 1 omeprazole 40 MG capsuleIndications:A cute upper respiratory infection Take 1 capsule (40 mg total) by mouth daily. 30 capsule 3 01/01/2020 0 ondansetron (ZOFRAN ODT) 4 MG disintegrating tablet Take 1 tablet (4 mg total) by mouth every 8 (eight) hours as needed for Nausea. 12 tablet 03/15/2019 0 documented as of this encounter Plan of Treatment Not on file documented as of this encounter Procedures Procedure Name Priority Date/Time Associated Diagnosis Comments PULMONARY FUNCTION TEST Routine 01/17/2020 5:31 PM COMMERCIAL LOAN COLLECTION OFFICER Shortness of breath documented in this encounter Results * Complete PFT (pre/post [place], Lung Vol, Diff Capacity) (21728, 74891, 19695, 73827) (01/17/2020 5:31 PM COMMERCIAL LOAN COLLECTION OFFICER) 01/17/2020 5:31 PM COMMERCIAL LOAN COLLECTION OFFICER Narrative ESCRIPTION - 01/24/2020 2:07 PM COMMERCIAL LOAN COLLECTION OFFICER DIAGNOSIS: ??Shortness of breath. SPIROMETRY: ??FVC 96% predicted; FEV1 3.14 liters, 94% predicted; FEV1/FVC ratio 79%. LUNG VOLUMES: ??TLC 89% predicted, RV 45% predicted, ERV 46% predicted. DIFFUSING CAPACITY: ??Unadjusted DLCO 73% predicted. OVERALL IMPRESSION: 1. ??Spirometry within normal limits. 2. ??Total lung capacity within normal limits. 3. ??Reduction in ERV likely related to increased body habitus. 4. ??Mild reduction in unadjusted DLCO. D: ??01/17/2020 05:31 PM #[id number] T: ??01/17/2020 06:05 PM /NTS us Abimbola VASQUEZ PFT ORDERABLES Final Re sult ESCRIPTION documented in this encounter Visit Diagnoses Diagnosis Shortness of breath documented in this encounter Additional Health Concerns Assessment Noted Time PHQ-9 Depression Total Score: 26 020 7:37 AM CDT documented as of this encounter Care Teams Paste Up Worker Relationship Specialty Start Date End Date Abimbola Cuba FNP-BC PCP - General Nurse Practitioner Family 01/01/20 documented as of this encounter
--- OUTSIDE RECORDS SUMMARY | 2024-03-06 11:05 | XMS_ITS | Encounter Summary ---
Author Organization [facility] Address [address] [place] [address]. [place], [place] [address] [place] [address] Care Team Providers Care Ui Ux Engineer Name Role Phone Abimbola Cuba [facility] Primary Care Provider + Reason for Visit * Reason Onset Date Comments Results 01/19/2020 Encounter Details Date Type Department Care Team (Late st Contact Info) Description 01/19/2020 Telephone [facility] Family & Internal Medicine [facility] [address] [place] [address] Abimbola Cuba [place] [address] [place] [address] Results Social History Tobacco Use Types Packs/Day Years [...] as of this encounter Progress Notes * Joana Davis - 01/19/2020 3:45 PM CST Patient called in for her results of her Pulmonary Function test. I gave her the results of the test, she V/U, no further questions at this time. WEIGHT AND STRENGTH TESTER documented in this encounter Plan of Treatment Not on file documented as of this encounter Visit Diagnoses Not on filedocumented in this encounter Additional Health Concerns Assessment Noted Time PHQ-9 Depression Total Score: 26 020 7:37 AM CDT documented as of this encounter Care Teams Ui Ux Engineer Relationship Specialty Start Date End Date Abimbola Cuba FNP- PCP - General Nurse Practitioner Family 01/01/20 documented as of this encounter
--- OUTSIDE RECORDS SUMMARY | 2024-03-06 11:05 | XMS_ITS | Encounter Summary ---
Author Organization [facility] Address [address] [place] [address]. [place], [place] [address] [place] [address] Care Team Providers Care Power System Electrical Engineer Name Role Phone Abimbola Cuba [facility] Primary Care Provider + Encounter Details Date Type Department Care Team (Latest Contact Info) Description 01/01/2020 Travel Social History Tobacco Use Types Packs/Day [...] documented as of this encounter Care Teams Power System Electrical Engineer Relationship Specialty Start Date End Date Abimbola Cuba FNP- PCP - General Nurse Practitioner Family 01/01/20 documented as of this encounter
--- OUTSIDE RECORDS SUMMARY | 2024-03-06 11:05 | XMS_ITS | Encounter Summary ---
Author Organization [facility] Address [address] [place] [address]. [place], [place] [address] [place] [address] Care Team Providers Care Cannery Worker Name Role Phone Abimbola Cuba [facility] Primary Care Provider + Encounter Details Date Type Department Care Team (Late st Contact Info) Description 01/05/2020 Orders Only [facility] [address] [place] [id number] Ab[address] [place] [facility] [address] [place] [address] Social History Tobacco Use Types [...] documented as of this encounter Results * PRE-SURGICAL/PRE-PROCEDURE CORONAVIRUS (COVID 19) (01/07/2020 10:05 AM CDT) CORONAVIRUS SARS COV 2 PCR (RESP) NOT DETECTED NOT DETECTED 01/08/2020 8:36 PM CDT [facility] Comment: A Not Detected (negative) test result [...] providers and patients using the following websites: https://www.[employer].com/home/Covid-19/HCP/NAAT/fact-sheet2 https://www.[employer]/home/Covid-19/Patients/NAAT/ fact-sheet2 This test has been authorized by the FDA under an Emergency Use Authorization (EUA) for use by authorized laboratories. Due to the current public health emergency, [employer] is receiving a high volume of samples [...] Amplification Test (NAAT) includes RT-PCR or TMA Additional information about COVID-19 can be found at the [employer] website: www.[facility].com/Covid19. Test performed at [facility] [id number] [place] [address] ??[id number] Director: SARAH BLANCO DO,MPH FIRST TEST UNKNOWN 01/07/2020 10:05 AM CDT [facility] EMPLOYED IN HEALTHCARE YES 01/07/2020 10:05 AM CDT [facility] SYMPTOMATIC DEFINED BY CDC UNKNOWN 01/07/2020 10:05 AM CDT [facility] HOSPITALIZATION STATUS NO 01/07/2020 10:05 AM CDT [facility] PATIENT IN ICU NO 01/07/2020 10:05 AM CDT [facility] RESIDENT OF [facility] NO 01/07/2020 10:05 AM CDT [facility] UNKNOWN 01/07/2020 10:05 AM CDT [facility] PATIENT'S RACE WHITE OR 01/07/2020 10:05 AM CDT [facility] ETHNICITY NONHISPANIC 01/07/2020 10:05 AM CDT [facility] SOURCE (QST) NASOPHARYNGEAL SWAB 01/07/2020 10:05 AM CDT [facility] NASOPHARYNGEAL SWAB / Unknown 01/07/2020 10:05 AM CDT us Abimbola Cuba TRACTOR SWEEPER DRIVER-BC MICROBIOLOGY - GENERAL O RDERABLES Final Result [facility] [address] [place] [address], [place] [phone] [address], [place] documented in this encounter Visit Diagnoses Diagnosis Screening examination for infectious disease- Primary Screening examination for unspecified infectious disease documented in this encounter Additional Health Concerns Infection Onset Date Last Indicated Resolved Time COVID-19 Rule Out 01/07/2020 01/07/2020 01/08/2020 8:36 PM CDT Assessment Noted Time PHQ-9 Depression Total Score: 020 7:37 AM CDT documented as of this encounter Care Teams Cannery Worker Relationship Specialty Start Date End Date Abimbola Cuba FNP- PCP - General Nurse Practitioner Family 01/01/20 documented as of this encounter
--- OUTSIDE RECORDS SUMMARY | 2024-03-06 11:05 | XMS_ITS | Encounter Summary ---
Author Organization [facility] Address [address] [place] [address]. [place], [place] [address] [place] [address] Care Team Providers Care Family Engagement Specialist Name Role Phone Abimbola Cuba [facility] Primary Care Provider + Encounter Details Date Type Department Care Team (Late st Contact Info) Description 02/17/2020 [facility] Self-[facility] [address] [place] [address] [facility] Provider Social History Tobacco Use [...] documented as of this encounter Care Teams Family Engagement Specialist Relationship Specialty Start Date End Date Abimbola Cuba [facility] PCP - General Nurse Practitioner Family 01/01/20 documented as of this encounter
--- OUTSIDE RECORDS SUMMARY | 2024-03-06 11:05 | XMS_ITS | Encounter Summary ---
Author Organization [facility] Address [address] [place] [address]. [place] [id number] [place] [address] Care Team Providers Care Manhole Builder Name Role Phone Ericka Ward NP Primary Care Provider Prakash cruz Reason for Visit * Reason Comments Back Pain Encounter Details Date Type Department Care Team (Late st Contact Info) Description 11/28/2019 6:59 AM CDT - 11/28/2019 7:34 AM CDT Emergency [facility] Emergency Room [id number] [place] [address] Macario Baldwin MD [address] [place] [address] Back Pain Discharge Disposition: Home or Self [...] Sign Reading Time Taken Comments Blood Pressure 134/101 11/28/2019 7:00 AM CDT Pulse 88 11/28/2019 7:00 AM CDT Temperature 36.2 ??C (97.1 ??F) 11/28/2019 7:00 AM CD T Respiratory Rate 18 11/28/2019 7:00 AM CDT Oxygen Saturation 98% 11/28/2019 7:00 AM CDT Inhaled Oxygen Concentration - - Weight 131.5 kg (290 lb) 11/28/2019 7:00 AM CDT Height 167.6 cm (5' 6 ) 11/28/2019 7:00 AM CDT Body Mass Index 46.81 11/28/2019 7:00 AM CDT documented in this encounter Discharge Instructions * Attachments The following attachments cannot be sent through Care Everywhere. * Low Back Pain in Adults (Fijian) documented in this encounter Medications at Time [...] as of this encounter ED Notes * Macario Baldwin MD - 11/28/2019 7:14 AM CDT Chief Complaint Chief Complaint Patient presents with ??? Back Pain History of Present Illness 24 yo F evaluated yesterday for mechanical fall with subsequent R knee & low back pain presenting with request for a work note today - was discharged home yesterday with note for being off work x1 day but today was having persistent discomfort & also significant difficulty sleeping last night due to inability to find a consistent position for relief. Today her R knee pain is minimal, pain is more significant to her lower back. No fecal incontinence, urinary retention, extremity weakness or paresthesias Medical History ALLERGIES: Allergies Allergen Reactions ??? Seasonal Unknown MEDICATIONS: Prior to Admission medications Medication Sig Start Date End Date Taking? Authorizing Provider hydrOXYzine 25 MG tablet Take 1/2 tablet (12.5 mg) to 1 tablet (25 mg) up to three times a day as needed for anxiety 11/27/19 CHRISTINA Escalona omeprazole 40 MG capsule Take 1 capsule (40 mg total) by mouth daily. 02/01/19 Ericka Ward NP ondansetron (ZOFRAN ODT) 4 MG disintegrating tablet Take 1 tablet (4 mg total) by mouth every 8 (eight) hours as needed for Nausea. 03/15/19 Esau Herrera MD sertraline 100 MG tablet Take 1.5 tablets (150 mg total) by mouth daily for 60 days. 11/27/19 01/26/20 CHRISTINA Escalona PAST MEDICAL HISTORY: Past Medical [...] Systems Review of Systems Musculoskeletal: Positive for back pain. Negative for gait problem and joint swelling. All other systems reviewed and are negative. Physical Exam Filed Vitals: 11/28/19 0700 BP: (!) 134/101 Pulse: 88 Resp: 18 Temp: 97.1 ??F (36.2 ??C) TempSrc: Temporal SpO2: 98% Weight: 131.5 kg (290 lb) Height: 5' 6 (1.676 m) Physical Exam Constitutional: She is oriented to person, place, and time. She appears well- developed and well-nourished. She appears distressed. HENT: Head: Normocephalic and atraumatic. Eyes: Pupils are equal, round, and reactive to light. Neck: Normal range of motion. Neck supple. Cardiovascular: Normal rate and intact distal pulses. Pulmonary/Chest: Effort normal. No respiratory distress. Abdominal: Soft. There is no tenderness. Musculoskeletal: Normal range of motion. She exhibits no deformity. Diffuse lumbar ttp without stepoffs Neurological: She is alert and oriented to person, place, and time. Skin: Skin is warm. Psychiatric: She has a normal mood and affect. Nursing note and vitals reviewed. Diagnostic Studies / Procedures ELECTROCARDIOGRAMS: No results found for this visit on 11/28/19. LABORATORY STUDIES: No results found for this visit on 11/28/19. IMAGING STUDIES No orders to display ED Course / Medical Decision Making MDM Number of Diagnoses or Management Options Lumbar strain, subsequent encounter: Diagnosis management comments: Pt evaluated yesterday for low back pain & R knee pain with negative Xray imaging. Returning today primarily due to requiring a work note. Will also administer doseof Toradol prior to discharge Amount and/or Complexity of Data Reviewed Review and summarize past medical records: yes Patient Progress Patient progress: stable Clinical Impression Lumbar strain, subsequent encounter (Primary) Disposition: Discharge Macario Baldwin MD 11/28/19 0832 * Ning Wing RN - 11/28/2019 7:02 AM CDT Pt to ED with c/o lower back pain. Pt was here yesterday for a fall she had at [employer]. Pt states she is needing work note for more days off as she is more sore than yesterday and hasn't slept all night due to not being able to sleep from the pain. Rating lower back pain 10/22. documented in this encounter Plan of Treatment Not on file documented as of this encounter Visit Diagnoses Diagnosis Lumbar strain, subsequent encounter- Primary documented in this encounter Administered Medications Inactive Administered Medications - up to 3 most recent administrations Medication Order MAR Action Action Date Dose Rate Site ketorolac (TORADOL) injection 30 mg 30 mg, Intramuscular, Once, 1 dose, On Wed11/28/19 at 0730, For IV administration, give over 15 seconds. Given 11/28/2019 7:31 AM CDT 30 mg Left Deltoid documented in this encounter Active and Recently Administered Medications Times are shown in CDT. Scheduled Medication Order 11/26/2019 11/27/2019 11/28/2019 ketorolac (TORADOL) injection 30 mg (COMPLETED) 30 mg, Intramuscular, Once, 1 dose, On Wed11/28/19 at 0730, For IV administration, give over 15 seconds. 0731 (Given - Provid er: Sydney Monterroso RN) documented in this encounter Additional Health Concerns Assessment Noted Time PHQ-9 Depression Total Score: 23 020 9:31 AM CDT documented as of this encounter Care Teams Manhole Builder Relationship Specialty Start Date End Date Ericka Ward NP PCP - General NURSE PRACTITIONER 09/30/18 12/31/19 documented as of this encounter
--- OUTSIDE RECORDS SUMMARY | 2024-03-06 11:05 | XMS_ITS | Encounter Summary ---
Author Organization [facility] Address [address] [place] [address]. [place], [place] [id number] [place] [address] Care Team Providers Care Grinder Chipper Name Role Phone Abimbola Cuba [facility] Primary Care Provider + Encounter Details Date Type Department Care Team (Latest Contact Info) Description 02/19/2020 Travel Social History Tobacco Use Types Packs/Day [...] COVID-19? Unable to assess 02/19/2020 1:05 PM BACCARAT MANAGER documented as of this encounter Plan of Treatment Not on file documented as of this encounter Visit Diagnoses Not on filedocumented in this encounter Additional Health Concerns Infection Onset Date Last Indicated Resolved Time COVID-19 Rule Out 02/19/2020 02/19/2020 02/19/2020 1:29 PM BACCARAT MANAGER COVID-19 Confirmed 02/19/2020 02/19/2020 1 12:34 AM BACCARAT MANAGER Assessment Noted Time PHQ-9 Depression Total Score: 26 020 7:37 AM CDT documented as of this encounter Care Teams Grinder Chipper Relationship Specialty Start Date End Date Abimbola Cuba FNP- PCP - General Nurse Practitioner Family 01/01/20 documented as of this encounter
--- OUTSIDE RECORDS SUMMARY | 2024-03-06 11:05 | XMS_ITS | Encounter Summary ---
Author Organization [facility] Address [address] [place] [address]. [place] [id number] [place] [address] Care Team Providers Care Shed Hand Name Role Phone Abimbola Cuba [facility] Primary Care Provider + Encounter Details Date Type Department Care Team (Latest Contact Info) Description 01/07/2020 - 01/07/2020 11:59 PM T Hospital Encounter [facility] [address] [place] [id number] Abimbola Cuba [facility] [address] [place] [id number] Discharge Disposition: Home or Self Care (Routine [...] Associated Diagnosis Comments CORONAVIRUS (COVID 19) Routine 01/07/2020 10:05 AM CDT Screening examination for infectious disease documented in this encounter Results * PRE-SURGICAL/PRE-PROCEDURE CORONAVIRUS (COVID 19) (01/07/2020 10:05 AM CDT) CORONAVIRUS SARS COV 2 PCR (RESP) NOT DETECTED NOT DETECTED 01/08/2020 8:[address] [facility] Comment: A Not Detected (negative) test result [...] providers and patients using the following websites: https://www.[employer] (TEN).[employer]/home/Covid-19/HCP/NAAT/fact-sheet2 https://www.[employer]/home/Covid-19/Patients/NAAT/ fact-sheet2 This test has been authorized by the FDA under an Emergency Use Authorization (EUA) for use by authorized laboratories. Due to the current public health emergency, [facility] is receiving a high volume of samples [...] about COVID-19 can be found at the [facility] website: www.Bilbus.[employer]/Covid19. Test performed at [address] [place] [address] [place], [place] ??[address] Director: SARAH BLANCO DO,MPH FIRST TEST UNKNOWN 01/07/2020 10:05 AM [facility] EMPLOYED IN HEALTHCARE YES 01/07/2020 10:05 AM [facility] SYMPTOMATIC DEFINED BY CDC UNKNOWN 01/07/2020 10:05 AM CDT [facility] HOSPITALIZATION STATUS NO 01/07/2020 10:05 AM CDT [facility] PATIENT IN ICU NO 01/07/2020 10:05 AM CDT [facility] RESIDENT OF [facility] NO 01/07/2020 10:05 AM CDT [facility] UNKNOWN 01/07/2020 10:05 AM CDT [facility] PATIENT'S RACE WHITE OR 01/07/2020 10:05 AM CDT [facility] ETHNICITY NONHISPANIC 01/07/2020 10:05 AM CDT [facility] SOURCE (QST) NASOPHARYNGEAL SWAB 01/07/2020 10:05 AM CDT [facility] NASOPHARYNGEAL SWAB / Unknown 01/07/2020 10:05 AM CDT Abimbola GREYP- MICROBIOLOGY - GENERAL O RDERABLES Final Result Performing Organization Address City/State/[facility] Co de Phone Number [facility] [address] [place] [address], [address] [facility] [id number] [place] [address], documented in this encounter Visit Diagnoses Diagnosis Screening examination for infectious disease Screening examination for unspecified infectious disease documented in this encounter Additional Health Concerns Infection Onset Date Last Indicated Resolved Time COVID-19 Rule Out 01/07/2020 01/07/2020 01/08/2020 8:36 PM CDT Assessment Noted Time PHQ-9 Depression Total Score: 26 020 7:37 AM CDT documented as of this encounter Care Teams Shed Hand Relationship Specialty Start Date End Date Abimbola Cuba FNP-BC PCP - General Nurse Practitioner Family 01/01/20 documented as of this encounter
--- OUTSIDE RECORDS SUMMARY | 2024-03-06 11:05 | XMS_ITS | Encounter Summary ---
Author Organization [facility] Address [address] [place] [address]. [place], [place] [phone] [place] [address] Care Team Providers Care Beam Builder Helper Name Role Phone Abimbola Cuba [facility] Primary Care Provider + Reason for Visit * Reason Onset Date Comments Blood Pressure 10/30/2020 Encounter Details Date Type Department Care Team (Late st Contact Info) Description 10/30/2020 Telephone [facility] Family [facility] Internal [facility] [address] [place] [address] Abimbola [place] [address] [place] [address] Blood Pressure Social History Tobacco Use Types Packs/Day Years [...] encounter Progress Notes * CHRISTINA Escalona - 10/31/2020 7:40 AM CDT Thank you for seeing since I am out of office today. * Rosmery Figueroa RN - 10/30/2020 2:26 PM CDT FYI * Bambi Denton LPN - 10/30/2020 2:18 PM CDT Pt called said B/P while getting inj in back 130/110 on 10/30/20 they suggest she F/U with PCP No HASome times has chest tightness appt made with Jaclyn For 10/31/20 Pt could not come in today she is in [place]. No call back requested [phone] documented in this encounter Plan of Treatment Not on file documented as of this encounter Visit Diagnoses Not on filedocumented in this encounter Additional Health Concerns Assessment Noted Time PHQ-9 Depression Total Score: 26 020 7:37 AM CDT documented as of this encounter Care Teams Beam Builder Helper Relationship Specialty Start Date End Date Abimbola Cuba FNP-BC PCP - General Nurse Practitioner Family 01/01/20 documented as of this encounter
--- OUTSIDE RECORDS SUMMARY | 2024-03-06 11:05 | XMS_ITS | Encounter Summary ---
Author Organization [facility] Address [address] [place] [address]. [place], [place] [phone] [place] [address] Care Team Providers Care Patrol Community Service Officer Name Role Phone Abimbola Cuba MESS ATTENDANT CREW- Primary Care Provider + Reason for Visit * Reason Comments Vomiting Diarrhea Body Aches Encounter Details Date Type Department Care Team (Late st Contact Info) Description 03/30/2021 10:09 AM SENIOR NET ENGINEER - 03/30/2021 10:34 AM [facility] Emergency [facility] Emergency Room [address] [place] [address] Sneha Field PA-C [address] [place] [address] Vomiting; Diarrhea; Body Aches Discharge Disposition: Home or Self Care (Routine [...] COVID-19? No / Unsure 03/30/2021 9:57 AM SENIOR NET ENGINEER documented as of this encounter Last Filed Vital Signs Vital Sign Reading Time Taken Comments Blood Pressure 156/102 03/30/2021 10:12 AM SENIOR NET ENGINEER Pulse 88 03/30/2021 10:12 AM SENIOR NET ENGINEER Temperature 36.4 ??C (97.5 ??F) 03/30/2021 10:[address] Respiratory Rate 18 03/30/2021 10:12 AM SENIOR NET ENGINEER Oxygen Saturation 98% 03/30/2021 10:12 AM SENIOR NET ENGINEER Inhaled Oxygen Concentration - - Weight - - Height - - Body Mass Index - - documented in this encounter Discharge Instructions * Discharge Instructions* Sneha Field PA-C - 03/30/2021 10:19 AM SENIOR NET ENGINEER Rest. Encourage fluids. [id number] cough and cold medication may be used per label as desired. [id number]-lcf-aurfhrf fever cra officer as needed per label as desired. Follow-up with your doctor. Visit the emergency room if difficulty breathing. Your COVID test is pending, results may be obtained through your MyChart. If positive, follow CDC guidelines on self quarantine measures OR NET ENGINEER * Attachments The following attachments cannot be sent through Care Everywhere. * COVID-19 Discharge Instructions (Greek) documented in this encounter Medications at Time of Discharge HYDROcodone-acetamin ophen (NORCO) 5-325 MG tabletIndications:Ac eneida [...] as of this encounter ED Notes * Sneha Field PA-C - 03/30/2021 10:13 AM CSTSummary: covid ED NOTE Feli Garcia 1995 Chief Complaint Chief Complaint Patient presents with ??? Vomiting ??? Diarrhea ??? Body Aches History of Present Illness 26-year-old white female patient with no significant past medical history presents ambulatory to [facility] requesting a COVID swab. She states that her job is demanding that she has a COVID test due to having symptoms. States that she was exposed to a person with COVID 4 days ago. She r eports having body aches, diarrhea, sore throat, headache, cough. Symptoms x4 days. She denies difficulty breathing, shortness of breath, chest pain, abdominal pain, , or further concern. Nomedication prior to arrival. Patient is scrolling social media on her phone throughout the entire history portion of the exam Medical History ALLERGIES: Allergies Allergen Reactions ??? [...] Types: Cigarettes Quit date: 09/26/2019 Years since quittin.5 ??? Smokeless tobacco: Never Used Vaping Use ??? Vaping Use: Never used Substance Use Topics ??? Alcohol use: No ??? Drug use: Yes Types: Marijuana Comment: recreational Review of Systems Review of Systems Constitutional: Negative for activity change, appetite change, fever and unexpected weight change. HENT: Positive for sore throat. Negative for ear pain and trouble swallowing. Eyes: Negative. Respiratory: Positive for cough. Negative for chest tightness and shortness of breath. Cardiovascular: Negative for chest pain, palpitations and leg swelling. Gastrointestinal: Positive for diarrhea and nausea. Negative for abdominal distention, abdominal pain, constipation and vomiting. Endocrine: Negative. Genitourinary: Negative for dysuria, flank pain and hematuria. Musculoskeletal: Positive for myalgias. Negative for arthralgias, back pain and neck pain. Skin: Negative for color change, rash and wound. Allergic/Immunologic: Negative for immunocompromised state. Neurological: Positive for headaches. Negative for dizziness, speech difficulty, weakness, light-headedness and numbness. Hematological: Negative for adenopathy. Psychiatric/Behavioral: Negative. Physical Exam Filed Vitals: 03/30/21 1012 BP: (!) 156/102 Pulse: 88 Resp: 18 Temp: 97.5 ??F (36.4 ??C) TempSrc: Temporal SpO2: 98% Physical Exam Vitals and nursing note reviewed. Exam conducted with a mine safety engineer present. Constitutional: General: She is not in acute distress. Appearance: Normal appearance. She is well-developed. She is not ill-appearing, toxic-appearing or diaphoretic. HENT: Head: Normocephalic and atraumatic. Right Ear: External ear normal. Left Ear: External ear normal. Nose: Nose normal. Mouth/Throat: Mouth: Mucous membranes are moist. Pharynx: Oropharynx is clear. No oropharyngeal exudate or posterior oropharyngeal erythema. Eyes: Extraocular Movements: Extraocular movements intact. Conjunctiva/sclera: Conjunctivae normal. Pupils: Pupils are equal, round, and reactive to light. Neck: Thyroid: No thyromegaly. Trachea: No tracheal deviation. Cardiovascular: Rate and Rhythm: Normal rate and regular rhythm. Pulses: Normal pulses. Heart sounds: Normal heart sounds. Pulmonary: Effort: Pulmonary effort is normal. No respiratory distress. Breath sounds: Normal breath sounds. No stridor. No wheezing, rhonchi or rales. Abdominal: General: Abdomen is flat. Bowel sounds are normal. There is no distension. Palpations: Abdomen is soft. There is no mass. Tenderness: There is no abdominal tenderness. There is no guarding or rebound. Hernia: No hernia is present. Musculoskeletal: General: No swelling, tenderness, deformity or signs of injury. Normal range of motion. Cervical back: Normal range of motion and neck supple. No rigidity. Lymphadenopathy: Cervical: No cervical adenopathy. Skin: General: Skin is warm and dry. Capillary Refill: Capillary refill takes less than 2 seconds. Findings: No rash. Neurological: General: No focal deficit present. Mental Status: She is alert and oriented to person, place, and time. Cranial Nerves: No cranial nerve deficit. Sensory: No sensory deficit. Motor: No weakness. Coordination: Coordination normal. Gait: Gait normal. Deep Tendon Reflexes: Reflexes normal. Psychiatric: Mood and Affect: Mood normal. Behavior: Behavior normal. Thought Content: Thought content normal. Judgment: Judgment normal. Diagnostic Studies / Procedures ELECTROCARDIOGRAMS: No results found for this visit on 03/30/21. LABORATORY STUDIES: No results found for this visit on 03/30/21. IMAGING STUDIES No orders to display ED Course / Medical Decision Making MDM Number of Diagnoses or Management Options Amount and/or Complexity of Data Reviewed Clinical lab tests: ordered Risk of Complications, Morbidity, and/or Mortality Presenting problems: low Diagnostic procedures: minimal Management options: minimal Patient Progress Patient progress: stable 1021-patient stable. No concerning vital signs or pertinent exam findings. Abdomen benign. Lungs clear bilaterally. No respiratory distress noted. Symptoms likely viral in nature. COVID swab obtainedand pending. Will discharge home Medications - No data to display Clinical Impression Exposure to COVID-19 virus (Primary) Acute viral syndrome Current Discharge Medication List Disposition: Discharge Follow-Up: Abimbola Cuba, [facility] [address] [address] [place] [address] In 3 days SNEHA FIELD PA-C 03/30/2021 Sneha Field PA-C 03/30/21 1022 Cosigned by Cindy Paige MD at 03/31/2021 11:41 PM SENIOR NET ENGINEER OR NET ENGINEER OR NET ENGINEER * Sirisha Keen RN - 03/30/2021 10:11 AM CST Pt arrives stating she was exposed to covid four days ago and now has vomiting, diarrhea and body aches. OR NET ENGINEER documented in this encounter Plan of Treatment Not on file documented as of this encounter Procedures Procedure Name Priority Date/Time Associated Diagnosis Comments CORONAVIRUS (COVID-19) ANTIGEN DIRECT OPTICAL STAT 03/30/2021 10:18 AM SENIOR NET ENGINEER documented in this encounter Results * CORONAVIRUS (COVID-19) ANTIGEN [RAPID IN HOUSE TEST] (03/30/2021 10:18 AM SENIOR NET ENGINEER) CORONAVIRUS ANTIGEN IA NEGATIVE NEGATIVE 03/30/2021 10:39 AM SENIOR NET ENGINEER [facility] Comment: NEGATIVE RESULTS DO NOT RULE OUT SARS-COV-2 INFECTION AND SHOULD NOT BE USED THE SOLE BASIS FOR TREATMENT OR PATIENT MANAGEMENT DECISIONS, INCLUDING INFECTION CONTROL DECISIONS. NEGATIVE RESULTS SHOULD BE CONSIDERED IN THE CONTEXT OF A PATIENT'S RECENT EXPOSURES, HISTORY AND THE PRESENCE OF CLINICAL SIGNS AND SYMPTOMS CONSISTENT WITH COVID 19. THIS TEST HAS BEEN AUTHORIZED BY THE FDA UNDER AN EMERGENCY USE AUTHORIZATION (EUA) FOR USE BY AUTHORIZED LABORATORIES. SPECIMEN TYPE NASAL 03/30/2021 10:16 AM SENIOR NET ENGINEER [facility] FIRST TEST UNKNOWN 03/30/2021 10:16 AM [facility] EMPLOYED IN HEALTHCARE YES 03/30/2021 10:16 AM [facility] SYMPTOMATIC DEFINED BY CDC YES 03/30/2021 10:16 AM SENIOR NET ENGINEER [facility] DATE OF SYMPTOM ONSET 2021032703/30/2021 10:16 AM SENIOR NET ENGINEER [facility] HOSPITALIZATION STATUS NO 03/30/2021 10:16 AM [facility] RESIDENT OF [facility] NO 03/30/2021 10:16 AM [facility] NOT 03/30/2021 10:16 AM [facility] Specimen from nose (specimen) NASAL STRUCTURE / Unknown 03/30/2021 10:18 AM SENIOR NET ENGINEER Sneha Field PA-C MICROBIOLOGY - GENERAL ORDE BRANDT Final Result [facility] [address] [place] [address], documented in this encounter Visit Diagnoses Diagnosis Exposure to COVID-19 virus- Primary Acute viral syndrome documented in this encounter Additional Health Concerns Infection Onset Date Last Indicated Resolved Time COVID-19 Rule Out 03/30/2021 03/30/2021 03/30/2021 10:39 AM SENIOR NET ENGINEER Assessment Noted Time PHQ-9 Depression Total Score: 1 11/01/19 21 1:56 PM CDT documented as of this encounter Care Teams Patrol Community Service Officer Relationship Specialty Start Date End Date [facility]imbola [facility] PCP - General Nurse Practitioner Family 01/01/20 documented as of this encounter
--- OUTSIDE RECORDS SUMMARY | 2024-03-06 11:05 | XMS_ITS | Encounter Summary ---
Author Organization [facility] Address [address] [place] [address]. [place] [phone] [place] [address] Care Team Providers Care Child Development Specialist Name Role Phone Abimbola Cuba [facility] Primary Care Provider + Encounter Details Date Type Department Care Team (Latest Contact Info) Description 01/09/2021 Scan HEALTH INFO [facility] Scanned, Documents Social History Tobacco Use Types Packs/Day Years [...] documented as of this encounter Care Teams Child Development Specialist Relationship Specialty Start Date End Date [facility] PCP - General Nurse Practitioner Family 01/01/20 documented as of this encounter
--- OUTSIDE RECORDS SUMMARY | 2024-03-06 11:05 | XMS_ITS | Encounter Summary ---
Author Organization [facility] Address [address] [place] [address]. [place], [place] [address] [place] [address] Care Team Providers Care Escrow Representative Name Role Phone Abimbola Cuba CABINET INSTALLER- Primary Care Provider + Reason for Visit * Reason Comments Back Pain Workman's comp case Encounter Details Date Type Department Care Team (Late st Contact Info) Description 12/10/2021 3:01 PM CDT - 12/10/2021 6:14 PM CDT Emergency [facility] Emergency Room [address] [place] [address] Juan Abraham NP [address] [place] [id number] Kimberley Eduardo MD [address] [place] [address] Back Pain (Workman's comp case) Discharge Disposition: Home or Self Care (Routine [...] Sign Reading Time Taken Comments Blood Pressure 124/84 12/10/2021 3:04 PM CDT Pulse 64 12/10/2021 3:04 PM CDT Temperature 36 ??C (96.8 ??F) 12/10/2021 3:04 PM CDT Respiratory Rate 16 12/10/2021 3:04 PM CDT Oxygen Saturation 100% 12/10/2021 3:04 PM CDT Inhaled Oxygen Concentration - - Weight 96.6 kg (213 lb) 12/10/2021 3:04 PM CDT Height 167.6 cm (5' 6 ) 12/10/2021 3:04 PM CDT Body Mass Index 34.38 12/10/2021 3:04 PM CDT documented in this encounter Discharge Instructions * Discharge Instructions* Kimberley Eduardo MD - 12/10/2021 5:57 PM CDT Please followup with your PCP. Return to ED if worse in any way * Attachments The following attachments cannot be sent through Care Everywhere. * Low Back Pain Discharge Instructions (Guamanian) documented in this encounter Medications at Time [...] as of this encounter ED Notes * Kimberley Eduardo MD - 12/10/2021 4:57 PM CDT Emergency Department Assumed Care Note Patient signed out to me by Juan Moreira NP. Please see their note for details. Briefly, Feli Garcia is a 26-year-old female is being evaluated for fall and back pain. Neuro intact. No s/s of cauda equina. Pending xray of lumbar spine. Xray of lumbar spine without acute fracture or dislocation with vertebral body heights maintained. Patient reassured. Discussed reasons to return. Discharged home in stable condition. Vitals: 12/10/21 1504 BP: 124/84 Pulse: 64 Resp: 16 Temp: 96.8 ??F (36 ??C) SpO2: 100% Labs Reviewed - No data to display XR LUMB SPINE 3V Final Result by User, [id number] (12/10 7997) IMAGING STUDIES: XR LUMB SPINE 3V DATE: 12/10/2021 5:26 PM COMPARISON: 11/27/2019 CLINICAL HISTORY: fall onto back, and prior surgery . IMPRESSION: 1. No evidence of acute fracture or dislocation. Vertebral body heights are well-maintained. 2. Interval mild loss of disc space height at L5-S1. No spondylolisthesis.. No paraspinal lesions. Sacroiliac joints are within normal limits. Phleboliths in the pelvis. Ordered By: JUAN ABRAHAM Interpreted By: Ceasar Soni, 12/10/2021 5:30 PM Medications - No data to display Diagnosis: SNOMED CT(R) 1. Low back pain LOW BACK PAIN 2. Fall FALL Disposition: Discharge Kimberley Eduardo MD 12/10/2021 5:57 PM Kimberley Eduardo MD 12/10/21 1757 * Juan Abraham NP - 12/10/2021 3:52 PM CDT ED NOTE Chief Complaint Chief Complaint Patient presents with ??? Back Pain Workman's comp case History of Present Illness 26-year-old female, presents the ED, with a history of a L4-L5 microdiscectomy, performed approximately 1 year ago. 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 Patient states she took 2 Tylenol at approximately 2:00, and currently pain is controlled. Patient denies saddle anesthesia, bilateral lower extremity numbness and tingling, and loss of bowel or bladder patient states she is having right lower back pain, radiating into the right leg. Denies additional complaint. States she is not on a blood thinner, and did not hit her head. Medical History ALLERGIES: Allergies Allergen Reactions ??? [...] mouth 2 (two) times daily. 01/23/20 Doc [facility] Abstract omeprazole 40 MG capsule Take 1 capsule (40 mg total) by mouth daily. 02/05/20 CHRISTINA Escalona ondansetron (ZOFRAN ODT) 4 MG disintegrating tablet Take 1 tablet (4 mg total) by mouth every 8 (eight) hours as needed for Nausea. 11/13/20 NORA Escalona-JUAN JOSE PAST MEDICAL HISTORY: Past Medical History: Diagnosis Date ??? Anxiety ??? Depression PAST SURGICAL HISTORY: Past Surgical History: Procedure Laterality Date ??? BACK SURGERY 03/18/2020 micro disectomy of L4-L5 - ??? NONE FAMILY HISTORY: Family History Problem [...] Constitutional: Negative for chills and fever. HENT: Negative for congestion, dental problem, ear pain, facial swelling, sore throat, trouble swallowing and voice change. Eyes: Negative for visual disturbance. Respiratory: Negative for chest tightness, shortness of breath and wheezing. Cardiovascular: Negative for chest pain and palpitations. Gastrointestinal: Negative for abdominal pain and blood in stool. Endocrine: Negative for cold intolerance and heat intolerance. Genitourinary: Negative for difficulty urinating and enuresis. Musculoskeletal: Positive for back pain. Negative for gait problem, joint swelling and neck pain. + right leg pain Skin: Negative for color change and rash. Neurological: Negative for syncope, light-headedness, numbness and headaches. Psychiatric/Behavioral: Negative for agitation and self-injury. The patient is not nervous/anxious. Physical Exam Filed Vitals: 12/10/21 1504 BP: 124/84 Pulse: 64 Resp: 16 Temp: 96.8 ??F (36 ??C) TempSrc: Temporal SpO2: 100% Weight: 96.6 kg (213 lb) Height: 5' 6 (1.676 m) Physical Exam Vitals and nursing note reviewed. Constitutional: Appearance: Normal appearance. HENT: Head: Normocephalic and atraumatic. Right Ear: Tympanic membrane, ear canal and external ear normal. Left Ear: Tympanic membrane, ear canal and external ear normal. Nose: Nose normal. Mouth/Throat: Mouth: Mucous membranes are moist. Eyes: Pupils: Pupils are equal, round, and reactive to light. Cardiovascular: Rate and Rhythm: Normal rate and regular rhythm. Pulses: Normal pulses. Heart sounds: Normal heart sounds. Pulmonary: Effort: Pulmonary effort is normal. Breath sounds: Normal breath sounds. Abdominal: General: Abdomen is flat. Bowel sounds are normal. There is no distension. Palpations: Abdomen is soft. There is no mass. Tenderness: There is no abdominal tenderness. There is no right CVA tenderness, left CVA tenderness, guarding or rebound. Hernia: No hernia is present. Musculoskeletal: General: Normal range of motion. Cervical back: Normal and normal range of motion. Thoracic back: Normal. Lumbar back: Normal. Negative right straight leg raise test and negative left straight leg raise test. Comments: No C-spine, T-spine, L-spine tenderness to palpation, no step-off, no deformity. No overlying erythema, bruising, swelling Skin: General: Skin is warm. Capillary Refill: Capillary refill takes less than 2 seconds. Neurological: General: No focal deficit present. Mental Status: She is alert. Psychiatric: Mood and Affect: Mood normal. Behavior: Behavior normal. Thought Content: Thought content normal. Judgment: Judgment normal. Diagnostic Studies / Procedures ELECTROCARDIOGRAMS: No results found for this visit on 12/10/21. LABORATORY STUDIES: No results found for this visit on 12/10/21. IMAGING STUDIES XR LUMB SPINE 3V (Results Pending) ED Course / Medical Decision Making MDM Number of Diagnoses or Management Options Diagnosis management comments: In my medical decision making the following differential diagnoses were considered before arriving at final diagnosis and many were either ruled out or appeared unlikely Differential diagnosis includes acute myofascial sprain, strain, acute, the time of my signout, patient is still pending lumbar spine x-ray, dispo to be set up physician receiving final results ED Course as of 12/10/211701Dec 10, 2021 1556 Please return to the emergency room if you develop shortness of breath, difficulty breathing, chest pain, fever, chills. [AT] 1556 Urine test canceled, patient states she is in a same-sex relationship, and states she is definitely not [AT] 1633 Continuing to wait for xray and urine testing [AT] [address] Kimberley Shah [AT] 1702 Voice recognition software??Punch! Direct was used to dictate and transcribe this document. Internet Manager variances may occur. Despite proofreading, typographical errors may occur.?? [AT] ED Course User Index [AT] Juan Abraham NP Medications - No data to display Clinical Impression None Current Discharge Medication List Disposition: Data Unavailable Follow-Up: No follow-up provider specified. Juan Abraham NP 12/10/2021 Juan Abraham NP 12/10/211701 Cosigned by Cindy Paige MD at 12/13/2021 3:41 PM CDT * Sydney Monterroso RN - 12/10/2021 3:07 PM CDT Pt presents to ED via significant other with C/O hurting her back while at work. States she was helping a resident stand and had just put the gait belt on and was holding on to him. Next thing she knew, he was falling. As he was falling, she still had ahold of his gait belt and fell with him hurting her mid to lower back with pain radiating down to her knee and some numb feeling on her upper anterior thigh to her knee. At the time of the incident, her pain was rated 8- 10/10 and now sitting still is 6/10. documented in this encounter Plan of Treatment Not on file documented as of this encounter Procedures Procedure Name Priority Date/Time Associated Diagnosis Comments XR LUMB SPINE 3V STAT 12/10/2021 5:26 PM CDT documented in this encounter Results * XR LUMB SPINE 3V (12/10/2021 5:26 PM CDT) Anatomical Region Laterality Modality Spine Radiographic Bailey ging 12/10/2021 5:30 PM CDT Impressions 12/10/2021 5:32 PM CDT IMPRESSION: 1. ??No evidence of acute fracture or dislocation. Vertebral body heights are well-maintained. 2. ??Interval mild loss of disc space height at L5-S1. No spondylolisthesis.. No paraspinal lesions. Sacroiliac joints are within normal limits. Phleboliths in the pelvis. Ordered By: JUAN ABRAHAM Interpreted By: Ceasar Soni, 12/10/2021 5:30 PM Narrative 12/10/2021 5:32 PM CDT IMAGING STUDIES: ? XR LUMB SPINE 3V ? DATE: ??12/10/2021 5:26 PM COMPARISON: ??11/27/2019 CLINICAL HISTORY: ??fall onto back, and prior surgery ?? . Procedure Note Naun Soni MD - 12/10/2021 IMAGING STUDIES: XR LUMB SPINE 3V DATE: 12/10/2021 5:26 PM COMPARISON: 11/27/2019 CLINICAL HISTORY: fall onto back, and prior surgery . IMPRESSION: 1. No evidence of acute fracture or dislocation. Vertebral body heightsare well-maintained. 2. Interval mild loss of disc space height at L5-S1. Nospondylolisthesis.. No paraspinal lesions. Sacroiliac joints are within normal limits.Phleboliths in the pelvis. Ordered By: JUAN ABRAHAM Interpreted By: Ceasar Soni, 12/10/2021 5:30 PM Juan Abraham SENIOR MORTGAGE UNDERWRITER GENERAL IMAGING Final Resul t documented in this encounter Visit Diagnoses Diagnosis Low back pain- Primary Lumbago Fall Unspecified fall documented in this encounter Additional Health Concerns Assessment Noted Time PHQ-9 Depression Total Score: 1 11/01/19 21 1:56 PM CDT documented as of this encounter Care Teams Escrow Representative Relationship Specialty Start Date End Date Abimbola Cuba FNP- PCP - General Nurse Practitioner Family 01/01/20 documented as of this encounter
--- OUTSIDE RECORDS SUMMARY | 2024-03-06 11:06 | XMS_ITS | Encounter Summary ---
Author Organization [facility] Address [address] [place] [address]. [place] [id number] [place] [address] Care Team Providers Care Administrative Specialist Name Role Phone Unavailable Primary Care Provider Unavailabl e Encounter Details Date Type Department Care Team (Latest Contact Info) Description 02/13/2016 Abstract [facility] Social History Tobacco Use Types Packs/Day Years Used Date Smoking Tobacco: Never Assessed Comments Unknown Sex and Gender Information Value [...]
--- OUTSIDE RECORDS SUMMARY | 2024-03-06 11:06 | XMS_ITS | Encounter Summary ---
Author Organization [facility] Address [address] [place] [address]. [place] [address] Care Team Providers Care Communications Attendant Name Role Phone Ericka Ward NP Primary Care Provider Prakash cruz Reason for Visit * Reason Onset Date Comments Question 08/29/2019 Encounter Details Date Type Department Care Team (Late st Contact Info) Description 08/29/2019 Telephone [facility] Family & Internal Medicine [address] [phone] Ericka Ward, ORGANIZATIONAL DEVELOPMENT MANAGER Question Social History Tobacco Use Types Packs/Day Years Used Date Smoking Tobacco: Former Cigarettes 1 2 Smokeless Tobacco: Never Alcohol Use Standard Drinks/Week Comments No 0 (1 standard drink = 0.6 oz pur e alcohol) AUDIT-C Answer Date Recorded Frequency of Alcohol Consumption Never 09/30/2018 Average Number of Drinks Not on file 019 Frequency of Binge Drinking Not on file 09/12 PHQ-2 Answer Date Recorded PHQ-2 Score 4 02/19/2019 Education Answer Date Recorded What is the [...] as of this encounter Progress Notes * Verna Aranda MA - 08/29/2019 10:19 AM CDT Kaz Barnett will need video visit, pt aware and scheduled today at 1:40. Pt denied cough, fever, but has pressure in ears, heart burn, nausea. * Sherry Green RN - 08/29/2019 9:59 AM CDT Printed to discuss with Jerry Ward ORGANIZATIONAL DEVELOPMENT MANAGER * Jacqueline Wills - 08/29/2019 9:40 AM CDT Pt called stating she went home from work feeling nauseous, congestion, no fever. She did say her cousin was in a few days ago with similar symptoms but had a fever and they told him it was URI please advise c/b# [phone] documented in this encounter Plan of Treatment Not on file documented as of this encounter Visit Diagnoses Not on filedocumented in this encounter Additional Health Concerns Assessment Noted Time PHQ-9 Depression Total Score: 20 019 9:08 AM CDT documented as of this encounter Care Teams Communications Attendant Relationship Specialty Start Date End Date Ericka Ward NP PCP - General NURSE PRACTITIONER 09/30/18 12/31/19 documented as of this encounter
--- OUTSIDE RECORDS SUMMARY | 2024-03-06 11:06 | XMS_ITS | Encounter Summary ---
Author Organization [facility] Address [address] [place] [address]. [place], [place] [id number] [place] [address] Care Team Providers Care Construction Administrator Name Role Phone Ericka Ward NP Primary Care Provider Prakash cruz Encounter Details Date Type Department Care Team (Latest Contact Info) Description 10/27/2019 Travel Social History Tobacco Use Types Packs/Day [...] have Coronavirus / COVID-19? No / Unsure 10/27/2019 11:10 AM CDT documented as of this encounter Plan of Treatment Not on file documented as of this encounter Visit Diagnoses Not on filedocumented in this encounter Additional Health Concerns Assessment Noted Time PHQ-9 Depression Total Score: 20 019 9:08 AM CDT documented as of this encounter Care Teams Construction Administrator Relationship Specialty Start Date End Date Ericka Ward, DOCUMENT REVIEWER PCP - General NURSE PRACTITIONER 09/30/18 12/31/19 documented as of this encounter
--- OUTSIDE RECORDS SUMMARY | 2024-03-06 11:06 | XMS_ITS | Encounter Summary ---
Author Organization [facility] Address [address] [place] [address]. [place], [place] [id number] [place] [address] Care Team Providers Care Petroleum Geologist Name Role Phone Ericka Ward NP Primary Care Provider Abimbola Soto [facility] Primary Care Provider + Jamila Reyes [facility] Primary Care Provider + Indira BrownC Primary Care Provider [phone] Encounter Details Date Type Department Care Team (Late st Contact Info) Description 06/30/2019 VideoAvatars Message [facility] Patient Accounts [address] [place] [address] Nerd AttackharAlohar Mobile, [facility] Provider Please contact us Social History Tobacco Use Types Packs/Day Years [...] Rule Out 01/29/2020 01/29/2020 02/02/2020 2:10 PM NAILING MACHINE OPERATOR AUTOMATIC COVID-19 Rule Out 02/19/2020 02/19/2020 02/19/2020 1:29 PM NAILING MACHINE OPERATOR AUTOMATIC COVID-19 Confirmed 02/19/2020 02/19/2020 12:34 AM NAILING MACHINE OPERATOR AUTOMATIC COVID-19 Rule Out 11/08/2020 11/08/2020 11/08/2020 12:43 PM CDT COVID-19 Rule Out 11/08/2020 11/08/2020 11/10/2020 3:30 AM CDT COVID-19 Rule Out 03/30/2021 03/30/2021 03/30/2021 10:39 AM NAILING MACHINE OPERATOR AUTOMATIC Assessment Noted Time PHQ-9 Depression Total Score: 20 019 9:08 AM CDT documented as of this encounter Care Teams Petroleum Geologist Relationship Specialty Start Date End Date Ericka Ward NP PCP - General NURSE PRACTITIONER 09/30/18 12/31/19 Abimbola Cuba, [facility] PCP - General Nurse Practitioner Family 01/01/20 Jamila Reyes, [facility] [address] [place] [address] PCP - General Nurse Practitioner Family 01/01/2305/13 Indira Brown PA-C [address] [place] [address] PCP - General PHYSICIAN FACILITIES ENGINEERING MANAGER 05/24/23 documented as of this encounter
--- OUTSIDE RECORDS SUMMARY | 2024-03-06 11:06 | XMS_ITS | Encounter Summary ---
Author Organization [facility] Address [address] [place] [address]. [place], [place] [id number] [place] [address] Care Team Providers Care Motor Assembler Name Role Phone Unavailable Primary Care Provider Unavailabl e Encounter Details Date Type Department Care Team (Late st Contact Info) Description 07/07/2018 Abstract [facility] Care [address] [place] [address] Kimberly Barton MD Social History Tobacco Use Types Packs/Day Years [...] as of this encounter Visit Diagnoses Diagnosis Contusion of other part of head, initial encounter documented in this encounter
--- OUTSIDE RECORDS SUMMARY | 2024-03-06 11:06 | XMS_ITS | Encounter Summary ---
Author Organization [facility] Address [address] [place] [address]. [place], [place] [id number] [place] [address] Care Team Providers Care Strapper And Buffer Name Role Phone Ericka Ward NP Primary Care Provider Prakash cruz Encounter Details Date Type Department Care Team (Latest Contact Info) Description 08/29/2019 Travel Social History Tobacco Use Types Packs/Day [...] have Coronavirus / COVID-19? Unable to assess 08/29/2019 12:58 PM CDT documented as of this encounter Plan of Treatment Not on file documented as of this encounter Visit Diagnoses Not on filedocumented in this encounter Additional Health Concerns Assessment Noted Time PHQ-9 Depression Total Score: 20 019 9:08 AM CDT documented as of this encounter Care Teams Strapper And Buffer Relationship Specialty Start Date End Date Ericka Ward, FERRULER PCP - General NURSE PRACTITIONER 09/30/18 12/31/19 documented as of this encounter
--- OUTSIDE RECORDS SUMMARY | 2024-03-06 11:06 | XMS_ITS | Encounter Summary ---
Author Organization [facility] Address [address] [place] [address]. [place] [phone] [place] [phone] Care Team Providers Care X Ray Technician Name Role Phone Ericka Mcgee RESTRICTIVE PREPARATION OPERATOR Primary Care Provider Prakash cruz Reason for Visit * Reason Comments Depression Stated she is wantin g to discuss venlafaxine stated feels her heart racing, she shakes, and feels tired all the time. She had cut down the morning tab to half and whole tab at hs. No appetite. Encounter Details Date Type Department Care Team (Late st Contact Info) Description 10/18/2019 4:00 PM CDT Office Visit [facility] Family & Internal Medicine [address] [phone] Ericka Mcgee, HAYLEY Depression (Stated she is wanting to discuss venlafaxine stated feels her heart racing, she shakes, and feels tired all the time. She had cut down the morning tab to half and whole tab at hs. No appetite. ) Social History Tobacco Use Types Packs/Day [...] have Coronavirus / COVID-19? No / Unsure 10/18/2019 4:04 PM CDT documented as of this encounter Last Filed Vital Signs Vital Sign Reading Time Taken Comments Blood Pressure 118/64 10/18/2019 4:10 PM CDT Pulse 106 10/18/2019 4:10 PM CDT Temperature 36.8 ??C (98.2 ??F) 10/18/2019 4:10 PM CD T Respiratory Rate 18 10/18/2019 4:10 PM CDT Oxygen Saturation 98% 10/18/2019 4:10 PM CDT Inhaled Oxygen Concentration - - Weight 127.9 kg (282 lb) 10/18/2019 4:10 PM CDT Height 170.2 cm (5' 7 ) 10/18/2019 4:10 PM CDT Body Mass Index 44.17 10/18/2019 4:10 PM CDT documented in this encounter Patient Instructions * Patient Instructions* Ericka Mcgee NP - 10/18/2019 4:00 PM CDT Continue reduction of the Luvox 75 mg BID and has reduced morning to 37.5 and will continue reduction to 37.5 mg Continue to stage changes to every 4 to 7 days. (leave off morning one, then leave offthe night dose) Zoloft (sertraline) 50 mg take one daily x 7 days and then take two daily at bedtime. Return one month Any questions call back Try to get the labs. documented in this encounter Progress Notes * Ericka Mcgee NP - 10/18/2019 4:00 PM CDT Reason for Visit: Depression (Stated she is wanting to discuss venlafaxine stated feels her heart racing, she shakes,and feels tired all the time. She had cut down the morning tab to half and whole tab at hs. No appetite. ) History of Present Illness: Pt is here and is having issues with increased anger, did not like how she was feeling on the venlafaxine and states heart racing and she had shakes, feeling too tired on the medication and reported brain fog . Concern and discussed with the pt that the serotonin syndrome because of reducing dosing too quickly can cause some of the above symptoms. If pt wants to change the medication we can do that but is going to have to see a psychiatrist should this change not work. Would recommend psychiatrist anyway because of pt age. Pt denies feeling like would do harm to anyone or self but just is more on edge and angry all the time. Seems to yell more at and on edge with customers.(Works at [employer]). Pt is still having anxiety and has hard time sleeping at night because just can not relax. Has tried over the counter products and has not been successful with any of these. Pt has Anxiety, anger, and depression. ROS: Review of Systems Constitutional: Negative. HENT: Negative. Eyes: Negative. Respiratory: Negative. Cardiovascular: Negative. Gastrointestinal: Negative. Genitourinary: Negative. Musculoskeletal: Negative. Skin: Negative. Neurological: Negative. Endo/Heme/Allergies: Negative. Psychiatric/Behavioral: Positive for depression. The patient is nervous/anxious and has insomnia. Medications: Current Outpatient Medications: ??? omeprazole 40 MG capsule, Take 1 capsule (40 mg total) by mouth daily., Disp: 90 capsule, Rfl: 3 ??? ondansetron (ZOFRAN ODT) 4 MG disintegrating tablet, Take 1 tablet (4 mg total) by mouth every 8 (eight) hours as needed for Nausea., Disp: 12 tablet, Rfl: 0 ??? sertraline 50 MG tablet, Take 2 tablets (100 mg total) by mouth daily., Disp: 60 tablet, Rfl: 1 ??? venlafaxine 75 MG tablet, Take 1 tablet (75 mg total) by mouth 2 (two) times daily with meals. (Patient taking differently: Take 75 mg by mouth 2 (two) times daily with meals. Indications: Half tab in the morning and full tab at h.s ), Disp: 60 tablet, Rfl: 5 Allergies Allergen Reactions ??? Seasonal Unknown Past Medical History: Diagnosis Date ??? Anxiety [...] resource strain: Not on file ??? Food insecurity: Worry: Not on file Inability: Not on file ??? Transportation needs: Medical: Not on file Non-medical: Not on file Tobacco Use ??? Smoking status: Former Smoker Packs/day: 1.00 Years: 2.00 Pack years: 2.00 Types: Cigarettes ??? Smokeless tobacco: Never Used Substance and Sexual Activity ??? Alcohol use: No Frequency: Never ??? Drug use: No ??? Sexual activity: Yes Lifestyle ??? Physical activity: Days per week: Not on file Minutes per session: Not on file ??? Stress: Not on file Relationships ??? Social connections: Talks on phone: Not on file Gets together: Not on file Attends sikh service: Not on file Active member of club or organization: Not on file Attends meetings of clubs or organizations: Not on file Relationship status: Not on file ??? Intimate partner violence: Fear of current or ex partner: Not on file Emotionally abused: Not on file Physically abused: Not on file Forced sexual activity: Not on file Other Topics Concern ??? Not on file Social History Narrative ??? Not on file Family History Problem Relation Name Age of Onset ??? Lung Cancer Paternal Grandmother ??? Diabetes Paternal Grandfather ??? Hypertension Mother ??? Other (blood clot history) Mother Family Status Relation Name Status ??? PGM (Not Specified) ??? PGF (Not Specified) ??? Mother Alive ??? Father Alive Physical Exam Constitutional: She is oriented to person, place, and time. She appears well- developed and well-nourished. HENT: Head: Normocephalic. Mouth/Throat: Oropharynx is clear and moist. Eyes: Pupils are equal, round, and reactive to light. Conjunctivae and EOM are normal. Neck: Normal range of motion. Cardiovascular: Normal rate, regular rhythm and normal heart sounds. Pulmonary/Chest: Effort normal and breath sounds normal. Abdominal: Soft. Musculoskeletal: Normal range of motion. Neurological: She is alert and oriented to person, place, and time. Skin: Skin is warm and dry. Psychiatric: Her behavior is normal. Her mood appears anxious. She exhibits a depressed mood. Reports gets angry easily Filed Vitals: 10/18/19 1610 BP: 118/64 Pulse: 106 Resp: 18 Temp: 98.2 ??F (36.8 ??C) TempSrc: Temporal SpO2: 98% Weight: 127.9 kg (282 lb) Height: 5' 7 (1.702 m) Assessment Encounter Diagnose(s) ICD-10-CM ICD-9-CM SNOMED CT(R) 1. Anxiety F41.9 300.00 ANXIETY CBC W/DIFF AUTOMATED COMPREHENSIVE METABOLIC PANEL TSH W/REFLEX CBC W/DIFF AUTOMATED COMPREHENSIVE METABOLIC PANEL TSH W/REFLEX sertraline 50 MG tablet 2. Fatigue, unspecified type R53.83 780.79 FATIGUE CBC W/DIFF AUTOMATED COMPREHENSIVE METABOLIC PANEL TSH W/REFLEX CBC W/DIFF AUTOMATED COMPREHENSIVE METABOLIC PANEL TSH W/REFLEX Recommendations and Plan: Outpatient Encounter Medications as of 10/18/2019 Medication Sig Dispense Refill ??? omeprazole 40 MG capsule Take 1 capsule (40 mg total) by mouth daily. 90 capsule 3 ??? ondansetron (ZOFRAN ODT) 4 MG disintegrating tablet Take 1 tablet (4 mg total) by mouth every 8(eight) hours as needed for Nausea. 12 tablet 0 ??? sertraline 50 MG tablet Take 2 tablets (100 mg total) by mouth daily. 60 tablet 1 ??? venlafaxine 75 MG tablet Take 1 tablet (75 mg total) by mouth 2 (two) times daily with meals. (Patient taking differently: Take 75 mg by mouth 2 (two) times daily with meals. Indications: Half tab in the morning and full tab at h.s ) 60 tablet 5 No facility-administered encounter medications on file as of 10/18/2019. Feli was seen today for depression. Diagnoses and all orders for this visit: Anxiety - CBC W/DIFF AUTOMATED; Future - COMPREHENSIVE METABOLIC PANEL; Future - TSH W/REFLEX; Future - CBC W/DIFF AUTOMATED - COMPREHENSIVE METABOLIC PANEL - TSH W/REFLEX - sertraline 50 MG tablet; Take 2 tablets (100 mg total) by mouth daily. Fatigue, unspecified type - CBC W/DIFF AUTOMATED; Future - COMPREHENSIVE METABOLIC PANEL; Future - TSH W/REFLEX; Future - CBC W/DIFF AUTOMATED - COMPREHENSIVE METABOLIC PANEL - TSH W/REFLEX Pt has not been in the office for blood work and has had to be inconsistent with taking the medication. Will start pt on sertraline 50 mg and continue to reduce the venlafaxine and increase the sertraline to 100 mg daily. Pt given written instructions and verbalized understanding. Will return in one month. Continue reduction of the Luvox 75 mg BID and has reduced morning to 37.5 and will continue reduction to 37.5 mg Continue to stage changes to every 4 to 7 days. (leave off morning one, then leave offthe night dose) Zoloft (sertraline) 50 mg take one daily x 7 days and then take two daily at bedtime. Return one month Any questions call back Try to get the labs. ERICKA MCGEE NP 10/21/2019 11:25 AM documented in this encounter Plan of Treatment Not on file documented as of this encounter Visit Diagnoses Diagnosis Anxiety- Primary Anxiety state, unspecified Fatigue, unspecified type documented in this encounter Additional Health Concerns Assessment Noted Time PHQ-9 Depression Total Score: 20 019 9:08 AM CDT documented as of this encounter Care Teams X Ray Technician Relationship Specialty Start Date End Date Ericka Mcgee NP PCP - General NURSE PRACTITIONER 09/30/18 12/31/19 documented as of this encounter
--- OUTSIDE RECORDS SUMMARY | 2024-03-06 11:06 | XMS_ITS | Encounter Summary ---
Author Organization [facility] Address [address] [place] [address]. [place] [phone] [place] [address] Care Team Providers Care Bevel Face Stoner And Polisher Name Role Phone Ericka Mcgee NP Primary Care Provider Prakash cruz Reason for Visit * Reason Comments E-Visit Patient stated she l eft work yesterday due to nausea, pressure in ears, heartburn, no cough, no fever, has green mucus she coughs up but otherwise no cough. Encounter Details Date Type Department Care Team (Late st Contact Info) Description 08/29/2019 1:40 PM CDT Telemedicine [facility] Family & Internal Medicine [address] [phone] Ericka Mcgee NP E-Visit (Patient stated she left work yesterday due to nausea, pressure in ears, heartburn, no cough, no fever, has green mucus she coughs up but otherwise no cough. ) Social History Tobacco Use Types Packs/Day [...] Sign Reading Time Taken Comments Blood Pressure 128/82 08/29/2019 12:59 PM CDT Pulse - - Temperature 36.8 ??C (98.3 ??F) 08/29/2019 12:59 PM C DT Respiratory Rate - - Oxygen Saturation - - Inhaled Oxygen Concentration - - Weight - - Height - - Body Mass Index - - documented in this encounter Patient Instructions * Patient Instructions* Ericka Mcgee NP - 08/29/2019 1:40 PM CDT Pt is going to take antibiotic Call back if more congestion. May need cough medication and possibly steroid. Monitoring for Covid symptoms, if worsens will need tested as well. Drink plenty of water 6 to 8 cups per day Take antibiotic daily as directed Use antihistamine over the counter as directed Use analgesic as directed Cough medication as directed Rest. Avoid decongestants. [facility] Needs note off from. documented in this encounter Progress Notes * Ericka Mcgee NP - 08/29/2019 1:40 PM CDT Reason for Visit: E-Visit (Patient stated she left work yesterday due to nausea, pressure in ears, heartburn, no cough, no fever, has green mucus she coughs up but otherwise no cough. ) History of Present Illness: I introduced and identified myself, received verbal consent?? from the patient to proceed with thisvideo visit and made the patient aware that the same confidentiality and fire information officer practices apply. The patient joined the video visit from Home. I completed the virtual visit from Office.The following clinical staff helped with this visit MA: Verna. Total Time Spent in Minutes: 15 Hoarseness noted at the beginning of the call noted to before 4 days congestion 3 days. Pt is having fullness in the ears and popping in the left ear. No fever, but feeling hot all the time but is checking temperature and has been normal. Pt is having occasionally diarrhea and constipation. Pt is working in [employer]. ROS: Review of Systems Constitutional: Positive for chills and fever. HENT: Positive for congestion, sinus pain and sore throat. Eyes: Negative. Respiratory: Positive for cough, sputum production and shortness of breath. Cardiovascular: Negative. Gastrointestinal: Negative. Genitourinary: Negative. Musculoskeletal: Negative. Skin: Negative. Neurological: Negative. Endo/Heme/Allergies: Negative. Psychiatric/Behavioral: Negative. Medications: Current Outpatient Medications: ??? cephALEXin 500 MG capsule, Take 1 capsule (500 mg total) by mouth 4 (four) times daily for 10 days., Disp: 40 capsule, Rfl: 0 ??? omeprazole 40 MG capsule, Take 1 capsule (40 mg total) by mouth daily., Disp: 90 capsule, Rfl: 3 ??? ondansetron (ZOFRAN ODT) 4 MG disintegrating tablet, Take 1 tablet (4 mg total) by mouth every 8 (eight) hours as needed for Nausea., Disp: 12 tablet, Rfl: 0 ??? venlafaxine 75 MG tablet, Take 1 tablet (75 mg total) by mouth 2 (two) times daily with meals.,Disp: 60 tablet, Rfl: 5 Allergies Allergen Reactions [...] file Gets together: Not on file Attends alevism service: Not on file Active member of [...] She appears well- developed and well-nourished. HENT: Right Ear: Tympanic membrane is injected, erythematous and bulging. A middle ear effusion is present. Left Ear: Tympanic membrane is injected, erythematous and bulging. A middle ear effusion is present. Nose: Mucosal edema and sinus tenderness present. Mouth/Throat: Posterior oropharyngeal erythema present. Eyes: Pupils are equal, round, and reactive to light. Right eye exhibits no discharge. Left eye exhibits no discharge. Cardiovascular: Normal rate and regular rhythm. Pulmonary/Chest: Effort normal and breath sounds normal. Abdominal: Soft. Lymphadenopathy: She has cervical adenopathy. Right cervical: Posterior cervical adenopathy present. Left cervical: Posterior cervical adenopathy present. Neurological: She is alert and oriented to person, place, and time. She has normal reflexes. Psychiatric: She has a normal mood and affect. Her behavior is normal. Filed Vitals: 08/29/19 1259 BP: 128/82 Temp: 98.3 ??F (36.8 ??C) TempSrc: Oral Assessment Encounter Diagnose(s) ICD-10-CM ICD-9-CM SNOMED CT(R) 1. Acute non-recurrent sinusitis, unspecified location J01.90 461.9 ACUTE SINUSITIS cephALEXin 500 MG capsule Recommendations and Plan: Outpatient Encounter Medications as of 08/29/2019 Medication Sig Dispense Refill ??? cephALEXin 500 MG capsule Take 1 capsule (500 mg total) by mouth 4 (four) times daily for 10 days. 40 capsule 0 ??? omeprazole 40 MG capsule Take 1 capsule (40 mg total) by mouth daily. 90 capsule 3 ??? ondansetron (ZOFRAN ODT) 4 MG disintegrating tablet Take 1 tablet (4 mg total) by mouth every 8(eight) hours as needed for Nausea. 12 tablet 0 ??? venlafaxine 75 MG tablet Take 1 tablet (75 mg total) by mouth 2 (two) times daily with meals. 60 tablet 5 No facility-administered encounter medications on file as of 08/29/2019. Feli was seen today for e-visit. Diagnoses and all orders for this visit: Acute non-recurrent sinusitis, unspecified location - cephALEXin 500 MG capsule; Take 1 capsule (500 mg total) by mouth 4 (four) times daily for 10 days. Pt will be off work until is free of symptoms for 3 days. Did not test for covid at this time but if the pt does not improve may need to have the covid testing before returning to work at [employer]. Did send excuse from work letter to her employer. Drink plenty of water 6 to 8 cups per day Take antibiotic daily as directed Use antihistamine over the counter as directed Use analgesic as directed Cough medication as directed Rest. Avoid decongestants. Call back if more congestion. May need cough medication and possibly steroid. Monitoring for Covid symptoms, if worsens will need tested ERICKA MCGEE NP 08/29/2019 10:12 PM Cosigned by Orquidea Nagy MD at 08/31/2019 11:53 AM CDT documented in this encounter Plan of Treatment Not on file documented as of this encounter Visit Diagnoses Diagnosis Acute non-recurrent sinusitis, unspecified location- Primary documented in this encounter Additional Health Concerns Assessment Noted Time PHQ-9 Depression Total Score: 20 019 9:08 AM CDT documented as of this encounter Care Teams Bevel Face Stoner And Polisher Relationship Specialty Start Date End Date Ericka Mcgee NP PCP - General NURSE PRACTITIONER 09/30/18 12/31/19 documented as of this encounter
--- OUTSIDE RECORDS SUMMARY | 2024-03-06 11:06 | XMS_ITS | Encounter Summary ---
Author Organization [facility] Address [address] [place] [address]. [place] [phone] [place] [id number] Care Team Providers Care Digital Computer Systems Analyst Name Role Phone Elizabeth Mcgee NP Primary Care Provider Prakash cruz Reason for Visit * Reason Comments URI chest heaviness, hav ing shortness of breath lately for the past 2 days Encounter Details Date Type Department Care Team (Late st Contact Info) Description 11/29/2018 5:20 PM CDT Office Visit [facility] Family & Internal Medicine [address] [phone] Elizabeth Mcgee, HAYLEY URI (chest heaviness, having shortness of breath lately for the past 2 days) Social History Tobacco Use Types Packs/Day Years Used Date Smoking Tobacco: Former Cigarettes 1 2 Smokeless Tobacco: Never Alcohol Use Standard Drinks/Week Comments No 0 (1 standard drink = 0.6 oz pur e alcohol) AUDIT-C Answer Date Recorded Frequency of Alcohol Consumption Never 09/30/2018 Average Number of Drinks Not on file 019 Frequency of Binge Drinking Not on file 09/12 Education Answer Date Recorded What is the [...] Sign Reading Time Taken Comments Blood Pressure 124/82 11/29/2018 5:16 PM CDT Pulse 80 11/29/2018 5:16 PM CDT Temperature 37.1 ??C (98.7 ??F) 11/29/2018 5:16 PM CD T Respiratory Rate 18 11/29/2018 5:16 PM CDT Oxygen Saturation 98% 11/29/2018 5:16 PM CDT Inhaled Oxygen Concentration - - Weight 127 kg (280 lb) 11/29/2018 5:16 PM CDT Height 170.2 cm (5' 7 ) 11/29/2018 5:16 PM CDT Body Mass Index 43.85 11/29/2018 5:16 PM CDT documented in this encounter Patient Instructions * Patient Instructions* Elizabeth Mcgee NP - 11/29/2018 5:20 PM CDT Drink plenty of water 6 to 8 cups per day Take antibiotic daily as directed Use antihistamine over the counter as directed Use analgesic as directed Cough medication as directed Rest. Avoid decongestants. Use steroid Medrol dose pack as directed documented in this encounter Progress Notes * Elizabeth Mcgee NP - 11/29/2018 5:20 PM CDT Reason for Visit: URI (chest heaviness, having shortness of breath lately for the past 2 days) History of Present Illness: This is a new problem of chest feeling heavy and PND, ear pressure, cough non productive. The current episode started in the past 7 days. The problem occurs intermittently. The problem has been gradually worsening. Associated symptoms include chills, congestion, coughing, fatigue, a fever and a sore throat. The symptoms are aggravated by coughing and swallowing. Pt. has tried acetaminophen, NSAIDs and increased intake of fluids for the symptoms. The treatment provided mild relief. Pt states feels that may be somewhat improved had an infection in her finger and was started on antibiotic but almost done with that. ROS: Review of Systems Constitutional: Positive for chills and fever. HENT: Positive for congestion, sinus pain and sore throat. Eyes: Negative. Respiratory: Positive for cough, sputum production and shortness of breath. Cardiovascular: Negative. Gastrointestinal: Negative. Genitourinary: Negative. Musculoskeletal: Negative. Skin: Negative. Neurological: Negative. Endo/Heme/Allergies: Negative. Psychiatric/Behavioral: Negative. Medications: Current Outpatient Medications: ??? amoxicillin-clavulanate (AUGMENTIN) 875-125 MG tablet, Take 1 tablet (875 mg total) by mouth 2 (two) times daily for 10 days., Disp: 20 tablet, Rfl: 0 ??? azithromycin (ZITHROMAX) 250 MG tablet, TAKE 2 TABS PO DAY 1 THEN 1 TABLET DAILY, Disp: 6 tablet, Rfl: 0 ??? methylPREDNISolone 4 MG tablet, Take 6 tablets the first day of daily tapering doses 5, 4, 3, 2, 1 respectively for the following days., Disp: 21 tablet, Rfl: 0 ??? omeprazole 40 MG capsule, Take 1 capsule (40 mg total) by mouth daily., Disp: 30 capsule, Rfl: 1 ??? venlafaxine 75 MG tablet, Take 1 tablet (75 mg total) by mouth 2 (two) times daily with meals for 30 days., Disp: 60 tablet, Rfl: 3 Allergies Allergen Reactions ??? Seasonal Unknown Past [...] file Gets together: Not on file Attends confucianism service: Not on file Active member of [...] affect. Her behavior is normal. Filed Vitals: 11/29/18 1716 BP: 124/82 Pulse: 80 Resp: 18 Temp: 98.7 ??F (37.1 ??C) SpO2: 98% Weight: 127 kg (280 lb) Height: 5' 7 (1.702 m) Assessment Encounter Diagnose(s) ICD-10-CM ICD-9-CM SNOMED CT(R) 1. Acute upper respiratory infection J06.9 465.9 ACUTE UPPER RESPIRATORY INFECTION omeprazole 40 MGcapsule methylPREDNISolone 4 MG tablet azithromycin (ZITHROMAX) 250 MG tablet Recommendations and Plan: Outpatient Encounter Medications as of 11/29/2018 Medication Sig Dispense Refill ??? amoxicillin-clavulanate (AUGMENTIN) 875-125 MG tablet Take 1 tablet (875 mg total) by mouth 2 (two) times daily for 10 days. 20 tablet 0 ??? azithromycin (ZITHROMAX) 250 MG tablet TAKE 2 TABS PO DAY 1 THEN 1 TABLET DAILY 6 tablet 0 ??? methylPREDNISolone 4 MG tablet Take 6 tablets the first day of daily tapering doses 5, 4, 3, 2,1 respectively for the following days. 21 tablet 0 ??? omeprazole 40 MG capsule Take 1 capsule (40 mg total) by mouth daily. 30 capsule 1 ??? venlafaxine 75 MG tablet Take 1 tablet (75 mg total) by mouth 2 (two) times daily with meals for 30 days. 60 tablet 3 No facility-administered encounter medications on file as of 11/29/2018. Feli was seen today for uri. Diagnoses and all orders for this visit: Acute upper respiratory infection - omeprazole 40 MG capsule; Take 1 capsule (40 mg total) by mouth daily. - methylPREDNISolone 4 MG tablet; Take 6 tablets the first day of daily tapering doses 5, 4, 3, 2, 1 respectively for the following days. - azithromycin (ZITHROMAX) 250 MG tablet; TAKE 2 TABS PO DAY 1 THEN 1 TABLET DAILY Pt was given the Z-pack and discussed to take it only if the symptoms were not improved after the Augmentin. Pt did not have to pick it up from the pharmacy until needed or if needed. (Fever came back, coughing became more productive, or ears began to hurt) Be off other antibiotic for at least 5 days. Steroid given for the feeling chest heaviness and not feeling like getting enough air. Pt is not wheezing at this visit but pt states at night has some wheezing when lays down in the bed. Drink plenty of water 6 to 8 cups per day Take antibiotic daily as directed Use antihistamine over the counter as directed Use analgesic as directed Cough medication as directed Rest. Avoid decongestants. Return PRN ELIZABETH MCGEE NP 11/29/2018 5:52 PM documented in this encounter Plan of Treatment Not on file documented as of this encounter Visit Diagnoses Diagnosis Acute upper respiratory infection- Primary Acute upper respiratory infections of unspecified site documented in this encounter Additional Health Concerns Assessment Noted Time PHQ-9 Depression Total Score: 019 9:08 AM CDT documented as of this encounter Care Teams Digital Computer Systems Analyst Relationship Specialty Start Date End Date Elizabeth Mcgee NP PCP - General NURSE PRACTITIONER 09/30/18 12/31/19 documented as of this encounter
--- OUTSIDE RECORDS SUMMARY | 2024-03-06 11:06 | XMS_ITS | Encounter Summary ---
Author Organization [facility] Address [address] [place] [address]. [place] [address] Care Team Providers Care Print Shop Manager Name Role Phone Unavailable Primary Care Provider Unavailabl e Encounter Details Date Type Department Care Team (Latest Contact Info) Description 01/18/2018 Scan [facility] , Generic Conversion, Social History Tobacco Use Types Packs/Day Years [...]
--- OUTSIDE RECORDS SUMMARY | 2024-03-06 11:06 | XMS_ITS | Encounter Summary ---
Author Organization [facility] Address [address] [place] [address]. [place] [address] Care Team Providers Care Commercial Lines Manager Name Role Phone Unavailable Primary Care Provider Unavailabl e Encounter Details Date Type Department Care Team (Latest Contact Info) Description 07/07/2018 Scan [facility] Scanned, Documents Social [...]
--- OUTSIDE RECORDS SUMMARY | 2024-03-06 11:06 | XMS_ITS | Encounter Summary ---
Author Organization [facility] Address [address] [place] [address]. [place] [id number] [place] [address] Care Team Providers Care Tromper Name Role Phone Unavailable Primary Care Provider Unavailabl e Encounter Details Date Type Department Care Team (Latest Contact Info) Description 06/09/2017 Abstract [facility] Social History Tobacco Use Types [...]
--- OUTSIDE RECORDS SUMMARY | 2024-03-06 11:06 | XMS_ITS | Encounter Summary ---
Author Organization [facility] Address [address] [place] [address]. [place] [id number] [place], [place] [id number] Care Team Providers Care Cashier Associate Name Role Phone Unavailable Primary Care Provider Unavailabl e Encounter Details Date Type Department Care Team (Latest Contact Info) Description 12/01/2015 Abstract [facility] , Generic Conversion, Social History [...] Procedure Name Priority Date/Time Associated Diagnosis Comments PRV ONLY-RESTING TWELVE LEAD EKG Routine 12/01/2015 12:08 PM CDT documented in this encounter Results * PRV ONLY-RESTING TWELVE LEAD EKG (12/01/2015 12:08 PM CDT) 12/01/2015 12:0 8 PM CDT 12/01/2015 12:08 PM CDT Narrative [facility] TO EPIC CONVERSION - 12/02/2015 6:27 AM CDT ?? BALA GARCIA ORDERING MD: ADILENE BUCKNER, DNP ?? ACCT: [id number] ?? ADMIT/SERVICE DATE: 12/01/15 DISCHARGE DATE: 12/01/15 ?? : 1995 PT TYPE: DEP ER ?? SEX: F ORD SITE: [facility] ?TEST DATE: ?2015-12-01 ?? PAT NAME: ? BALA WAYMOASHIA ? DEPARTMENT: CARD ?? 85 ? ROOM: ? GENDER: ? FEMALE ? FREIGHT FLAGMAN: ? : ?1995 ? REQUESTED BY: ADILENE BUCKNER ?? ORDER NUMBER: [id number] ?READING MD: ?? BECKI OROZCO ?MEASUREMENTS ?? INTERVALS ?AXIS ? RATE: ? 66 ? P: ?26 ?? NH: ? 155 ?QRS: ?99 ?? QRSD: ? 95 ? T: ?55 ?? QT: ? 368 ? QTC: ?385 ?INTERPRETIVE STATEMENTS ?? SINUS RHYTHM WITH SINUS ARRHYTHMIA ?? BORDERLINE RIGHT AXIS DEVIATION [QRS AXIS > 90] ?? NO PREVIOUS ECG AVAILABLE FOR COMPARISON ?? ELECTRONICALLY SIGNED BY BECKI OROZCO AT 12-02-15 06:25:34 CDT ? Procedure Note Julio Cesar Zambrano MD - 01/05/2018 BALA GARCIA ORDERING MD: ADILENE BUCKNERP, DNP ACCT: [id number] ADMIT/SERVICE DATE: 12/01/15 DISCHARGE DATE: 12/01/15 : 1995 PT TYPE: DEP ER SEX: F ORD SITE: [facility] TEST DATE: 2015-12-01 PAT NAME: BALA GARCIA DEPARTMENT: CARD 85 ROOM: GENDER: FEMALE FREIGHT FLAGMAN: : 1995 REQUESTED BY: ADILENE PONCE ORDER NUMBER: [id number] READING MD: BECKI OROZCO MEASUREMENTS INTERVALS AXIS RATE: 66 P: 26 NH: 155 QRS: 99 QRSD: 95 T: 55 QT: 368 QTC: 385 INTERPRETIVE STATEMENTS SINUS RHYTHM WITH SINUS ARRHYTHMIA BORDERLINE RIGHT AXIS DEVIATION [QRS AXIS > 90] NO PREVIOUS ECG AVAILABLE FOR COMPARISON ELECTRONICALLY SIGNED BY BECKI OROZCO AT 12-02-15 06:25:34 CDT us Generic Conversion Md ZAMBRANO ECHO Final R esult [facility] TO EPIC CONVERSION documented in this encounter Visit Diagnoses Not on filedocumented in this encounter
--- OUTSIDE RECORDS SUMMARY | 2024-03-06 11:06 | XMS_ITS | Encounter Summary ---
Author Organization [facility] Address [address] [place] [address]. [place] [phone] [place] [address] Care Team Providers Care Air Conditioning Equipment Mechanic Name Role Phone Ericka Mcgee NP Primary Care Provider Prakash cruz Reason for Visit * Reason Comments Lab Results 1 week f/u anxiety/d epression. Had lab work done Encounter Details Date Type Department Care Team (Late st Contact Info) Description 10/12/2018 10:20 AM CDT Office Visit [facility] Family & Internal Medicine [address] [phone] Ericka Mcgee NP Lab Results (1 week f/u anxiety/depression. Had lab work done) Social History Tobacco Use Types Packs/Day Years [...] Sign Reading Time Taken Comments Blood Pressure 126/82 10/12/2018 10:17 AM CDT Pulse 90 10/12/2018 10:17 AM CDT Temperature 37.1 ??C (98.8 ??F) 10/12/2018 10:17 AM C DT Respiratory Rate 18 10/12/2018 10:17 AM CDT Oxygen Saturation 98% 10/12/2018 10:17 AM CDT Inhaled Oxygen Concentration - - Weight 124.7 kg (275 lb) 10/12/2018 10:17 AM CDT Height 170.2 cm (5' 7 ) 10/12/2018 10:17 AM CDT Body Mass Index 43.07 10/12/2018 10:17 AM CDT documented in this encounter Patient Instructions * Patient Instructions* Ericka Mcgee NP - 10/12/2018 10:20 AM CDT Started on venlafaxine 75 mg twice a day Return in 2 weeks for follow up. Psychiatrist appointment for November 17. documented in this encounter Progress Notes * Ericka Mcgee NP - 10/12/2018 10:20 AM CDT Reason for Visit: Lab Results (1 week f/u anxiety/depression. Had lab work done) History of Present Illness: Feli was seen today for lab results and follow up on depression. She is not sleeping at night and feels that depression is getting worse. Diagnoses and all orders for this visit: Cardiac arrhythmia, unspecified cardiac arrhythmia type No issues at this time and not on any medications. Anxiety Increased anxiety and pt states that she gets stuck on a single thought for most of the day most days Fatigue, unspecified type Not sleeping well at night. Depression, unspecified depression type Pt feels like depression is getting worse. Has an appointment with psychiatrist in November. Stared on venlafaxine 75 mg bid. ROS: Review of Systems Constitutional: Negative. HENT: Negative. Eyes: Negative. Respiratory: Negative. Cardiovascular: Negative. Gastrointestinal: Negative. Genitourinary: Negative. Musculoskeletal: Negative. Skin: Negative. Neurological: Negative. Endo/Heme/Allergies: Negative. Psychiatric/Behavioral: Positive for depression. Medications: Current Outpatient Medications: ??? venlafaxine 75 MG tablet, Take 1 tablet (75 mg total) by mouth 2 (two) times daily with meals for 30 days., Disp: 60 tablet, Rfl: 0 Allergies Allergen Reactions ??? Seasonal Unknown Past [...] ??? Drug use: No ??? Sexual activity: Not on file Lifestyle ??? Physical activity: Days per week: Not on file Minutes per session: Not on file ??? Stress: Not on file Relationships ??? Social connections: Talks on phone: Not on file Gets together: Not on file Attends congregation service: Not on file Active member of [...] Cancer Paternal Grandmother ??? Diabetes Paternal Grandfather Family Status Relation Name Status ??? PGM (Not Specified) ??? PGF (Not Specified) Physical Exam Constitutional: She is oriented to person, place, and time. She appears well- developed and well-nourished. HENT: Head: Normocephalic. Mouth/Throat: Oropharynx is clear and moist. Eyes: Conjunctivae and EOM are normal. Pupils are equal, round, and reactive to light. Neck: Normal range of motion. Cardiovascular: Normal rate, regular rhythm and normal heart sounds. Pulmonary/Chest: Effort normal and breath sounds normal. Abdominal: Soft. Musculoskeletal: Normal range of motion. Neurological: She is alert and oriented to person, place, and time. Skin: Skin is warm and dry. Psychiatric: Her behavior is normal. She exhibits a depressed mood. See HPI Filed Vitals: 10/12/18 1017 BP: 126/82 Pulse: 90 Resp: 18 Temp: 98.8 ??F (37.1 ??C) TempSrc: Temporal SpO2: 98% Weight: 124.7 kg (275 lb) Height: 5' 7 (1.702 m) Assessment Encounter Diagnose(s) ICD-10-CM ICD-9-CM SNOMED CT(R) 1. Cardiac arrhythmia, unspecified cardiac arrhythmia type I49.9 427.9 CARDIAC ARRHYTHMIA 2. Anxiety F41.9 300.00 ANXIETY 3. Fatigue, unspecified type R53.83 780.79 FATIGUE 4. Depression, unspecified depression type F32.9 311 DEPRESSIVE DISORDER venlafaxine 75 MG tablet Recommendations and Plan: Outpatient Encounter Medications as of 10/12/2018 Medication Sig Dispense Refill ??? venlafaxine 75 MG tablet Take 1 tablet (75 mg total) by mouth 2 (two) times daily with meals for 30 days. 60 tablet 0 No facility-administered encounter medications on file as of 10/12/2018. Feli was seen today for lab results. Diagnoses and all orders for this visit: Cardiac arrhythmia, unspecified cardiac arrhythmia type Anxiety Fatigue, unspecified type Depression, unspecified depression type Started on venlafaxine 75 mg twice a day Return in 2 weeks for follow up. Psychiatrist appointment for November 17. ERICKA MCGEE NP 10/12/2018 11:12 AM documented in this encounter Plan of Treatment Not on file documented as of this encounter Visit Diagnoses Diagnosis Cardiac arrhythmia, unspecified cardiac arrhythmia type- Primary Anxiety Anxiety state, unspecified Fatigue, unspecified type Depression, unspecified depression type documented in this encounter Additional Health Concerns Assessment Noted Time PHQ-9 Depression Total Score: 20 019 9:08 AM CDT documented as of this encounter Care Teams Air Conditioning Equipment Mechanic Relationship Specialty Start Date End Date Ericka Mcgee, HAYLEY PCP - General NURSE PRACTITIONER 09/30/18 12/31/19 documented as of this encounter
--- OUTSIDE RECORDS SUMMARY | 2024-03-06 11:06 | XMS_ITS | Encounter Summary ---
Author Organization [facility] Address [address] [place] [address]. [place], [place] [address] [place] [address] Care Team Providers Care Refractory Grinder Operator Name Role Phone Unavailable Primary Care Provider Unavailabl e Encounter Details Date Type Department Care Team (Late st Contact Info) Description 12/01/2015 Abstract [facility] Room [id number] [place], [place] [id number] Social History Tobacco Use Types Packs/Day Years [...] of this encounter Visit Diagnoses Diagnosis Anxiety disorder Anxiety state, unspecified documented in this encounter
--- OUTSIDE RECORDS SUMMARY | 2024-03-06 11:06 | XMS_ITS | Encounter Summary ---
Author Organization [facility] Address [address] [place] [address]. 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 Went into anxiety attack and started to develop chest pain, which has improved. Patient then states she called a relative who told her to come to ER. Upon arrival, patient hyperventilating and states she can't breathe and her arms are numb. Within several minutes of slowing her breathing down, chest pain improved, breathing felt better and tingling to arms subsided. Tightness to left arm Encounter Details Date Type Department Care Team (Latest Contact Info) Description 10/27/2019 11:28 AM CDT - 10/27/2019 4:00 PM CDT Emergency [facility] Emergency Room [address] [place] [address] Thu Gloria MD [address] [place] [address] Anxiety (Patient was at work, when started feeling like her heart was racing, then started having hard time breathing. Went into anxiety attack and started to develop chest pain, which has improved. Patient then states she called a relative who told her to come to ER. Upon arrival, patient hyperventilating and states she can't breathe and her arms are numb. Within several minutes of slowing her breathing down, chest pain improved, breathing felt better and tingling to arms subsided. Tightness to left arm) Discharge Disposition: Home or Self Care (Routine [...] Sign Reading Time Taken Comments Blood Pressure 139/86 10/27/2019 3:30 PM CDT Pulse 110 10/27/2019 3:30 PM CDT Temperature 36.3 ??C (97.3 ??F) 10/27/2019 11:10 AM C DT Respiratory Rate 16 10/27/2019 3:30 PM CDT Oxygen Saturation 97% 10/27/2019 3:30 PM CDT Inhaled Oxygen Concentration - - Weight 126.1 kg (278 lb) 10/27/2019 11:10 AM CDT Height 167.6 cm (5' 6 ) 10/27/2019 11:10 AM CDT Body Mass Index 44.87 10/27/2019 11:10 AM CDT documented in this encounter Discharge Instructions * Discharge Instructions* Thu Gloria MD - 10/27/2019 3:29 PM CDT Continue to take zoloft as previously directed. If you feel very anxious, you may take xanax as prescribed for short term use only. If symptoms persist, return to the ER for recheck. * Attachments The following attachments cannot be sent through Care Everywhere. * Chest Pain That Is Not Caused by the Heart Discharge Instructions (K[place]i) * Anxiety Discharge Instructions, Adult ([place]i) documented in this encounter Medications at Time of Discharge ALPRAZolam 0.5 MG tablet Take 1 pill at onset of anxiety attack. If symptoms persist after 15 minutes, take a second tab. If symptoms continue, return to the ER. Do NOT drink alcohol or drive or operate machinery if you take this medication. 10 tablet 10/27/2019 0 omeprazole 40 MG capsuleIndications:A cute upper respiratory infection Take 1 capsule (40 mg total) by mouth daily. 90 capsule 3 02/01/2019 0 ondansetron (ZOFRAN ODT) 4 MG disintegrating tablet Take 1 tablet (4 mg total) by mouth every 8 (eight) hours as needed for Nausea. 12 tablet 03/15/2019 0 sertraline 50 MG tabletIndications:An xiety Take 2 tablets (100 mg total) by mouth daily. 60 tablet 1 10/18/2019 0 venlafaxine 75 MG tabletIndications:De pression, unspecified depression type Take 1 tablet (75 mg total) by mouth 2 (two) times daily with meals. 60 tablet 5 02/01/2019 0 documented as of this encounter ED Notes * Serenity Mattson RN - 10/27/2019 3:[address] Gloria talking with cardiology. * Serenity Mattson RN - 10/27/2019 2:20 PM CDT Patient returned from CT, states she is starting to feel like her heart is racing again. HR noted to be 110, SR. Dr. Gloria in to discuss getting repeat troponin and EKG. Patient agreeable with plan. * Janie Mercado RN - 10/27/2019 1:00 PM CDT The pt is sleeping in bed. Warm blanket placed on pt. * Thu Gloria MD - 10/27/2019 12:57 PM CDTAssociated Order(s): EKG Reading; EKG Reading ED NOTE Chief Complaint Chief Complaint Patient presents with ??? Anxiety Patient was at work, when started feeling like her heart was racing, then started having hard time breathing. Went into anxiety attack and started to develop chest pain, which has improved. Patient then states she called a relative who told her to come to ER. Upon arrival, patient hyperventilating and states she can't breathe and her arms are numb. Within several minutes of slowing her breathing down, chest pain improved, breathing felt better and tingling to arms subsided. Tightness to left arm History of Present Illness Feli Garcia is a 24-year-old female who presents today for evaluation of palpitations, hyperventilating, numb upper extremities and cp. Had stopped effexor 2 weeks ago. Was not feeling well on medand was taking it irregularly. Now on zoloft 10 mg. Ericka Barrow NP is her primary provider. Has h/o panic attacks. No prior attack lasting this long. Pt recalls having a nightmare last night and waking up screaming. No known new stress in life. Lives with her girlfriend/fiance. 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 Pt's mother had h/o dvt during tx for cancer. No known Covid 19 exposures. Medical History PAST MEDICAL HISTORY: Past Medical History: Diagnosis Date ??? Anxiety ??? Depression PAST SURGICAL HISTORY: Past Surgical History: Procedure Laterality Date ??? NONE FAMILY HISTORY: Family History Problem Relation Name Age of Onset ??? Lung Cancer Paternal Grandmother ??? Diabetes Paternal Grandfather ??? Hypertension Mother ??? Other (blood clot history) Mother MEDICATIONS: Prior to Admission medications Medication Sig Start Date End Date Taking? Authorizing Provider ALPRAZolam 0.5 MG tablet Take 1 pill at onset of anxiety attack. If symptoms persist after 15 minutes, take a second tab. If symptoms continue, return to the ER. Do NOT drink alcohol or drive or operate machinery if you take this medication. 10/27/19 Yes Herb Gloria MD omeprazole 40 MG capsule Take 1 capsule (40 mg total) by mouth daily. 02/01/19 Yes Ericka Ward NP ondansetron (ZOFRAN ODT) 4 MG disintegrating tablet Take 1 tablet (4 mg total) by mouth every 8 (eight) hours as needed for Nausea. 03/15/19 Yes Esau Herrera MD sertraline 50 MG tablet Take 2 tablets (100 mg total) by mouth daily. Patient taking differently: Take 50 mg by mouth daily. 10/18/19 Yes Ericka Ward NP venlafaxine 75 MG tablet Take 1 tablet (75 mg total) by mouth 2 (two) times daily with meals. Patient taking differently: Take 75 mg by mouth 2 (two) times daily with meals. Indications: Half tab in the morning and full tab at h.s 02/01/19 Yes Ericka Ward NP ALLERGIES: Allergies Allergen Reactions ??? Seasonal Unknown SOCIAL HISTORY: Social History Tobacco Use ??? Smoking status: Current Every Day Smoker Packs/day: 1.00 Years: 2.00 Pack years: 2.00 Types: Cigarettes ??? Smokeless tobacco: Never Used Substance Use Topics ??? Alcohol use: No Frequency: Never ??? Drug use: No Review of Systems Review of Systems Constitutional: Positive for malaise/fatigue. Negative for chills and fever. HENT: Negative for ear pain, sinus pain and sore throat. Eyes: Negative. Respiratory: Positive for shortness of breath. Negative for cough, hemoptysis, sputum production and wheezing. Cardiovascular: Positive for chest pain and palpitations. Negative for orthopnea, claudication, legswelling and PND. Gastrointestinal: Negative for abdominal pain, constipation, diarrhea, nausea and vomiting. Genitourinary: Negative. Musculoskeletal: Negative. Neurological: Positive for sensory change. Negative for speech change, focal weakness and headaches. Weakness: generalized. Psychiatric/Behavioral: Positive for depression. Negative for substance abuse. The patient is nervous/anxious. Physical Exam Filed Vitals: 10/27/19 1300 10/27/19 1430 10/27/19 1500 10/27/19 1530 BP: 122/84 140/89 (!) 142/92 139/86 Pulse: 116 104 106 110 Resp: 21 18 18 16 Temp: TempSrc: SpO2: 99% 100% 100% 97% Weight: Height: ED Triage Vitals [10/27/19 1110] Enc Vitals Group BP (!) 124/94 Pulse 115 Resp 20 Temp 97.3 ??F (36.3 ??C) Temp src Oral SpO2 99 % Weight 278 lb (126.1 kg) Height 5' 6 (1.676 m) Head Circumference Peak Flow Pain Score Pain Loc Pain Edu? Excl. in GC? Physical Exam Constitutional: She is oriented to person, place, and time. She appears well- developed and well-nourished. She appears distressed. HENT: Head: Normocephalic and atraumatic. Right Ear: External ear normal. Left Ear: External ear normal. Mouth/Throat: Oropharynx is clear and moist. Eyes: Pupils are equal, round, and reactive to light. Conjunctivae and EOM are normal. Right eye exhibits no discharge. Left eye exhibits no discharge. Neck: Normal range of motion. Neck supple. Cardiovascular: Regular rhythm, normal heart sounds and intact distal pulses. No murmur heard. tachycardia Pulmonary/Chest: Effort normal and breath sounds normal. Abdominal: Soft. Bowel sounds are normal. She exhibits no distension and no mass. There is no tenderness. There is no rebound and no guarding. Musculoskeletal: She exhibits no edema, tenderness or deformity. Lymphadenopathy: She has no cervical adenopathy. Neurological: She is alert and oriented to person, place, and time. No cranial nerve deficit. Coordination normal. Skin: Skin is warm and dry. Psychiatric: Her behavior is normal. Judgment and thought content normal. Anixous, hyperventilating Nursing note and vitals reviewed. Diagnostic Studies / Procedures ELECTROCARDIOGRAMS: Results for orders placed or performed during the hospital encounter of 10/27/19 ECG 12 lead Narrative [facility] Test Date: 2019-10-27 Pat Name: [facility] Department: Room: EXAM 101 Gender: Female Pipelines Supervisor: MYRIAM : 1995 Requested By: THU GLORIA Order Number: [id number] Reading MD: Derrick Horta MD Measurements Intervals [place] Rate: 96 P: 32 VA: 152 QRS: 97 QRSD: 120 T: 95 QT: 330 QTc: 419 Interpretive Statements SINUS RHYTHM BORDERLINE RIGHT AXIS DEVIATION [QRS AXIS > 90] MODERATE INTRAVENTRICULAR CONDUCTION DELAY [110+ ms QRS DURATION] NONSPECIFIC T-WAVE ABNORMALITY Compared to ECG 12/01/2015 12:08:52 Intraventricular conduction delay now present T-wave abnormality now present Sinus arrhythmia no longer present ECG 12 lead Narrative [facility] Test Date: 2019-10-27 Pat Name: [facility] Department: Room: EXAM 101 Gender: Female Pipelines Supervisor: MYRIAM : 1995 Requested By: THU GLORIA Order Number: [id number] Reading MD: Derrick Horta MD Measurements Intervals [place] Rate: 103 P: 39 VA: 149 QRS: 105 QRSD: 134 T: 22 QT: 305 QTc: 400 Interpretive Statements SINUS TACHYCARDIA POSSIBLE LEFT ATRIAL ENLARGEMENT [-0.1mV P WAVE IN V1/V2] MARKED RIGHT AXIS DEVIATION [QRS AXIS > 100] INTRAVENTRICULAR CONDUCTION DELAY [130+ ms QRS DURATION] Compared to ECG 10/27/2019 11:38:58 Sinus rhythm no longer present T-wave abnormality no longer present LABORATORY STUDIES: Results for orders placed or performed during the hospital encounter of 10/27/19 CBC W/DIFF AUTOMATED Result Value Ref Range WBC 11.8 (H) 4.8 - 10.8 x10'3/uL RBC 4.65 4.10 - 5.10 x10'6/uL HGB 12.7 12.0 - 16.0 G/DL HCT 37.6 36 - 46 % MCV 80.9 80 - 100 FL MCH 27.3 26.0 - 34.0 PG MCHC 33.8 31.0 - 37.0 G/DL RDW 15.0 (H) 11.5 - 14.5 % PLT 502 (H) 150 - 350 x10'3/uL CBC COMMENT AUTOMATED RBC MORPHOLOGY AND PLATELET EVALUATION NORMAL NEUTROPHILS 68.3 50 - 70 % LYMPHOCYTES 27.0 18 - 42 % MONOCYTES 4.1 2.0 - 11.0 % EOSINOPHILS 0.3 (L) 1.0 - 3.0 % BASOPHILS 0.3 0.0 - 1.0 % ABS. NEUTROPHILS TOTAL 8.08 (H) 1.69 - 7.81 x10'3/uL COMPREHENSIVE METABOLIC PANEL Result Value Ref Range GLUCOSE 129 (H) 70 - 99 MG/DL BUN 13 7 - 18 MG/DL CREATININE S/P/B 0.84 0.55 - 1.02 MG/DL SODIUM 136 136 - 145 MMOL/L POTASSIUM 3.7 3.5 - 5.1 MMOL/L CHLORIDE S/P/B 102 100 - 108 MMOL/L CO2 17.6 (L) 21 - 32 MMOL/L CALCIUM 9.2 8.5 - 10.1 MG/DL BILIRUBIN TOTAL S/P/B 0.3 0.2 - 1.2 MG/DL TOTAL PROTEIN S/P/B 8.0 6.4 - 8.2 G/DL ALBUMIN S/P/B 4.1 3.4 - 5.0 G/DL AST 25 15 - 37 U/L ALT 53 14 - 55 U/L ALKALINE PHOSPHATASE S/P/B 77 50 - 136 U/L ANION GAP 16.4 (H) 5 - 15 MMOL/L BUN CREATININE RATIO 15.5 6 - 26 A/G RATIO 1.1 1.0 - 2.0 RATIO eGFR Non-Afr. Amer. >90 >90 ML/MIN/1.73 M2 eGFR Afr. Amer. >90 >90 ML/MIN/1.73 M2 D-DIMER, QUANTITATIVE Result Value Ref Range D-DIMER 399 0 - 500 ng[FEU]/mL TROPONIN, QUANT Result Value Ref Range TROPONIN I <0.017 0.000 - 0.056 ng/mL. TROPONIN, QUANT Result Value Ref Range TROPONIN I <0.017 0.000 - 0.056 ng/mL. IMAGING STUDIES XR CHEST PA+LAT Final Result by User, [email or web address] (10/26 1420) Examination: Chest x-ray 2 view Exam Date/Time: 10/27/2019 1:54 PM Reason For Exam: cp Chest pains, numbness in the arms Comparison: None Technique: PA and lateral views of the chest were obtained. Findings: Heart size normal. Pulmonary vasculature within normal limits. No large pleural effusion or pneumothorax. No focal infiltrate or consolidation. ======== IMPRESSION: ======== 1. No acute cardiopulmonary findings. Interpreted By: Esau Romo MD, 10/27/2019 2:20 PM EKG Reading Date/Time: 10/28/2019 11:38 AM Performed by: Thu Gloria MD Authorized by: Thu Gloria MD Interpreted by ED physician Rhythm: sinus rhythm Rate: tachycardic QRS axis: right ST Segments: ST segments normal T flattening: aVR, V3, V4, V5 and V6 Other: no other findings Clinical impression: non-specific ECG EKG Reading Date/Time: 10/28/2019 2:35 PM Performed by: Thu Gloria MD Authorized by: Thu Gloria MD Interpreted by ED physician Rhythm: sinus tachycardia Rate: tachycardic QRS axis: right Conduction: conduction normal ST Segments: ST segments normal T flattening: aVR, V3, V4, V5 and V6 Clinical impression: non-specific ECG ED Course / Medical Decision Making MDM Number of Diagnoses or Management Options Chest pain: Panic attack: Diagnosis management comments: 24 year old female presents with tachycardia, hyperventilation, paresthesias and cp. Pt able to slow breathing and hr to less than 100 with guided breathing techniques.CP and paresthesias resolved as well. Ddx: Pain attack, acs, pe, aortic dissection, other. Contacted Erendira in cardiology office and she reviewed ekg with Dr. Turk. Qrs widening overread bycomputer. Stable for discharge to home. Rescue xanax prescribed for short term use for panic attacks. Return precautions reviewed. Medications LORazepam (ATIVAN) injection 1 mg (1 mg Intravenous Given 10/27/19 1141) Clinical Impression Chest pain (Primary) Panic attack Disposition: Discharge Discharge Medication List as of 10/27/2019 3:44 PM START taking these medications Details ALPRAZolam 0.5 MG tablet Take 1 pill at onset of anxiety attack. If symptoms persist after 15 minutes, take a second tab. If symptoms continue, return to the ER. Do NOT drink alcohol or drive or operate machinery if you take this medication., Print Class: Print Pharmacy: [facility] [address] [place] [address] [address] (Ph #: [phone]) Follow-up: Ericka Ward, SOFTWARE PROJECT MANAGER [id number] [facility] [address] Thu Gloria MD 10/28/2019 08:17 Thu Gloria MD 10/28/19 0817 * Serenity Mattson RN - 10/27/2019 11:[address] Gloria at bedside, updated on patient c/o. Patient began hyperventilating again. She states to the doctor that she woke up this morning feeling anxious and had to work on her breathing throughoutthe morning. Was having nightmares through the night last night. Patient also states she quit taking her effexor approx 2 weeks ago because she didn't like the way it made her feel. And recently began smoking again after stopping for 3 years. 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 documented in this encounter Plan of Treatment Not on file documented as of this encounter Procedures Procedure Name Priority Date/Time Associated Diagnosis Comments ECG 12-LEAD STAT 10/27/2019 2:35 PM CDT XR CHEST PA+LAT STAT 10/27/2019 2:21 PM CDT TROPONIN, QUANT STAT 10/27/2019 2:20 PM CDT ELECTROCARDIOGRAM REPORT Routine 08/14/2 020 12:57 PM CDT ELECTROCARDIOGRAM REPORT Routine 12:57 PM CDT ECG 12-LEAD STAT 10/27/2019 11:38 AM CDT COMPREHENSIVE METABOLIC PANEL STAT 10/27/2019 11:20 AM CDT D-DIMER, QUANTITATIVE STAT 10/27/2019 11:20 AM CDT CBC W/DIFF AUTOMATED STAT 10/27/2019 11:20 AM CDT TROPONIN, QUANT Routine 10/27/2019 11:20 AM CDT documented in this encounter Results * ECG 12 lead (10/27/2019 2:35 PM CDT) 10/27/2019 2:[address] [facility] - 10/28/2019 7:03 AM CDT ? [facility] ? Test Date: ?2019-10-27 Pat Name: ? FELI GARCIA ? Department: ? Room: ? EXAM 101 Gender: ? Female ? Pipelines Supervisor: ?? BS : ?1995 ? Requested By: THU GLORIA Order Number: [id number] ? Reading MD: ?? Derrick Horta MD ? Measurements Intervals ?[place] ? Rate: ? 103 ?P: ?39 VA: ? 149 ?QRS: ?105 QRSD: ? 134 ?T: ?22 QT: ? 305 ? QTc: ?400 ? Interpretive Statements SINUS TACHYCARDIA POSSIBLE LEFT ATRIAL ENLARGEMENT [-0.1mV P WAVE IN V1/V2] MARKED RIGHT AXIS DEVIATION [QRS AXIS > 100] INTRAVENTRICULAR CONDUCTION DELAY [130+ ms QRS DURATION] Compared to ECG 10/27/2019 11:38:58 Sinus rhythm no longer present T-wave abnormality no longer present Procedure Note Derrick Horta MD - 10/28/2019 [facility] Test Date: 2019-10-27 Pat Name: FELI GARCIA Department: Room: EXAM 101 Gender: Female Pipelines Supervisor: MYRIAM : 1995 Requested By: THU GLORIA Order Number: [id number] Reading MD: Derrick Horta MD Measurements Intervals [place] Rate: 103 P: 39 VA: 149 QRS: 105 QRSD: 134 T: 22 QT: 305 QTc: 400 Interpretive Statements SINUS TACHYCARDIA POSSIBLE LEFT ATRIAL ENLARGEMENT [-0.1mV P WAVE IN V1/V2] MARKED RIGHT AXIS DEVIATION [QRS AXIS > 100] INTRAVENTRICULAR CONDUCTION DELAY [130+ ms QRS DURATION] Compared to ECG 10/27/2019 11:38:58 Sinus rhythm no longer present T-wave abnormality no longer present us Thu Gloria MD ECG ORDERABLES Final Result Performing Organization Address City/State/[facility] Co de Phone Number [facility] * XR CHEST PA+LAT (10/27/2019 2:21 PM CDT) Anatomical Region Laterality Modality Chest Radiographic Bailey ging 10/27/2019 2:20 PM CDT Impressions 10/27/2019 2:20 PM CDT ======== IMPRESSION: ======== 1. ??No acute cardiopulmonary findings. Interpreted By: Esau Romo MD, 10/27/2019 2:20 PM Narrative 10/27/2019 2:20 PM CDT Examination: Chest x-ray 2 view Exam Date/Time: 10/27/2019 1:54 PM Reason For Exam: ??cp ? Chest pains, numbness in the arms Comparison: None Technique: PA and lateral views of the chest were obtained. Findings: Heart size normal. Pulmonary vasculature within normal limits. No large pleural effusion or pneumothorax. No focal infiltrate or consolidation. Procedure Note Esau Romo MD - 10/27/2019 Examination: Chest x-ray 2 view Exam Date/Time: 10/27/2019 1:54 PM Reason For Exam: cp Chest pains, numbness in the arms Comparison: None Technique: PA and lateral views of the chest were obtained. Findings: Heart size normal. Pulmonary vasculature within normal limits.No large pleural effusion or pneumothorax. No focal infiltrate or consolidation. ======== IMPRESSION: ======== 1. No acute cardiopulmonary findings. Interpreted By: Esau Romo MD, 10/27/2019 2:20 PM Thu Gloria MD GENERAL IMAGING Final Result * TROPONIN, QUANT (10/27/2019 2:20 PM CDT) TROPONIN I <0.017 0.000 - 0.056 ng/mL. 10/27/2019 3:10 PM CDT [facility] Comment: NORMAL: LESS THAN OR EQUAL TO 0.056 NG/ML INDETERMINATE ZONE: 0.056 TO 0.599 NG/ML CONDITIONS RESULTING IN MYOCARDIAL CELL DAMAGE CAN POTENTIALLY INCREASE LEVELS ABOVE THE EXPECTED RANGE. HIGH DOSES OF BIOTIN MAY INTERFERE WITH THIS TEST RESULT. CORRELATION TO CLINICAL HISTORY AND PRESENTATION RECOMMENDED. 10/27/2019 2:20 PM CDT Thu Gloria MD LABORATORY Final Result [facility] [address] [place] [address], [place] [phone] * EKG Reading (10/27/2019 12:57 PM CDT) Narrative Thu Gloria MD - 10/27/2019 12:57 PM CDT Thu Gloria MD ? 10/28/2019 ??8:17 AM EKG Reading Date/Time: 10/28/2019 2:35 PM Performed by: Thu Gloria MD Authorized by: Thu Gloria MD Interpreted by ED physician Rhythm: sinus tachycardia Rate: tachycardic QRS axis: right Conduction: conduction normal ST Segments: ST segments normal T flattening: aVR, V3, V4, V5 and V6 Clinical impression: non-specific ECG us Thu Gloria MD [facility] Final Result * EKG Reading (10/27/2019 12:57 PM CDT) Narrative Thu Gloria MD - 10/27/2019 12:57 PM CDT Thu Gloria MD ? 10/28/2019 ??8:17 AM EKG Reading Date/Time: 10/28/2019 11:38 AM Performed by: Thu Gloria MD Authorized by: Thu Gloria MD Interpreted by ED physician Rhythm: sinus rhythm Rate: tachycardic QRS axis: right ST Segments: ST segments normal T flattening: aVR, V3, V4, V5 and V6 Other: no other findings Clinical impression: non-specific ECG us Thu Gloria MD [facility] Final Result * ECG 12 lead (10/27/2019 11:38 AM CDT) 10/27/2019 11:[address] [facility] - 10/28/2019 7:02 AM CDT ? [facility] ? Test Date: ?2019-10-27 Pat Name: ? FELI MADYSONAKASHIA ? Department: ? Room: ? EXAM 101 Gender: ? Female ? Pipelines Supervisor: ?? BS : ?1995 ? Requested By: THU GLORIA Order Number: [id number] ? Reading MD: ?? Derrick Neighbors, MD ? Measurements Intervals ?[place] ? Rate: ? 96 ? P: ?32 VA: ? 152 ?QRS: ?97 QRSD: ? 120 ?T: ?95 QT: ? 330 ? QTc: ?419 ? Interpretive Statements SINUS RHYTHM BORDERLINE RIGHT AXIS DEVIATION [QRS AXIS > 90] MODERATE INTRAVENTRICULAR CONDUCTION DELAY [110+ ms QRS DURATION] NONSPECIFIC T-WAVE ABNORMALITY Compared to ECG 12/01/2015 12:08:52 Intraventricular conduction delay now present T-wave abnormality now present Sinus arrhythmia no longer present Procedure Note Derrick Horta MD - 10/28/2019 [facility] Test Date: 2019-10-27 Pat Name: FELI GARCIA Department: Room: EXAM 101 Gender: Female Pipelines Supervisor: MYRIAM : 1995 Requested By: THU GLORIA Order Number: [id number] Reading MD: Derrick Horta MD Measurements Intervals [place] Rate: 96 P: 32 VA: 152 QRS: 97 QRSD: 120 T: 95 QT: 330 QTc: 419 Interpretive Statements SINUS RHYTHM BORDERLINE RIGHT AXIS DEVIATION [QRS AXIS > 90] MODERATE INTRAVENTRICULAR CONDUCTION DELAY [110+ ms QRS DURATION] NONSPECIFIC T-WAVE ABNORMALITY Compared to ECG 12/01/2015 12:08:52 Intraventricular conduction delay now present T-wave abnormality now present Sinus arrhythmia no longer present us Thu Gloria MD ECG ORDERABLES Final Result [facility] * TROPONIN, QUANT (10/27/2019 11:20 AM CDT) TROPONIN I <0.017 0.000 - 0.056 ng/mL. 10/27/2019 1:34 PM CDT [facility] Comment: NORMAL: LESS THAN OR EQUAL TO 0.056 NG/ML INDETERMINATE ZONE: 0.056 TO 0.599 NG/ML CONDITIONS RESULTING IN MYOCARDIAL CELL DAMAGE CAN POTENTIALLY INCREASE LEVELS ABOVE THE EXPECTED RANGE. HIGH DOSES OF BIOTIN MAY INTERFERE WITH THIS TEST RESULT. CORRELATION TO CLINICAL HISTORY AND PRESENTATION RECOMMENDED. 10/27/2019 11:2 0 AM CDT us Thu Gloria MD LABORATORY Final Result [facility] [address] [place] [address], [place] [phone] * D-DIMER, QUANTITATIVE (10/27/2019 11:20 AM CDT) D-DIMER 399 0 - 500 ng{FEU}/mL 10/27/2019 11:49 AM CDT [facility] 10/27/2019 11:2 0 AM CDT Thu Gloria MD LABORATORY Final Result Performing Organization Address City/[facility]/ZIP Co de Phone Number [facility] [address] [place] [address], [place] [phone] * (ABNORMAL) COMPREHENSIVE METABOLIC PANEL (10/27/2019 11:20 AM CDT) GLUCOSE 129(H) 70 - 99 MG/DL 10/27/2019 11:55 AM CDT [facility] BUN 13 7 - 18 MG/DL 10/27/2019 11:55 AM CDT [facility] CREATININE S/P/B 0.84 0.55 - 1.02 MG/DL 10/27/2019 11:55 AM CDT [facility] SODIUM S/P/B 136 136 - 145 MMOL/L 10/27/2019 11:55 AM CDT [facility] [facility] POTASSIUM S/P/B 3.7 3.5 - 5.1 MMOL/L 10/27/2019 11:55 AM CDT [facility] CHLORIDE S/P/B 102 100 - 108 MMOL/L 10/27/2019 11:55 AM CDT [facility] CO2 17.6(L) 21 - 32 MMOL/L 10/27/2019 11:55 AM [facility] CALCIUM S/P/B 9.2 8.5 - 10.1 MG/DL 10/27/2019 11:55 AM [facility] BILIRUBIN TOTAL S/P/B 0.3 0.2 - 1.2 MG/DL 10/27/2019 11:55 AM [facility] Comment: THIS ASSAY IS NOT RECOMMENDED FOR PATIENTS UNDERGOING TREATMENT WITH ELTROMBOPAG DUE TO THE POTENTIAL FOR FALSELY ELEVATED RESULTS. TOTAL PROTEIN S/P/B 8.0 6.4 - 8.2 G/DL 10/27/2019 11:55 AM [facility] ALBUMIN S/P/B 4.1 3.4 - 5.0 G/DL 10/27/2019 11:55 AM [facility] AST 25 15 - 37 U/L 10/27/2019 11:55 AM [facility] ALT 53 14 - 55 U/L 10/27/2019 11:55 AM [facility] ALKALINE PHOSPHATASE S/P/B 77 50 - 136 U/L 10/27/2019 11:55 AM [facility] ANION GAP 16.4(H) 5 - 15 MMOL/L 10/27/2019 11:55 AM [facility] BUN CREATININE RATIO 15.5 6 - 26 10/27/2019 11:55 AM [facility] A/G RATIO 1.1 1.0 - 2.0 RATIO 10/27/2019 11:55 AM [facility] EGFR NON-AFR. AMER. >90 >90 ML/MIN/1.7 3 M2 10/27/2019 11:55 AM [facility] EGFR AFR. AMER. >90 >90 ML/MIN/1.7 3 M2 10/27/2019 11:55 AM CDT [facility] Comment: NOTE: eGFR is not calculated for patients <18 years of age. This is an estimated GFR (CKD EPI) and should not be used for calculating drug doses. 10/27/2019 11:2 0 AM CDT Thu Gloria MD LABORATORY Final Result [facility] [address] [place] [address], [place] [phone] * (ABNORMAL) CBC W/DIFF AUTOMATED (10/27/2019 11:20 AM CDT) WBC 11.8(H) 4.8 - 10.8 x10'3/uL 10/27/2019 11:45 AM CDT [facility] RBC 4.65 4.10 - 5.10 x10'6/uL 10/27/2019 11:45 AM CDT [facility] HGB 12.7 12.0 - 16.0 G/DL 10/27/2019 11:45 AM T [facility] HCT 37.6 36 - 46 % 10/27/2019 11:45 AM CDT [facility] MCV 80.9 80 - 100 FL 10/27/2019 11:45 AM CDT [facility] MCH 27.3 26.0 - 34.0 PG 10/27/2019 11:45 AM CDT [facility] MCHC 33.8 31.0 - 37.0 G/DL 10/27/2019 11:45 AM CDT [facility] RDW 15.0(H) 11.5 - 14.5 % 10/27/2019 11:45 AM CDT [facility] PLT 502(H) 150 - 350 x10'3/uL 10/27/2019 11:45 AM CDT [facility] CBC COMMENT AUTOMATED RBC MORPHOLOGY AND PLATELET EVALUATION NORMAL 10/27/2019 11:45 AM CDT [facility] NEUTROPHILS % 68.3 50 - 70 % 10/27/2019 11:45 AM CDT [facility] LYMPHOCYTES % 27.0 18 - 42 % 10/27/2019 11:45 AM CDT [facility] MONOCYTES % 4.1 2.0 - 11.0 % 10/27/2019 11:45 AM CDT [facility] EOSINOPHILS 0.3(L) 1.0 - 3.0 % 10/27/2019 11:45 AM CDT [facility] BASOPHILS 0.3 0.0 - 1.0 % 10/27/2019 11:45 AM CDT [facility] ABS. NEUTROPHILS TOTAL 8.08(H) 1.69 - 7.81 x10'3/uL 10/27/2019 11:45 AM T [facility] 10/27/2019 11:2 0 AM CDT Thu Gloria MD LABORATORY Final Result [facility] [address] [id number], [place] [phone] documented in this encounter Visit Diagnoses Diagnosis Chest pain- Primary Chest pain, unspecified Panic attack Panic disorder without agoraphobia documented in this encounter Administered Medications Inactive Administered Medications - up to 3 most recent administrations Medication Order MAR Action Action Date Dose Rate Site LORazepam (ATIVAN) injection 1 mg 1 mg, Intravenous, Once, 1 dose, On Wed10/27/19 at 1130, For IV use, further dilute with an equal volume of saline. Do not exceed a rate of 2 mg/min. Given 10/27/2019 11:41 AM CDT 1 mg documented in this encounter Active and Recently Administered Medications Times are shown in CDT. Scheduled Medication Order 10/25/2019 10/26/2019 10/27/2019 LORazepam (ATIVAN) injection 1 mg (COMPLETED) 1 mg, Intravenous, Once, 1 dose, On Wed10/27/19 at 1130, For IV use, further dilute with an equal volume of saline. Do not exceed a rate of 2 mg/min. 1141 (Given - Provid er: Serenity Mattson RN) documented in this encounter Additional Health Concerns Assessment Noted Time PHQ-9 Depression Total Score: 20 019 9:08 AM CDT documented as of this encounter Care Teams Environment Friendly Landscape Designer Relationship Specialty Start Date End Date Ericka Ward NP PCP - General NURSE PRACTITIONER 09/30/18 12/31/19 documented as of this encounter
--- OUTSIDE RECORDS SUMMARY | 2024-03-06 11:06 | XMS_ITS | Encounter Summary ---
Author Organization [facility] Address [address] [place] [address]. [place] [address] Care Team Providers Care Manager Metal Name Role Phone Ericka Mcgee NP Primary Care Provider Prakash cruz Reason for Visit * Reason Comments Medication Management 2 week follow up. Started Venlafaxine 75mg BID. Pt states she feels better; she is very happy with the dosage. She is unsure if she is going to keep the appt with Psych Encounter Details Date Type Department Care Team (Late st Contact Info) Description 11/02/2018 8:40 AM CDT Office Visit [facility] Internal Medicine [address] [address] Ericka Mcgee, HAYLEY Medication Management (2 week follow up. Started Venlafaxine 75mg BID. Pt states she feels better; she is very happy with the dosage. She is unsure if she is going to keep the appt with Psych) Social History Tobacco Use Types Packs/Day Years [...] Sign Reading Time Taken Comments Blood Pressure 128/90 11/02/2018 9:00 AM CDT Pulse 90 11/02/2018 9:00 AM CDT Temperature 36.8 ??C (98.2 ??F) 11/02/2018 9:00 AM CD T Respiratory Rate 18 11/02/2018 9:00 AM CDT Oxygen Saturation 97% 11/02/2018 9:00 AM CDT Inhaled Oxygen Concentration - - Weight 126 kg (277 lb 12.8 oz) 11/02/2018 9:00 A M CDT Height 170.2 cm (5' 7 ) 11/02/2018 9:00 AM CDT Body Mass Index 43.51 11/02/2018 9:00 AM CDT documented in this encounter Patient Instructions * Patient Instructions* Ericka Mcgee NP - 11/02/2018 8:40 AM CDT Follow up in 3 months Call and make an appointment with timber setter for a pap test and STD testing. documented in this encounter Progress Notes * Ericka Mcgee NP - 11/02/2018 8:40 AM CDT b Reason for Visit: Medication Management (2 week follow up. Started Venlafaxine 75mg BID. Pt states she feels better; she is very happy with the dosage. She is unsure if she is going to keep the appt with Psych) History of Present Illness: Feli presented today for follow up on starting the venlafaxine 75 mg bid for anxiety and depression. No other complaints at this time. Diagnoses and all orders for this visit: Anxiety Feeling much better has not noticed anxiety since about a week after starting medication. Fatigue, unspecified type Sleeping better. Depression, unspecified depression type Feeling better since starting venlafaxine. Pt states that she has not been yelling as much and has been happier. Pt states that her girlfriend has also noticed a change in her mood and anxiety. ROS: Review of Systems Constitutional: Negative. HENT: Negative. Eyes: Negative. Respiratory: Negative. Cardiovascular: Negative. Gastrointestinal: Negative. Genitourinary: Negative. Musculoskeletal: Negative. Skin: Negative. Neurological: Negative. Endo/Heme/Allergies: Negative. Psychiatric/Behavioral: Negative. Pt is feeling much better at this time. Medications: Current Outpatient Medications: ??? venlafaxine 75 [...] file Gets together: Not on file Attends pentecostalism service: Not on file Active member of [...] affect. Her behavior is normal. Filed Vitals: 11/02/18 0900 BP: 128/90 Pulse: 90 Resp: 18 Temp: 98.2 ??F (36.8 ??C) TempSrc: Temporal SpO2: 97% Weight: 126 kg (277 lb 12.8 oz) Height: 5' 7 (1.702 m) Assessment Encounter Diagnose(s) ICD-10-CM ICD-9-CM SNOMED CT(R) 1. Anxiety F41.9 300.00 ANXIETY 2. Fatigue, unspecified type R53.83 780.79 FATIGUE 3. Depression, unspecified depression type F32.9 311 DEPRESSIVE DISORDER Recommendations and Plan: Outpatient Encounter Medications as of 11/02/2018 Medication Sig Dispense Refill ??? venlafaxine 75 MG tablet Take 1 tablet (75 mg total) by mouth 2 (two) times daily with meals for 30 days. 60 tablet 0 No facility-administered encounter medications on file as of 11/02/2018. Feli was seen today for medication management. Diagnoses and all orders for this visit: Anxiety Feeling much better at this time. Will continue with the current plan. Pt is taking Venlafaxine 75 mg bid. Follow up in 3 months. Fatigue, unspecified type Sleeping better. Will continue current plan of care Depression, unspecified depression type Feeling much better at this time. Will continue with the current plan. Pt is taking Venlafaxine 75 mg bid. Follow up in 3 months. Follow up in 3 months Call and make an appointment with timber setter for a pap test and STD testing. ERICKA MCGEE NP 11/02/2018 9:16 AM documented in this encounter Plan of Treatment Not on file documented as of this encounter Visit Diagnoses Diagnosis Anxiety- Primary Anxiety state, unspecified Fatigue, unspecified type Depression, unspecified depression type documented in this encounter Additional Health Concerns Assessment Noted Time PHQ-9 Depression Total Score: 20 019 9:08 AM CDT documented as of this encounter Care Teams Manager Metal Relationship Specialty Start Date End Date Ericka Mcgee NP PCP - General NURSE PRACTITIONER 09/30/18 12/31/19 documented as of this encounter
--- OUTSIDE RECORDS SUMMARY | 2024-03-06 11:06 | XMS_ITS | Encounter Summary ---
Author Organization [facility] Address [address] [place] [address]. [place], [place] [id number] [place] [id number] Care Team Providers Care Paper Handler Name Role Phone Unavailable Primary Care Provider Unavailabl e Encounter Details Date Type Department Care Team (Late st Contact Info) Description 05/11/2017 Abstract [facility] [address] [place] [address] Cher Nieves, PLASTERER [place] [facility] [address] [facility] [address] [address] Social History Tobacco Use Types Packs/Day Years [...] as of this encounter Visit Diagnoses Diagnosis Laceration of left thumb without foreign body without damage to nail Open wound of finger(s) , without mention of complication documented in this encounter
--- OUTSIDE RECORDS SUMMARY | 2024-03-06 11:06 | XMS_ITS | Encounter Summary ---
Author Organization [facility] Address [address] [place] [address]. [place], [place] [id number] [place] [address] Care Team Providers Care Assistant To The President Name Role Phone Unavailable Primary Care Provider Unavailabl e Encounter Details Date Type Department Care Team (Late st Contact Info) Description 02/11/2016 Abstract [facility] Family & Internal Medicine [facility] [address] [place] [address] [place]qu[place] Nagy [place] [id number] [place] [address] Social History Tobacco Use Types Packs/Day Years [...] Sign Reading Time Taken Comments Blood Pressure 122/72 02/11/2016 1:44 PM SNOW PLOW OPERATOR Pulse 102 02/11/2016 1:44 PM SNOW PLOW OPERATOR Temperature - - Respiratory Rate - - Oxygen Saturation - - Inhaled Oxygen Concentration - - Weight 90.7 kg (200 lb) 02/11/2016 1:44 PM SNOW PLOW OPERATOR Height 168.9 cm (5' 6.5 ) 02/11/2016 1:44 PM SNOW PLOW OPERATOR Body Mass Index 31.8 02/11/2016 1:44 PM SNOW PLOW OPERATOR documented in this encounter Progress Notes * Ericka Ward NP - 02/11/2016 1:30 PM CST Reason For Visit Acute Follow-Up Visit Chief Complaint Acute f/u from ER visit at [facility] on 11/30 for anxiety. Pt was put on Alprazolam 0.25mg qid prn.Pt stated she has one pill left. She stated the medication helped to a certain point. She stated onset of anxiety started again in October but for the most part has lived with it her whole life. Denies suicidal ideas, or depression. History of Present Illness HPI Free Text: Pt is reporting having hx of hypertension as a child but never treated. Pt has tachycardia today and EKG in Nov that shows some abnormalities. Pt is continuing to have issues with panic attacks withelevated pulses at times Anxiety Disorder (Follow-Up): The patient is being seen for follow-up of anxiety. The patient reports doing poorly and Pt is reporting 2 to 3 panic attacks each night and having insomnia. Taking sleep aids related to poor sleep quality. She has no comorbid illnesses. in the family but was having issues before the . Interval symptoms: worsened anxiety, worsened difficulty concentrating, worsened restlessness, worsened panic attacks, worsened sleep disruption and denies depression. Associated symptoms: repetititve thoughts at night. Medications: the patient is adherent to her medication regimen (xanax is.25 mg po daily), but she denies medication side effects. Additional history: pt is still not sleeping at night and is very anxious. PHQ-9 Depression Questionnaire: Over the past 2 weeks, how often have you been bothered by the following problems? 1.) Little interest or pleasure in doing things? Several days. 2.) Feeling down, depressed or hopeless? Several days. 3.) Trouble falling asleep or sleeping too much? Nearly every day. 4.) Feeling tired or having little energy? Not at all. 5.) Poor appetite or overeating? Not at all. 6.) Feeling bad about yourself, or that you are a failure, or have let yourself or your family down? Not at all. 7.) Trouble concentrating on things, such as reading a newspaper or watching television? Not at all. 8.) Moving or speaking so slowly that other people could have noticed, or the opposite, moving or speaking faster than usual? Not at all. 9.) Thoughts that you would be off or of hurting yourself in some way? Not at all. TOTAL SCORE: 5, severity of depression is mild. Insomnia (Follow-Up): The patient is being seen for follow-up of insomnia. The patient reports doing poorly. Comorbid Illnesses: anxiety. Interval symptoms: worsened difficulty falling asleep, worsened difficulty staying asleep, worsenedunrefreshing sleep and worsened fatigue. Associated symptoms: snoring, but no depression. The patient is not currently on medication for this problem. The patient sleeps 3-4 hours per night and has 7 episodes of insomnia per week. Review of Systems Constitutional, Eyes, ENT, Respiratory, Gastrointestinal, Genitourinary, Musculoskeletal, Integumentary, Neurological, Endocrine and Hematologic review of systems normal except as noted. Cardiovascular: palpitations and chest pain. Psychiatric: anxiety and sleep disturbances. Active Problems 1. Abnormal heart rhythm (427.9) (I49.9) 2. Anxiety (300.00) (F41.9) 3. Edema (782.3) (R60.9) Past Medical History 1. History of Pre-employment health screening examination (V70.5) (Z02.1) Surgical History 1. Denied: History of Surgery Family History Mother 1. No pertinent family history Social History ?? Denied: History of Alcohol Use (History) ?? Marital History - Single ?? Never a smoker Immunizations Influenza --- Series1: Temporarily Deferred: Pt refuses, Refusal of treatment by patient (situation) Current Meds 1. ALPRAZolam 0.25 MG Oral Tablet; TAKE 1 TABLET 4 times daily PRN; Therapy: 11Feb2016 to (Evaluate:[id number]) Recorded Allergies 1. No Known Drug Allergies Vitals Recorded: 11Feb2016 01:44PM Temperature 98.4 F Heart Rate 102 Systolic 122 Diastolic 72 O2 Saturation 98 Height 5 ft 6.5 in Weight 200 lb BMI Calculated 31.8 BSA Calculated 2.01 Physical Exam Constitutional General appearance: No acute distress, well appearing and well nourished. Eyes Conjunctiva and lids: No swelling, erythema or discharge. Ears, Nose, Mouth, and Throat External inspection of ears and nose: Normal. Otoscopic examination: Tympanic membranes translucent with normal light reflex. Canals patent without erythema. Oropharynx: Normal with no erythema, edema, exudate or lesions. Pulmonary Respiratory effort: No increased work of breathing or signs of respiratory distress. Auscultation of lungs: Clear to auscultation. Cardiovascular Palpation of heart: Normal PMI, no thrills. Auscultation of heart: Abnormal. The heart rate was tachycardic. The rhythm was regular. Examination of extremities for edema and/or varicosities: Normal. Abdomen Abdomen: Non-tender, no masses. Liver and spleen: No hepatomegaly or splenomegaly. Lymphatic Palpation of lymph nodes in neck: No lymphadenopathy. Musculoskeletal Gait and station: Normal. Digits and nails: Normal without clubbing or cyanosis. Inspection/palpation of joints, bones, and muscles: Normal. Skin Skin and subcutaneous tissue: Normal without rashes or lesions. Neurologic Cranial nerves: Cranial nerves 2-12 intact. Reflexes: 2+ and symmetric. Sensation: No sensory loss. Psychiatric Orientation to person, place, and time: Normal. Mood and affect: Abnormal. Mood and Affect: anxious. Assessment 1. Anxiety (300.00) (F41.9) 2. Persistent insomnia (307.42) (G47.00) 3. Snoring (786.09) (R06.83) 4. Tachycardia (785.0) (R00.0) Plan Anxiety 1. Citalopram Hydrobromide 20 MG Oral Tablet; TAKE 1 TABLET DAILY Rx By: Ericka Ward; Dispense: 30 Days ; #:30 Tablet; Refill: 2; For: Anxiety; DOLLY = N; Verified Transmission to [facility]; Last Updated By: Morgan Goss; 02/11/2016 2:54:04 PM 2. From ALPRAZolam 0.25 MG Oral Tablet TAKE 1 TABLET 4 times daily PRN To ALPRAZolam 0.5 MG Oral Tablet TAKE 1 TABLET BY MOUTH EVERY 6 TO 8 HOURS NEEDED Rx By: Ericka Ward; Dispense: 15 Days ; #:30 Tablet; Refill: 0; For: Anxiety; DOLLY = N; Print Rx Karnack scale scanned into the chart. Will see you back in 2 weeks. Journal Keep track of heart rate two times per day bring in log EKG may be done at the next visit if the pulse seems to be staying above 100. Gave pt a list of the therapist. avoid caffeine and avoid Benadryl or diphenhydramine. Schedule Split Night Sleep Study Outpatient Follow-up Status: Hold For - Scheduling Requested for: 11Feb2016 Ordered; For: Persistent insomnia, Snoring, Tachycardia; Ordered By: Ericka Ward Performed: Due: [id number] Signatures Electronically signed by : Ericka Ward NP; Feb 13 2016 8:17PM SNOW PLOW OPERATOR (Author) documented in this encounter Plan of Treatment Not on file documented as of this encounter Visit Diagnoses Not on filedocumented in this encounter
--- OUTSIDE RECORDS SUMMARY | 2024-03-06 11:06 | XMS_ITS | Encounter Summary ---
Author Organization [facility] Address [address] [place] [address]. [place], [place] [id number] [place] [address] Care Team Providers Care Intelligence Consultant Name Role Phone Ericka Ward NP Primary Care Provider Prakash cruz Reason for Referral * (Routine) - Closed Specialty Diagnoses / Procedures Referred By Lele t Referred To Contact Diagnoses Shortness of breath Procedures Complete PFT (pre/post Chrsi, Lung Vol, Diff Capacity) ([id number], [id number], [id number], [id number]) Abimbola Cuba FNP-BC Phone: tel: fax: Referral ID Status Reason Start Date Expiration Date Visits Re quested Visits Authorized [id number] Closed 11/27/2019 12/27/2020 1 1 Reason for Visit * Reason Comments Follow Up 1 month follow up (S usan pt, Depression) Encounter Details Date Type Department Care Team (Late st Contact Info) Description 11/27/2019 9:00 AM CDT Office Visit [facility] Family & Internal Medicine [facility] [address] [place] [address] Ericka Ward, KAIAWHINA KURA KAUPAPA MAORI Abimbola Cuba FNP-BC [address] [place] [id number] Follow Up (1 month follow up (Ericka pt, Depression)) Social History Tobacco Use Types Packs/Day Years [...] Sign Reading Time Taken Comments Blood Pressure 116/80 11/27/2019 9:04 AM CDT Pulse 71 11/27/2019 9:04 AM CDT Temperature 36.6 ??C (97.8 ??F) 11/27/2019 9:04 AM CD T Respiratory Rate 18 11/27/2019 9:04 AM CDT Oxygen Saturation 98% 11/27/2019 9:04 AM CDT Inhaled Oxygen Concentration - - Weight 132.5 kg (292 lb) 11/27/2019 9:04 AM CDT Height 167.6 cm (5' 6 ) 11/27/2019 9:04 AM CDT Body Mass Index 47.13 11/27/2019 9:04 AM CDT documented in this encounter Patient Instructions * Patient Instructions* NORA Escalona-BC - 11/27/2019 9:00 AM CDT Increase sertraline to 150 mg daily. May take hydroxyzine as needed. It can may you tired. Continue counseling. Continue to try to work on healthy diet choices. Try to work on getting regular exercise; goal is to increase to 30 minutes 5 days a week as tolerated. documented in this encounter Progress Notes * CHRISTINA Escalona - 11/27/2019 9:00 AM CDT Reason for Visit: Follow Up (1 month follow up (Ericka hart, Depression)) History of Present Illness: Feli Garcia is a 24-year-old female who presents to the office for one month follow-up for chronic disease management of anxiety and depression. Feels improved on sertraline 100 mg daily, but is having some breakthrough mood swings, irritability, and depression. No known adverse effects or intolerances. Has not required use of alprazolam. Use of counseling with significant improvement in symptoms. Denies HI/SI. Reports shortness of breath at rest and with activity that has been pr/esent for years. No prior workup. 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 Always attributed to weight in the past. Does not worsen with panic attacks. Normal CXR 10/2019. Denies chest pain, wheezing, orthopnea, PND. ROS: Review of Systems Constitutional: Negative. Negative for chills, fever and malaise/fatigue. HENT: Negative. Negative for congestion, ear pain, sinus pain and sore throat. Eyes: Negative. Respiratory: Positive for shortness of breath. Negative for cough and wheezing. Cardiovascular: Negative. Negative for chest pain and palpitations. Gastrointestinal: Negative. Negative for abdominal pain, constipation, diarrhea, nausea and vomiting. Genitourinary: Negative. Negative for dysuria. Musculoskeletal: Negative. Negative for myalgias. Skin: Negative. Negative for rash. Neurological: Negative. Negative for headaches. Endo/Heme/Allergies: Negative. Psychiatric/Behavioral: Positive for depression. Negative for hallucinations, substance abuse and suicidal ideas. The patient is nervous/anxious. RUSTY-7 (Generalized Anxiety Disorder) Screening RUSTY-7 11/27/2019 Feeling nervous, anxious and on edge 3 - nearly every day Not being able to stop or control worrying 3 - nearly every day Worrying too much about different things 3 - nearly every day Trouble Relaxing 3 - nearly every day Being so restless that it's hard to sit still 2 - more than half the days Becoming easily annoyed or irritable 3 - nearly every day Feeling afraid as if something awful might happen 3 - nearly every day Total Score 20 If you checked off any problems, how difficult have those problems made it for you to do your work take care of things at home or get along with other people? somewhat difficult PHQ-9: Over the last two weeks, how often have you been bothered by any of the following problems? 09/30/2018 11/27/2019 LITTLE INTEREST OR PLEASURE IN DOING THINGS 1-Several Days 2-More than half the days FEELING DOWN, DEPRESSSED,OR HOPELESS 3-Nearly every day 3-Nearly every day PHQ2 DEPRESSION TOTAL SCORE 4 5 TROUBLE FALLING OR STAYING ASLEEP OR SLEEPING TOO MUCH 3-Nearly every day 3- Nearly every day FEELING TIRED OR HAVING LITTLE ENERGY 3-Nearly every day 3-Nearly every day POOR APPETITE OR OVEREATING 3-Nearly every day 2-More than half the days FEELING BAD ABOUT YOURSELF 3-Nearly every day 3-Nearly every day TROUBLE CONCENTRATING ON THINGS 0-Not at All 2-More than half the days MOVING OR SPEAKING SO SLOWLY THAT OTHER PEOPLE COULD HAVE NOTICED 1-Several Days 2-More than half the days THOUGHTS THAT YOU WOULD BE BETTER OFF 3-Nearly every day 3-Nearly every day DEPRESSION SCREENING TOTAL SCORE 20 23 IF YOU CHECKED OFF ANY PROBLEMS Not difficult at all Somewhat difficult Medications: Current Outpatient Medications: ??? hydrOXYzine 25 MG tablet, Take 1/2 tablet (12.5 mg) to 1 tablet (25 mg) up to three times a dayas needed for anxiety, Disp: 30 tablet, Rfl: 0 ??? omeprazole 40 MG capsule, Take 1 capsule (40 mg total) by mouth daily., Disp: 90 capsule, Rfl: 3 ??? ondansetron (ZOFRAN ODT) 4 MG disintegrating tablet, Take 1 tablet (4 mg total) by mouth every 8 (eight) hours as needed for Nausea., Disp: 12 tablet, Rfl: 0 ??? sertraline 100 MG tablet, Take 1.5 tablets (150 mg total) by mouth daily for 60 days., Disp: 45tablet, Rfl: 1 No current facility-administered medications for this visit. Facility-Administered Medications Ordered in Other Visits: ??? lidocaine 4 % patch 1 patch, 1 patch, Transdermal, Q24H, Macario Baldwin MD, 1 patch at11/27/19 1148 Allergies Allergen Reactions ??? Seasonal Unknown Past [...] file Gets together: Not on file Attends roman catholic service: Not on file Active member of [...] is oriented to person, place, and time. Vital signs are normal. She appears well-developed and well-nourished. She is active. She does not appear ill. No distress. HENT: Head: Normocephalic and atraumatic. Right Ear: External ear normal. Left Ear: External ear normal. Eyes: Conjunctivae and EOM are normal. Right eye exhibits no discharge. Left eye exhibits no discharge. Neck: No tracheal deviation present. Cardiovascular: Normal rate, regular rhythm and normal heart sounds. Pulmonary/Chest: Effort normal and breath sounds normal. No respiratory distress. Neurological: She is alert and oriented to person, place, and time. Skin: Skin is warm and dry. Psychiatric: She has a normal mood and affect. Her behavior is normal. Judgment and thought contentnormal. She expresses no homicidal and no suicidal ideation. She expresses no suicidal plans and nohomicidal plans. Nursing note and vitals reviewed. Filed Vitals: 11/27/19 0904 BP: 116/80 Pulse: 71 Resp: 18 Temp: 97.8 ??F (36.6 ??C) TempSrc: Temporal SpO2: 98% Weight: 132.5 kg (292 lb) Height: 5' 6 (1.676 m) Assessment Encounter Diagnose(s) ICD-10-CM ICD-9-CM SNOMED CT(R) 1. Anxiety F41.9 300.00 ANXIETY sertraline 100 MG tablet hydrOXYzine 25 MG tablet 2. Shortness of breath R06.02 786.05 DYSPNEA PULMONARY FUNCTION TEST 3. Class 3 severe obesity due to excess calories without serious comorbidity with body mass index (BMI) of 45.0 to 49.9 in adult (CMS/HCC) E66.01 278.01 OBESE CLASS III Z68.42 V85.42 Recommendations and Plan: 1. Anxiety - Dose increased. Alprazolam d/c and hydroxyzine for panic attacks. - sertraline 100 MG tablet; Take 1.5 tablets (150 mg total) by mouth daily for 60 days. Dispense: 45 tablet; Refill: 1 - hydrOXYzine 25 MG tablet; Take 1/2 tablet (12.5 mg) to 1 tablet (25 mg) up to three times a day as needed for anxiety Dispense: 30 tablet; Refill: 0 2. Shortness of breath - Unsure of etiology at this time. Possible asthma. - PULMONARY FUNCTION TEST; Future Follow up in one month. Return to clinic with new, persistent, or worsening symptoms. Feli Garcia is in agreement to and verbalized understanding of treatment plan with no further questions at this time. CHRISTINA ESCALONA 11/27/2019 12:47 PM documented in this encounter Plan of Treatment Not on file documented as of this encounter Results * Complete PFT (pre/post Chris, Lung Vol, Diff Capacity) ([id number], [id number], 60743, [id number]) (01/17/2020 5:31 PM LENS BLANK GAUGER) 01/17/2020 5:31 PM LENS BLANK GAUGER Narrative ESCRIPTION - 01/24/2020 2:07 PM LENS BLANK GAUGER DIAGNOSIS: ??Shortness of breath. SPIROMETRY: ??FVC 96% [...] in unadjusted DLCO. D: ??01/17/2020 05:31 PM #[id number] T: ??01/17/2020 06:05 PM /NTS Abimbola VASQUEZ PFT ORDERABLES Final Re sult ESCRIPTION documented in this encounter Visit Diagnoses Diagnosis Anxiety- Primary Anxiety state, unspecified Shortness of breath Class 3 severe obesity due to excess calories without serious comorbidity with body mass index (BMI) of 45.0 to 49.9 in adult ([facility]) Shortness of breath documented in this encounter Additional Health Concerns Assessment Noted Time PHQ-9 Depression Total Score: 23 11/26/2 020 9:31 AM CDT documented as of this encounter Care Teams Intelligence Consultant Relationship Specialty Start Date End Date Ericka Ward NP PCP - General NURSE PRACTITIONER 09/30/18 12/31/19 documented as of this encounter
--- OUTSIDE RECORDS SUMMARY | 2024-03-06 11:06 | XMS_ITS | Encounter Summary ---
Author Organization [facility] Address [address] [place] [address]. [place], [place] [id number] [place] [address] Care Team Providers Care Conciliation Court Judge Name Role Phone Ericka Mcgee NP Primary Care Provider Prakash cruz Reason for Visit * Reason Comments Follow Up Routine f/u on Anxie ty and depression, and acid reflex. Patient stated she also has had sinus drainage, sinus headache, left ear pressure onset couple days. Encounter Details Date Type Department Care Team (Late st Contact Info) Description 02/01/2019 5:00 PM AESTHETICS INSTRUCTOR Office Visit [facility] Family & Internal Medicine [address] [address] Ericka Mcgee, HAYLEY Follow Up (Routine f/u on Anxiety and depression, and acid reflex. Patient stated she also has had sinus drainage, sinus headache, left ear pressure onset couple days. ) Social History Tobacco Use Types Packs/Day [...] Sign Reading Time Taken Comments Blood Pressure 128/78 02/01/2019 4:57 PM AESTHETICS INSTRUCTOR Pulse 76 02/01/2019 4:57 PM AESTHETICS INSTRUCTOR Temperature 37.1 ??C (98.8 ??F) 02/01/2019 4:57 PM CS T Respiratory Rate 18 02/01/2019 4:57 PM AESTHETICS INSTRUCTOR Oxygen Saturation 98% 02/01/2019 4:57 PM AESTHETICS INSTRUCTOR Inhaled Oxygen Concentration - - Weight 124.7 kg (275 lb) 02/01/2019 4:57 PM AESTHETICS INSTRUCTOR Height 170.2 cm (5' 7 ) 02/01/2019 4:57 PM AESTHETICS INSTRUCTOR Body Mass Index 43.07 02/01/2019 4:57 PM AESTHETICS INSTRUCTOR documented in this encounter Patient Instructions * Patient Instructions* Ericka Mcgee NP - 02/01/2019 5:00 PM AESTHETICS INSTRUCTOR Drink plenty of water 6 to 8 cups per day Take antibiotic daily as directed Use antihistamine over the counter as directed Use analgesic as directed Cough medication as directed Rest. Avoid decongestants. Follow up routine medication in 6 months. HETICS INSTRUCTOR documented in this encounter Progress Notes * Ericka Mcgee NP - 02/01/2019 5:00 PM CST Reason for Visit: Follow Up (Routine f/u on Anxiety and depression, and acid reflex. Patient stated she also has had sinus drainage, sinus headache, left ear pressure onset couple days. ) History of Present Illness: Feli was seen today for follow up. Diagnoses and all orders for this visit: Depression, unspecified depression type - venlafaxine 75 MG tablet; Take 1 tablet (75 mg total) by mouth 2 (two) times daily with meals. Acute upper respiratory infection This is a new problem. The current episode started in the past 7 days. The problem occurs intermittently. The problem has been gradually worsening. Associated symptoms include chills, congestion, coughing, fatigue, a fever and a sore throat. The symptoms are aggravated by coughing and swallowing. Pt. has tried acetaminophen, NSAIDs and increased intake of fluids for the symptoms. The treatment provided mild relief. -Feli was seen today for follow up. Gastroesophageal reflux disease without esophagitis Omeprazole 40 mg po daily. Pt is going to continue with this medication. ROS: Review of Systems Constitutional: Positive for chills and fever. HENT: Positive for congestion, sinus pain and sore throat. Eyes: Negative. Respiratory: Positive for cough, sputum production and shortness of breath. Cardiovascular: Negative. Gastrointestinal: Positive for heartburn. Genitourinary: Negative. Musculoskeletal: Positive for joint pain and myalgias. Skin: Negative. Neurological: Negative. Endo/Heme/Allergies: Negative. Psychiatric/Behavioral: Positive for depression. Medications: Current Outpatient Medications: ??? amoxicillin-clavulanate (AUGMENTIN) 875-125 MG tablet, Take 1 tablet (875 mg total) by mouth 2 (two) times daily for 10 days., Disp: 20 tablet, Rfl: 0 ??? omeprazole 40 MG capsule, Take 1 capsule (40 mg total) by mouth daily., Disp: 90 capsule, Rfl: 3 ??? venlafaxine 75 MG tablet, Take 1 [...] file Gets together: Not on file Attends baptism service: Not on file Active member of [...] affect. Her behavior is normal. Filed Vitals: 02/01/19 1657 BP: 128/78 Pulse: 76 Resp: 18 Temp: 98.8 ??F (37.1 ??C) TempSrc: Oral SpO2: 98% Weight: 124.7 kg (275 lb) Height: 5' 7 (1.702 m) Assessment Encounter Diagnose(s) ICD-10-CM ICD-9-CM SNOMED CT(R) 1. Depression, unspecified depression type F32.9 311 DEPRESSIVE DISORDER venlafaxine 75 MG tablet 2. Acute upper respiratory infection J06.9 465.9 ACUTE UPPER RESPIRATORY INFECTION omeprazole 40 MGcapsule amoxicillin-clavulanate (AUGMENTIN) 875-125 MG tablet 3. Gastroesophageal reflux disease without esophagitis K21.9 530.81 GASTROESOPHAGEAL REFLUX DISEASEWITHOUT ESOPHAGITIS Recommendations and Plan: Outpatient Encounter Medications as of 02/01/2019 Medication Sig Dispense Refill ??? amoxicillin-clavulanate (AUGMENTIN) 875-125 MG tablet Take 1 tablet (875 mg total) by mouth 2 (two) times daily for 10 days. 20 tablet 0 ??? omeprazole 40 MG capsule Take 1 capsule (40 mg total) by mouth daily. 90 capsule 3 ??? venlafaxine 75 MG tablet Take 1 tablet (75 mg total) by mouth 2 (two) times daily with meals. 60 tablet 5 ??? [DISCONTINUED] azithromycin (ZITHROMAX) 250 MG tablet TAKE 2 TABS PO DAY 1 THEN 1 TABLET DAILY 6 tablet 0 ??? [DISCONTINUED] methylPREDNISolone 4 MG tablet Take 6 tablets the first day of daily tapering doses 5, 4, 3, 2, 1 respectively for the following days. 21 tablet 0 ??? [DISCONTINUED] omeprazole 40 MG capsule Take 1 capsule (40 mg total) by mouth daily. 30 capsule1 ??? [DISCONTINUED] venlafaxine 75 MG tablet Take 75 mg by mouth 2 (two) times daily with meals. 3 No facility-administered encounter medications on file as of 02/01/2019. Feli was seen today for follow up. Diagnoses and all orders for this visit: Depression, unspecified depression type - venlafaxine 75 MG tablet; Take 1 tablet (75 mg total) by mouth 2 (two) times daily with meals. Acute upper respiratory infection - augmentin 875/125 on BID x 10 days. . Gastroesophageal reflux disease without esophagitis Omeprazole 40 mg one po daily Drink plenty of water 6 to 8 cups per day Take antibiotic daily as directed Use antihistamine over the counter as directed Use analgesic as directed Cough medication as directed Rest. Avoid decongestants. ERICKA MCGEE NP 02/02/2019 10:05 PM HETICS INSTRUCTOR documented in this encounter Plan of Treatment Not on file documented as of this encounter Visit Diagnoses Diagnosis Depression, unspecified depression type- Primary Acute upper respiratory infection Acute upper respiratory infections of unspecified site Gastroesophageal reflux disease without esophagitis Esophageal reflux documented in this encounter Additional Health Concerns Assessment Noted Time PHQ-9 Depression Total Score: 20 019 9:08 AM CDT documented as of this encounter Care Teams Conciliation Court Judge Relationship Specialty Start Date End Date Ericka Mcgee NP PCP - General NURSE PRACTITIONER 09/30/18 12/31/19 documented as of this encounter
--- OUTSIDE RECORDS SUMMARY | 2024-03-06 11:06 | XMS_ITS | Encounter Summary ---
Author Organization [facility] Address [address] [place] [address]. 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 Encounter Details Date Type Department Care Team (Late st Contact Info) Description 09/30/2018 8:20 AM CDT Office Visit [facility] Family & Internal Medicine [address] [phone] Ericka Mcgee NP New Patient (Anxiety, depression and be tested for bipolor disorder. ) Social History Tobacco Use Types Packs/Day [...] Sign Reading Time Taken Comments Blood Pressure 128/68 09/30/2018 8:15 AM CDT Pulse 88 09/30/2018 8:15 AM CDT Temperature - - Respiratory Rate 18 09/30/2018 8:15 AM CDT Oxygen Saturation 98% 09/30/2018 8:15 AM CDT Inhaled Oxygen Concentration - - Weight 128.4 kg (283 lb) 09/30/2018 8:15 AM CDT Height 170.2 cm (5' 7 ) 09/30/2018 8:15 AM CDT Body Mass Index 44.32 09/30/2018 8:15 AM CDT documented in this encounter Patient Instructions * Patient Instructions* Ericka Mcgee NP - 09/30/2018 8:20 AM CDT Pt depression scale is high but pt states it is not a problem with her daily activities. Pt does note that becomes angry easily at work. Pt is going to have labs Return in one week. documented in this encounter Progress Notes * Ericka Mcgee NP - 09/30/2018 8:20 AM CDT Reason for Visit: New Patient (Anxiety, depression and be tested for bipolor disorder. ) History of Present Illness: Pt has been having issues of anxiety. Pt is having increased emotions. Pt states is having issues with becoming angry at work and becomes verbally abusive. Pt states makes her mad and stays that way all day. Pt reports not sleeping well at night. Awakens throughout the night and gets very little sleep. Pt states has had large amount of weight gain. Staying active playing soft ball and eating right. Does not feel that is over eating or eating a poor diet. ROS: Review of Systems Constitutional: Positive for malaise/fatigue. HENT: Negative. Eyes: Negative. Respiratory: Negative. Cardiovascular: Negative. Gastrointestinal: Negative. Genitourinary: Negative. Musculoskeletal: Negative. Skin: Negative. Neurological: Negative. Endo/Heme/Allergies: Negative. Psychiatric/Behavioral: Positive for depression. The patient is nervous/anxious and has insomnia. Medications: No current outpatient medications on file. Allergies Allergen Reactions ??? Seasonal Unknown Past [...] affect. Her behavior is normal. Filed Vitals: 09/30/18 0815 BP: 128/68 Pulse: 88 Resp: 18 SpO2: 98% Weight: 128.4 kg (283 lb) Height: 5' 7 (1.702 m) Assessment Encounter Diagnose(s) ICD-10-CM ICD-9-CM SNOMED CT(R) 1. Anxiety F41.9 300.00 ANXIETY 2. Cardiac arrhythmia, unspecified cardiac arrhythmia type I49.9 427.9 CARDIAC ARRHYTHMIA CBC W/DIFF AUTOMATED COMPREHENSIVE METABOLIC PANEL HEMOGLOBIN, GLYCOSYLATED TSH W/REFLEX VITAMIN B12 / FOLATE VENIPUNC ARM DRAW CBC W/DIFF AUTOMATED COMPREHENSIVE METABOLIC PANEL HEMOGLOBIN, GLYCOSYLATED TSH W/REFLEX VITAMIN B12 / FOLATE 3. Fatigue, unspecified type R53.83 780.79 FATIGUE CBC W/DIFF AUTOMATED COMPREHENSIVE METABOLIC PANEL HEMOGLOBIN, GLYCOSYLATED TSH W/REFLEX VITAMIN B12 / FOLATE VENIPUNC ARM DRAW CBC W/DIFF AUTOMATED COMPREHENSIVE METABOLIC PANEL HEMOGLOBIN, GLYCOSYLATED TSH W/REFLEX VITAMIN B12 / FOLATE 4. Depression, unspecified depression type F32.9 311 DEPRESSIVE DISORDER Recommendations and Plan: No outpatient encounter medications on file as of 09/30/2018. No facility-administered encounter medications on file as of 09/30/2018. Feli was seen today for new patient. Diagnoses and all orders for this visit: Anxiety Cardiac arrhythmia, unspecified cardiac arrhythmia type - Cancel: CBC W/DIFF AUTOMATED; Future - Cancel: COMPREHENSIVE METABOLIC PANEL; Future - Cancel: HEMOGLOBIN, GLYCOSYLATED; Future - Cancel: TSH W/REFLEX; Future - CBC W/DIFF AUTOMATED; Future - COMPREHENSIVE METABOLIC PANEL; Future - HEMOGLOBIN, GLYCOSYLATED; Future - TSH W/REFLEX; Future - VITAMIN B12 / FOLATE; Future - VENIPUNC ARM DRAW - CBC W/DIFF AUTOMATED - COMPREHENSIVE METABOLIC PANEL - HEMOGLOBIN, GLYCOSYLATED - TSH W/REFLEX - VITAMIN B12 / FOLATE Fatigue, unspecified type - Cancel: VITAMIN B12 / FOLATE; Future - CBC W/DIFF AUTOMATED; Future - COMPREHENSIVE METABOLIC PANEL; Future - HEMOGLOBIN, GLYCOSYLATED; Future - TSH W/REFLEX; Future - VITAMIN B12 / FOLATE; Future - VENIPUNC ARM DRAW - CBC W/DIFF AUTOMATED - COMPREHENSIVE METABOLIC PANEL - HEMOGLOBIN, GLYCOSYLATED - TSH W/REFLEX - VITAMIN B12 / FOLATE Depression, unspecified depression type Pt depression scale is high but pt states it is not a problem with her daily activities. Pt does note that becomes angry easily at work. Pt is going to have labs Return in one week. List of psychiatrists were given to pt and she is going to call and see if she can be evaluated. Screening for physical reasons for the depression or weight gain. ERICKA MCGEE NP 09/30/2018 9:20 AM documented in this encounter Plan of Treatment Not on file documented as of this encounter Procedures Procedure Name Priority Date/Time Associated Diagnosis Comments VENIPUNC ARM DRAW Routine 09/30/2018 9:0 8 AM CDT Cardiac arrhythmia, unspecified cardiac arrhythmia type Fatigue, unspecified type VITAMIN B12 / FOLATE Routine 09/30/2018 9:08 AM CDT Fatigue, unspecified type Cardiac arrhythmia, unspecified cardiac arrhythmia type TSH W/REFLEX Routine 09/30/2018 9:08 AM CDT Fatigue, unspecified type Cardiac arrhythmia, unspecified cardiac arrhythmia type HEMOGLOBIN, GLYCOSYLATED Routine 09/30/2018 9:08 AM CDT Cardiac arrhythmia, unspecified cardiac arrhythmia type Fatigue, unspecified type COMPREHENSIVE METABOLIC PANEL Routine 09/30/2018 9:08 AM CDT Cardiac arrhythmia, unspecified cardiac arrhythmia type Fatigue, unspecified type CBC W/DIFF AUTOMATED Routine 09/30/2018 9:08 AM CDT Cardiac arrhythmia, unspecified cardiac arrhythmia type Fatigue, unspecified type documented in this encounter Results * VITAMIN B12 / FOLATE (09/30/2018 9:08 AM CDT) VITAMIN B12 S/P/B 624 200 - 1,100 pg/mL [facility] FOLATE 13.7 ng/mL [facility] Comment: ? Reference Range ? Low: ? <3.4 ? Borderline: ?3.4-5.4 ? Normal: ?>5.4 09/30/2018 9:08 AM CDT 10/01/2018 3:39 AM CDT Narrative Resulting Agency Comment Performing Organization Information: ?Site ID: [place] ?Name: [facility] ?Address: [address] [place] [address] ?Director: Amilcar Hernández D.O. MPH Ericka Mcgee NP LABORATORY Final Result [facility] * TSH W/REFLEX (09/30/2018 9:08 AM CDT) TSH 2.22 mIU/L [facility] Comment: ?Reference Range ?> or = 20 Years ??0.40-4.50 ? Ranges ?First trimester ?0.26-2.66 ?Second trimester ?? 0.55-2.73 ?Third trimester ?0.43-2.91 09/30/2018 9:08 AM CDT 10/01/2018 5:52 AM CDT Narrative Resulting Agency Comment Performing Organization Information: ?Site ID: [place] ?Name: [facility] ?Address: [address] [place] [address] ?Director: Amilcar Hernández D.O., MPH Ericka Mcgee NP LABORATORY Final Result Performing Organization Address [facility] Co de Phone Number [facility] * HEMOGLOBIN, GLYCOSYLATED (09/30/2018 9:08 AM CDT) HGB A1C 5.6 <5.7 % of total Hgb [facility] Comment: For the purpose of screening for the presence of diabetes: <5.7% ? Consistent with the absence of diabetes 5.7-6.4% ?Consistent with increased risk for diabetes ?(prediabetes) > or =6.5% ??Consistent with diabetes This assay result is consistent with a decreased risk of diabetes. Currently, no consensus exists regarding use of hemoglobin A1c for diagnosis of diabetes in children. According to [place] Diabetes Association (ADA) guidelines, hemoglobin A1c <7.0% represents optimal control in non- diabetic patients. Different metrics may apply to specific patient populations. Standards of Medical Care in Diabetes(ADA). ?? 09/30/2018 9:08 AM CDT 10/01/2018 5:52 AM CDT Narrative Resulting Agency Comment Performing Organization Information: ?Site ID: [place] ?Name: [facility] ?Address: [address] [address] ?Director: Amilcar Hernández D.O., YANET Ericka Mcgee NP LABORATORY Final Result Performing Organization Address [facility] de Phone Number [facility] * COMPREHENSIVE METABOLIC PANEL (09/30/2018 9:08 AM CDT) GLUCOSE 90 65 - 99 mg/dL [facility] Comment: ? Fasting reference interval BUN 12 7 - 25 mg/dL [facility] CREATININE S/P/B 0.76 0.50 - 1.10 mg/dL [facility] EGFR NON-AFR. AMER. 111 > OR = 60 mL/min/1. 73m2 [facility] EGFR AFR. AMER. 128 > OR = 60 mL/min/1. 73m2 [facility] BUN CREATININE RATIO NOT APPLICABLE 6 - 22 (calc) [facility] SODIUM S/P/B 138 135 - 146 mmol/L [facility] POTASSIUM S/P/B 4.5 3.5 - 5.3 mmol/L [facility] CHLORIDE S/P/B 106 98 - 110 mmol/L [facility] CO2 23 20 - 32 mmol/L [facility] CALCIUM S/P/B 9.3 8.6 - 10.2 mg/dL [facility] TOTAL PROTEIN S/P/B 6.8 6.1 - 8.1 g/dL [facility] ALBUMIN S/P/B 4.1 3.6 - 5.1 g/dL [facility] GLOBULIN 2.7 1.9 - 3.7 g/dL (calc) [facility] ALBUMIN/GLOBUL IN RATIO 1.5 1.0 - 2.5 (calc) [facility] BILIRUBIN TOTAL (FLUID) 0.3 0.2 - 1.2 mg/dL [facility] ALK PHOS 58 33 - 115 U/L [facility] AST 18 10 - 30 U/L [facility] ALT 19 6 - 29 U/L [facility] 09/30/2018 9:08 AM CDT 10/01/2018 5:52 AM CDT Narrative Resulting Agency Comment Performing Organization Information: ?Site ID: [place] ?Name: [facility] ?Address: [address] [place] [address] ?Director: Amilcar Hernández D.O., MPH Ericka Mcgee NP LABORATORY Final Result [facility] * CBC W/DIFF AUTOMATED (09/30/2018 9:08 AM CDT) WBC 6.3 3.8 - 10.8 Thousand/u L [facility] RBC 4.40 3.80 - 5.10 Million/uL [facility] HGB 12.4 11.7 - 15.5 g/dL [facility] HCT 37.6 35.0 - 45.0 % [facility] MCV 85.5 80.0 - 100.0 fL [facility] MCH (QHPE) 28.2 27.0 - 33.0 pg [facility] MCHC 33.0 32.0 - 36.0 g/dL [facility] RDW (QHPE) 13.4 11.0 - 15.0 % [facility] PLT 364 140 - 400 Thousand/u L [facility] MPV 10.0 7.5 - 12.5 fL [facility] ABS. NEUTROPHILS 3,270 1,500 - 7,800 cells/uL [facility] ABS. LYMPHOCYTES 2,237 850 - 3,900 cells/uL [facility] ABS. MONOCYTES 523 200 - 950 cells/uL [facility] ABS. EOSINOPHILS 221 15 - 500 cells/uL [facility] ABS. BASOPHILS 50 0 - 200 cells/uL [facility] SEG NEUTROPHILS 51.9 % [facility] LYMPHOCYTES 35.5 % [facility] MONOCYTES 8.3 % [facility] EOSINOPHILS 3.5 % [facility] BASOPHILS 0.8 % [facility] 09/30/2018 9:08 AM CDT 10/01/2018 5:52 AM CDT Narrative Resulting Agency Comment Performing Organization Information: ?Site ID: [place] ?Name: [facility] ?Address: [address] [place] [address] ?Director: Amilcar Hernández D.O., MPH Ericka Mcgee NP LABORATORY Final Result [facility] documented in this encounter Visit Diagnoses Diagnosis Anxiety- Primary Anxiety state, unspecified Cardiac arrhythmia, unspecified cardiac arrhythmia type Fatigue, unspecified type Depression, unspecified depression type documented in this encounter Additional Health Concerns Assessment Noted Time PHQ-9 Depression Total Score: 019 9:08 AM CDT documented as of this encounter Care Teams Hoop Driving Machine Operator Helper Relationship Specialty Start Date End Date Ericka Mcgee, SALES ASSISTANT DISPLAYS PCP - General NURSE PRACTITIONER 09/30/18 12/31/19 documented as of this encounter
--- OUTSIDE RECORDS SUMMARY | 2024-03-06 11:06 | XMS_ITS | Encounter Summary ---
Author Organization [facility] Address [address] [place] [address]. [place], [place] [id number] [place] [id number] Care Team Providers Care Panel Saw Operator Name Role Phone Ericka Ward NP Primary Care Provider Prakash cruz Reason for Visit * Reason Comments Finger Injury Encounter Details Date Type Department Care Team (Late st Contact Info) Description 11/20/2018 6:52 PM CDT - 11/20/2018 7:43 PM CDT Emergency [facility] Emergency Room [id number] [place] [address] Jennifer Robertson MD [address] [place] [address] Finger Injury Discharge Disposition: Home or Self Care (Routine [...] Sign Reading Time Taken Comments Blood Pressure 136/80 11/20/2018 6:52 PM CDT Pulse 98 11/20/2018 6:52 PM CDT Temperature 36.5 ??C (97.7 ??F) 11/20/2018 6:52 PM CD T Respiratory Rate 18 11/20/2018 6:52 PM CDT Oxygen Saturation 100% 11/20/2018 6:52 PM CDT Inhaled Oxygen Concentration - - Weight - - Height - - Body Mass Index - - documented in this encounter Discharge Instructions * Discharge Instructions* Jennifer Robertson MD - 11/20/2018 7:15 PM CDT Return if worse or any other concerns. Take all medications as directed. * Attachments The following attachments cannot be sent through Care Everywhere. * Paronychia (Tajik) documented in this encounter Medications at Time of Discharge amoxicillin-clavul anate (AUGMENTIN) 875-125 MG tablet Take 1 tablet (875 mg total) by mouth 2 (two) times daily for 10 days. 20 tablet 11/20/2018 11/30/2018 venlafaxine 75 MG tabletIndications: Depression, unspecified depression type Take 1 tablet (75 mg total) by mouth 2 (two) times daily with meals for 30 days. 60 tablet 3 11/02/2018 12/02/2018 documented as of this encounter ED Notes * Jennifer Robertson MD - 11/20/2018 7:11 PM CDT ED NOTE Chief Complaint Chief Complaint Patient presents with ??? Finger Injury History of Present Illness 23y F here with c/o pain, redness and swelling to distal left 2nd digit. Symptoms present for the past 2 days. No associated injury but does bite finger nails. No associated fevers or chills. Medical History ALLERGIES: Allergies Allergen Reactions ??? Seasonal Unknown MEDICATIONS: Prior to Admission medications Medication Sig Start Date End Date Taking? Authorizing Provider amoxicillin-clavulanate (AUGMENTIN) 875-125 MG tablet Take 1 tablet (875 mg total) by mouth 2 (two)times daily for 10 days. 11/20/18 11/30/18 Yes Jennifer Robertson MD venlafaxine 75 MG tablet Take 1 tablet (75 mg total) by mouth 2 (two) times daily with meals for 30days. 11/02/18 12/02/18 Ericka Ward NP PAST MEDICAL HISTORY: Past Medical History: Diagnosis Date ??? Anxiety ??? Depression PAST SURGICAL HISTORY: Past Surgical History: Procedure Laterality Date ??? NONE FAMILY HISTORY: Family History Problem Relation Name Age of Onset ??? Lung Cancer Paternal Grandmother ??? Diabetes Paternal Grandfather SOCIAL HISTORY: Social History Tobacco Use ??? Smoking status: Former Smoker Packs/day: 1.00 Years: 2.00 Pack years: 2.00 Types: Cigarettes ??? Smokeless tobacco: Never Used Substance Use Topics ??? Alcohol use: No Frequency: Never ??? Drug use: No Review of Systems Review of Systems Constitutional: Negative for chills and fever. Musculoskeletal: Finger pain All other systems reviewed and are negative. Physical Exam Filed Vitals: 11/20/18 1852 BP: 136/80 Pulse: 98 Resp: 18 Temp: 97.7 ??F (36.5 ??C) TempSrc: Tympanic SpO2: 100% Physical Exam Constitutional: She appears well-developed. No distress. HENT: Head: Normocephalic. Neck: Neck supple. Cardiovascular: Normal rate and regular rhythm. Pulmonary/Chest: Effort normal and breath sounds normal. Abdominal: Soft. There is no tenderness. Musculoskeletal: Area of swelling and redness to posterior distal left 2nd digit. Normal ROM. Neurological: She is alert. Skin: Skin is warm and dry. Psychiatric: She has a normal mood and affect. Vitals reviewed. Diagnostic Studies / Procedures ELECTROCARDIOGRAMS: No results found for this visit on 11/20/18. LABORATORY STUDIES: No results found for this visit on 11/20/18. IMAGING STUDIES No orders to display ED Course / Medical Decision Making Needle aspiration performed. Area was cleansed with alcohol. 18g needle placed into most fluctuant area. Minimal purulence. Pt tolerated well. No complications. Will place on abx, outpt f/u Medications amoxicillin-clavulanate (AUGMENTIN) 500-125 MG tablet 500 mg of amoxicillin (not administered) Clinical Impression Paronychia of left index finger (Primary) Current Discharge Medication List START taking these medications Details amoxicillin-clavulanate (AUGMENTIN) 875-125 MG tablet Take 1 tablet (875 mg total) by mouth 2 (two)times daily for 10 days. Qty: 20 tablet, Refills: 0 Class: Print Pharmacy: [address] (Ph #: [phone]) Disposition: Discharge Follow-Up: Ericka Ward, [place] [address] [facility] [address] Schedule an appointment as soon as possible for a visit JENNIFER ROBERTSON MD 11/20/2018 Jennifer Robertson MD 11/21/18 0553 * Ning Keith RN - 11/20/2018 6:54 PM CDT Patient here with complaints of pain to the left 2nd digit. Redness and some swelling noted at the tip of the finger. Denies any injury documented in this encounter Plan of Treatment Not on file documented as of this encounter Visit Diagnoses Diagnosis Paronychia of left index finger- Primary documented in this encounter Administered Medications Inactive Administered Medications - up to 3 most recent administrations Medication Order MAR Action Action Date Dose Rate Site amoxicillin-clavulanate (AUGMENTIN) 500-125 MG tablet 500 mg of amoxicillin 500 mg of amoxicillin (1 tablet), Oral, Once, 1 dose, On 11/20/18 at 1915 Given 11/20/2018 7:36 PM CDT 500 mg of amoxicillin documented in this encounter Active and Recently Administered Medications Times are shown in CDT. Scheduled Medication Order 11/18/2018 11/19/2018 11/20/2018 amoxicillin-clavulanate (AUGMENTIN) 500-125 MG tablet 500 mg of amoxicillin (COMPLETED) 500 mg of amoxicillin (1 tablet), Oral, Once, 1 dose, On 11/20/18 at 1915 1936 (Given - Provid er: Ximena Flores, LIVIER) documented in this encounter Additional Health Concerns Assessment Noted Time PHQ-9 Depression Total Score: 20 019 9:08 AM CDT documented as of this encounter Care Teams Panel Saw Operator Relationship Specialty Start Date End Date Ericka Ward NP PCP - General NURSE PRACTITIONER 09/30/18 12/31/19 documented as of this encounter
--- OUTSIDE RECORDS SUMMARY | 2024-03-06 11:06 | XMS_ITS | Encounter Summary ---
Author Organization [facility] Address [address] [place] [address]. [place], [place] [address] [place] [address] Care Team Providers Care Design Chief Name Role Phone Ericka Ward NP Primary Care Provider Prakash cruz Reason for Visit * Reason Comments Vomiting x2 days Nausea Encounter Details Date Type Department Care Team (Late st Contact Info) Description 03/15/2019 8:32 PM RN OTOLARYNGOLOGY - 03/15/2019 11:45 PM [facility] Emergency [facility] Emergency Room [address] [place] [address] Esau Herrera MD [address] [place] [address] Vomiting (x2 days); Nausea Discharge Disposition: Home or Self Care (Routine [...] Sign Reading Time Taken Comments Blood Pressure 110/55 03/15/2019 11:45 PM RN OTOLARYNGOLOGY Pulse 86 03/15/2019 11:45 PM RN OTOLARYNGOLOGY Temperature 36.6 ??C (97.9 ??F) 03/15/2019 8:32 PM CS T Respiratory Rate 18 03/15/2019 11:45 PM RN OTOLARYNGOLOGY Oxygen Saturation 99% 03/15/2019 11:45 PM RN OTOLARYNGOLOGY Inhaled Oxygen Concentration - - Weight 124.7 kg (275 lb) 03/15/2019 8:32 PM RN OTOLARYNGOLOGY Height 170.2 cm (5' 7 ) 03/15/2019 8:32 PM RN OTOLARYNGOLOGY Body Mass Index 43.07 03/15/2019 8:32 PM RN OTOLARYNGOLOGY documented in this encounter Discharge Instructions * Discharge Instructions* Esau Herrera MD - 03/15/2019 11:30 PM RN OTOLARYNGOLOGY Continue all present medication as prescribed. Take Zofran as prescribed. Fluids. Advance diet as tolerated. Follow-up with Ericka Barrow your primary care provider next 2 to 3 days. Return to emergency department for any problems concerns OTOLARYNGOLOGY * Attachments The following attachments cannot be sent through Care Everywhere. * Viral Gastroenteritis Discharge Instructions, Adult (Welsh) documented in this encounter Medications at Time of Discharge omeprazole 40 MG capsuleIndications:A cute upper respiratory infection Take 1 capsule (40 mg total) by mouth daily. 90 capsule 3 02/01/2019 0 ondansetron (ZOFRAN ODT) 4 MG disintegrating tablet Take 1 tablet (4 mg total) by mouth every 8 (eight) hours as needed for Nausea. 12 tablet 03/15/2019 0 venlafaxine 75 MG tabletIndications:De pression, unspecified depression type Take 1 tablet (75 mg total) by mouth 2 (two) times daily with meals. 60 tablet 5 02/01/2019 0 documented as of this encounter ED Notes * Esau Herrera MD - 03/15/2019 10:04 PM CST [facility] Emergency Department Note Chief Complaint Chief Complaint Patient presents with ??? Vomiting x2 days ??? Nausea History of Present Illness . 24-year-old white female presents emergency department complaining of nausea vomiting diarrhea. Patient states symptoms first started yesterday not feeling well and with nausea. However today at 2 PM she started with vomiting diarrhea. No blood in the stool. No dysuria increased frequency urination. No fevers or chills. Decreased appetite. Minimal abdominal discomfort. No shortness breath or cough. No chest pain. States her sister has the same symptoms. Patient states she did not eat much yesterday. Patient primary care provider Ericka Barrow. Patient is no known drug allergies. Medicationsinclude omeprazole and venlafaxine. Patient had no surgeries. Patient quit smoking 2 to 3 years ago. Does not drink alcohol does not do drugs. Patient is single. Patient works at [employer]. Family history of hypertension Medical History ALLERGIES: Allergies Allergen Reactions ??? Seasonal Unknown MEDICATIONS: Prior to Admission medications Medication Sig Start Date End Date Taking? Authorizing Provider omeprazole 40 MG capsule Take 1 capsule (40 mg total) by mouth daily. 02/01/19 Yes Ericka Ward NP ondansetron (ZOFRAN ODT) 4 MG disintegrating tablet Take 1 tablet (4 mg total) by mouth every 8 (eight) hours as needed for Nausea. 03/15/19 Yes Esau Herrera MD venlafaxine 75 MG tablet Take 1 tablet (75 mg total) by mouth 2 (two) times daily with meals. 02/01/19 Yes Ericka Ward NP PAST MEDICAL HISTORY: Past [...] chills and fever. HENT: Negative for congestion, rhinorrhea and sore throat. Eyes: Negative for photophobia. Respiratory: Negative for cough, shortness of breath and wheezing. Cardiovascular: Negative for chest pain, palpitations and leg swelling. Gastrointestinal: Positive for diarrhea, nausea and vomiting. Negative for abdominal pain and constipation. Endocrine: Negative for polydipsia and polyuria. Genitourinary: Negative for dysuria and frequency. Musculoskeletal: Negative for back pain, neck pain and neck stiffness. Skin: Negative for pallor and rash. Allergic/Immunologic: Negative for immunocompromised state. Neurological: Negative for syncope, light-headedness, numbness and headaches. Hematological: Does not bruise/bleed easily. Psychiatric/Behavioral: Negative for suicidal ideas. Physical Exam Filed Vitals: 03/15/19 2032 03/15/19 2213 03/15/19 2345 BP: (!) 139/94 123/63 110/55 Pulse: 110 92 86 Resp: 18 18 18 Temp: 97.9 ??F (36.6 ??C) TempSrc: Oral SpO2: 98% 99% 99% Weight: 124.7 kg (275 lb) Height: 5' 7 (1.702 m) Physical Exam Constitutional: She is oriented to person, place, and time. She appears well- developed and well-nourished. No distress. HENT: Head: Normocephalic and atraumatic. Right Ear: External ear normal. Left Ear: External ear normal. Eyes: Conjunctivae and EOM are normal. Pupils are equal, round, and reactive to light. No scleral icterus. Neck: Normal range of motion. Neck supple. No JVD present. Cardiovascular: Normal rate, regular rhythm, normal heart sounds and intact distal pulses. Exam reveals no gallop and no friction rub. No murmur heard. Pulmonary/Chest: Effort normal and breath sounds normal. No stridor. No respiratory distress. She has no wheezes. She has no rales. She exhibits no tenderness. Abdominal: Soft. Bowel sounds are normal. She exhibits no distension and no mass. There is tenderness. There is no rebound and no guarding. Minimal abdominal tenderness diffusely. No rebound no guarding bowel sounds positive. No CVA tenderness Musculoskeletal: Normal range of motion. She exhibits no edema or deformity. Neurological: She is alert and oriented to person, place, and time. Skin: Skin is warm and dry. No rash noted. Psychiatric: She has a normal mood and affect. Her behavior is normal. Judgment and thought contentnormal. Nursing note and vitals reviewed. Diagnostic Studies / Procedures ELECTROCARDIOGRAMS: No results found for this visit on 03/15/19. LABORATORY STUDIES: Results for orders placed or performed during the hospital encounter of 03/15/19 CBC W/DIFF AUTOMATED Result Value Ref Range WBC 11.5 (H) 4.4 - 11.0 x10'3/uL RBC 4.70 4.50 - 5.10 x10'6/uL HGB 12.8 12.3 - 15.3 G/DL HCT 40.6 35.9 - 44.6 % MCV 86.4 80.0 - 96.0 FL MCH 27.2 25.3 - 30.9 PG MCHC 31.5 31.0 - 34.1 G/DL RDW 13.4 12.4 - 15.1 % PLT 378 (H) 151 - 353 x10'3/uL MPV 9.9 9.6 - 12.0 FL RBC MORPHOLOGY NORMAL PLT MORPH. NORMAL WBC MORPHOLOGY NORMAL ABS. NEUTROPHILS TOTAL 10.58 (H) 1.40 - 6.00 x10'3/uL ABS. LYMPHOCYTES 0.46 (L) 0.80 - 4.70 x10'3/uL SEG NEUTROPHILS 92 (H) 42 - 72 % LYMPHOCYTES 4 (L) 15.8 - 45.0 % MONOCYTES 3 (L) 5.7 - 12.5 % EOSINOPHILS 1 0 - 5.6 % COMPREHENSIVE METABOLIC PANEL Result Value Ref Range GLUCOSE 123 (H) 70 - 99 MG/DL BUN 14 7 - 18 MG/DL CREATININE 0.86 0.55 - 1.02 MG/DL SODIUM 138 136 - 145 MMOL/L POTASSIUM 4.0 3.5 - 5.1 MMOL/L CHLORIDE 101 100 - 108 MMOL/L CO2 22.9 21 - 32 MMOL/L CALCIUM 8.5 8.5 - 10.1 MG/DL TOTAL BILIRUBIN 0.4 0.2 - 1.2 MG/DL TOTAL PROTEIN 8.1 6.4 - 8.2 G/DL ALBUMIN 3.9 3.4 - 5.0 G/DL AST 34 15 - 37 U/L ALT 41 14 - 55 U/L ALK PHOS 77 50 - 136 U/L ANION GAP 14.1 5 - 15 MMOL/L BUN CREATININE RATIO 16.3 6 - 26 A/G RATIO 0.9 (L) 1.0 - 2.0 RATIO eGFR Non-Afr. Amer. >90 >90 ML/MIN/1.73 M2 eGFR Afr. Amer. >90 >90 ML/MIN/1.73 M2 LIPASE Result Value Ref Range LIPASE 179 73 - 393 UNITS/L INFLUENZA A & B Result Value Ref Range Specimen Type NASOPHARYNX INFLUENZA A NEGATIVE NEGATIVE INFLUENZA B NEGATIVE NEGATIVE IMAGING STUDIES XR CHEST PA+LAT (Results Pending) ED Course / Medical Decision Making MDM Number of Diagnoses or Management Options Diagnosis management comments: Differential diagnosis: Viral gastroenteritis Influenza UTI Pneumonia Amount and/or Complexity of Data Reviewed Clinical lab tests: ordered and reviewed Tests in the radiology section of CPT??: ordered and reviewed Risk of Complications, Morbidity, and/or Mortality Presenting problems: moderate Diagnostic procedures: moderate Management options: moderate ED Course as of Mar 16 110WedMar 15, 2019 2328 Hest x-ray PA and lateral 2210 hrs. Impression: No plain film evidence of acute cardiopulmonary process. No pulmonary airspace consolidation. No pleural effusion. No pneumothorax. Unremarkable cardiomediastinal silhouette. Exam was read by vision radiology Dr. Morales Cervantes MD [CA] 2331 Discussed all results with patient. Discussed treatment plan was Zofran fluids advancing diet. Patient understands agrees with treatment plan. [CA] ED Course User Index [CA] Esau Herrera MD Medications ondansetron (ZOFRAN) injection 4 mg (4 mg Intravenous Given 03/15/192056) sodium chloride 0.9% bolus infusion SOLN 1,000 mL (0 mLs Intravenous Infusion Stop Time 03/15/192208) sodium chloride 0.9% bolus infusion SOLN 1,000 mL (0 mLs Intravenous Infusion Stop Time 03/15/192313) ondansetron (ZOFRAN) injection 4 mg (4 mg Intravenous Given 03/15/192209) Clinical Impression Viral gastroenteritis (Primary) Discharge Medication List as of 03/15/2019 11:33 PM START taking these medications Details ondansetron (ZOFRAN ODT) 4 MG disintegrating tablet Take 1 tablet (4 mg total) by mouth every 8 (eight) hours as needed for Nausea., Starting Wed03/15/2019, Print Class: Print Pharmacy: [facility] [address] [place] [address] [address] (Ph #: [phone]) Disposition: Discharge Follow-Up: Ericka Ward, CHANGE ANALYST [address] [facility] [address] [facility] Esau Herrera MD 03/16/2019 Esau Herrera MD 03/16/19 0111 OTOLARYNGOLOGY * Ning Keith RN - 03/15/2019 8:47 PM CST Patient with complaints of cold chills earlier today. OTOLARYNGOLOGY * Ximena Flores RN - 03/15/2019 8:33 PM CST Pt comes from home to ER due to N&V x 2 days. Some diarrhea today. Unable to keep solids down today. His of anxiety/depression. Afebrile. OTOLARYNGOLOGY documented in this encounter Plan of Treatment Not on file documented as of this encounter Procedures Procedure Name Priority Date/Time Associated Diagnosis Comments XR CHEST PA+LAT STAT 03/15/2019 10:21 PM RN OTOLARYNGOLOGY COMPREHENSIVE METABOLIC PANEL STAT 03/15/2019 10:04 PM RN OTOLARYNGOLOGY CBC W/DIFF AUTOMATED STAT 03/15/2019 10:04 PM RN OTOLARYNGOLOGY LIPASE STAT 03/15/2019 10:04 PM RN OTOLARYNGOLOGY INFLUENZA A & B STAT 03/15/2019 8:47 PM RN OTOLARYNGOLOGY documented in this encounter Results * XR CHEST PA+LAT (03/15/2019 10:21 PM RN OTOLARYNGOLOGY) Anatomical Region Laterality Modality Chest Radiographic Bailey ging 03/16/2019 8:39 AM RN OTOLARYNGOLOGY Impressions 03/16/2019 8:40 AM RN OTOLARYNGOLOGY FINDINGS AND IMPRESSION: CHEST: 1. ??The cardiomediastinal silhouette is not enlarged. ? 2. ??The lungs are well expanded and clear. Questionable right infrahilar infiltrate probably artificially created by superimposed vessels. 3. ??No significant pleural effusion, no pneumothorax. 4. ??Mild scoliosis. Preliminary report rendered by Dr. Morales Cervantes immediately after the examination was completed. Interpreted By: Basil Santiago, 03/16/2019 8:39 AM Narrative 03/16/2019 8:40 AM RN OTOLARYNGOLOGY IMAGING STUDIES: ??XR CHEST PA+LAT ? EXAM DATE/TIME: 03/15/2019 10:05 PM COMPARISON STUDIES: ??08/31/2009. CLINICAL HISTORY: Abdominal pain ?? . Nausea and vomiting. Procedure Note Basil Santiago MD - 03/16/2019 IMAGING STUDIES: XR CHEST PA+LAT EXAM DATE/TIME: 03/15/2019 10:05 PM COMPARISON STUDIES: 08/31/2009. CLINICAL HISTORY: Abdominal pain . Nausea and vomiting. FINDINGS AND IMPRESSION: CHEST: 1. The cardiomediastinal silhouette is not enlarged. 2. The lungs are well expanded and clear. Questionable right infrahilar infiltrate probably artificially created by superimposed vessels. 3. No significant pleural effusion, no pneumothorax. 4. Mild scoliosis. Preliminary report rendered by Dr. Morales Cervantes immediately after the examination was completed. Interpreted By: Basil [place], 03/16/2019 8:39 AM Esau Herrera MD GENERAL IMAGING Final Result * LIPASE (03/15/2019 10:04 PM RN OTOLARYNGOLOGY) LIPASE 179 73 - 393 UNITS/L 03/15/2019 10:23 PM [facility] 03/15/2019 10:0 4 PM RN OTOLARYNGOLOGY us Esau Herrera MD LABORATORY Final Result [facility] [address] [place] [address], * (ABNORMAL) COMPREHENSIVE METABOLIC PANEL (03/15/2019 10:04 PM RN OTOLARYNGOLOGY) GLUCOSE 123(H) 70 - 99 MG/DL 03/15/2019 10:23 PM [facility] BUN 14 7 - 18 MG/DL 03/15/2019 10:23 PM [facility] CREATININE S/P/B 0.86 0.55 - 1.02 MG/DL 03/15/2019 10:23 PM [facility] SODIUM S/P/B 138 136 - 145 MMOL/L 03/15/2019 10:23 PM [facility] POTASSIUM S/P/B 4.0 3.5 - 5.1 MMOL/L 03/15/2019 10:23 PM [facility] CHLORIDE S/P/B 101 100 - 108 MMOL/L 03/15/2019 10:23 PM [facility] CO2 22.9 21 - 32 MMOL/L 03/15/2019 10:23 PM [facility] CALCIUM S/P/B 8.5 8.5 - 10.1 MG/DL 03/15/2019 10:23 PM [facility] BILIRUBIN TOTAL S/P/B 0.4 0.2 - 1.2 MG/DL 03/15/2019 10:23 PM [facility] TOTAL PROTEIN S/P/B 8.1 6.4 - 8.2 G/DL 03/15/2019 10:23 PM [facility] ALBUMIN S/P/B 3.9 3.4 - 5.0 G/DL 03/15/2019 10:23 PM [facility] AST 34 15 - 37 U/L 03/15/2019 10:23 PM [facility] ALT 41 14 - 55 U/L 03/15/2019 10:23 PM [facility] ALKALINE PHOSPHATASE S/P/B 77 50 - 136 U/L 03/15/2019 10:23 PM [facility] ANION GAP 14.1 5 - 15 MMOL/L 03/15/2019 10:23 PM [facility] BUN CREATININE RATIO 16.3 6 - 26 03/15/2019 10:23 PM [facility] A/G RATIO 0.9(L) 1.0 - 2.0 RATIO 03/15/2019 10:23 PM [facility] EGFR NON-AFR. AMER. >90 >90 ML/MIN/1.7 3 M2 03/15/2019 10:23 PM [facility] EGFR AFR. AMER. >90 >90 ML/MIN/1.7 3 M2 03/15/2019 10:23 PM [facility] Comment: NOTE: eGFR is not calculated for patients <18 years of age. This is an estimated GFR (CKD EPI) and should not be used for calculating drug doses. 03/15/2019 10:0 4 PM RN OTOLARYNGOLOGY us Esau Herrera MD LABORATORY Final Result [facility] [address] [place] [address], [place] [phone] * (ABNORMAL) CBC W/DIFF AUTOMATED (03/15/2019 10:04 PM RN OTOLARYNGOLOGY) WBC 11.5(H) 4.4 - 11.0 x10'3/uL 03/15/2019 10:15 PM [facility] RBC 4.70 4.50 - 5.10 x10'6/uL 03/15/2019 10:15 PM [facility] HGB 12.8 12.3 - 15.3 G/DL 03/15/2019 10:15 PM [facility] HCT 40.6 35.9 - 44.6 % 03/15/2019 10:15 PM [facility] MCV 86.4 80.0 - 96.0 FL 03/15/2019 10:15 PM [facility] MCH 27.2 25.3 - 30.9 PG 03/15/2019 10:15 PM [facility] MCHC 31.5 31.0 - 34.1 G/DL 03/15/2019 10:15 PM [facility] RDW 13.4 12.4 - 15.1 % 03/15/2019 10:15 PM [facility] PLT 378(H) 151 - 353 x10'3/uL 03/15/2019 10:15 PM [facility] MPV 9.9 9.6 - 12.0 FL 03/15/2019 10:15 PM [facility] RBC MORPHOLOGY NORMAL 03/15/2019 10:15 PM [facility] PLT MORPH. NORMAL 03/15/2019 10:15 PM [facility] WBC MORPHOLOGY NORMAL 03/15/2019 10:15 PM [facility] ABS. NEUTROPHILS TOTAL 10.58(H) 1.40 - 6.00 x10'3/uL 03/15/2019 10:21 PM [facility] ABS. LYMPHOCYTES 0.46(L) 0.80 - 4.70 x10'3/uL 03/15/2019 10:21 PM RN OTOLARYNGOLOGY [facility] SEG NEUTROPHILS 92(H) 42 - 72 % 0 10:21 PM RN OTOLARYNGOLOGY [facility] LYMPHOCYTES 4(L) 15.8 - 45.0 % 03/15/2019 10:21 PM RN OTOLARYNGOLOGY [facility] MONOCYTES 3(L) 5.7 - 12.5 % 03/15/2019 10:21 PM RN OTOLARYNGOLOGY [facility] EOSINOPHILS 1 0 - 5.6 % 03/15/2019 10:21 PM RN OTOLARYNGOLOGY [facility] 03/15/2019 10:0 4 PM RN OTOLARYNGOLOGY us Esau Herrera MD LABORATORY Edited Result - Final Performing Organization Address City/[facility]/ZIP Co de Phone Number [facility] [address] [place] [address], [place] [phone] * INFLUENZA A & B (03/15/2019 8:47 PM RN OTOLARYNGOLOGY) SPECIMEN TYPE NASOPHARYNX 03/15/2019 9:07 PM RN OTOLARYNGOLOGY [facility] INFLUENZA A NEGATIVE NEGATIVE 03/15/2019 9:07 PM RN OTOLARYNGOLOGY [facility] INFLUENZA B NEGATIVE NEGATIVE 03/15/2019 9:07 PM [facility] NASOPHARYNGEAL SWAB / Unknown 03/15/2019 8:47 PM RN OTOLARYNGOLOGY us Esau Herrera MD MICROBIOLOGY - GENERAL ORDERAB LES Final Result Performing Organization Address [facility]/ZIP Co de Phone Number [facility] [address] [place] [address], [place] [phone] documented in this encounter Visit Diagnoses Diagnosis Viral gastroenteritis- Primary Intestinal infection due to other organism, not elsewhere classified documented in this encounter Administered Medications Inactive Administered Medications - up to 3 most recent administrations Medication Order MAR Action Action Date Dose Rate Site ondansetron (ZOFRAN) injection 4 mg 4 mg, Intravenous, Once, 1 dose, On Wed03/15/19 at 2100, IV push over 2-5 minutes. Given 03/15/2019 8:57 PM RN OTOLARYNGOLOGY 4 mg ondansetron (ZOFRAN) injection 4 mg 4 mg, Intravenous, Once, 1 dose, On Wed03/15/19 at 2215, IV push over 2-5 minutes. Given 03/15/2019 10:10 PM RN OTOLARYNGOLOGY 4 mg sodium chloride 0.9% bolus infusion SOLN 1,000 mL 1,000 mL, Intravenous, Administer over 15 Minutes, Once, 1 dose, On Wed03/15/19 at 2100 New Bag 03/15/2019 8:57 PM RN OTOLARYNGOLOGY 1,000 mLs sodium chloride 0.9% bolus infusion SOLN 1,000 mL 1,000 mL, Intravenous, Administer over 15 Minutes, Once, 1 dose, On Wed03/15/19 at 2215 New Bag 03/15/2019 10:10 PM RN OTOLARYNGOLOGY 1,000 mLs documented in this encounter Active and Recently Administered Medications Times are shown in RN OTOLARYNGOLOGY. Scheduled Medication Order 03/13/2019 03/14/2019 03/15/2019 ondansetron (ZOFRAN) injection 4 mg (COMPLETED) 4 mg, Intravenous, Once, 1 dose, On Wed03/15/19 at 2100, IV push over 2-5 minutes. 2056 (Given - Provid er: Ning Keith RN) ondansetron (ZOFRAN) injection 4 mg (COMPLETED) 4 mg, Intravenous, Once, 1 dose, On Wed03/15/19 at 2215, IV push over 2-5 minutes. 2209 (Given - Provid er: Ning Keith RN) sodium chloride 0.9% bolus infusion SOLN 1,000 mL (COMPLETED) 1,000 mL, Intravenous, Administer over 15 Minutes, Once, 1 dose, On Wed03/15/19 at 2100 2056 (New Bag - Prov ider: Ning Keith RN)2208 (Infusion Stop Time - Provider: Ning Keith RN) sodium chloride 0.9% bolus infusion SOLN 1,000 mL (COMPLETED) 1,000 mL, Intravenous, Administer over 15 Minutes, Once, 1 dose, On Wed03/15/19 at 2215 2210 (New Bag - Prov ider: Ning Keith RN)2314 (Infusion Stop Time - Provider: Ximena Flores RN) documented in this encounter Additional Health Concerns Assessment Noted Time PHQ-9 Depression Total Score: 20 019 9:08 AM CDT documented as of this encounter Care Teams Design Chief Relationship Specialty Start Date End Date Ericka Ward, CHANGE ANALYST PCP - General NURSE PRACTITIONER 09/30/18 12/31/19 documented as of this encounter
--- OUTSIDE RECORDS SUMMARY | 2024-03-06 11:06 | XMS_ITS | Encounter Summary ---
Author Organization [facility] Address [address] [place] [address]. [place], [place] [address] [place] [address] Care Team Providers Care Care Transitions Nurse Name Role Phone Unavailable Primary Care Provider Unavailabl e Encounter Details Date Type Department Care Team (Late st Contact Info) Description 05/12/2017 Abstract [facility] Emergency Room [address] [place] [address] Rey Briseno MD [address] [address] Social History Tobacco Use Types Packs/Day Years [...]
--- OUTSIDE RECORDS SUMMARY | 2024-03-06 11:06 | XMS_ITS | Encounter Summary ---
Author Organization [facility] Address [address] [place] [address]. [place], [place] [address] [place] [address] Care Team Providers Care Paper Goods Machine Operator Name Role Phone Unavailable Primary Care Provider Unavailabl e Encounter Details Date Type Department Care Team (Late st Contact Info) Description 02/25/2016 Abstract [facility] Family & Internal Medicine [facility] [address] [place] [address] Orquidea Nagy [place] [id number] [place] [address] Social History Tobacco Use Types Packs/Day [...] Sign Reading Time Taken Comments Blood Pressure 126/68 02/25/2016 3:49 PM TOP DYEING MACHINE LOADER Pulse 86 02/25/2016 3:49 PM TOP DYEING MACHINE LOADER Temperature - - Respiratory Rate - - Oxygen Saturation - - Inhaled Oxygen Concentration - - Weight 92.1 kg (203 lb) 02/25/2016 3:49 PM TOP DYEING MACHINE LOADER Height 168.9 cm (5' 6.5 ) 02/25/2016 3:49 PM TOP DYEING MACHINE LOADER Body Mass Index 32.27 02/25/2016 3:49 PM TOP DYEING MACHINE LOADER documented in this encounter Progress Notes * Ericka Ward NP - 02/25/2016 3:45 PM CST Reason For Visit Acute Follow-Up Visit Chief Complaint 2 week f/u on sleep apnea and anxiety. Pt also has a lower heart rate than last visit at 86. She issleeping better and stated Anxiety is better but not controlled yet. She has not had time to contact Psychiatrist yet. History of Present Illness HPI Free Text: Pt states her panic attacks and sleep have improved but has had 2 panic attacks since she started her Citalopram. Last night she had one and she was able to deep breathe and take a xanax before she felt relief. Unknown what triggers the panic attacks. Pt states she continues to wake up once a night, sweating, heart racing, and short of breath. Pt states it takes her about an hour to 90 minutes before she can return to sleep. Pt been playing a lot of basketball lately with her friend's son and has noticed postive changes inher panic attacks and sleep since the increase in exercise. 3 days ago, pt was bending down to pick something up when she felt a sharp pain in her left lower back that radiates to the center of her back. No radiating pain down legs. Denies any leg numbness ortingling. Denies any urinary problems. When walking, pt will have her back lock up' and freeze for about 30-60 minutes. Pt states the pain is exacerbated by any ROM movements. Pt attempted ice, heat, Icy Hot patches, with no relief. Anxiety Disorder (Follow-Up): The patient is being seen for follow-up of anxiety. The patient reports doing well and pt reports having 2 panic attacks in the last couple weeks. Pt also reports only waking up once a night now. Pt is to have sleep study in 2 days. She has no comorbid illnesses. in the family but was having issues before the . Interval symptoms: improved anxiety, worsened difficulty concentrating, worsened restlessness, improved panic attacks, improved sleep disruption and denies depression. Medications: the patient is adherent to her medication regimen (xanax is.25 mg po daily), but she denies medication side effects. Insomnia (Follow-Up): The patient is being seen for follow-up of insomnia. The patient reports doing well and only waking up once a night. Comorbid Illnesses: anxiety. She has had no significant interval events. Interval symptoms: improved difficulty falling asleep and improved difficulty staying asleep. Associated symptoms: snoring. Additional history: pt to have sleep study in 2 days. Back Pain (Follow-Up): The patient is being seen for follow-up of back pain and a lumbar strain. The patient reports doing poorly and pt complains of left lower back pain x 3 days after bending down to pick somethiing up. Pt able to move in all directions, however pain is exacerbated with any directional movement. Playing basketball . Interval symptoms: worsened lower back pain. Associated symptoms: no incontinence and no urinary retention. Active Problems 1. Abnormal heart rhythm (427.9) (I49.9) 2. Anxiety (300.00) (F41.9) 3. Edema (782.3) (R60.9) 4. Persistent insomnia (307.42) (G47.00) 5. Snoring (786.09) (R06.83) 6. Tachycardia (785.0) (R00.0) Past Medical History 1. History of Pre-employment health screening examination (V70.5) (Z02.1) Surgical History 1. Denied: History of Surgery Family History 1. No pertinent family history Social History ?? Denied: History of Alcohol Use (History) ?? Marital History - Single ?? Never a smoker Current Meds 1. ALPRAZolam 0.5 MG Oral Tablet; TAKE 1 TABLET BY MOUTH EVERY 6 TO 8 HOURS NEEDED; Therapy: 11Feb2016 to (Evaluate:[id number]); Last Rx:11Feb2016 Ordered 2. Citalopram Hydrobromide 20 MG Oral Tablet; TAKE 1 TABLET DAILY; Therapy: 11Feb2016 to (Evaluate:[id number]) Requested for: 11Feb2016; Last Rx:11Feb2016 Ordered Allergies 1. No Known Drug Allergies Vitals Recorded: 25Feb2016 03:49PM Temperature 98.6 F Heart Rate 86 Systolic 126 Diastolic 68 O2 Saturation 99 Height 5 ft 6.5 in Weight 203 lb BMI Calculated 32.27 BSA Calculated 2.02 Physical Exam Constitutional General appearance: No acute [...] cyanosis. Inspection/palpation of joints, bones, and muscles: Abnormal. Skin Skin and subcutaneous tissue: Normal without rashes or lesions. Neurologic Cranial nerves: Cranial nerves 2-12 intact. Reflexes: 2+ and symmetric. Sensation: No sensory loss. Psychiatric Orientation to person, place, and time: Normal. Mood and affect: Normal. Assessment 1. Anxiety (300.00) (F41.9) 2. Back pain, acute (724.5) (M54.9) 3. Persistent insomnia (307.42) (G47.00) Plan Anxiety 1. ALPRAZolam 0.5 MG Oral Tablet; TAKE 1 TABLET BY MOUTH EVERY 6 TO 8 HOURS NEEDED Rx By: Ericka Ward; Dispense: 15 Days ; #:30 Tablet; Refill: 2; For: Anxiety; DOLLY = N; Print Rx Anxiety, Back pain, acute 2. Follow-up visit in 1 month Outpatient Follow-up Status: Hold For - Scheduling Requested for: [id number] Ordered; For: Anxiety, Back pain, acute; Ordered By: Ericka Ward Performed: Due: [id number] Back pain, acute 3. Ibuprofen 600 MG Oral Tablet; TAKE 1 TABLET 4 TIMES DAILY WITH MEALS NEEDED Rx By: Ericka Ward; Dispense: 14 Days ; #:56 Tablet; Refill: 0; For: Back pain, acute; DOLLY = N; Verified Transmission to [facility] 435; Last Updated By: Ana Paula HD Fantasy Football; 02/25/2016 4:18:11 PM Continue Citalopram. Continue exercising. Sleep study on 02/26 but pt having problem getting off work. Take Ibuprofen 600 mg QID x 7-14 days for back pain. Follow up in 1 month to re-evaluate anxiety. Signatures Electronically signed by : Ericka Ward NP; Feb 25 2016 4:34PM TOP DYEING MACHINE LOADER (Author) documented in this encounter Plan of Treatment Not on file documented as of this encounter Visit Diagnoses Not on filedocumented in this encounter
--- OUTSIDE RECORDS SUMMARY | 2024-03-06 11:06 | XMS_ITS | Encounter Summary ---
Author Organization [facility] Address [address] [place] [address]. [place], [place] [address] [place] [address] Care Team Providers Care Bridge Toll Collector Name Role Phone Ericka Ward NP Primary Care Provider Prakash cruz Encounter Details Date Type Department Care Team (Latest Contact Info) Description 10/18/2019 Travel Social History Tobacco Use Types Packs/Day [...] documented as of this encounter Care Teams Bridge Toll Collector Relationship Specialty Start Date End Date Ericka Ward, PHYSIOTHERAPY AIDE PCP - General NURSE PRACTITIONER 09/30/18 12/31/19 documented as of this encounter
--- OUTSIDE RECORDS SUMMARY | 2024-03-06 11:06 | XMS_ITS | Encounter Summary ---
Author Organization [facility] Address [address] [place] [address]. [place] [id number] [place] [address] Care Team Providers Care Senior Electrical Controls Engineer Name Role Phone Unavailable Primary Care Provider Unavailabl e Encounter Details Date Type Department Care Team (Latest Contact Info) Description 05/11/2017 Abstract [facility] Social History Tobacco Use [...]
--- OUTSIDE RECORDS SUMMARY | 2024-03-06 11:06 | XMS_ITS | Encounter Summary ---
Author Organization [facility] Address [address] [place] [address]. [place], [place] [address] [place] [address] Care Team Providers Care Software Test Technician Name Role Phone Unavailable Primary Care Provider Unavailabl e Encounter Details Date Type Department Care Team (Late st Contact Info) Description 02/13/2016 Abstract [facility] [address] [place] [address] Cher Nieves, ATTORNEY LAW CLERK [address] [facility] [address] [address] Social History Tobacco Use Types Packs/Day Years [...] as of this encounter Visit Diagnoses Diagnosis Toxic effect of substance, unintentional Toxic effect of unspecified substance, chiefly nonmedicinal as to source documented in this encounter
--- OUTSIDE RECORDS SUMMARY | 2024-03-06 11:07 | XMS_ITS | Encounter Summary ---
Author Organization [facility] Address [address] [place] [address]. [place] [id number] [place], [place] [id number] Care Team Providers Care Oracle Database Analyst Name Role Phone Unavailable Primary Care Provider Unavailabl e Encounter Details Date Type Department Care Team (Late st Contact Info) Description 11/09/2013 Abstract [facility] Conversion Md, Generic Conversion, Social History Tobacco Use Types [...] Sign Reading Time Taken Comments Blood Pressure 130/80 11/09/2013 1:18 PM CDT Pulse 114 11/09/2013 1:18 PM CDT Temperature - - Respiratory Rate - - Oxygen Saturation - - Inhaled Oxygen Concentration - - Weight 103.2 kg (227 lb 8 oz) 11/09/2013 1:18 PM CDT Height - - Body Mass Index 36.72 03/06/2013 10:[address] RECORDER Body Mass Index Percentile 97.85% 11/09/2013 1:1 8 PM CDT Growth Chart: CDC (Girls, 2- 20 Years) documented in this encounter Plan of Treatment Not on file documented as of this encounter Visit Diagnoses Not on filedocumented in this encounter
--- OUTSIDE RECORDS SUMMARY | 2024-03-06 11:07 | XMS_ITS | Encounter Summary ---
Author Organization [facility] Address [address] [place] [address]. [place] [id number] Care Team Providers Care Airplane Engineer Name Role Phone Unavailable Primary Care Provider Unavailabl e Encounter Details Date Type Department Care Team (Latest Contact Info) Description 05/02/2015 Abstract [facility] Social History Tobacco Use Types Packs/Day Years Used Date Smoking Tobacco: Never Assessed Comments Unknown Sex and Gender Information Value Date Recorded Sex Assigned at Female 11/02/2018 8:50 AM CDT Legal Sex Female 8:23 PM CDT Gender Identity Female 11/02/2018 8:50 AM CDT Sexual Orientation Not on file documented as of this encounter Progress Notes * Generic Conversion MD Diann - 05/02/2015 1:38 PM CST Message Recorded as Task Date: 05/01/2015 09:24 AM, Created By: Tamra Verma Task Name: Call Patient with results Assigned To: Tamra Verma Regarding Patient: Feli Garcia, Status: Active Comment: Tamra Verma - 01 May 2015 9:24 AM Patient Please let Feli know that blood work is normal. Please reinforce that she needs to keep a symptms diary, limit sodium, and go to ED if swelling occurs again. Thank you. Azra Herrera - 02 May 2015 1:38 PM TASK EDITED pt told results and message. Signatures Electronically signed by : Azra Herrera MA; May 02 2015 1:39PM HORTICULTURAL FARMER (Author) documented in this encounter Plan of Treatment Not on file documented as of this encounter Visit Diagnoses Not on filedocumented in this encounter
--- OUTSIDE RECORDS SUMMARY | 2024-03-06 11:07 | XMS_ITS | Encounter Summary ---
Author Organization [facility] Address [address] [place] [address]. [place] [address] Care Team Providers Care Bobbin Dumper Name Role Phone Unavailable Primary Care Provider Unavailabl e Encounter Details Date Type Department Care Team (Late st Contact Info) Description 05/18/2012 Abstract [facility] Conversion Md, Generic Conversion, Social History Tobacco [...]
--- OUTSIDE RECORDS SUMMARY | 2024-03-06 11:07 | XMS_ITS | Encounter Summary ---
Author Organization [facility] Address [address] [place] [address]. [place], [place] [phone] [place] [address] Care Team Providers Care Negotiator Name Role Phone Unavailable Primary Care Provider Unavailabl e Encounter Details Date Type Department Care Team (Latest Contact Info) Description 04/30/[address] [facility] Tamra Verma APNP [address] [place] [phone] Social History Tobacco Use Types Packs/Day Years [...] Procedure Name Priority Date/Time Associated Diagnosis Comments TSH W/REFLEX Routine 04/30/2015 9:36 AM SHIPPER AND RECEIVING COMPREHENSIVE METABOLIC PANEL Routine 04/30/2015 9:36 AM SHIPPER AND RECEIVING CBC, MANUAL DIFF Routine 04/30/2015 9:36 AM SHIPPER AND RECEIVING documented in this encounter Results * TSH W/REFLEX (SNS) (04/30/2015 9:36 AM SHIPPER AND RECEIVING) TSH 0.67 0.35 - 4.94 uIU/mL [facility] TO EPIC CONVERSION Comment:Result Comment: FREE T4 NOT INDICATED 04/30/2015 9:36 AM SHIPPER AND RECEIVING 04/30/2015 9:36 AM SHIPPER AND RECEIVING Narrative [facility] TO [facility]IC CONVERSION - 04/30/2015 12:15 PM SHIPPER AND RECEIVING Result Communication: Call patient with results us Tamra Luci APNP LABORATORY Final Res ult [facility] TO EPIC CONVERSION * (ABNORMAL) CBC, MANUAL DIFF (04/30/2015 9:36 AM SHIPPER AND RECEIVING) WBC 5.7 4.4 - 11.0 x10'3/uL [facility] TO EPIC CONVERSION RBC 4.56 4.50 - 5.10 x10'6/uL [facility] TO EPIC CONVERSION HGB 13.3 12.3 - 15.3 G/DL [facility] TO EPIC CONVERSION HCT 41.8 35.9 - 44.6 % [facility] TO EPIC CONVERSION MCV 91.7 80.0 - 96.0 FL [facility] TO EPIC CONVERSION MCH 29.2 25.3 - 30.9 PG [facility] TO EPIC CONVERSION MCHC 31.8 31.0 - 34.1 G/DL [facility] TO EPIC CONVERSION RDW 13.2 12.4 - 15.1 % [facility] TO EPIC CONVERSION PLT 319 151 - 353 x10'3/uL [facility] TO EPIC CONVERSION MPV 10.3 9.6 - 12.0 FL [facility] TO EPIC CONVERSION ABS. NEUTROPHILS TOTAL 2.62 1.4 - 6.0 x10'3/uL [facility] TO EPIC CONVERSION SEG NEUTROPHILS 46 42 - 72 % [facility] ROUP TO EPIC CONVERSION LYMPHOCYTES 47(H) 15.8 - 45.0 % [facility] TO EPIC CONVERSION MONOCYTES 6 5.7 - 12.5 % [facility] TO [facility]IC CONVERSION EOSINOPHILS 1 0 - 5.6 % [facility] TO [facility]IC CONVERSION WBC MORPHOLOGY NORMAL [facility] OUP TO EPIC CONVERSION PLT MORPH. NORMAL [facility] TO EPIC CONVERSION RBC MORPHOLOGY NORMAL [facility] OUP TO EPIC CONVERSION 04/30/2015 9:36 AM SHIPPER AND RECEIVING 04/30/2015 9:36 AM SHIPPER AND RECEIVING Narrative [facility] TO EPIC CONVERSION - 04/30/2015 11:36 AM SHIPPER AND RECEIVING Result Communication: Call patient with results us Tamra Verma APNP LABORATORY Final Res ult [facility] TO EPIC CONVERSION * (ABNORMAL) COMPREHENSIVE METABOLIC PANEL (04/30/2015 9:36 AM SHIPPER AND RECEIVING) Pathologist [facility] SODIUM S/P/B 140 136 - 145 MMOL/L [facility] TO EPIC CONVERSION POTASSIUM S/P/B 4.5 3.5 - 5.1 MMOL/L [facility] TO EPIC CONVERSION CHLORIDE S/P/B 109(H) 98 - 107 MMOL/L [facility] TO EPIC CONVERSION CO2 23.0 22 - 29 MMOL/L [facility] TO EPIC CONVERSION ANION GAP 12.5 10.0 - 24.0 MMOL/L [facility] TO EPIC CONVERSION BUN 12 7.0 - 18.7 MG/DL [facility] TO EPIC CONVERSION CREATININE S/P/B 0.75 0.57 - 1.11 MG/DL [facility] TO EPIC CONVERSION GFR ESTIMATE >60 ?? GFR Reference Range: Kidney Failure - <15mL/min Chronic Kidney Disease - <60mL/min Normal Kidney Function - >60mL/min GFR calculation is not recommended for Patients less than 18 years or greater than 70 years as per the national Kidney Foundation. If the patient is -Orquidea n, multiply results by 1.21 >60 ml/min/1 .73 m2 [facility] TO EPIC CONVERSION BUN CREATININE RATIO 16.0 6.0 - 26.0 [facility] TO EPIC CONVERSION GLUCOSE 88 70 - 105 MG/DL [facility] TO EPIC CONVERSION OSMOLALITY (CALC) 279 271 - 290 MOSM/KG [facility] TO [facility]IC CONVERSION CALCIUM S/P/B 9.2 8.8 - 10.8 MG/DL [facility] TO EPIC CONVERSION BILIRUBIN TOTAL S/P/B 0.4 0.2 - 1.2 MG/DL [facility] TO EPIC CONVERSION AST 16 5 - 34 UNITS/L [facility] TO [facility]IC CONVERSION ALT 13 6 - 55 UNITS/L [facility] TO EPIC CONVERSION ALKALINE PHOSPHATASE S/P/B 54 30 - 115 UNITS/L [facility] TO EPIC CONVERSION TOTAL PROTEIN S/P/B 7.0 6.4 - 8.3 G/DL [facility] TO EPIC CONVERSION ALBUMIN S/P/B 4.4 3.5 - 5.0 G/DL [facility] TO EPIC CONVERSION A/G RATIO 1.7 1.1 - 1.9 RATIO [facility] TO EPIC CONVERSION 04/30/2015 9:36 AM SHIPPER AND RECEIVING 04/30/2015 9:36 AM SHIPPER AND RECEIVING Narrative [facility] TO EPIC CONVERSION - 04/30/2015 11:43 AM SHIPPER AND RECEIVING Result Communication: Call patient with results us Tamra HERNANDEZNP LABORATORY Final Res ult [facility] TO EPIC CONVERSION documented in this encounter Visit Diagnoses Not on filedocumented in this encounter
--- OUTSIDE RECORDS SUMMARY | 2024-03-06 11:07 | XMS_ITS | Encounter Summary ---
Author Organization [facility] Address [address] [place] [address]. [place], [place] [address] [place] [address] Care Team Providers Care Billing Clinician Name Role Phone Unavailable Primary Care Provider Unavailabl e Encounter Details Date Type Department Care Team (Late st Contact Info) Description 11/06/2011 Abstract [facility] Conversion Umm Parson, [facility] [address] [place] [address] Social History Tobacco Use Types Packs/Day Years [...] Sign Reading Time Taken Comments Blood Pressure 120/80 11/06/2011 3:50 PM CDT Pulse 80 11/06/2011 3:50 PM CDT Temperature - - Respiratory Rate - - Oxygen Saturation - - Inhaled Oxygen Concentration - - Weight 96.6 kg (213 lb) 11/06/2011 3:50 PM CDT Height - - Body Mass Index 33.36 09/23/2011 3:28 PM CDT Body Mass Index Percentile 97.18% 11/06/2011 3:5 0 PM CDT Growth Chart: CDC (Girls, 2- 20 Years) documented in this encounter Plan of Treatment Not on file documented as of this encounter Visit Diagnoses Not on filedocumented in this encounter
--- OUTSIDE RECORDS SUMMARY | 2024-03-06 11:07 | XMS_ITS | Encounter Summary ---
Author Organization [facility] Address [address] [place] [address]. [place], [place] [address] [place] [address] Care Team Providers Care Centrifugal Operator Name Role Phone Unavailable Primary Care Provider Unavailabl e Encounter Details Date Type Department Care Team (Late st Contact Info) Description 04/30/2015 Abstract [facility] [address] [place] [id number] Tamra Verma, JJ [address] [place] [phone] Social History Tobacco Use Types Packs/Day [...] of this encounter Visit Diagnoses Diagnosis Cardiac arrhythmia Cardiac dysrhythmia, unspecified documented in this encounter
--- OUTSIDE RECORDS SUMMARY | 2024-03-06 11:07 | XMS_ITS | Encounter Summary ---
Author Organization [facility] Address [address] [place] [address]. [place], [place] [address] [place] [address] Care Team Providers Care Communication Analyst Name Role Phone Unavailable Primary Care Provider Unavailabl e Encounter Details Date Type Department Care Team (Late st Contact Info) Description 10/17/2015 Abstract [facility] [address] [place] [address] Nick Orosco MD [address] [place] [address] [place] [phone] Social History Tobacco Use Types Packs/Day Years [...] of this encounter Visit Diagnoses Diagnosis Acute bronchitis documented in this encounter
--- OUTSIDE RECORDS SUMMARY | 2024-03-06 11:07 | XMS_ITS | Encounter Summary ---
Author Organization [facility] Address [address] [place] [address]. [place] [address] Care Team Providers Care Women Designer Name Role Phone Unavailable Primary Care Provider Unavailabl e Encounter Details Date Type Department Care Team (Late st Contact Info) Description 05/02/2012 Abstract [facility] Conversion Md, Generic Conversion, Social [...]
--- OUTSIDE RECORDS SUMMARY | 2024-03-06 11:07 | XMS_ITS | Encounter Summary ---
Author Organization [facility] Address [address] [place] [address]. [place] [address] Care Team Providers Care Condominium Association Manager Name Role Phone Unavailable Primary Care Provider Unavailabl e Encounter Details Date Type Department Care Team (Late st Contact Info) Description 05/06/2012 Abstract [facility] Conversion Md, Generic Conversion, Social History [...]
--- OUTSIDE RECORDS SUMMARY | 2024-03-06 11:07 | XMS_ITS | Encounter Summary ---
Author Organization [facility] Address [address] [place] [address]. [place] [address] Care Team Providers Care Aerodynamics Engineer Name Role Phone Unavailable Primary Care Provider Unavailabl e Encounter Details Date Type Department Care Team (Late st Contact Info) Description 05/27/2012 Abstract [facility] Conversion Md, Generic Conversion, Social [...]
--- OUTSIDE RECORDS SUMMARY | 2024-03-06 11:07 | XMS_ITS | Encounter Summary ---
Author Organization [facility] Address [address] [place] [address]. [place] [address] Care Team Providers Care Forge Helper Name Role Phone Unavailable Primary Care Provider Unavailabl e Encounter Details Date Type Department Care Team (Late st Contact Info) Description 05/04/[address] [facility] Conversion Md, Generic Conversion, Social History [...]
--- OUTSIDE RECORDS SUMMARY | 2024-03-06 11:07 | XMS_ITS | Encounter Summary ---
Author Organization [facility] Address [address] [place] [address]. [place] [address] Care Team Providers Care Automotive Engineering Teacher Name Role Phone Unavailable Primary Care Provider Unavailabl e Encounter Details Date Type Department Care Team (Late st Contact Info) Description 11/08/2013 Abstract [facility] Conversion Md, Generic Conversion, Social History [...]
--- OUTSIDE RECORDS SUMMARY | 2024-03-06 11:07 | XMS_ITS | Encounter Summary ---
Author Organization [facility] Address [address] [place] [address]. [place], [place] [address] [place] [address] Care Team Providers Care Invasive Cardiovascular Technologist Name Role Phone Unavailable Primary Care Provider Unavailabl e Encounter Details Date Type Department Care Team (Late st Contact Info) Description 09/27/2012 Abstract [facility] Conversion Namrata Sanabria, [facility] [address] [place] [address] Social History Tobacco Use Types Packs/Day Years [...] Sign Reading Time Taken Comments Blood Pressure 110/60 09/27/2012 1:40 PM CDT Pulse 84 09/27/2012 1:40 PM CDT Temperature - - Respiratory Rate - - Oxygen Saturation - - Inhaled Oxygen Concentration - - Weight 98 kg (216 lb) 09/27/2012 1:40 PM CDT Height 167.6 cm (5' 6 ) 09/27/2012 1:40 PM CDT Body Mass Index 34.86 09/27/2012 1:40 PM CDT Body Mass Index Percentile 97.51% 09/27/2012 1:4 0 PM CDT Growth Chart: CDC (Girls, 2- 20 Years) documented in this encounter Plan of Treatment Not on file documented as of this encounter Visit Diagnoses Not on filedocumented in this encounter
--- OUTSIDE RECORDS SUMMARY | 2024-03-06 11:07 | XMS_ITS | Encounter Summary ---
Author Organization [facility] Address [address] [place] [address]. [place], [place] [address] [place] [address] Care Team Providers Care Project Product Manager Name Role Phone Unavailable Primary Care Provider Unavailabl e Encounter Details Date Type Department Care Team (Late st Contact Info) Description 09/18/2011 Abstract [facility] Quynh Broderick, [address] [place] [id number] Social History Tobacco Use Types Packs/Day Years [...] Sign Reading Time Taken Comments Blood Pressure 130/84 09/18/2011 2:06 PM CDT Pulse 84 09/18/2011 2:06 PM CDT Temperature - - Respiratory Rate - - Oxygen Saturation - - Inhaled Oxygen Concentration - - Weight 98.9 kg (218 lb) 09/18/2011 2:06 PM CDT Height 170.2 cm (5' 7 ) 09/18/2011 2:06 PM CDT Body Mass Index 34.14 09/18/2011 2:06 PM CDT Body Mass Index Percentile 97.62% 09/18/2011 2:0 6 PM CDT Growth Chart: CDC (Girls, 2- 20 Years) documented in this encounter Plan of Treatment Not on file documented as of this encounter Visit Diagnoses Not on filedocumented in this encounter
--- OUTSIDE RECORDS SUMMARY | 2024-03-06 11:07 | XMS_ITS | Encounter Summary ---
Author Organization [facility] Address [address] [place] [address]. [place] [address] Care Team Providers Care Box Liner Name Role Phone Unavailable Primary Care Provider Unavailabl e Encounter Details Date Type Department Care Team (Late st Contact Info) Description 11/20/2013 Abstract [facility] Conversion Md, Generic Conversion, Social [...]
--- OUTSIDE RECORDS SUMMARY | 2024-03-06 11:07 | XMS_ITS | Encounter Summary ---
Author Organization [facility] Address [address] [place] [address]. [place], [place] [phone] [place] [address] Care Team Providers Care Front Counter Attendant Name Role Phone Unavailable Primary Care Provider Unavailabl e Encounter Details Date Type Department Care Team (Late st Contact Info) Description 05/20/2012 Abstract [facility] [address] [place] [phone] Zhane Raygoza MD [address] [address] Social History Tobacco Use Types Packs/Day Years [...] as of this encounter Visit Diagnoses Diagnosis Abdominal pain, generalized documented in this encounter
--- OUTSIDE RECORDS SUMMARY | 2024-03-06 11:07 | XMS_ITS | Encounter Summary ---
Author Organization [facility] Address [address] [place] [address]. [place] [id number] [place] [address] Care Team Providers Care Order Manager Name Role Phone Unavailable Primary Care Provider Unavailabl e Encounter Details Date Type Department Care Team (Latest Contact Info) Description 12/01/2015 Abstract [facility] Social History Tobacco Use Types [...]
--- OUTSIDE RECORDS SUMMARY | 2024-03-06 11:07 | XMS_ITS | Encounter Summary ---
Author Organization [facility] Address [address] [place] [address]. [place], [place] [address] [place] [address] Care Team Providers Care Malt House Supervisor Name Role Phone Ericka Ward NP Primary Care Provider Abimbola Soto [facility] Primary Care Provider + Encounter Details Date Type Department Care Team (Late st Contact Info) Description 04/28/2012 Abstract [facility] [address] [place] [address] Juliet Alaniz, INTERNAL GRINDER TENDER [address] [place] [address] Social History Tobacco Use Types Packs/Day Years Used Date Smoking Tobacco: Never Assessed AUDIT-C Answer Date Recorded Frequency of Alcohol Consumption Never 09/30/2018 Average Number of Drinks Not on file 019 Frequency of Binge Drinking Not on file 09/12 PHQ-2 Answer Date Recorded PHQ-2 Score - If the patient scores above 3, please move on to questions 3-9 1 10/31/2020 Comments Unknown Sex and Gender Information Value [...] Rule Out 01/29/2020 01/29/2020 02/02/2020 2:10 PM INSURANCE SALES SUPERVISOR COVID-19 Rule Out 02/19/2020 02/19/2020 02/19/2020 1:29 PM INSURANCE SALES SUPERVISOR COVID-19 Confirmed 02/19/2020 02/19/2020 12:34 AM INSURANCE SALES SUPERVISOR COVID-19 Rule Out 11/08/2020 11/08/2020 11/08/2020 12:43 PM CDT COVID-19 Rule Out 11/08/2020 11/08/2020 11/10/2020 3:30 AM CDT documented as of this encounter Care Teams Malt House Supervisor Relationship Specialty Start Date End Date Ericka Ward NP PCP - General NURSE PRACTITIONER 09/30/18 12/31/19 Abimbola Cuba FNP- PCP - General Nurse Practitioner Family 01/01/20 documented as of this encounter
--- OUTSIDE RECORDS SUMMARY | 2024-03-06 11:07 | XMS_ITS | Encounter Summary ---
Author Organization [facility] Address [address] [place] [address]. [place], [place] [phone] [place] [address] Care Team Providers Care Dielectric Press Operator Name Role Phone Unavailable Primary Care Provider Unavailabl e Encounter Details Date Type Department Care Team (Late st Contact Info) Description 04/30/2015 Abstract [facility] Family & Internal Medicine [facility] [address] [place] [address] [place] [id number] [place] [address] Social History Tobacco Use Types Packs/Day [...] Sign Reading Time Taken Comments Blood Pressure 130/90 04/30/2015 9:02 AM CORK TIPPER Pulse 80 04/30/2015 9:02 AM CORK TIPPER Temperature - - Respiratory Rate - - Oxygen Saturation - - Inhaled Oxygen Concentration - - Weight 88.9 kg (196 lb) 04/30/2015 9:02 AM CORK TIPPER Height 168.9 cm (5' 6.5 ) 04/30/2015 9:02 AM CORK TIPPER Body Mass Index 31.16 04/30/2015 9:02 AM CORK TIPPER documented in this encounter Progress Notes * JJ Gaston - 04/30/2015 9:00 AM CST Reason For Visit Reason For Visit: Acute Visit Chief Complaint ankles and legs and hands were swollen yest. she tries to stay away from the salt. no difficulties in breathing. swelling as bad this am. lmp: ended l wk ago History of Present Illness HPI Free Text: Yesterday at work Feli's hands, lower legs, ankles, and feet swelled . 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 The swelling began in the morning and stayed swollen all day. She went to bed with swollen hands, legs, and feet and they were back to normal size when she awoke this morning. No abdominal pain. No change in urine or bowel habits. No difficulty breathing. No cough. No fever or SOB. Her father has diabetes. Her mother is healthy but was adopted so Feli does not know muchabout her mother's health history. Feli has two sisters who are healthy. No family history of ANY cardiac event. Feli denies allergies. 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 Mom is a llergic to latex but Feli doesn't believe she has a problem with it. Her hands were burning yesterday after the swelling began. She has never had a regular period. States she has a period about every3 months. She has never had a well- woman or taken anything to normalize her periods but she appearsto be otherwise young and healthy. She is a current smoker. Denies use of illegal or [id number] drug use. Denies alcohol use. She does not have a healthy, well-balanced diet. She is asymptomatic today. Edema: Feli Garcia presents with complaints of sudden onset of rare episodes of edema (hands, lower legs,ankles, and feet) Associated symptoms include no weight gain, no dyspnea, no decreased urinary output, no ascites, nojaundice, no diarrhea, no localized redness, no localized warmth, no fever, no calf pain and no calf swelling. Review of Systems See HPI for pertinent positives. Constitutional: Normal. ENT: normal. Cardiovascular: Normal. Respiratory: Normal. Gastrointestinal: Normal. Genitourinary: Normal. The patient presents with complaints of gradual onset of constant episodes of moderate bilateral hand dry skin, described as diffusely distributed. Musculoskeletal: Normal. Neurological: Normal. Past Medical History 1. History of Pre-employment health screening examination (V70.5) (Z02.1) Surgical History 1. Denied: History of Surgery Family History Mother 1. No pertinent family history Social History ?? Denied: History of Alcohol Use (History) ?? Marital History - Single ?? Never a smoker Current Meds 1. No Reported Medications Recorded DOLLY = N; ; Last Updated By: Verna Aranda; 07/31/2014 11:28:57 AM Allergies 1. No Known Drug Allergies Recorded By: Bonnie Pinzon; 09/23/2012 1:50:07 PM Vitals Recorded: [id number] 09:02AM Temperature 98.2 F Heart Rate 80 Systolic 130 Diastolic 90 O2 Saturation 99 Height 5 ft 6.5 in Weight 196 lb BMI Calculated 31.16 BSA Calculated 1.99 Physical Exam Constitutional General appearance: No acute distress, well appearing and well nourished. Eyes Conjunctiva and lids: No swelling, erythema or discharge. Ears, Nose, Mouth, and Throat External inspection of ears and nose: Normal. Otoscopic examination: Tympanic membranes translucent with normal light reflex. Canals patent without erythema. Pulmonary Respiratory effort: No increased work of breathing or signs of respiratory distress. Auscultation of lungs: Clear to auscultation. Cardiovascular Auscultation of heart: Normal rate and rhythm, normal S1 and S2, without murmurs. Examination of extremities for edema and/or varicosities: Normal. no edema. Abdomen Abdomen: Non-tender, no masses. Liver and spleen: No hepatomegaly or splenomegaly. Lymphatic Palpation of lymph nodes in neck: No lymphadenopathy. Musculoskeletal Gait and station: Normal. Skin Skin and subcutaneous tissue: Abnormal. dry skin and knuckles of hands. Neurologic Cranial nerves: Cranial nerves 2-12 intact. Psychiatric Orientation to person, place, and time: Normal. Mood and affect: Normal. Assessment 1. Edema (782.3) (R60.9) 2. Abnormal heart rhythm (427.9) (I49.9) Plan Abnormal heart rhythm 1. EKG In Office; Status:Active; Requested for:[id number]; Perform:In Office; Due:[id number];Ordered; For:Abnormal heart rhythm; Ordered By:Tamra Verma; Abnormal heart rhythm, Edema 2. CBC W Manual Differential; Status:In Progress - Specimen/Data Collected; Done: 30Apr2015 Perform:. [facility]; Due:30May2015; Last Updated By:Jacqui Cornelius; 04/30/2015 9:37:01 AM;Ordered; For:Abnormal heart rhythm, Edema; Ordered By:Tamra Verma; 3. Compr Metabolic Prof ( CMP ); Status:In Progress - Specimen/Data Collected; Done: 30Apr2015 Perform:. [facility]; Due:30May2015; Last Updated By:Jacqui Cornelius; 04/30/2015 9:37:01 AM;Ordered; For:Abnormal heart rhythm, Edema; Ordered By:Tamra Verma; 4. TSH W Reflex Free T4; Status:In Progress - Specimen/Data Collected; Done: 30Apr2015 Perform:. [facility]; Due:30May2015; Last Updated By:Jacqui Cornelius; 04/30/2015 9:37:01 AM;Ordered; For:Abnormal heart rhythm, Edema; Ordered By:Tamra Verma; Health Maintenance 5. Stop: Influenza For: Health Maintenance; Ordered By:Tamra Verma; Effective Date:30Apr2015; Last Updated By: Azra Herrera; 04/30/2015 9:06:36 AM Will call with results of blood work and recommendations. Keep a symptoms diary. Do not add salt to diet and avoid foods high in sodium. Go to ED or return to office if it happens again. Go to ED for shortness of breath, cough, and/or wheezing. Return to office for further evaluation if it occurs again. Discussion/Summary Differential: idiopathic, hormone related, allergies, poor diet, cardiac. Will review EKG and bloodwork and perform further work up as needed based on findings. Discussed possible causes with Feli. Need more information from her in the event this occurs again.EKG is normal today. She stated understanding and agreement to plan. Signatures Electronically signed by : Tamra Verma APN; Apr 30 2015 9:48AM CORK TIPPER (Author) documented in this encounter Plan of Treatment Not on file documented as of this encounter Visit Diagnoses Not on filedocumented in this encounter
--- OUTSIDE RECORDS SUMMARY | 2024-03-06 11:07 | XMS_ITS | Encounter Summary ---
Author Organization [facility] Address [address] [place] [address]. [place] [phone] [place] [address] Care Team Providers Care Broom Builder Name Role Phone Unavailable Primary Care Provider Unavailabl e Encounter Details Date Type Department Care Team (Latest Contact Info) Description 10/17/2015 Abstract [facility] Social History Tobacco Use Types [...]
--- OUTSIDE RECORDS SUMMARY | 2024-03-06 11:07 | XMS_ITS | Encounter Summary ---
Author Organization [facility] Address [address] [place] [address]. [place] [id number] [place], [place] [id number] Care Team Providers Care Pest Control Operator Name Role Phone Unavailable Primary Care Provider Unavailabl e Encounter Details Date Type Department Care Team (Late st Contact Info) Description 12/08/2012 Abstract [facility] Conversion Md, Generic Conversion, Social [...] Sign Reading Time Taken Comments Blood Pressure 128/80 12/08/2012 2:35 PM CDT Pulse 84 12/08/2012 2:35 PM CDT Temperature - - Respiratory Rate - - Oxygen Saturation - - Inhaled Oxygen Concentration - - Weight 98.9 kg (218 lb) 12/08/2012 2:35 PM CDT Height 167.6 cm (5' 6 ) 12/08/2012 2:35 PM CDT Body Mass Index 35.19 12/08/2012 2:35 PM CDT Body Mass Index Percentile 97.58% 12/08/2012 2:3 5 PM CDT Growth Chart: [facility] (Girls, 2- 20 Years) documented in this encounter Plan of Treatment Not on file documented as of this encounter Visit Diagnoses Not on filedocumented in this encounter
--- OUTSIDE RECORDS SUMMARY | 2024-03-06 11:07 | XMS_ITS | Encounter Summary ---
Author Organization [facility] Address [address] [place] [address]. [place] [phone] [place] [address] Care Team Providers Care Client Support Manager Name Role Phone Unavailable Primary Care Provider Unavailabl e Encounter Details Date Type Department Care Team (Late st Contact Info) Description 06/05/2014 Abstract [facility] Care [address] [place] [id number] Social History Tobacco Use Types Packs/Day Years [...] as of this encounter Visit Diagnoses Diagnosis Sprain of ankle Sprain of ankle, unspecified site documented in this encounter
--- OUTSIDE RECORDS SUMMARY | 2024-03-06 11:07 | XMS_ITS | Encounter Summary ---
Author Organization [facility] Address [address] [place] [address]. [place] [phone] [place] [address] Care Team Providers Care Telegraph Service Rater Name Role Phone Unavailable Primary Care Provider Unavailabl e Encounter Details Date Type Department Care Team (Late st Contact Info) Description 07/31/2014 Abstract [facility] Family & Internal Medicine [address] [address] Ericka Ward NP Social History Tobacco Use Types Packs/Day Years [...] Sign Reading Time Taken Comments Blood Pressure 118/68 07/31/2014 11:23 AM CDT Pulse 76 07/31/2014 11:23 AM CDT Temperature - - Respiratory Rate - - Oxygen Saturation - - Inhaled Oxygen Concentration - - Weight 104.8 kg (231 lb) 07/31/2014 11:23 AM CDT Height 168.9 cm (5' 6.5 ) 07/31/2014 11:23 AM CD T Body Mass Index 36.73 07/31/2014 11:23 AM CDT documented in this encounter H&P Notes * Ericka Ward NP - 07/31/2014 11:00 AM CDT History of Present Illness HPI Free Text: Pt is here for Pre-employment physical for [employer]. 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 No communicable illnesses. Able to perform normal ADLs without any difficulty. Review of Systems Constitutional: negative. Head and Face: negative. Eyes: negative. ENT: negative. Cardiovascular: negative. Respiratory: negative. Gastrointestinal: negative. Genitourinary: negative. Musculoskeletal: negative. Psychiatric: negative. Hematologic and Lymphatic: negative. Neurological Negative. Endocrine Negative. Active Problems 1. Pre-employment health screening examination (V70.5) (Z02.1) Family History ?? No pertinent family history Social History ?? Denied: History of Alcohol Use (History) ?? Marital History - Single ?? Never a smoker Current Meds 1. No Reported Medications Recorded DOLLY = N; ; Last Updated By: Verna Marie; 07/31/2014 11:28:57 AM Allergies 1. No Known Drug Allergies Recorded By: Bonnie Pinzon; 09/23/2012 1:50:07 PM Vitals Recorded: [id number] 11:23AM Heart Rate 76 Systolic 118 Diastolic 68 O2 Saturation 98 Height 5 ft 6.5 in 2-20 Stature Percentile 80 % Weight 231 lb 2-20 Weight Percentile 99 % BMI Calculated 36.73 BMI Percentile 98 % BSA Calculated 2.14 Physical Exam Constitutional General appearance: No acute distress, well appearing and well nourished. Eyes Conjunctiva and lids: No swelling, erythema or discharge. Pupils and irises: Equal, round, reactive to light. Ophthalmoscopic examination: Normal fundi and optic discs. Ears, Nose, Mouth, and Throat External inspection of ears and nose: Normal. Otoscopic examination: Tympanic membranes translucent with normal light reflex. Canals patent without erythema. Hearing: Normal. Nasal mucosa, septum, and turbinates: Normal without edema or erythema. Lips, teeth, and gums: Normal, good dentition. Oropharynx: Normal with no erythema, edema, exudate or lesions. Neck Neck: Supple, symmetric, trachea midline, no masses. Thyroid: Normal, no thyromegaly. Pulmonary Respiratory effort: No increased work of breathing or signs of respiratory distress. Percussion of chest: Normal. Palpation of chest: Normal. Auscultation of lungs: Clear to auscultation. Cardiovascular Palpation of heart: Normal PMI, no thrills. Auscultation of heart: Normal rate and rhythm, normal S1 and S2, no murmurs. Carotid pulses: 2+ bilaterally. Abdominal aorta: Normal. Femoral pulses: 2+ bilaterally. Pedal pulses: 2+ bilaterally. Examination of extremities for edema and/or varicosities: Normal. Abdomen Abdomen: Non-tender, no masses. Liver and spleen: No hepatomegaly or splenomegaly. Examination for hernias: No hernia appreciated. Lymphatic Palpation of lymph nodes in neck: No lymphadenopathy. Musculoskeletal Gait and station: Normal. Digits and nails: Normal without clubbing or cyanosis. Joints, bones, and muscles: Normal. Range of motion: Normal. Stability: Normal. Muscle strength/tone: Normal. Skin Skin and subcutaneous tissue: Normal without rashes or lesions. Palpation of skin and subcutaneous tissue: Normal turgor. Neurologic Cranial nerves: Cranial nerves II-XII intact. Reflexes: 2+ and symmetric. Sensation: No sensory loss. Psychiatric Judgment and insight: Normal. Orientation to person, place, and time: Normal. Recent and remote memory: Intact. Mood and affect: Normal. Assessment 1. Pre-employment health screening examination (V70.5) (Z02.1) Plan Pt is able to perform the duties required of her position Signatures Electronically signed by : Ericka Ward NP; Jul 31 2014 3:46PM MOTOR VEHICLE REPRESENTATIVE (Author) documented in this encounter Plan of Treatment Not on file documented as of this encounter Visit Diagnoses Not on filedocumented in this encounter
--- OUTSIDE RECORDS SUMMARY | 2024-03-06 11:07 | XMS_ITS | Encounter Summary ---
Author Organization [facility] Address [address] [place] [address]. [place] [address] Care Team Providers Care Back Shoe Worker Name Role Phone Unavailable Primary Care Provider Unavailabl e Encounter Details Date Type Department Care Team (Late st Contact Info) Description 11/24/2013 Abstract [facility] Conversion Md, Generic Conversion, Social [...]
--- OUTSIDE RECORDS SUMMARY | 2024-03-06 11:07 | XMS_ITS | Encounter Summary ---
Author Organization [facility] Address [address] [place] [address]. [place], [place] [phone] [place] [address] Care Team Providers Care Watershed Manager Name Role Phone Unavailable Primary Care Provider Unavailabl e Encounter Details Date Type Department Care Team (Late st Contact Info) Description 07/15/2011 Abstract [facility] Conversion Umm Parson, [facility] [address] [facility] [place] [address] Social History Tobacco Use Types Packs/Day Years [...] Sign Reading Time Taken Comments Blood Pressure 118/80 07/15/2011 10:28 AM CDT Pulse 60 07/15/2011 10:28 AM CDT Temperature - - Respiratory Rate - - Oxygen Saturation - - Inhaled Oxygen Concentration - - Weight 97.5 kg (215 lb) 07/15/2011 10:28 AM CDT Height - - Body Mass Index - - documented in this encounter Plan of Treatment Not on file documented as of this encounter Visit Diagnoses Not on filedocumented in this encounter
--- OUTSIDE RECORDS SUMMARY | 2024-03-06 11:07 | XMS_ITS | Encounter Summary ---
Author Organization [facility] Address [address] [place] [address]. [place] [address] Care Team Providers Care Paint Roller Covermaker Name Role Phone Unavailable Primary Care Provider Unavailabl e Encounter Details Date Type Department Care Team (Late st Contact Info) Description 11/29/2013 Abstract [facility] Conversion Md, Generic Conversion, Social [...]
--- OUTSIDE RECORDS SUMMARY | 2024-03-06 11:07 | XMS_ITS | Encounter Summary ---
Author Organization [facility] Address [address] [place] [address]. [place], [place] [id number] [place] [address] Care Team Providers Care Supervising Broker Name Role Phone Unavailable Primary Care Provider Unavailabl e Encounter Details Date Type Department Care Team (Late st Contact Info) Description 07/10/2014 Abstract [facility] Emergency Room [address] [place] [address] Chandrakant Jones Jr., MD [address] [address] Social History Tobacco Use Types Packs/Day Years [...] as of this encounter Visit Diagnoses Diagnosis Cervicalgia documented in this encounter
--- OUTSIDE RECORDS SUMMARY | 2024-03-06 11:07 | XMS_ITS | Encounter Summary ---
Author Organization [facility] Address [address] [place] [address]. [place] [id number] [place] [address] Care Team Providers Care Target Protection Specialist Name Role Phone Unavailable Primary Care Provider Unavailabl e Encounter Details Date Type Department Care Team (Late st Contact Info) Description 09/23/[address] [facility] Family & Internal Medicine [address] [phone] Jacob Nagy MD Social History Tobacco Use Types Packs/Day [...] Sign Reading Time Taken Comments Blood Pressure 120/70 09/23/2012 1:38 PM CDT Pulse 77 09/23/2012 1:38 PM CDT Temperature - - Respiratory Rate - - Oxygen Saturation - - Inhaled Oxygen Concentration - - Weight 98 kg (216 lb) 09/23/2012 1:38 PM CDT Height 168.9 cm (5' 6.5 ) 09/23/2012 1:38 PM CDT Body Mass Index 34.34 09/23/2012 1:38 PM CDT Body Mass Index Percentile 97.27% 09/23/2012 1:3 8 PM CDT Growth Chart: CDC (Girls, 2- 20 Years) documented in this encounter Progress Notes * Ericka Ward NP - 09/23/2012 1:30 PM CDT Reason For Visit Reason For Visit: Other: FCS pre-emplyment physical Chief Complaint See scanned physical for FCS History of Present Illness Tuberculosis (TB) Screening: There are no household members who were born outside of the [place] or recently moved with in the past year. The child has not had a chest x-ray or exam findings suggesting TB. Child is not at high risk (immune deficient, organ transplant, drug user, on immune suppression medication). Child does not drink or eat raw (unpasterized) milk or cheese. No TB Skin testing needed. HPI Free Text: Pt will receive TB testing at the Review of Systems Constitutional: negative. Eyes: negative. ENT: negative. Cardiovascular: negative. Respiratory: negative. Gastrointestinal: negative. Genitourinary: negative. Musculoskeletal: negative. Integumentary and Breasts: negative. Neurological: negative. Psychiatric: negative. Endocrine: negative. Hematologic and Lymphatic: negative. ROS reported by the patient. Social History ?? Marital History - Single ?? Never A Smoker Denied ?? History of Alcohol Use Allergies 1. No Known Drug Allergies No Known Drug Allergies Vitals [id number] 01:38PM Heart Rate 77 Systolic 120 Diastolic 70 O2 Saturation 99 BMI Calculated 34.31 BSA Calculated 2.08 Height 5 ft 6.5 in Weight 216 lb Distance Acuity OD 20/20 Distance Acuity OS 20/25 Physical Exam Constitutional - General appearance: No acute distress, well appearing and well nourished. Eyes - Conjunctiva and lids: No injection, edema or discharge. Pupils and irises: Equal, round, reactive to light bilaterally. Ears, Nose, Mouth, and Throat - External inspection of ears and nose: Normal without deformities ordischarge. Otoscopic examination: Tympanic membranes ta, translucent with good bony landmarks andlight reflex. Canals patent without erythema. Hearing: Normal. Neck - Neck: Supple, symmetric, no masses. Thyroid: No thyromegaly. Pulmonary - Respiratory effort: Normal respiratory rate and rhythm, no increased work of breathing.Auscultation of lungs: Clear bilaterally. Cardiovascular - Palpation of heart: Normal PMI, no thrill. Auscultation of heart: Regular rate andrhythm, normal S1 and S2, no murmur. Carotid pulses: Normal, 2+ bilaterally. Pedal pulses: Normal, 2+ bilaterally. Examination of extremities for edema and/or varicosities: Normal. Chest - Breasts: Normal. Palpation of breasts and axillae: Normal. Abdomen - Abdomen: Normal bowel sounds, soft, non-tender, no masses. Liver and spleen: No hepatomegaly or splenomegaly. Examination for hernias: No hernias palpated. Lymphatic - Palpation of lymph nodes in neck: No anterior or posterior cervical lymphadenopathy. Musculoskeletal - Gait and station: Normal gait. Digits and nails: Normal without clubbing or cyanosis. Inspection/palpation of joints, bones, and muscles: Normal. Range of motion: Normal. Stability:No joint instability. Muscle strength/tone: Normal. Skin - Skin and subcutaneous tissue: Normal. Neurologic - Cranial nerves: Normal. Sensation: Normal. Psychiatric - Judgment and insight: Normal. Orientation to person, place, and time: Normal. Recent and remote memory: Normal. Mood and affect: Normal. Assessment 1. Normal Pre-employment Screening Examination V70.5 Plan Pt is able to perform duties as assigned. Signatures Electronically signed by : Ericka Ward NP; Oct 02 2012 2:13PM (Author) MACHINE MECHANIC documented in this encounter Plan of Treatment Not on file documented as of this encounter Visit Diagnoses Not on filedocumented in this encounter
--- OUTSIDE RECORDS SUMMARY | 2024-03-06 11:07 | XMS_ITS | Encounter Summary ---
Author Organization [facility] Address [address] [place] [address]. [place] [address] Care Team Providers Care Otr Tanker Truck Driver Name Role Phone Unavailable Primary Care Provider Unavailabl e Encounter Details Date Type Department Care Team (Late st Contact Info) Description 12/27/2013 Abstract [facility] Conversion Md, Generic Conversion, Social [...]
--- OUTSIDE RECORDS SUMMARY | 2024-03-06 11:07 | XMS_ITS | Encounter Summary ---
Author Organization [facility] Address [address] [place] [address]. [place] [phone] [place] [address] Care Team Providers Care Nocturnist Physician Name Role Phone Unavailable Primary Care Provider Unavailabl e Encounter Details Date Type Department Care Team (Late st Contact Info) Description 03/06/2013 Abstract [facility] Conversion Md, Generic Conversion, Social History [...] Sign Reading Time Taken Comments Blood Pressure 118/78 03/06/2013 10:01 AM CHEMICAL TREATMENT OPERATOR Pulse 80 03/06/2013 10:01 AM CHEMICAL TREATMENT OPERATOR Temperature - - Respiratory Rate - - Oxygen Saturation - - Inhaled Oxygen Concentration - - Weight 97.1 kg (214 lb) 03/06/2013 10:01 AM CHEMICAL TREATMENT OPERATOR Height 167.6 cm (5' 6 ) 03/06/2013 10:01 AM CHEMICAL TREATMENT OPERATOR Body Mass Index 34.54 03/06/2013 10:01 AM CHEMICAL TREATMENT OPERATOR Body Mass Index Percentile 97.18% 03/06/2013 10: 01 AM CHEMICAL TREATMENT OPERATOR Growth Chart: CDC (Girls, 2- 20 Years) documented in this encounter Plan of Treatment Not on file documented as of this encounter Visit Diagnoses Not on filedocumented in this encounter
--- OUTSIDE RECORDS SUMMARY | 2024-03-06 11:07 | XMS_ITS | Encounter Summary ---
Author Organization [facility] Address [address] [place] [address]. [place], [place] [id number] [place] [address] Care Team Providers Care Passenger Car Upholsterer Apprentice Name Role Phone Unavailable Primary Care Provider Unavailabl e Encounter Details Date Type Department Care Team (Late st Contact Info) Description 11/14/2013 Abstract [facility] [address] [place], [place] [id number] Juliet Alaniz, STOVE INSTALLER [address] [place] [address] Social History Tobacco Use Types Packs/Day Years [...] as of this encounter Visit Diagnoses Diagnosis Pain in joint, shoulder region documented in this encounter
--- OUTSIDE RECORDS SUMMARY | 2024-03-06 11:07 | XMS_ITS | Encounter Summary ---
Author Organization [facility] Address [address] [place] [address]. [place], [place] [address] [place] [address] Care Team Providers Care Shop Superintendent Name Role Phone Unavailable Primary Care Provider Unavailabl e Encounter Details Date Type Department Care Team (Late st Contact Info) Description 09/23/2011 Abstract [facility] Conversion Marlene Thornton MD [address] [place] [address]. [address] [place] [address] Social History Tobacco Use Types Packs/Day Years [...] Reading Time Taken Comments Blood Pressure 138/88 09/23/2011 3:28 PM CDT Pulse 78 09/23/2011 3:28 PM CDT Temperature - - Respiratory Rate - - Oxygen Saturation - - Inhaled Oxygen Concentration - - Weight 98.9 kg (218 lb) 09/23/2011 3:28 PM CDT Height 170.2 cm (5' 7 ) 09/23/2011 3:28 PM CDT Body Mass Index 34.14 09/23/2011 3:28 PM CDT Body Mass Index Percentile 97.61% 09/23/2011 3:2 8 PM CDT Growth Chart: CDC (Girls, 2- 20 Years) documented in this encounter Plan of Treatment Not on file documented as of this encounter Visit Diagnoses Not on filedocumented in this encounter
--- OUTSIDE RECORDS SUMMARY | 2024-03-06 11:07 | XMS_ITS | Encounter Summary ---
Author Organization [facility] Address [address] [place] [address]. [place] [address] Care Team Providers Care Global President Name Role Phone Unavailable Primary Care Provider Unavailabl e Encounter Details Date Type Department Care Team (Late st Contact Info) Description 11/14/2013 Abstract [facility] Conversion Md, Generic Conversion, [...]
--- OUTSIDE RECORDS SUMMARY | 2024-03-06 11:07 | XMS_ITS | Encounter Summary ---
Author Organization [facility] Address [address] [place] [address]. [place] [phone] [place] [address] Care Team Providers Care Wet End Tester Name Role Phone Unavailable Primary Care Provider Unavailabl e Encounter Details Date Type Department Care Team (Latest Contact Info) Description 05/01/2015 Abstract [facility] Social History Tobacco Use Types Packs/Day Years Used Date Smoking Tobacco: Never Assessed Comments Unknown Sex and Gender Information Value Date Recorded Sex Assigned at Female 11/02/2018 8:50 AM CDT Legal Sex Female 8:23 PM CDT Gender Identity Female 11/02/2018 8:50 AM CDT Sexual Orientation Not on file documented as of this encounter Progress Notes * JJ Gaston - 05/01/2015 9:23 AM CST Verified Results CBC W Manual Differential [id number] 09:36AM Tamra Verma Test Name Result Flag Reference White Blood Cell Count (WBC) 5.7 x10'3/uL 4.4-11.0 Red Blood Cell Count (RBC) 4.56 x10'6/uL 4.50-5.10 Hemoglobin (HGB) 13.3 G/DL 12.3-15.3 Hematocrit (HCT) 41.8 % 35.9-44.6 Mean Corpuscular Volume (MCV) 91.7 FL 80.0-96.0 Mean Corpuscular Hgb (MCH) 29.2 PG 25.3-30.9 Mean Corpuscular Hgb Conc (MCH 31.8 G/DL 31.0-34.1 Red Cell Distrib Width (RDW) 13.2 % 12.4-15.1 Platelet Count (PLT) 319 x10'3/uL 151-353 Mean Platelet Volume (MPV) 10.3 FL 9.6-12.0 RBC Morphology NORMAL Platelet Evaluation NORMAL WBC Morphology NORMAL Segmented Neutrophils 46 % 42-72 Lymphocytes 47 % H 15.8-45.0 Monocytes 6 % 5.7-12.5 Eosinophils 1 % 0-5.6 Total Absolute Neutrophils 2.62 x10'3/uL 1.4-6.0 Compr Metabolic Prof ( CMP ) 30Apr2015 09:36AM Tamra Verma Test Name Result Flag Reference Glucose 88 MG/DL 70-105 Blood Urea Nitrogen (BUN) 12 MG/DL 7.0-18.7 Creatinine 0.75 MG/DL 0.57-1.11 Sodium (Na) 140 MMOL/L 136-145 Potassium (K) 4.5 MMOL/L 3.5-5.1 Chloride (Cl) 109 MMOL/L H 98-107 Carbon Dioxide (CO2) 23.0 MMOL/L 22-29 Anion Gap 12.5 MMOL/L 10.0-24.0 Osmolality Calc 279 MOSM/KG 271-290 Calcium 9.2 MG/DL 8.8-10.8 Total Bilirubin 0.4 MG/DL 0.2-1.2 Total Protein 7.0 G/DL 6.4-8.3 Albumin 4.4 G/DL 3.5-5.0 AST/GOT 16 UNITS/L 5-34 ALT/GPT 13 UNITS/L 6-55 Alkaline Phosphatase (ALKP) 54 UNITS/L 30-115 BUN Creatinine Ratio 16.0 6.0-26.0 A:G Ratio 1.7 RATIO 1.1-1.9 Glomerular Filt Rate Calc (Report) >60 >60 GFR Reference Range: Kidney Failure - <15mL/min Chronic Kidney Disease - <60mL/min Normal Kidney Function - >60mL/min GFR calculation is not recommended for Patients less than 18 years or greater than 70 years as per the national Kidney Foundation. If the patient is -[place], multiply results by 1.21 TSH W Reflex Free T4 30Apr2015 09:36AM Tamra Verma Test Name Result Flag Reference TSH w Reflex Free T4 0.67 uIU/mL 0.35-4.94 FREE T4 NOT INDICATED documented in this encounter Plan of Treatment Not on file documented as of this encounter Visit Diagnoses Not on filedocumented in this encounter
--- OUTSIDE RECORDS SUMMARY | 2024-03-06 11:07 | XMS_ITS | Encounter Summary ---
Author Organization [facility] Address [address] [place] [address]. [place] [address] Care Team Providers Care Valet Manager Name Role Phone Unavailable Primary Care Provider Unavailabl e Encounter Details Date Type Department Care Team (Late st Contact Info) Description 05/19/2012 Abstract [facility] [place] [facility] Conversion Md, Generic Conversion, [...]
--- OUTSIDE RECORDS SUMMARY | 2024-03-06 11:07 | XMS_ITS | Encounter Summary ---
Author Organization [facility] Address [address] [place] [address]. [place], [place] [address] [place] [address] Care Team Providers Care Special Certificate Dictator Name Role Phone Unavailable Primary Care Provider Unavailabl e Encounter Details Date Type Department Care Team (Late st Contact Info) Description 04/01/2013 Abstract [facility] [address] [place] [phone] Clifton Reis MD Social History Tobacco Use Types Packs/Day [...] of this encounter Visit Diagnoses Diagnosis Acute pharyngitis documented in this encounter
--- OUTSIDE RECORDS SUMMARY | 2024-03-06 11:07 | XMS_ITS | Encounter Summary ---
Author Organization [facility] Address [address] [place] [address]. [place] [address] Care Team Providers Care Training Consultant Name Role Phone Unavailable Primary Care Provider Unavailabl e Encounter Details Date Type Department Care Team (Late st Contact Info) Description 09/27/2013 Abstract [facility] Conversion Md, Generic Conversion, Social [...]
--- OUTSIDE RECORDS SUMMARY | 2024-03-06 11:07 | XMS_ITS | Encounter Summary ---
Author Organization [facility] Address [address] [place] [address]. [place] [phone] [place] [address] Care Team Providers Care Whip Operator Name Role Phone Unavailable Primary Care Provider Unavailabl e Encounter Details Date Type Department Care Team (Late st Contact Info) Description 04/28/2012 Abstract [facility] Conversion Md, [...] Sign Reading Time Taken Comments Blood Pressure 110/70 04/28/2012 8:26 AM AUDITOR MEDICAL CLAIMS Pulse 80 04/28/2012 8:26 AM AUDITOR MEDICAL CLAIMS Temperature - - Respiratory Rate - - Oxygen Saturation - - Inhaled Oxygen Concentration - - Weight 92.5 kg (204 lb) 04/28/2012 8:26 AM AUDITOR MEDICAL CLAIMS Height 167.6 cm (5' 6 ) 04/28/2012 8:26 AM AUDITOR MEDICAL CLAIMS Body Mass Index 32.93 04/28/2012 8:26 AM AUDITOR MEDICAL CLAIMS Body Mass Index Percentile 96.75% 04/28/2012 8:2 6 AM AUDITOR MEDICAL CLAIMS Growth Chart: [facility] (Girls, 2- 20 Years) documented in this encounter Plan of Treatment Not on file documented as of this encounter Procedures Procedure Name Priority Date/Time Associated Diagnosis Comments COMPREHENSIVE METABOLIC PANEL Routine 04/28/2012 10:13 AM AUDITOR MEDICAL CLAIMS CBC W/DIFF AUTOMATED Routine 04/28/2012 10:13 AM AUDITOR MEDICAL CLAIMS AMYLASE Routine 04/28/2012 10:13 AM AUDITOR MEDICAL CLAIMS LIPASE Routine 04/28/2012 10:13 AM AUDITOR MEDICAL CLAIMS documented in this encounter Results * CBC W/DIFF AUTOMATED (04/28/2012 10:13 AM AUDITOR MEDICAL CLAIMS) WBC 7.3 4.50 - 13.50 cmm [facility] TO EPIC CONVERSION ABS. NEUTROPHILS 3.55 1.50 - 6.50 [facility] TO [facility] CONVERSION RBC 4.4 4.10 - 5.10 M/cumm [facility] TO EPIC CONVERSION NEUTROPHILS % 48.8 40.0 - 74.0 % [facility] TO EPIC CONVERSION LYMPHOCYTES % 41.3 14.0 - 46.0 % [facility] TO EPIC CONVERSION MONOCYTES % 6.5 4.0 - 13.0 % [facility] TO [facility]IC CONVERSION EOSINOPHILS % 3.0 0.0 - 7.0 % [facility] TO EPIC CONVERSION BASOPHILS % 0.4 0.0 - 3.0 % [facility] TO EPIC CONVERSION HGB 12.5 12.0 - 16.0 g/dl [facility] TO EPIC CONVERSION HCT 37.2 36.0 - 46.0 % [facility] TO [facility]IC CONVERSION MCV 85.1 78.0 - 98.0 fl [facility] TO EPIC CONVERSION MCH 28.6 26.0 - 34.0 pg [facility] TO EPIC CONVERSION MCHC 33.6 31.0 - 37.0 g/dl [facility] TO EPIC CONVERSION PLT 325 150 - 350 cmm [facility] TO [facility]IC CONVERSION RDW 13.6 11.60 - 14.80 % [facility] TO [facility]IC CONVERSION MANUAL DIFFERENTIAL NOT INDICATED_ [facility] TO [facility]IC CONVERSION WBC MORPHOLOGY NOT INDICATED_ [facility] ROUP TO EPIC CONVERSION RBC MORPHOLOGY NOT INDICATED_ [facility] ROUP TO EPIC CONVERSION PLT MORPH. NOT INDICATED_ [facility] TO EPIC CONVERSION 04/28/2012 10:1 3 AM AUDITOR MEDICAL CLAIMS 04/28/2012 10:13 AM AUDITOR MEDICAL CLAIMS Narrative [facility] TO EPIC CONVERSION - 04/28/2012 10:22 AM AUDITOR MEDICAL CLAIMS This lab was migrated from [facility] and may be missing annotations or result text, please check the Media tab for the most complete results. us Juliet Alaniz NP LABORATORY Final Result [facility] TO EPIC CONVERSION * AMYLASE (04/28/2012 10:13 AM AUDITOR MEDICAL CLAIMS) AMYLASE S/P/B 41 28 - 100 U/L [facility] TO EPIC CONVERSION 04/28/2012 10:1 3 AM AUDITOR MEDICAL CLAIMS 04/28/2012 10:13 AM AUDITOR MEDICAL CLAIMS Narrative [facility] TO EPIC CONVERSION - 04/28/2012 11:00 AM AUDITOR MEDICAL CLAIMS This lab was migrated from [facility] and may be missing annotations or result text, please check the Media tab for the most complete results. us Juliet Alaniz NP LABORATORY Final Result Performing Organization Address [facility] Co de Phone Number [facility] TO EPIC CONVERSION * LIPASE (04/28/2012 10:13 AM AUDITOR MEDICAL CLAIMS) LIPASE 37 13 - 60 u/l [facility] TO EPIC CONVERSION 04/28/2012 10:1 3 AM AUDITOR MEDICAL CLAIMS 04/28/2012 10:13 AM AUDITOR MEDICAL CLAIMS Narrative [facility] TO EPIC CONVERSION - 04/28/2012 11:00 AM AUDITOR MEDICAL CLAIMS This lab was migrated from [facility] and may be missing annotations or result text, please check the Media tab for the most complete results. us Juliet Alaniz NP LABORATORY Final Result Performing Organization Address [facility] Co de Phone Number [facility] TO EPIC CONVERSION * COMPREHENSIVE METABOLIC PANEL (04/28/2012 10:13 AM AUDITOR MEDICAL CLAIMS) GLUCOSE 92 65 - 99 mg/dL [facility] TO EPIC CONVERSION SODIUM S/P/B 137 135 - 148 mmol/L [facility] TO EPIC CONVERSION POTASSIUM S/P/B 4.2 3.40 - 4.70 mmol/L [facility] TO EPIC CONVERSION CHLORIDE S/P/B 102 95 - 110 mmol/L [facility] TO EPIC CONVERSION TCO2 27 22 - 32 mmol/L [facility] TO EPIC CONVERSION BUN 9 6 - 20 mg/dL [facility] TO EPIC CONVERSION CREATININE S/P/B 0.7 0.50 - 1.20 mg/dL [facility] TO EPIC CONVERSION TOTAL PROTEIN S/P/B 6.9 5.60 - 8.20 g/dL [facility] TO EPIC CONVERSION CALCIUM S/P/B 9.1 8.60 - 10.20 mg/dL [facility] TO EPIC CONVERSION BILIRUBIN TOTAL S/P/B 0.3 0.10 - 1.20 mg/dL [facility] TO EPIC CONVERSION ALKALINE PHOSPHATASE S/P/B 73 35 - 104 U/L [facility] TO EPIC CONVERSION ALBUMIN S/P/B 4.6 3.50 - 5.20 g/dL [facility] TO EPIC CONVERSION AST 13 0 - 32 U/L [facility] TO EPIC CONVERSION ALT 11 0 - 33 U/L [facility] TO EPIC CONVERSION PATIENT'S AGE 17 YEARS [facility] UP TO EPIC CONVERSION EGFR NON-AFR. AMER. 117 ml/min [facility] TO EPIC CONVERSION 04/28/2012 10:1 3 AM AUDITOR MEDICAL CLAIMS 04/28/2012 10:13 AM AUDITOR MEDICAL CLAIMS Narrative [facility] TO EPIC CONVERSION - 04/28/2012 11:00 AM AUDITOR MEDICAL CLAIMS This lab was migrated from [facility] and may be missing annotations or result text, please check the Media tab for the most complete results. us Juliet Alaniz NP LABORATORY Final Result [facility] TO EPIC CONVERSION documented in this encounter Visit Diagnoses Not on filedocumented in this encounter
--- OUTSIDE RECORDS SUMMARY | 2024-03-06 11:07 | XMS_ITS | Encounter Summary ---
Author Organization [facility] Address [address] [place] [address]. [place] [address] Care Team Providers Care Actuarial Internship Name Role Phone Unavailable Primary Care Provider Unavailabl e Encounter Details Date Type Department Care Team (Late st Contact Info) Description 05/20/2012 Abstract [facility] Conversion Md, Generic Conversion, Social [...]
--- OUTSIDE RECORDS SUMMARY | 2024-03-06 11:07 | XMS_ITS | Encounter Summary ---
Author Organization [facility] Address [address] [place] [address]. [place], [place] [id number] [place] [address] Care Team Providers Care Printer Slotter Feeder Name Role Phone Ericka Ward NP Primary Care Provider Abimbola Soto [facility]- Primary Care Provider + Encounter Details Date Type Department Care Team (Late st Contact Info) Description 05/02/2012 Abstract [facility] [address] [place] [address] Juliet Alaniz, FARM PRODUCT PURCHASER [address] [place] [address] Social History Tobacco Use Types [...] Rule Out 01/29/2020 01/29/2020 02/02/2020 2:10 PM DIRECTOR OF HOSPITALITY COVID-19 Rule Out 02/19/2020 02/19/2020 02/19/2020 1:29 PM DIRECTOR OF HOSPITALITY COVID-19 Confirmed 02/19/2020 02/19/2020 12:34 AM DIRECTOR OF HOSPITALITY COVID-19 Rule Out 11/08/2020 11/08/2020 11/08/2020 12:43 PM CDT COVID-19 Rule Out 11/08/2020 11/08/2020 11/10/2020 3:30 AM CDT documented as of this encounter Care Teams Printer Slotter Feeder Relationship Specialty Start Date End Date Ericka Ward NP PCP - General NURSE PRACTITIONER 09/30/18 12/31/19 Abimbola Cuba FNP- PCP - General Nurse Practitioner Family 01/01/20 documented as of this encounter
--- OUTSIDE RECORDS SUMMARY | 2024-03-06 11:08 | XMS_ITS | Encounter Summary ---
Author Organization [facility] Address [address] [place] [address]. [place] [address] Care Team Providers Care Store Mgr Name Role Phone Unavailable Primary Care Provider Unavailabl e Encounter Details Date Type Department Care Team (Late st Contact Info) Description 06/08/2011 Abstract [facility] Conversion Md, Generic Conversion, Social [...]
--- OUTSIDE RECORDS SUMMARY | 2024-03-06 11:08 | XMS_ITS | Encounter Summary ---
Author Organization [facility] Address [address] [place] [address]. [place], [place] [id number] [place] [address] Care Team Providers Care Beach Attendant Name Role Phone Unavailable Primary Care Provider Unavailabl e Encounter Details Date Type Department Care Team (Late st Contact Info) Description 06/03/2010 Abstract [facility] Emergency Room [address] [place] [address] Rey Briseno MD [address] [address] Social History Tobacco Use Types Packs/Day Years [...]
--- OUTSIDE RECORDS SUMMARY | 2024-03-06 11:08 | XMS_ITS | Encounter Summary ---
Author Organization [facility] Address [address] [place] [address]. [place], [place] [phone] [place] [address] Care Team Providers Care Roll Over Loader Name Role Phone Ericka Ward NP Primary Care Provider Abimbola Soto [facility]- Primary Care Provider + Encounter Details Date Type Department Care Team (Late st Contact Info) Description 10/15/2008 Abstract [facility] [address] [place] [address] Glen Villanueva MD [address] [place] [id number] Social History Tobacco Use Types Packs/Day Years [...] Rule Out 01/29/2020 01/29/2020 02/02/2020 2:10 PM PITCH FLAKER COVID-19 Rule Out 02/19/2020 02/19/2020 02/19/2020 1:29 PM PITCH FLAKER COVID-19 Confirmed 02/19/2020 02/19/2020 12:34 AM PITCH FLAKER COVID-19 Rule Out 11/08/2020 11/08/2020 11/08/2020 12:43 PM CDT COVID-19 Rule Out 11/08/2020 11/08/2020 11/10/2020 3:30 AM CDT documented as of this encounter Care Teams Roll Over Loader Relationship Specialty Start Date End Date Ericka Ward NP PCP - General NURSE PRACTITIONER 09/30/18 12/31/19 Abimbola Cuba FNP- PCP - General Nurse Practitioner Family 01/01/20 documented as of this encounter
--- OUTSIDE RECORDS SUMMARY | 2024-03-06 11:08 | XMS_ITS | Encounter Summary ---
Author Organization [facility] Address [address] [place] [address]. [place], [place] [address] [place] [address] Care Team Providers Care Perioperative Tech Name Role Phone Ericka Ward NP Primary Care Provider Abimbola Soto [facility]- Primary Care Provider + Encounter Details Date Type Department Care Team (Late st Contact Info) Description 10/30/1996 Abstract [facility] Diagnostic Imaging [address] [facility] [place] [address] , Julio Cesar Cormier MD Social History Tobacco Use Types Packs/Day [...] Rule Out 01/29/2020 01/29/2020 02/02/2020 2:10 PM SAMPLE DISPLAY PREPARER COVID-19 Rule Out 02/19/2020 02/19/2020 02/19/2020 1:29 PM SAMPLE DISPLAY PREPARER COVID-19 Confirmed 02/19/2020 02/19/2020 12:34 AM SAMPLE DISPLAY PREPARER COVID-19 Rule Out 11/08/2020 11/08/2020 11/08/2020 12:43 PM CDT COVID-19 Rule Out 11/08/2020 11/08/2020 11/10/2020 3:30 AM CDT documented as of this encounter Care Teams Perioperative Tech Relationship Specialty Start Date End Date Ericka Ward NP PCP - General NURSE PRACTITIONER 09/30/18 12/31/19 Abimbola Cuba FNP- PCP - General Nurse Practitioner Family 01/01/20 documented as of this encounter
--- OUTSIDE RECORDS SUMMARY | 2024-03-06 11:08 | XMS_ITS | Encounter Summary ---
Author Organization [facility] Address [address] [place] [address]. [place] [id number] [place] [address] Care Team Providers Care Child Protection Specialist Name Role Phone Unavailable Primary Care Provider Unavailabl e Encounter Details Date Type Department Care Team (Late st Contact Info) Description 07/23/1996 Abstract [facility] CONVERSION [address] [place] [address] , Generic Conversion, Social History Tobacco Use [...]
--- OUTSIDE RECORDS SUMMARY | 2024-03-06 11:08 | XMS_ITS | Encounter Summary ---
Author Organization [facility] Address [address] [place] [address]. [place] [id number] [place] [address] Care Team Providers Care Maple Products Supervisor Name Role Phone Unavailable Primary Care Provider Unavailabl e Encounter Details Date Type Department Care Team (Late st Contact Info) Description 1995 Abstract [facility] [address]VERSION [address] [place] [address] , Generic Conversion, Social History Tobacco Use [...]
--- OUTSIDE RECORDS SUMMARY | 2024-03-06 11:08 | XMS_ITS | Encounter Summary ---
Author Organization [facility] Address [address] [place] [address]. [place], [place] [address] [place] [address] Care Team Providers Care Vocal Performer Name Role Phone Unavailable Primary Care Provider Unavailabl e Encounter Details Date Type Department Care Team (Late st Contact Info) Description 08/31/2009 Abstract [facility] Emergency Room [address] [place] [id number] Ankit Chen MD Social History Tobacco Use Types Packs/Day [...]
--- OUTSIDE RECORDS SUMMARY | 2024-03-06 11:08 | XMS_ITS | Encounter Summary ---
Author Organization [facility] Address [address] [place] [address]. [place], [place] [address] [place] [address] Care Team Providers Care Transplant Surgeon Name Role Phone Ericka Ward NP Primary Care Provider Abimbola Soto [facility]- Primary Care Provider + Encounter Details Date Type Department Care Team (Late st Contact Info) Description 09/10/2009 Abstract [facility] Diagnostic Imaging [address] [place] [address] Nilesh Mason MD [address] [place] [address] Social History Tobacco Use Types Packs/Day Years [...] Rule Out 01/29/2020 01/29/2020 02/02/2020 2:10 PM BARREL LINER COVID-19 Rule Out 02/19/2020 02/19/2020 02/19/2020 1:29 PM BARREL LINER COVID-19 Confirmed 02/19/2020 02/19/2020 12:34 AM BARREL LINER COVID-19 Rule Out 11/08/2020 11/08/2020 11/08/2020 12:43 PM CDT COVID-19 Rule Out 11/08/2020 11/08/2020 11/10/2020 3:30 AM CDT documented as of this encounter Care Teams Transplant Surgeon Relationship Specialty Start Date End Date Ericka Ward NP PCP - General NURSE PRACTITIONER 09/30/18 12/31/19 Abimbola Cuba FNP-BC PCP - General Nurse Practitioner Family 01/01/20 documented as of this encounter
--- OUTSIDE RECORDS SUMMARY | 2024-03-06 11:08 | XMS_ITS | Encounter Summary ---
Author Organization [facility] Address [address] [place] [address]. [place], [place] [address] [place] [address] Care Team Providers Care Service Order Dispatcher Name Role Phone Ericka Ward NP Primary Care Provider Abimbola Soto [facility]- Primary Care Provider + Encounter Details Date Type Department Care Team (Late st Contact Info) Description 10/14/2005 Abstract [facility] Diagnostic Imaging [address] [place] [address] Quynh Broderick, DO [address] [place] [address] Social History Tobacco Use Types Packs/Day Years [...] Rule Out 01/29/2020 01/29/2020 02/02/2020 2:10 PM STEAM FINISHER COVID-19 Rule Out 02/19/2020 02/19/2020 02/19/2020 1:29 PM STEAM FINISHER COVID-19 Confirmed 02/19/2020 02/19/2020 12:34 AM STEAM FINISHER COVID-19 Rule Out 11/08/2020 11/08/2020 11/08/2020 12:43 PM CDT COVID-19 Rule Out 11/08/2020 11/08/2020 11/10/2020 3:30 AM CDT documented as of this encounter Care Teams Service Order Dispatcher Relationship Specialty Start Date End Date Ericka Ward NP PCP - General NURSE PRACTITIONER 09/30/18 12/31/19 Abimbola Cuba FNP- PCP - General Nurse Practitioner Family 01/01/20 documented as of this encounter
--- OUTSIDE RECORDS SUMMARY | 2024-03-06 11:08 | XMS_ITS | Encounter Summary ---
Author Organization [facility] Address [address] [place] [address]. [place] [phone] [place] [address] Care Team Providers Care Ocean Export Account Manager Name Role Phone Unavailable Primary Care Provider Unavailabl e Encounter Details Date Type Department Care Team (Late st Contact Info) Description 1995 Abstract [facility] [address]VERSION [address] [place] [address] , Generic Conversion, Social History Tobacco Use [...]
--- OUTSIDE RECORDS SUMMARY | 2024-03-06 11:08 | XMS_ITS | Encounter Summary ---
Author Organization [facility] Address [address] [place] [address]. [place], [place] [address] [place] [address] Care Team Providers Care City Driver Name Role Phone Unavailable Primary Care Provider Unavailabl e Encounter Details Date Type Department Care Team (Late st Contact Info) Description 10/12/2005 Abstract [facility] CONVERSION [address] [place] [id number] Social History Tobacco Use Types Packs/Day Years [...]
--- OUTSIDE RECORDS SUMMARY | 2024-03-06 11:08 | XMS_ITS | Encounter Summary ---
Author Organization [facility] Address [address] [place] [address]. [place] [phone] [place] [address] Care Team Providers Care Mat Linker Name Role Phone Unavailable Primary Care Provider Unavailabl e Encounter Details Date Type Department Care Team (Late st Contact Info) Description 1995 Abstract [facility] CONVERSION [address] [place] [address] , Generic Conversion, Social History Tobacco Use [...]
--- OUTSIDE RECORDS SUMMARY | 2024-03-06 11:08 | XMS_ITS | Encounter Summary ---
Author Organization [facility] Address [address] [place] [address]. [place], [place] [address] [place] [address] Care Team Providers Care Skewer Up Name Role Phone Unavailable Primary Care Provider Unavailabl e Encounter Details Date Type Department Care Team (Late st Contact Info) Description 10/11/2005 Abstract [facility] Emergency Room [id number] [place], [place] [id number] Social History Tobacco Use Types Packs/Day Years [...]
--- OUTSIDE RECORDS SUMMARY | 2024-03-06 11:08 | XMS_ITS | Encounter Summary ---
Author Organization [facility] Address [address] [place] [address]. [place], [place] [address] [place] [address] Care Team Providers Care Bouffant Curtain Machine Tender Name Role Phone Unavailable Primary Care Provider Unavailabl e Encounter Details Date Type Department Care Team (Late st Contact Info) Description 12/23/2000 Abstract [facility] [place]VERSION [address] [place] [address] , Generic Conversion, Social History Tobacco Use [...]
--- OUTSIDE RECORDS SUMMARY | 2024-03-06 11:08 | XMS_ITS | Encounter Summary ---
Author Organization [facility] Address [address] [place] [address]. [place], [place] [address] [place] [address] Care Team Providers Care Tubing Tester Name Role Phone Unavailable Primary Care Provider Unavailabl e Encounter Details Date Type Department Care Team (Late st Contact Info) Description 09/24/2001 Abstract [facility] CONVERSION [address] [place] [address] , Generic Conversion, Social History Tobacco Use [...]
--- OUTSIDE RECORDS SUMMARY | 2024-03-06 11:23 | XMS_ITS | Encounter Summary ---
Author Organization [facility] Address [address] [facility] [address] [place] [address] Care Team Providers Care Drilling Assistant Name Role Phone Abimbola Cuba NP Primary Care Provider +1 [phone] Reason for Referral * Diagnostic Imaging (Routine) - Closed Specialty Diagnoses / Procedures Referred By Contac t Referred To Contact Diagnoses Closed nondisplaced fracture of distal phalanx of right little finger with delayed healing, subsequent encounter Procedures XR Hand Right 3 or More Views Ashkan Armstrong MD [address] [place] [address] [address] [place] [address] Phone: tel: fax: [facility] Referral ID Status Reason Start Date Expiration Date Visits Re quested Visits Authorized [id number] Closed 03/05/2021 04/04/2022 1 1 CTOR DATA PROCESSING Reason for Visit * Reason Comments Post-op Encounter Details Date Type Department Care Team (Late st Contact Info) Description 03/05/2021 7:00 AM DIRECTOR DATA PROCESSING Office Visit [facility] Medical [facility] Hand Surgery [facility] [address] [place] [phone] Ashkan Armstrong MD [address] [facility] [address] [place] [address] Closed nondisplaced fracture of distal phalanx of right little finger with delayed healing, subsequent encounter (Primary Dx) Social History Tobacco Use Types Packs/Day Years Used Date Smoking Tobacco: Former Cigarettes 0.5 2 1 - 12/14/2015 Smokeless Tobacco: Never AUDIT-C Answer Date Recorded Q1: How often do you have a drink containing alc ohol? Never 01/01/2021 Average Number of Drinks Not on file 021 Q3: How often do you have si x or more drinks on one occasion? Never 01/01/2021 Comments No Sex and Gender Information Value Date Recorded Sex Assigned at Not on file Legal Sex Female 8:54 AM DIRECTOR DATA PROCESSING Gender Identity Not on file Sexual Orientation Not on file documented as of this encounter Progress Notes * Ashkan Armstrong MD - 03/05/2021 7:00 AM CST Images from the original note were not included. Patient ID: Feli Garcia is a 26 y.o. female. Visit Date: 03/05/2021 Chief Complaint: Right small finger distal phalanx pinning 8 weeks ago HPI: She returns with 0/10 pain no fevers or chills Review of Systems There were no vitals taken for this visit. Physical Exam: Her incisions heal well with no signs of infection Xray / Imaging: AP lateral and oblique x-rays of right small finger show postoperative changes at the small finger. 1. Closed nondisplaced fracture of distal phalanx of right little finger with delayed healing, subsequent encounter PLAN: Will remove her pins today she can perform activities as tolerated follow-up with me in 4 weeks with mini C-arm x-rays. Procedures CTOR DATA PROCESSING documented in this encounter Plan of Treatment Not on file documented as of this encounter Procedures Procedure Name Priority Date/Time Associated Diagnosis Comments XR HAND RIGHT 3 OR MORE VIEWS Schedule Routine, Read Routine (OP Routine) 03/05/2021 8:24 AM DIRECTOR DATA PROCESSING Closed nondisplaced fracture of distal phalanx of right little finger with delayed healing, subsequent encounter documented in this encounter Results * XR Hand Right 3 or More Views (03/05/2021 8:24 AM DIRECTOR DATA PROCESSING) Anatomical Region Laterality Modality Upper Extremities, Hand Right [facility] Narrative 03/05/2021 8:24 AM DIRECTOR DATA PROCESSING AP lateral and oblique x-rays of right small finger show postoperative changes at the small finger. us Ashkan Armstrong MD IMG XR PROCEDURES Final Result documented in this encounter Visit Diagnoses Diagnosis Closed nondisplaced fracture of distal phalanx of right little finger with delayed healing, subsequent encounter- Primary documented in this encounter Care Teams Drilling Assistant Relationship Specialty [place] [address] [address] PCP - General Nurse Practitioner 01/09/21 documented as of this encounter
--- OUTSIDE RECORDS SUMMARY | 2024-03-06 11:23 | XMS_ITS | Encounter Summary ---
Author Organization [facility] Address [address] [facility] [address] [place] [address] Care Team Providers Care Felt Puller Name Role Phone Abimbola Cuba NP Primary Care Provider +1 [phone] Reason for Referral * Diagnostic Imaging (Routine) - Closed Specialty Diagnoses / Procedures Referred By Contac t Referred To Contact Diagnoses Closed nondisplaced fracture of distal phalanx of right little finger with delayed healing, subsequent encounter Procedures XR Hand Right 3 or More Views Ashkan Armstrong MD [address] [place] [address] [address] [place] [address] Phone: tel: fax: [facility] Referral ID Status Reason Start Date Expiration Date Visits Re quested Visits Authorized [id number] Closed 02/12/2021 03/14/2022 1 1 RANCE CUSTOMER SERVICE SPECIALIST Reason for Visit * Reason Comments Post-op Encounter Details Date Type Department Care Team (Late st Contact Info) Description 02/12/2021 7:00 AM INSURANCE CUSTOMER SERVICE SPECIALIST Office Visit [facility] Medical [facility] Hand Surgery [facility] [address] [place] [phone] Ashkan Armstrong MD [address] [place] [address] Closed nondisplaced fracture of distal phalanx of [...] on file Legal Sex Female 8:54 AM INSURANCE CUSTOMER SERVICE SPECIALIST Gender Identity Not on file Sexual Orientation Not on file documented as of this encounter Progress Notes * Ashkan Armstrong MD - 02/12/2021 7:00 AM CST Images from the original note were not included. Patient ID: Feli Garcia is a 26 y.o. female. Visit Date: 02/12/2021 Chief Complaint: Right small finger distal phalanx fracture treated with open reduction and pinning 5 weeks ago HPI: She returns with 0/10 pain no fevers or chills Review of Systems There were no vitals taken for this visit. Physical Exam: Her incisions heal well with no signs of infection at today's exam her pin sites are without signs of infection Xray / Imaging: AP lateral and oblique x-rays of the right small finger on the mini C-arm show postoperative changes at the distal phalanx of the right small finger 1. Closed nondisplaced fracture of distal phalanx of right little finger with delayed healing, subsequent encounter PLAN: Will continue with her current splint see her back in 3 weeks with mini C-arm x-rays. Procedures RANCE CUSTOMER SERVICE SPECIALIST documented in this encounter Plan of Treatment Not on file documented as of this encounter Procedures Procedure Name Priority Date/Time Associated Diagnosis Comments XR HAND RIGHT 3 OR MORE VIEWS Schedule Routine, Read Routine (OP Routine) 02/12/2021 7:11 AM INSURANCE CUSTOMER SERVICE SPECIALIST Closed nondisplaced fracture of distal phalanx of right little finger with delayed healing, subsequent encounter documented in this encounter Results * XR Hand Right 3 or More Views (02/12/2021 7:11 AM INSURANCE CUSTOMER SERVICE SPECIALIST) Anatomical Region Laterality Modality Upper Extremities, Hand Right [facility] Narrative 02/12/2021 7:11 AM INSURANCE CUSTOMER SERVICE SPECIALIST AP lateral and oblique x-rays of the right small finger on the mini C-arm show postoperative changes at the distal phalanx of the right small finger us Ashkan Armstrong MD IMG XR PROCEDURES Final Result documented in this encounter Visit Diagnoses Diagnosis Closed nondisplaced fracture of distal phalanx of right little finger with delayed healing, subsequent encounter- Primary documented in this encounter Care Teams Felt Puller Relationship Specialty [place] [address] [address] [address] PCP - General Nurse Practitioner 01/09/21 documented as of this encounter
--- OUTSIDE RECORDS SUMMARY | 2024-03-06 11:23 | XMS_ITS | Encounter Summary ---
Author Organization [facility] Address [address] [facility] [address] [place] [address] Care Team Providers Care Customer Service Advisor Name Role Phone Abimbola Cuba NP Primary Care Provider +1 [phone] Reason for Visit * Reason Comments Post-op Encounter Details Date Type Department Care Team (Late st Contact Info) Description 01/22/2021 7:00 AM CASE MANAGEMENT SOCIAL WORKER Office Visit [facility] Hand Surgery [address] [facility] [address] [place] [phone] Ashkan Armstrong MD [address] [place] [address] Closed nondisplaced fracture of distal phalanx of [...] on file Legal Sex Female 8:54 AM CASE MANAGEMENT SOCIAL WORKER Gender Identity Not on file Sexual Orientation Not on file documented as of this encounter Progress Notes * Ashkan Armstrong MD - 01/22/2021 7:00 AM CST Images from the original note were not included. Patient ID: Feli Garcia is a 26 y.o. female. Visit Date: 01/22/2021 Chief Complaint: Status post right small finger distal phalanx open reduction and pinning 13 days ago HPI: She returns with 0/10 pain no fevers or chills no numbness paresthesias Review of Systems There were no vitals taken for this visit. Physical Exam: Healed incision with no signs of infection at today's exam Xray / Imaging: None today 1. Closed nondisplaced fracture of distal phalanx of right little finger with delayed healing, subsequent encounter PLAN: Will remove her sutures place her in a stack splint see her back in 3 weeks with mini C-arm x-rays Procedures MANAGEMENT SOCIAL WORKER documented in this encounter Plan of Treatment Not on file documented as of this encounter Visit Diagnoses Diagnosis Closed nondisplaced fracture of distal phalanx of right little finger with delayed healing, subsequent encounter- Primary documented in this encounter Care Teams Customer Service Advisor Relationship Specialty [place] [address] [place] [address] PCP - General Nurse Practitioner 01/09/21 documented as of this encounter
--- OUTSIDE RECORDS SUMMARY | 2024-03-06 11:23 | XMS_ITS | Referral Summary ---
Author Organization [facility] Address [address] [place] [address] Care Team Providers Care Document Management Consultant Name Role Phone Abimbola Cuba NP Primary Care Provider +1 [phone] Allergies No known active allergies Medications HYDROcodone-thuan taminophen (NORCO) 5-325 mg per tablet Take 1 tablet by mouth every 6 (six) hours as needed 1 Active HYDROcodone-thuan taminophen (NORCO) 5-325 mg per tabletIndicatio ns:Pain,post op pain Take 1 tablet by mouth every 4 (four) hours as needed for pain 30 tablet 1 Active Additional Information Patient not taking.Reported on 02/12/2021 Active Problems Problem Noted Date Diagnosed Date Closed nondisplaced fracture of distal phalanx of right little finger 12/11/2020 Gastroesophageal reflux disease without esophagi tis 02/01/2019 Acute upper respiratory infection 11/29/2018 Depression 09/30/2018 Fatigue 09/30/2018 Anxiety 02/11/2016 Abnormal heart rhythm 04/30/2015 Social History Tobacco Use Types Packs/Day Years [...] on file Legal Sex Female 8:54 AM PHARMACY HELPER Gender Identity Not on file Sexual Orientation Not on file Last Filed Vital Signs Vital Sign Reading Time Taken Comments Blood Pressure 146/91 01/09/2021 11:35 AM CDT Pulse 54 01/09/2021 11:35 AM CDT Temperature 36.6 ??C (97.9 ??F) 01/09/2021 10:25 AM C DT Respiratory Rate 16 01/09/2021 11:35 AM CDT Oxygen Saturation 94% 01/09/2021 11:35 AM CDT Inhaled Oxygen Concentration - - Weight 115.7 kg (255 lb 2 oz) 01/09/2021 8:27 AM CDT Height 167.6 cm (5' 6 ) 01/09/2021 8:27 AM CDT Body Mass Index 41.18 01/09/2021 8:27 AM CDT Plan of Treatment Not on file Medical Devices Implanted Type Area Steam And Power Supervisor Device Identifier Shelf Expiration Date Model / Serial / Lot [employer] [id number] Susan .035in 9in Trocar Wire Fixation Nonsterile - [id number] Implanted:Qty: 2 on 01/09/2021 by Ashkan Armstrong MD at [facility] Wire Right: Little Finger [employer] [id number] S / / Insurance [facility] CHOICE PLUS Member Subscriber Plan / Payer (Ef fective 2020-Present) Name:Feli Garcia Relation to Subscriber:Self Name:Feli Garcia Payer ID:[id number] ([facility]) Type:[facility] HMO/PPO Address: [facility] [id number] [place] [address] Care Teams Document Management Consultant Relationship Specialty [place] [address] [address] [facility] [address] [place] [address] PCP - General Nurse Practitioner 01/09/21
--- OUTSIDE RECORDS SUMMARY | 2024-03-06 11:23 | XMS_ITS | Clinical Summary ---
Author Organization [facility] Address [address] [place] [address] Care Team Providers Care Well Drill Operator Cable Tool Name Role Phone Abimbola Cuba NP Primary Care Provider +1 [phone] Allergies No known active allergies Medications HYDROcodone-thuan [...] 09/30/2018 Anxiety 02/11/2016 Abnormal heart rhythm 04/30/2015 Surgical History Surgery Date Site/Laterality Comments MICRODISCECTOMY 03/18/2020 PERCUTANEOUS PINNING PHALANX FRACTURE OF HAND 01/09/2021 Right RT.SMALL FINGER DISTAL PHALANX W/PINNING Medical History Medical History Date Comments Depression Family History Medical History Relation Name Comments Clotting disorder Father Clotting disorder Mother Relation Name Status Comments Father Mother Social History Tobacco Use Types Packs/Day Years [...] on file Legal Sex Female 8:54 AM WELT SEWER Gender Identity Not on file Sexual Orientation Not on file Obstetrics History Last Filed Vital Signs Vital Sign Reading [...] on file Medical Devices Implanted Type Area Roofing Contractor Device Identifier Shelf Expiration Date Model / Serial / Lot [employer] [id number] Susan .035in 9in Trocar Wire Fixation Nonsterile - [id number] Implanted:Qty: 2 on 01/09/2021 by Ashkan Armstrong MD at [facility] Wire Right: Little Finger [employer] [id number] S / / Insurance [facility] H[facility]/PPO Address: [place] [id number] [place] [id number] [facility] HMO/PPO Address: [place] [id number] [place] [address] Care Teams Well Drill Operator Cable Tool Relationship Specialty [place] [address] [address] [address] PCP - General Nurse Practitioner 01/09/21
--- OUTSIDE RECORDS SUMMARY | 2024-03-06 11:23 | XMS_ITS | Encounter Summary ---
Author Organization [facility] Healthcare Address [address] [place] [address] Care Team Providers Care Occupational Therapy Assist Name Role Phone Abimbola Cuba NP Primary Care Provider [phone] Reason for Visit * Auth/Cert Specialty Diagnoses / Procedures Referred By Lele t Referred To Contact Diagnoses Closed nondisplaced fracture of distal phalanx of right little finger with delayed healing, subsequent encounter Closed nondisplaced fracture of distal phalanx of right little finger with delayed healing, subsequent encounter [S62.666G] Procedures MN OPEN TX DISTAL PHALANGEAL FRACTURE EACH RIGHT SMALL FINGER DISTAL PHALANX OR WITH PINNING Referral ID Status Reason Start Date Expiration Date Visits Re quested Visits Authorized [id number] 1 1 Encounter Details Date Type Department Care Team (Late st Contact Info) Description 01/09/2021 10:15 AM T - 01/09/2021 11:00 AM CDT Surgery [facility] OR [address] [place] [id number] Ashkan Armstrong MD [address] [place] [address] [id number] RIGHT SMALL FINGER DISTAL PHALANX OR WITH PINNING Surgery Details Date/Time Status Location OR Service Patient Class Case Class Case Type Trauma Case? 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 Gender Identity Not on file Sexual Orientation Not on file documented as of this encounter Last Filed Vital Signs Vital Sign Reading Time Taken Comments Blood Pressure 130/93 01/09/2021 10:55 AM CDT Pulse 60 01/09/2021 10:55 AM CDT Temperature 36.6 ??C (97.9 ??F) 01/09/2021 10:25 AM C DT Respiratory Rate 18 01/09/2021 10:55 AM CDT Oxygen Saturation 99% 01/09/2021 10:55 AM CDT Inhaled Oxygen Concentration - - Weight 115.7 kg (255 lb 2 oz) 01/09/2021 8:27 AM CDT Height 167.6 cm (5' 6 ) 01/09/2021 8:27 AM CDT Body Mass Index 41.18 01/09/2021 8:27 AM CDT documented in this encounter Medications at Time of Discharge HYDROcodone-aceta minophen (NORCO) 5-325 mg per tablet Take 1 tablet by mouth every 6 (six) hours as needed 12/06/2020 HYDROcodone-aceta minophen (NORCO) 5-325 mg per tabletIndications :Pain,post op pain Take 1 tablet by mouth every 4 (four) hours as needed for pain 30 tablet 01/09/2021 documented as of this encounter Ordered Prescriptions Prescription Sig Dispense Quantity Refills Last Filled Start Date End Date HYDROcodone-acetami nophen (NORCO) 5-325 mg per tabletIndications:P ain,post op pain Take 1 tablet by mouth every 4 (four) hours as needed for pain 30 tablet 01/09/2021 documented in this encounter Discharge Disposition Disposition Code Departure Means Destination Discharge to home or self care documented in this encounter H&P Notes * Ashkan Armstrong MD - 01/09/2021 8:27 AM CDT I have reviewed the H&P, examined the patient, and endorse the findings as written. Plan of Care : Based on the above findings, I consider Feli Garcia to be an acceptable risk for : Procedure(s): RIGHT SMALL FINGER DISTAL PHALANX OR WITH PINNING Source Note - Lina Lees PA - 01/08/2021 3:55 PM CDT Ortho Hand History and Physical Subjective Patient is a 25 y.o. female with chief complaint of right small finger injury. HPI: Patient is 25-year-old female with a history of right small finger distal phalanx fracture, sustained approximately 3 weeks ago. She was treated non operatively, but has had delayed healing. She wishes to proceed with surgical intervention. Risks, benefits and alternatives have been discussed with the patient to include nonunion, malunion, delayed union, wound infection, wound complication, numbness, stiffness and pain. Patient expresses that she understands and wishes to proceed. Past Medical History: Diagnosis Date ??? Depression Past Surgical History: Procedure Laterality Date ??? MICRODISCECTOMY 03/18/2020 No medications prior to admission. No Known Allergies Social History Tobacco Use ??? Smoking status: Former Smoker Packs/day: 0.50 Types: Cigarettes Start date: 12/13/2013 Quit date: 12/14/2015 Years since quittin.0 ??? Smokeless tobacco: Never Used Substance Use Topics ??? Alcohol use: Not on file Family History Problem Relation Age of Onset ??? Clotting disorder Mother ??? Clotting disorder Father Review of Systems Review of systems per HPI and otherwise all systems are negative Physical exam: Awake, alert, oriented No acute distress Breathing regular and unlabored She has opxm-wo-xowwsuqp swelling at the distal extent of the right small finger although she has normal flexion extension through the D IP joint of the small finger her skin is intact her hands warmto the touch her light touch is intact she has tenderness to palpation at the tip of the digit. Assessment/Plan Right small finger distal phalanx fracture with delayed healing. Plan for open reduction with pinning under general anesthesia on 01/09/2021. Cosigned by Ashkan Armstrong MD at 01/09/2021 8:27 AM CDT * Lina Lees PA - 01/08/2021 3:55 PM CDT Ortho Hand History and Physical Subjective Patient is a 25 y.o. female with chief complaint of right small finger injury. HPI: Patient is 25-year-old female with a history of right small finger distal phalanx fracture, sustained approximately 3 weeks ago. She was treated non operatively, but has had delayed healing. She wishes to proceed with surgical intervention. Risks, benefits and alternatives have been discussed with the patient to include nonunion, malunion, delayed union, wound infection, wound complication, numbness, stiffness and pain. Patient expresses that she understands and wishes to proceed. Past Medical History: Diagnosis Date ??? Depression Past Surgical History: Procedure Laterality Date ??? MICRODISCECTOMY 03/18/2020 No medications prior to admission. No Known Allergies Social History Tobacco Use ??? Smoking status: Former Smoker Packs/day: 0.50 Types: Cigarettes Start date: 12/13/2013 Quit date: 12/14/2015 Years since quittin.0 ??? Smokeless tobacco: Never Used Substance Use Topics ??? Alcohol use: Not on file Family History Problem Relation Age of Onset ??? Clotting disorder Mother ??? Clotting disorder Father Review of Systems Review of systems per HPI and otherwise all systems are negative Physical exam: Awake, alert, oriented No acute distress Breathing regular and unlabored She has gmik-yq-flfnwuoo swelling at the distal extent of the right small finger although she has normal flexion extension through the D IP joint of the small finger her skin is intact her hands warmto the touch her light touch is intact she has tenderness to palpation at the tip of the digit. Assessment/Plan Right small finger distal phalanx fracture with delayed healing. Plan for open reduction with pinning under general anesthesia on 01/09/2021. Cosigned by Ashkan Armstrong MD at 01/09/2021 8:27 AM CDT documented in this encounter Miscellaneous Notes * Op Note - Ashkan Armstrong MD - 01/09/2021 10:15 AM CDT Operative Progress Note Surgical Team: Surgeon(s) and Role: * Ashkan Armstrong MD - Primary Anesthesiologist: Rey Philip MD SPECIAL DELIVERY MESSENGER: Jacqueline Liao CRNA Benzene Washer Operator: Vane Murdock RN Physician Paper Cup Handle Machine Operator: Mariela Lees Scrub: Regine Auguste ST Benzene Washer Operator Second: Jayson Cornelius RN Physician Paper Cup Handle Machine Operator/Housing Development Specialist: Lina Lees DATE OF SURGERY : 01/09/2021 Preoperative Diagnosis: Right small finger distal phalanx displaced fracture Postoperative Diagnosis: Same Procedure(s): Right small finger distal phalanx fracture open reduction, right small finger distal phalanx fracture percutaneous pinning, right small finger distal interphalangeal joint percutaneous pinning Anesthsia: General Estimated Blood Loss: Minimal Specimens: None Complications: None OP Note: Risks benefits and alternatives to include delayed union nonunion hardware removal in the future stiffness infection nail deformity was discussed and she wished to proceed with surgical intervention.She is brought to the operating room. She underwent general anesthetic without complication and herright upper extremity was prepped and draped in a normal sterile fashion. A tourniquet was used. Ulnar-sided longitudinal incision was made over the distal phalanx of the small finger. Skin was incised with a 15 blade blunt dissection was performed down to the displaced distal phalanx fracture. Theneurovascular bundles were protected throughout the procedure. An open reduction of the fracture was performed followed by a 0.035 K-wire being placed in a percutaneous and retrograde fashion throughthe distal phalanx as well as the distal interphalangeal joint. Next a 2nd K-wire was placed in a retrograde fashion also. Intraoperative C-arm revealed good alignment of the fracture and good placement of the hardware in the AP lateral and multiple oblique planes. The K- wire was cut superficial tothe skin for removal in the office. The skin incision was closed with 3 O nylon followed by steriledressing and a splint. She tolerated the procedure well. Lina Lees my Physician's Paper Cup Handle Machine Operator's services included preoperative and postoperative assessment and documentation, patient positioning, prep and drape, intraoperative positioning and retraction, closure and postoperative dressing and postoperative orders. This significantly facilitated the procedure, limiting operative time and the associated coexisting morbidities. No other MD assistance was available. Condition on Discharge from the operating room was stable Implants: Implant Name Type Inv. Item Serial No. Author Lot No. LRB No. Used Action [employer] [id number] SUSAN .035IN 9IN TROCAR WIRE FIXATION NONSTERILE - [id number] Wire [employer] [id number] Susan .035in 9in Trocar Wire Fixation Nonsterile [employer] Right 2 Implanted Ashkan Armstrong MD Date: 01/09/2021 Time: 10:52 AM * Pre-Procedure Instructions - Cristina Mak RN - 01/01/2021 10:29 AM CDT We are pleased that you and your doctor have chosen [facility] for your surgery. We hope that the following information will help make your visit a pleasant one. COVID TEST: Must have COVID test on 01/06/21 at [facility] Collection Site Located at [address] [place] [address]. [id number] and quarantine after test. Hours: Mon - Fri 8:00 am - 4:30 pm Surgery Date: 01/09/21 Arrival Time : Please arrive at [address] [id number] Please park in the first parking lot on left side of driveway. Enter through front door. ([address] with flagpoles) Before your surgery: ?? Notify your doctor of ANY change in your health such as a cold, sore throat, fever, any infection or a change in the problem for which you are having your surgery. ?? Follow any instructions given to you by your doctor or surgeon. Medication Instructions: Pre-Surgery Instructions: Medication Instructions ??? HYDROcodone-acetaminophen (NORCO) 5-325 mg per tablet CAN TAKE day of surgery if needed One week before surgery STOP taking: ?? All herbal supplements ?? Aspirin (not ordered by your doctor) ?? Aleve, Advil, Motrin, Ibuprofen, or other similar medications (Tylenol is okay). 24 hours before your surgery: ?? No smoking or alcoholic drinks. Night before your surgery: ?? Do not eat or drink anything after midnight. Day of surgery: ?? Do not swallow any water when you brush your teeth. ?? Do not take your AM insulin dose or any diabetic medicines ?? Bring contact lens, hearing aids, glass cases and denture container if you use any of these items. ?? Use no make-up, nail swedish, lotions, oils or powders on your skin. ?? Wear comfortable clothes that will not be tight in the area of your surgery. ?? Leave all valuables and jewelry (including all body piercing jewelry) at home. ?? If you use a CPAP machine, please bring it with you to wear after your surgery. ?? Please bring your a photo ID and insurance cards with you. ?? Check in at the Registration Desk. ?? If you are 17 years old or younger, a parent or guardian must come with you Showering Instructions: Before surgery you can play an important role in your own health. Showeringwith the antiseptic soap solution CHG (chlorhexidine gluconate) or Hibiclens greatly reduces the number of germs on the skin. You may cotton picker operator a bottle of this soap from the front desk lead at [facility] for no charge or at your expense from local drugstores. Please read all of these instructions first and then follow them closely. o DO NOT use the antiseptic solution if you are allergic to CHG (chlorhexidine gluconate). If you are allergic use an antibacterial soap, such as Dial. o Avoid shaving or the use of any topical hair removers at or around the surgical site. o DO NOT use antiseptic solution on your face, head or neck. Do not use on hair. Do not allow solution to get in eyes, ears, nose or mouth. o DO NOT use in genital area. If contact in these areas rinse immediately and thoroughly with plenty of water. o If rash, redness, itching or any other symptoms of allergy occur, stop use immediately and call your physician or the [place] [facility] ( ) right away if symptoms persist. o Please refer to the product label for full drug labeling and product warnings. o The solution is for your use only. Do not give it to anyone else. Night before surgery: o Wash and rinse your hair first using your normal shampoo. Make sure you completely rinse from hair and body. o Shower with an antibacterial soap washing your entire body. Use clean washcloth only. o Then shower from the neck down with the antiseptic solution. Use half (1/2) of the solution the night before surgery and save the other half for you morning shower. o Apply the solution to a second clean wet washcloth. o Turn the water off in the shower or move away from the water spray to avoid rinsing the solution off or splashing. o Lather your entire body from the NECK DOWN. Never use the solution near your eyes, ears, nose, mouth or genitals. o Gently wash your body and focus the scrub on the areas where the incision(s) will be located for about 3 minutes. Avoiding scrubbing the skin too hard. o Once you have finished, rinse the soap solution off of your body completely. o DO NOT wash with regular soap after using the solution. Pat yourself dry with a clean, freshly laundered towel. o DO NOT apply powders, deodorants, creams, hair products and make up. o Sleep with freshly laundered pajamas on freshly laundered bedding. o Do not have contact with pets. Morning of surgery: o Please repeat above instructions o Dress with loose fitting, comfortable, freshly laundered clothing. Visitation Policy: Only 1 visitor day of surgery. Must be a legal adult. Can only stay in your outpatient surgery room only. Visitor cannot leave outpatient surgery unit and return. If visitor leavesthe hospital they may only return to cotton picker operator the patient at the discharge door at time of discharge. Please have visitor bring snacks, drinks, phone chargers, etc. After your Outpatient Surgery: ?? You must have a responsible adult to drive you home, you will not be allowed to drive or take a cab home. ?? We recommend you have someone stay with you for 24 hours after your surgery. Questions or concerns: ?? If you have any questions or concerns regarding your procedure, contact your surgeon as soon as possible. ?? If you have questions regarding your Pre-Admission Testing, please call us. We can be reached atthe number posted at the top of the page. documented in this encounter Plan of Treatment Not on file documented as of this encounter Procedures Procedure Name Priority Date/Time Associated Diagnosis Comments FL FLUOROSCOPY < 1 HOUR IP Routine 01/09/2021 9:23 AM CDT OPEN REDUCTION INTERNAL FIXATION - FINGER 01/09/2021 8:41 AM CDT Closed nondisplaced fracture of distal phalanx of right little finger with delayed healing, subsequent encounter Case Notes RT SMALL FINGER DISTAL PHALANX OPEN RED WITH PINNING *K-WIRES* Special Needs K-WIRES POCT HCG, URINE Routine 01/09/2021 8:36 AM CDT documented in this encounter Results * FL Fluoroscopy < 1 Hour (01/09/2021 9:23 AM CDT) Narrative [facility] - 01/09/2021 9:23 AM CDT The images from this study are not interpreted by Radiology. ??Please refer to the physician's procedure / OR operative note. us Ashkan Armstrong MD IMG FLUOROSCOPY PROCEDUR ES Final Result [facility] * POCT hCG, urine (01/09/2021 8:36 AM CDT) HCG, ur, POC Negative Lot Number [id number] QC Backgroud Clear Acceptable QC Control Line Acceptable Urine 01/09/2021 8:36 AM CDT Wang Che MD POINT OF CARE TEST ORDERABLES Final Result documented in this encounter Visit Diagnoses Diagnosis Closed nondisplaced fracture of distal phalanx of right little finger- Primary Closed nondisplaced fracture of distal phalanx of right little finger with delayed healing, subsequent encounter Closed nondisplaced fracture of distal phalanx of right little finger with delayed healing, subsequent encounter documented in this encounter Admitting Diagnoses Diagnosis Closed nondisplaced fracture of distal phalanx of right little finger documented in this encounter Administered Medications Inactive Administered Medications - up to 3 most recent administrations Medication Order MAR Action Action Date Dose Rate Site acetaminophen (TYLENOL) tablet 975 mg 975 mg (rounded from 1,000 mg), oral, Once, On Marifer 01/09/21 at 0900, For 1 dose, Pre-Op, Indications: Pre-Emptive AnalgesiaIndications:Pre-Emp tive Analgesia Given 01/09/2021 8:33 AM CDT 975 mg bupivacaine (MARCAINE) 0.5 % (5 mg/mL) preservative free injection As needed, Starting on Marifer 01/09/21 at 0917, Intra-Op Given 01/09/2021 9:17 AM CDT 7 mL Surgical Site famotidine (PEPCID) tablet 20 mg 20 mg, oral, Once, On Marifer 01/09/21 at 0900, For 1 dose, Pre-Op, Indications: gastroesophageal reflux diseaseIndications:gastroeso phageal reflux disease Given 01/09/2021 8:33 AM CDT 20 mg fentaNYL (SUBLIMAZE) preservative free injection 50 mcg 50 mcg, intravenous, Once as needed, uncontrolled pain on PACU admission, Starting on Marifer 01/09/21 at 0925, For 1 dose, Phase I, Then proceed to PACU 1st line analgesic., Indications: PainIndications:Pain Given 01/09/2021 9:40 AM CDT 50 mcg HYDROcodone-acetaminophen (NORCO) 5-325 mg per tablet 2 tablet 2 tablet, oral, Once as needed, 1st line for pain, Starting on Marifer 01/09/21 at 1048, For 1 dose, Phase I & Post-op Floor, Indications: PainIndications:Pain Given 01/09/2021 11:04 AM CDT 2 tablets Lactated Ringer's (LR) infusion 30 mL/hr, intravenous, Continuous, Starting on Marifer 01/09/21 at 0900, Pre-Op Restarted 01/09/2021 9:25 AM CDT New Bag 01/09/2021 8:33 AM CDT 30 mL/hr 30 mL/hr sodium chloride 0.9% irrigation As needed, Starting on Marifer 01/09/21 at 0917, Intra-Op Given 01/09/2021 9:17 AM CDT 100 mL Surgical Site documented in this encounter Active and Recently Administered Medications Times are shown in CDT. Scheduled Medication Order 01/07/2021 01/08/2021 01/09/2021 acetaminophen (TYLENOL) tablet 975 mg (COMPLETED) 975 mg (rounded from 1,000 mg), oral, Once, On Marifer 01/09/21 at 0900, For 1 dose, Pre-Op, Indications: Pre-Emptive Analgesia 0833 (Given - Provid er: Jamila Romero RN) ceFAZolin (ANCEF) 2,000 mg/20 mL in sterile water (premix) 2,000 mg (COMPLETED) 2,000 mg, intravenous, at 400 mL/hr, Administer over 3 Minutes, Once, On Marifer 01/09/21 at 0900, For 1 dose, Pre-Op, Administer within 60 minutes of incision., Indications: Prophylaxis, Surgical 0900 (Given - Provid er: Jacqueline Liao CRNA) famotidine (PEPCID) tablet 20 mg (COMPLETED) 20 mg, oral, Once, On Marifer 01/09/21 at 0900, For 1 dose, Pre-Op, Indications: gastroesophageal reflux disease 0833 (Given - Provid er: Jamila Romero RN) Continuous Medication Order 01/07/2021 01/08/2021 01/09/2021 Lactated Ringer's (LR) infusion 30 mL/hr, intravenous, Continuous, Starting on Marifer 01/09/21 at 0900, Pre-Op 0833 (New Bag - Prov ider: Jamila Romero RN)0853 (Canceled Entry - Provider: Jacqueline Liao CRNA)0900 (Due)0924 (Paused - Provider: Jacqueline Liao CRNA - Comment: Switch to gravity)0925 (Restarted - Provider: Jacqueline Liao CRNA) PRN Medication Order 01/07/2021 01/08/2021 01/09/2021 bupivacaine (MARCAINE) 0.5 % (5 mg/mL) preservative free injection (CANCELED) As needed, Starting on Marifer 01/09/21 at 0917, Intra-Op 0917 (Given - Provid er: Ashkan Armstrong MD) fentaNYL (SUBLIMAZE) preservative free injection 50 mcg (COMPLETED) 50 mcg, intravenous, Once as needed, uncontrolled pain on PACU admission, Starting on Marifer 01/09/21 at 0925, For 1 dose, Phase I, Then proceed to PACU 1st line analgesic., Indications: Pain 0940 (Given - Provid er: Gaurav Maxwell RN) hydrALAZINE (APRESOLINE) injection 5 mg 5 mg, intravenous, Administer over 2 Minutes, Every 15 min PRN, high blood pressure, Starting on Marifer 01/09/21 at 0925, Phase I, Max cumulative dose 20 mg. Dose if systolic BP greater than 180 AND heart rate less than 70., Indications: hypertension HYDROcodone-acetaminophen (NORCO) 5-325 mg per tablet 2 tablet (COMPLETED) 2 tablet, oral, Once as needed, 1st line for pain, Starting on Marifer 01/09/21 at 1048, For 1 dose, Phase I & Post-op Floor, Indications: Pain 1104 (Given - Provid er: Jamila Romero RN) HYDROmorphone (DILAUDID) injection 0.4 mg 0.4 mg, intravenous, Administer over 2 Minutes, Every 10 min PRN, 1st line for pain, Starting on Marifer 01/09/21 at 0925, Phase I, Notify Anesthesiologist if total PACU dose reaches 2 mg and pain score 5/10 or more., Indications: Pain labetaloL (NORMODYNE,TRANDATE) injection 5 mg 5 mg, intravenous, at 30 mL/hr, Administer over 2 Minutes, Every 10 min PRN, high blood pressure, Starting on Marifer 01/09/21 at 0925, Phase I, Max cumulative dose 20 mg. Dose if systolic blood pressure greater than 180 AND HR greater than 70. lidocaine PF (XYLOCAINE) 10 mg/mL (1 %) preservative free injection 2-10 mg 2-10 mg (0.2-1 mL), other, Once as needed, pain with IV placement, Starting on Marifer 01/09/21 at 0818, For 1 dose, Pre-Op, Administer volume needed to infiltrate IV site. naloxone (NARCAN) 0.4 mg/mL injection 0.04-0.4 mg 0.04-0.4 mg, intravenous, Once as needed, other, excessive sedation/respiratory depression, Starting on Marifer 01/09/21 at 0925, For 1 dose, Phase I, Dilute 0.4 mg with 9 mL NS (final concentration 0.04 mg/mL). For respiratory depression (respiratory rate less than 6), administer 0.4 mg IVP over 30 seconds. For excessive sedation administer 0.04 mg (1 mL) every 1 minute until desired level of alertness. For IV, administer over 30 seconds., Indications: Opioid Toxicity ondansetron (ZOFRAN) injection 4 mg 4 mg, intravenous, Administer over 2 Minutes, Once as needed, nausea, vomiting, Starting on Marifer 01/09/21 at 0925, For 1 dose, Phase I, Proceed to prochlorperazine if ondansetron has been given within the last 6 hours. prochlorperazine (COMPAZINE) injection 5 mg 5 mg, intravenous, Once as needed, nausea, vomiting, Starting on Marifer 01/09/21 at 0925, For 1 dose, Phase I, If nausea/vomiting not relieved by ondansetron within 30 minutes or if ondansetron has been given within the last 6 hours. sodium chloride 0.9% flush 0.5-20 mL 0.5-20 mL, intra-catheter, As needed, line care, Starting on Marifer 01/09/21 at 0818, Pre-Op, Flush volume based on line type and size. Flush before and after each use. sodium chloride 0.9% irrigation (CANCELED) As needed, Starting on Marifer 01/09/21 at 0917, Intra-Op 0917 (Given - Provid er: Ashkan Armstrong MD) documented in this encounter Orders Medications Ordered That Fareed ht Not Have Been Administered Count Last Ordered Date First Ordered Date ceFAZolin (ANCEF) 2,000 mg/2 0 mL in sterile water (premix) 2,000 mg 1 01/09/2021 hydrALAZINE (APRESOLINE) injection 5 mg 1 1 HYDROmorphone (DILAUDID) injection 0.4 mg 1 01/09/2021 labetaloL (NORMODYNE,TRANDAT E) injection 5 mg 1 01/09/2021 lidocaine PF (XYLOCAINE) 10 mg/mL (1 %) preservative free injection 2-10 mg 1 01/09/2021 naloxone (NARCAN) 0.4 mg/mL injection 0.04-0.4 mg 1 01/09/2021 ondansetron (ZOFRAN) injection 4 mg 1 01/09 prochlorperazine (COMPAZINE) injection 5 mg 1 01/09/2021 sodium chloride 0.9% flush 0.5-20 mL 1 12/14 Diet Count Last Ordered Date First Orde red Date ADULT DISCHARGE DIET 1 01/09/2021 Nursing Count Last Ordered Date First Orde red Date DISCHARGE CALL PROVIDER 1 01/09/2021 DISCHARGE DRESSING 2 01/09/2021 DISCHARGE INSTRUCTIONS 2 01/09/2021 Discharge Count Last Ordered Date First Orde red Date DISCHARGE PATIENT 1 01/09/2021 documented in this encounter Care Teams Occupational Therapy Assist Relationship Specialty [place] [address] [address] PCP - General Nurse Practitioner 01/09/21 documented as of this encounter
--- OUTSIDE RECORDS SUMMARY | 2024-03-06 11:24 | XMS_ITS | Encounter Summary ---
Author Organization [facility] Facility Care Team Providers Care Property Utilization Officer Name Role Phone Unavailable Primary Care Provider Unavailabl e Encounter Details Date Type Department Care Team (Late st Contact Info) Description 08/31/2009 10:20 PM CDT - 09/02/2009 2:14 PM CDT Hospital Encounter [facility] Chandrakant Brady MD [address] [place] [id number] Foreign body in digestive system; Foreign body accidentally entering other orifice; Unspecified place of occurrence; Anxiety state; Psychological or physical stress Social History Tobacco Use Types Packs/Day Years Used Date Smoking Tobacco: Never Assessed Comments Unknown Sex and Gender Information Value Date Recorded Sex Assigned at Not on file 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 Gender Identity Not on file Sexual Orientation Not on file documented as of this encounter Last Filed Vital Signs Vital Sign Reading Time Taken Comments Blood Pressure 137/90 09/02/2009 12:00 PM CDT Pulse 84 09/02/2009 12:00 PM CDT Temperature - - Respiratory Rate - - Oxygen Saturation 100% 09/01/2009 4:45 AM CDT Inhaled Oxygen Concentration - - Weight 86.9 kg (191 lb 9.3 oz) 09/01/2009 1:05 A M CDT Height 165.5 cm (5' 5.16 ) 09/01/2009 1:05 AM CD T Body Mass Index 31.73 09/01/2009 1:05 AM CDT Body Mass Index Percentile 97.45% 09/01/2009 1:0 5 AM CDT Growth Chart: CDC (Girls, 2- 20 Years) documented in this encounter Plan of Treatment Not on file documented as of this encounter Visit Diagnoses Diagnosis Foreign body in digestive system Foreign body in digestive system, unspecified Foreign body accidentally entering other orifice Unspecified place of occurrence Anxiety state Anxiety state, unspecified Psychological or physical stress documented in this encounter
--- OUTSIDE RECORDS SUMMARY | 2024-03-06 11:24 | XMS_ITS | Encounter Summary ---
Author Organization [facility] Address [address] [place] [address] Care Team Providers Care Body Specialist Name Role Phone Referral, Self Primary Care Provider Unavailabl e Reason for Referral * Diagnostic Imaging (Routine) - Closed Specialty Diagnoses / Procedures Referred By Controyal t Referred To Contact Diagnoses Right hand pain Procedures XR Hand Right 3 or More Views Ashkan Armstrong MD [address] [place] [address] [address] [place] [id number] Phone: tel: fax: [facility] Referral ID Status Reason Start Date Expiration Date Visits Re quested Visits Authorized [id number] Closed 12/11/2020 01/10/2022 1 1 Reason for Visit * Reason Comments Fracture Fracture Encounter Details Date Type Department Care Team (Late st Contact Info) Description 12/11/2020 7:00 AM CDT Office Visit [facility] Hand Surgery [address] [place] [address] [address] [place] [address] Ashkan Armstrong MD [address] [place] [address] [address] [place] [address] Right hand pain (Primary Dx); Closed nondisplaced fracture of distal phalanx of right little finger, initial encounter Social History Tobacco Use Types Packs/Day Years Used Date Smoking Tobacco: Unknown AUDIT-C Answer Date Recorded Q1: How often do you have a drink containing alc ohol? 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 Patient ID: Feli Garcia is a 25 y.o. female. Visit Date: 12/11/2020 Chief Complaint: Right small finger injury HPI: This is a 25-year-old female sustained an injury to her right small finger recently her workup revealed a distal phalanx fracture am seeing her for 5/10 pain today no feeling of instability no numbness paresthesias and she has taken sinl-isy-muaigyc medications for painful symptoms. No mechanical symptoms. Review of Systems Constitutional: Negative for chills. HENT: Negative for congestion. Respiratory: Negative for cough. Neurological: Negative for seizures. There were no vitals taken for this visit. Physical Exam: Her gait is within normal limits. Her mood and affect are appropriate. She is well nourished. She is alert and oriented to time and place. She has active flexion extension of the DIP of the small finger with ecchymosis underneath her nail. Her motor strength stability is within normal limits her hands warm to the touch her light touch is intact good perfusion to the digit Xray / Imaging: AP lateral and oblique x-rays of the right small finger on the mini C-arm show a tuft fracture withminimal displacement of the right small finger 1. Right hand pain 2. Closed nondisplaced fracture of distal phalanx of right little finger, initial encounter PLAN: Will place her in a stack splint see her back in 3 weeks with mini C-arm x-rays Procedures documented in this encounter Plan of Treatment Not on file documented as of this encounter Procedures Procedure Name Priority Date/Time Associated Diagnosis Comments XR HAND RIGHT 3 OR MORE VIEWS Schedule Routine, Read Routine (OP Routine) 12/11/2020 8:16 AM CDT Right hand pain documented in this encounter Results * XR Hand Right 3 or More Views (12/11/2020 8:16 AM CDT) Anatomical Region Laterality Modality Upper Extremities, Hand Right Radiogra phic Imaging Narrative 12/11/2020 8:16 AM CDT AP lateral and oblique x-rays of the right small finger on the mini C-arm show a tuft fracture with minimal displacement of the right small finger us Ashkan Armstrong MD IMG XR PROCEDURES Final Result documented in this encounter Visit Diagnoses Diagnosis Right hand pain- Primary Pain in soft tissues of limb Closed nondisplaced fracture of distal phalanx of right little finger, initial encounter documented in this encounter Historical Medications * This list may reflect changes made after this encounter. HYDROcodone-aceta minophen (NORCO) 5-325 mg per tablet Take 1 tablet by mouth every 6 (six) hours as needed 12/06/2020 amoxicillin-clavu lanate (AUGMENTIN) 875-125 mg per tablet Take 875 mg by mouth 2 (two) times a day 12/06/2020 12/11/2020 added in this encounter Care Teams Body Specialist Relationship Specialty Start Date End Date Referral, Self PCP - General 12/10/20 01/05/21 documented as of this encounter
--- OUTSIDE RECORDS SUMMARY | 2024-03-06 11:24 | XMS_ITS | Encounter Summary ---
Author Organization [facility] Address [address] [place] [address] Care Team Providers Care Double End Chucking Machine Operator Name Role Phone Unknown, Notinfile Primary Care Provider Unavail able Encounter Details Date Type Department Care Team (Late st Contact Info) Description 01/06/2021 Orders Only [facility] Testing Site - [address] [place] [address] Ashkan Armstrong MD [address] [place] [address] [address] Pre-procedure lab exam (Primary Dx) Social History Tobacco Use Types [...] drinks on one occasion? 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 Date of Px/chemo/treatment/placement/transfer 01/09/2021 ?? Testing site patient will be sent to: Joe MD ?? Testing: COVID-19 RNA ?? Is this the first COVID-19 test for this patient? Does the patient currently work in a healthcare facility with direct patient contact? No ?? Is the patient a resident of a congregate care or living setting? No ?? Is the patient ? Unknown ?? Date testing requested: 01/06/2021 ?? Testing: COVID-19 RNA documented in this encounter Plan of Treatment Not on file documented as of this encounter Results * COVID-19 Coronavirus RNA Nasopharyngeal (01/06/2021 8:54 AM CDT) COVID-19 RNA Not Detected [facility] Comment: Interpretive Data Synonyms for this test include: PCR and NAAT . ??Testing performed by the [facility] Molecular Infectious Disease Laboratory. The 2018-Novel Coronavirus Assay (COVID-19) Real Time RT-PCR assay is for in vitro diagnostic use under FDA emergency use authorization only. A negative RT-PCR result does not preclude infection with COVID-19 and should not be used as the sole basis for treatment or other patient management decisions. ??Additional sample types have been validated according to CLIA regulations. ?? Current Interpretive Data was last revised on April 18, 2020. First COVID-19 test? No [facility] Employeed in healthcare? No [facility] status? Unknown [facility] Group care resident? No [facility] Hospitalized? No [facility] Is patient in ICU? No [facility] Symptomatic as defined by CDC? No [facility] Nasopharyngeal 01/06/2021 8: 54 AM CDT 01/06/2021 5:03 PM CDT Narrative [facility] - 01/06/2021 10:05 PM CDT What is the reason for testing?->Screening prior to scheduled procedure or surgery (batch) us Ashkan Armstrong MD LAB MICROBIOLOGY - GENER AL ORDERABLES Final Result [facility] Department [place] [address] documented in this encounter Visit Diagnoses Diagnosis Pre-procedure lab exam- Primary Pre-procedural laboratory examination Pre-procedure lab exam Pre-procedural laboratory examination documented in this encounter Care Teams Double End Chucking Machine Operator Relationship Specialty Start Date End Date Unknown, Notinfile PCP - General 01/06/21 01/08/21 documented as of this encounter
--- OUTSIDE RECORDS SUMMARY | 2024-03-06 11:24 | XMS_ITS | Encounter Summary ---
Author Organization [facility] Address [address] [place] [address] Care Team Providers Care Ground Instructor Basic Name Role Phone Referral, Self Primary Care Provider Unavailabl e Reason for Referral * Diagnostic Imaging (Routine) - Closed Specialty Diagnoses / Procedures Referred By Controyal t Referred To Contact Diagnoses Right hand pain Procedures XR Hand Right 3+ Vw Ashkan Armstrong MD [address] [place] [address] [address] [place] [address] Phone: tel: fax: [facility] Referral ID Status Reason Start Date Expiration Date Visits Re quested Visits Authorized [id number] Closed 01/01/2021 01/31/2022 1 1 Reason for Visit * Reason Comments Pain Encounter Details Date Type Department Care Team (Late st Contact Info) Description 01/01/2021 7:45 AM CDT Office Visit [facility] Hand Surgery [address] [place] [address] [address] [place] [address] Ashkan Armstrong MD [address] [place] [address] [address] [place] [address] Right hand pain (Primary Dx); Closed nondisplaced fracture of distal phalanx of right little finger with delayed healing, subsequent encounter Social History Tobacco Use Types Packs/Day [...] on file 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 Patient ID: Feli Garcia is a 25 y.o. female. Visit Date: 01/01/2021 Chief Complaint: Right small finger injury HPI: This 25-year-old female returns 3 weeks after non operative management for right distal phalanx fracture of the small finger treated in a splint she comes in with continued pain but at rest she has 0pain even with the splint on with activity she states she does have pain with no feeling of instability no new traumatic events she takes njoc-oki-yqrttnl medications. She reports no fevers or chillsno feeling of instability no numbness paresthesias. Review of Systems Constitutional: Negative for chills and fever. HENT: Negative for facial swelling and tinnitus. Respiratory: Negative for shortness of breath. Cardiovascular: Negative for chest pain and palpitations. Skin: Negative for color change. Neurological: Negative for seizures. Psychiatric/Behavioral: Negative for self-injury. There were no vitals taken for this visit. Physical Exam: Her gait is within normal limits. Her mood and affect are appropriate. She is well nourished. She is alert and oriented to time and place. She has zhxs-yx-eahjppza swelling at the distal extent of the right small finger although she has normal flexion extension through the D IP joint of the small fi nger her skin is intact her hands warm to the touch her light touch is intact she has tenderness topalpation at the tip of the digit. Xray / Imaging: AP lateral and multiple obliques on the mini C-arm performed in the office today show more displacement at a transverse mid shaft distal phalanx fracture of the small finger with some dorsal displacement of the distal fragment 1. Right hand pain 2. Closed nondisplaced fracture of distal phalanx of right little finger with delayed healing, subsequent encounter PLAN: Went over x-ray findings in detail and the possibility of non operative management leading to a pain-free or a painful nonunion and after a long discussion we have decided to proceed with a open reduction and pinning of the fracture and risks benefits and alternatives to include nail deformity delayed union nonunion hardware removal in the future stiffness was discussed and she wished to proceed with surgical intervention. Procedures documented in this encounter Plan of Treatment Not on file documented as of this encounter Procedures Procedure Name Priority Date/Time Associated Diagnosis Comments XR HAND RIGHT 3 OR MORE VIEWS Schedule Routine, Read Routine (OP Routine) 01/01/2021 8:07 AM CDT Right hand pain documented in this encounter Results * XR Hand Right 3+ Vw (01/01/2021 8:07 AM CDT) Anatomical Region Laterality Modality Upper Extremities, Hand [facility] Narrative 01/01/2021 8:07 AM CDT AP lateral and multiple obliques on the mini C-arm performed in the office today show more displacement at a transverse mid shaft distal phalanx fracture of the small finger with some dorsal displacement of the distal fragment us Ashkan Armstrong MD IMG XR PROCEDURES Final Result documented in this encounter Visit Diagnoses Diagnosis Right hand pain- Primary Pain in soft tissues of limb Closed nondisplaced fracture of distal phalanx of right little finger with delayed healing, subsequent encounter documented in this encounter Care Teams Ground Instructor Basic Relationship Specialty Start Date End Date Referral, Self PCP - General 12/10/20 01/05/21 documented as of this encounter
--- OUTSIDE RECORDS SUMMARY | 2024-03-06 11:24 | XMS_ITS | Encounter Summary ---
Author Organization [facility] Healthcare Address [address] [place] [address] Care Team Providers Care Centrifugal Operator Name Role Phone Abimbola Cuba NP Primary Care Provider [phone] Reason for Visit * Auth/Cert Specialty Diagnoses / Procedures Referred By Lele t Referred To Contact Diagnoses Closed nondisplaced fracture of distal phalanx of right little finger with delayed healing, subsequent encounter Closed nondisplaced fracture of distal phalanx of right little finger with delayed healing, subsequent encounter [S62.666G] Procedures IN OPEN TX DISTAL PHALANGEAL FRACTURE EACH RIGHT SMALL FINGER DISTAL PHALANX OR WITH PINNING Referral ID Status Reason Start Date Expiration Date Visits Re quested Visits Authorized [id number] 1 1 Encounter Details Date Type Department Care Team (Late st Contact Info) Description 01/09/2021 8:53 AM CDT Anesthesia Event [facility] OR [address] [place] [address] Rey Philip MD [facility] [place] [address] Wang Che MD [address] [facility] [place] [address] Anesthesia Record Procedure Summary Procedure Name Responsible Anesthesiologist Anesthesia Start Time Anesthesia Stop Time RIGHT SMALL FINGER DISTAL PHALANX OR WITH PINNING (Right: Fingers) Rey Philip MD 01/09/21 0853 01/09/21 0933 Events Date Time Event Comment 01/09/2021 0845 0853 An Start 0856 In Room 0858 An Start Data 0901 An Induction The patient was reevaluated immediately before moderate or deep sedation use and before anesthesia induction. 0901 Anesthesia Ready 0902 An LMA 0908 Proc Start 0920 Proc Fin 0924 An Extubation 0925 an stop data 0927 Out of Room 0932 Handoff to RN I completed my handoff to the receiving nurse during which we: 1. Patient identified 2. Responsible provider identified 3. Pertinent medical history reviewed 4. Procedure type and surgical course discussed 5. Intraoperative anesthetic management and any significant issues discussed 6. Expectations and concerns for postop period discussed 7. Questions solicited from receiving nurse 8. Patient disposition at the time of handoff: PACU 0933 An Stop Meds Name Total propofol 270 mg lidocaine (cardiac) syringe 2 % 50 mg fentaNYL 50 mcg/mL PF 100 mcg ondansetron PF 4 mg glycopyrrolate 0.2 mg ceFAZolin (ANCEF) 2,000 mg/20 mL in ster ile water (premix) 2,000 mg 2,000 mg Lactated Ringer's (LR) infusion 500 mL * Agents Name O2% N2O O2 N2O Air Sevoflurane Inspired Sevoflurane * Blood No blood administrations on file. Lines, Drains, and Airways Type Details Placement Removal Peripheral IV Placement Date: 01/09/21; Placement Time: 829; Catheter Size: 20 G; Orientation: Left, Posterior; Location: Hand; Technique: Anatomical landmarks; Inserted by: crystal; Insertion Attempts: 1; Patient Tolerance: Tolerated well 01/09/21829 by Jamila Romero EXPANDED FUNCTION DENTAL ASSISTANT Supraglottic Airway Placement Date: 01/09/21; Placement Time: 901 (created via procedure documentation); Mask Ventilation: 0; Size: 3; Insertion Attempts: 1; Removal Date: 01/09/21; Removal Time: 92301/09/21901 by Jacqueline Liao CRNA 01/09/21923 by Jacqueline Liao CRNA RETIRED Surgical Site 01/09/21; 09; Ri ght; Finger (Comment which one); Small; 02/15/24 (Retired LDA, Removed/Completed by [employer] with LDA Utility); 1213 (Retired LDA, Removed/Completed by [employer] with LDA Utility) 01/09/21 0912 by Vane Murdock RN 02/15/24 1213 by Discharge Provider, Automatic documented in this encounter Social History Tobacco [...] on file 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 Gender Identity Not on file Sexual Orientation Not on file documented as of this encounter OR Notes * Anesthesia Postprocedure Evaluation - Rey Philip MD - 01/09/2021 11:08 AM CDT Patient: Feli Garcia Procedure Summary Date: 01/09/21 Room / Location: [facility] 04 / [facility] Anesthesia Start: 852 Anesthesia Stop: 932 Procedure: RIGHT SMALL FINGER DISTAL PHALANX OR WITH PINNING (Right Fingers) Diagnosis: Closed nondisplaced fracture of distal phalanx of right little finger with delayed healing, subsequent encounter (Closed nondisplaced fracture of distal phalanx of right little finger with delayed healing, subsequent encounter [S62.666G]) Surgeons: Ashkan Armstrong MD Responsible Provider: Rey Philip MD Anesthesia Type: general ASA Status: 2 Anesthesia Type: general Last vitals BP 130/93 (BP Location: Left arm) Pulse 60 Temp 36.6 ??C (97.9 ??F) (Temporal) Resp 18 [id number]% Anesthesia Post Evaluation Patient location during evaluation: PACU Patient participation: complete - patient participated Level of consciousness: fully awake Pain management: adequate Airway patency: adequate Evidence of recall: no Cardiovascular status: acceptable Respiratory status: acceptable Hydration status: acceptable Pt is: normothermic Nausea/Vomiting status: none No complications documented. * Anesthesia Procedure Notes - Jacqueline Liao CRNA - 01/09/2021 9:03 AM CDT Associated Order(s): Airway Airway Patient location: OR Urgency: elective Date/time: 01/09/2021 9:02 AM Indications for airway management: anesthesia Difficult airway: no Staff: Supervising provider: Rey Philip MD Placed by: RADIO DIVISION CAPTAIN: Jacqueline Lioa CRNA Emergent airway documentation: Risks and benefits discussed: yes Consent obtained: yes Consent given by: patient Airway prep: Preoxygenated: yes Patient position: sniffing Mask difficulty assessment: 0 - not attempted Spontaneous ventilation during airway: absent Sedation level during airway: deep Final airway details: Final airway type: supraglottic airway Final supraglottic airway: classic SGA size: 3 Cuff pressure: 0 cm H2O Airway seal pressure: 0 cm H2O Number of attempts: 1 Ventilation between attempts: noneno * Anesthesia Preprocedure Evaluation - Rey Philip MD - 01/09/2021 8:45 AM CDT Images from the original note were not included. Anesthesia Evaluation Feli Garcia is a 25 y.o. female Procedure(s): RIGHT SMALL FINGER DISTAL PHALANX OR WITH PINNING Pre-Op Diagnosis Codes: * Closed nondisplaced fracture of distal phalanx of right little finger with delayed healing, subsequent encounter [S62.666G] HISTORY Past Medical History Information obtained from: patient and chart. Neurological + Psychiatric history - depression and anxiety Respiratory + Current smoker - Counseled to abstain from smoking the day of surgery. Patient refrained from smoking on day of surgery. Gastrointestinal + GERD - on daily therapy. Asymptomatic. Endocrine / Other + Obesity (BMI >30)- morbid obesity (BMI>40). Pertinent negatives: diabetes mellitus and thyroid disease Review of Systems Pertinent negatives: SOB; recent cold/flu and chest pain Patient Active Problem List Diagnosis ??? Closed nondisplaced fracture of distal phalanx of right little finger ??? Abnormal heart rhythm ??? Acute upper respiratory infection ??? Anxiety ??? Depression ??? Fatigue ??? Gastroesophageal reflux disease without esophagitis Past Medical History: Diagnosis Date ??? Depression Past Surgical History: Procedure Laterality Date ??? MICRODISCECTOMY 03/18/2020 OB History No obstetric history on file. No Known Allergies Med List Status: Nurse Complete Set By: Cristina Mak RN at 01/01/2021 10:24 AM Taking? Last Dose Start Date End Date Provider HYDROcodone-acetaminophen (NORCO) 5-325 mg per tablet Past Month 12/06/20 -- Provider, MD Cory Current Facility-Administered Medications: ??? ceFAZolin (ANCEF) 2,000 mg/20 mL in sterile water (premix) 2,000 mg, 2,000 mg, intravenous, Once ??? Lactated Ringer's (LR) infusion, 30 mL/hr, intravenous, Continuous, Last Rate: 30 mL/hr at 01/09/21832, 30 mL/hr at 01/09/21832 ??? lidocaine PF (XYLOCAINE) 10 mg/mL (1 %) preservative free injection 2-10 mg, 0.2-1 mL, other, Once PRN ??? sodium chloride 0.9% flush 0.5-20 mL, 0.5-20 mL, intra-catheter, PRN Social History Tobacco Use Smoking Status Former Smoker ??? Packs/day: 0.50 ??? Types: Cigarettes ??? Start date: 12/13/2013 ??? Quit date: 12/14/2015 ??? Years since quittin.0 Smokeless Tobacco Never Used Substance and Sexual Activity Alcohol Use Not on file Substance and Sexual Activity Drug Use Yes ??? Types: Marijuana Comment: every day smoker Family History Problem Relation Age of Onset ??? Clotting disorder Mother ??? Clotting disorder Father Vitals: 01/09/21826 BP: 140/98 Pulse: 73 Resp: 16 Temp: 36.6 ??C (97.9 ??F) SpO2: 98% PT: No results found for requested labs within last 720 hours. INR: No results found for requested labs within last 720 hours. APTT: No results found for requested labs within last 720 hours. Hgb A1C: No results found for requested labs within last 720 hours. CBC RBC: No results found for requested labs within last 720 hours. RDW: No results found for requested labs within last 720 hours. MCHC: No results found for requested labs within last 720 hours. MCH: No results found for requested labs within last 720 hours. MCV: No results found for requested labs within last 720 hours. Hct: No results found for requested labs within last 720 hours. Hgb: No results found for requested labs within last 720 hours. WBC: No results found for requested labs within last 720 hours. MPV: No results found for requested labs within last 720 hours. Platelets: No results found for requested labs within last 720 hours. RDW CV: No results found for requested labs within last 720 hours. RDW Sd: No results found for requested labs within last 720 hours. BMP Glucose: No results found for requested labs within last 720 hours. Calcium: No results found for requested labs within last 720 hours. Sodium: No results found for requested labs within last 720 hours. Potassium: No results found for requested labs within last 720 hours. CO2: No results found for requested labs within last 720 hours. Chloride: No results found for requested labs within last 720 hours. BUN: No results found for requested labs within last 720 hours. Creatinine: No results found for requested labs within last 720 hours. STOP-Bang Total Score: 2 Humpty Dumpty Total Score: 11 DOS Physical Exam Medical history, medications, and allergies reviewed. Attestation: This PAT evaluation 01/09/2021. Airway Exam: Mallampati: I Cervical ROM: FROM TM distance: normal Jaw ROM: full Dental Exam: Chipped and otherwise appears intact (Chipped molar, lower right molar.) Current state: Patient's current state is cooperative. Anesthesia Plan ASA 2 My patient is approved for the Anesthesia Controlled Medication protocol when under care of a RADIO DIVISION CAPTAIN Planned anesthesia: General Team communication plan: LMA Postoperative Plan: Patient's planned disposition post procedure is Outpatient. Informed Consent: Discussed plan with RADIO DIVISION CAPTAIN. Anesthesia plan and risks discussed with patient. Consent and Attending signature: I and/or my designee have discussed the anesthesia plan, benefits, possible alternatives, parental presence at time of induction (if indicated), and clinically relevant risks that may include dental injury, unintentional awareness, and/or other complications. The patient and/or parent/legal guardian understand, and agree to proceed. All questions answered. documented in this encounter Plan of Treatment Not on file documented as of this encounter Procedures Procedure Name Priority Date/Time Associated Diagnosis Comments IN AN PROCEDURE PLACEHOLDER Routine 01/09/2021 9:02 AM CDT IN AN ELECTIVE SUPRAGLOTTIC AIRWAY Routine 01/09/2021 9:02 AM CDT documented in this encounter Results * IN AN ELECTIVE SUPRAGLOTTIC AIRWAY, IN AN PROCEDURE PLACEHOLDER (01/09/2021 9:02 AM CDT) Narrative Jacqueline Liao CRNA - 01/09/2021 9:02 AM CDT Jacqueline Liao CRNA ? 01/09/2021 ??9:06 AM Airway Patient location: OR Urgency: elective Date/time: 01/09/2021 9:02 AM Indications for airway management: anesthesia Difficult airway: no Staff: Supervising provider: Rey Philip MD Placed by: RADIO DIVISION CAPTAIN: Jacqueline Liao CRNA Emergent airway documentation: Risks and benefits discussed: yes Consent obtained: yes Consent given by: patient Airway prep: Preoxygenated: yes Patient position: sniffing Mask difficulty assessment: 0 - not attempted Spontaneous ventilation during airway: absent Sedation level during airway: deep Final airway details: Final airway type: supraglottic airway Final supraglottic airway: classic SGA size: 3 Cuff pressure: 0 cm H2O Airway seal pressure: 0 cm H2O Number of attempts: 1 Ventilation between attempts: noneno us Rey Philip MD ANESTHESIA ORDERAB LES Edited Result - Final documented in this encounter Visit Diagnoses Not on filedocumented in this encounter Administered Medications Inactive Administered Medications - up to 3 most recent administrations Medication Order MAR Action Action Date Dose Rate Site ceFAZolin (ANCEF) 2,000 mg/20 mL in sterile water (premix) 2,000 mg 2,000 mg, intravenous, at 400 mL/hr, Administer over 3 Minutes, Once, On Marifer 01/09/21 at 0900, For 1 dose, Pre-Op, Administer within 60 minutes of incision., Indications: Prophylaxis, SurgicalIndications:Prophylaxis, Surgical Given 01/09/2021 9:00 AM CDT 2,000 mg fentaNYL (SUBLIMAZE) preservative free injection intravenous, As needed, Starting on Marifer 01/09/21 at 0901, Anesthesia Intra-op Given 01/09/2021 9:01 AM CDT 50 mcg Given 01/09/2021 8:53 AM CDT 50 mcg glycopyrrolate (ROBINUL) injection intravenous, Administer over 1 Minutes, As needed, Starting on Marifer 01/09/21 at 0853, Anesthesia Intra-op Given 01/09/2021 8:53 AM CDT 0.2 mg Lactated Ringer's (LR) infusion 30 mL/hr, intravenous, Continuous, Starting on Marifer 01/09/21 at 0900, Pre-Op Restarted 01/09/2021 9:25 AM CDT New Bag 01/09/2021 8:33 AM CDT 30 mL/hr 30 mL/hr lidocaine (cardiac) (XYLOCAINE) preservative free injection intravenous, As needed, Starting on Marifer 01/09/21 at 0901, Anesthesia Intra-op, Indications: Ventricular ArrhythmiasIndications:Ventricular Arrhythmias Given 01/09/2021 9: 01 AM CDT 50 mg ondansetron (ZOFRAN) injection intravenous, Administer over 2 Minutes, As needed, Starting on Marifer 01/09/21 at 0853, Anesthesia Intra-op Given 01/09/2021 8:53 AM CDT 4 mg propofoL (DIPRIVAN) 10 mg/mL IV intravenous, As needed, Starting on Marifer 01/09/21 at 0901, Anesthesia Intra-op Given 01/09/2021 9:10 AM CDT 70 mg Given 01/09/2021 9:01 AM CDT 200 mg documented in this encounter Care Teams Centrifugal Operator Relationship Specialty [place] [address] [address] PCP - General Nurse Practitioner 01/09/21 documented as of this encounter
--- OUTSIDE RECORDS SUMMARY | 2024-03-06 11:24 | XMS_ITS | Encounter Summary ---
Author Organization [facility] Healthcare Address [address] [place] [address] Care Team Providers Care Aerodynamics Engineer Name Role Phone Unavailable Primary Care Provider Unavailabl e Encounter Details Date Type Department Care Team (Latest Contact Info) Description 12/06/2020 - 12/06/2020 11:59 PM CDT Hospital Encounter [facility] [employer] [address] [place] [address] Discharge Disposition: Discharge to home or self care Social History Tobacco Use Types Packs/Day Years Used Date Smoking Tobacco: Never Assessed Comments Unknown Sex and Gender Information Value Date Recorded Sex Assigned at Not on file 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 Gender Identity Not on file Sexual Orientation Not on file documented as of this encounter Medications at Time of Discharge HYDROcodone-aceta minophen (NORCO) 5-325 mg per tablet Take 1 tablet by mouth every 6 (six) hours as needed 12/06/2020 amoxicillin-clavu lanate (AUGMENTIN) 875-125 mg per tablet Take 875 mg by mouth 2 (two) times a day 12/06/2020 12/11/2020 documented as of this encounter Discharge Disposition Disposition Code Departure Means Destination Discharge to home or self care documented in this encounter Plan of Treatment Not on file documented as of this encounter Procedures Procedure Name Priority Date/Time Associated Diagnosis Comments XR TRANSFER OF OUTSIDE FILMS Routine 12/06/2020 12:00 AM CDT documented in this encounter Results * XR Outside Reference (12/06/2020 12:00 AM CDT) Narrative [email or web address] - 12/11/2020 7:13 AM CDT This order has been auto-finalized and does not contain a result. us Provider Transcribed Order IMG XR PROCEDURES Fin al Result Performing Organization Address City/State/[facility] Co de Phone Number [email or web address] documented in this encounter Visit Diagnoses Not on filedocumented in this encounter
--- OUTSIDE RECORDS SUMMARY | 2024-03-06 11:24 | XMS_ITS | Encounter Summary ---
Author Organization [facility] Healthcare Address [address] [place] [address] Care Team Providers Care Internet Webmaster Name Role Phone Abimbola Cuba NP Primary Care Provider [phone] Reason for Visit * Auth/Cert Specialty Diagnoses / Procedures Referred By Lele cornell Referred To Contact Diagnoses Closed nondisplaced fracture of distal phalanx of right little finger with delayed healing, subsequent encounter Closed nondisplaced fracture of distal phalanx of right little finger with delayed healing, subsequent encounter [S62.666G] Procedures [place] OPEN TX DISTAL PHALANGEAL FRACTURE EACH RIGHT SMALL FINGER DISTAL PHALANX OR WITH PINNING Referral ID Status Reason Start Date Expiration Date Visits Re quested Visits Authorized [id number] 1 1 Encounter Details Date Type Department Care Team (Latest Contact Info) Description 01/09/2021 8:14 AM CDT - 01/09/2021 12:10 PM CDT Hospital Encounter [facility] OR [address] [place] [id number] Ashkan Armstrong MD [facility] [address] [address] Closed nondisplaced fracture of distal phalanx of right little finger with delayed healing, subsequent encounter (Primary Dx) Discharge Disposition: Discharge to home or self [...] on file 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 Gender Identity Not on file Sexual Orientation [...] distress Breathing regular and unlabored She has [id number] swelling at the distal extent of the [...] distress Breathing regular and unlabored She has xmcz-nv-vjdojfwf swelling at the distal extent of the [...] MD - Primary Anesthesiologist: Rey Philip MD BUSINESS REPRESENTATIVE: Jacqueline Liao CRNA Jewelry Internship: Vane Murdock RN Physician Occupational Rehabilitation Aide: Mariela Lees Scrub: Regine Auguste ST Jewelry Internship Second: Jayson Cornelius RN Physician Occupational Rehabilitation Aide/Senior Major Gifts Officer: Lina Lees DATE OF SURGERY : 01/09/2021 [...] the procedure well. Lina Lees my Physician's Occupational Rehabilitation Aide's services included preoperative and postoperative assessment and documentation, patient positioning, prep and drape, intraoperative positioning and retraction, closure and postoperative dressing and postoperative orders. This significantly facilitated the procedure, limiting operative time and the associated coexisting morbidities. No other MD assistance was available. Condition on Discharge from the operating room was stable Implants: Implant Name Type Inv. Item Serial No. Test Evaluator Lot No. LRB No. Used Action [employer] [id number] SUSAN .035IN 9IN TROCAR WIRE FIXATION NONSTERILE - [id number] Wire [employer] [id number] Susan .035in 9in Trocar Wire Fixation Nonsterile [employer] Right 2 Implanted Ashkan Armstrong MD Date: 01/09/2021 Time: 10:52 AM * Pre-Procedure Instructions - Cristina Mak RN - 01/01/2021 10:29 AM CDT We are pleased that you and your doctor have chosen [facility] for your surgery. We hope that the following information will help make your visit a pleasant one. COVID TEST: Must have COVID test on 01/06/21 at [facility] Collection Site Located at [address] [place] [address]. [phone] and quarantine after test. Hours: Mon - Wed 8:00 am - 4:30 pm Surgery Date: 01/09/21 Arrival Time : Please arrive at [address] [address] Please park in the first parking lot on left side of driveway. Enter through front door. ([place] [address] with flagpoles) Before your surgery: ?? [...] these items. ?? Use no make-up, nail iraqi, lotions, oils or powders on your skin. [...] of germs on the skin. You may medicinal plant picker a bottle of this soap from the front end application developer at [facility] for no charge or at your expense [...] immediately and call your physician or the [place] [facility] ( ) right away [...] [facility] they may only return to medicinal plant picker the patient at the discharge door at [...] 1 Hour (01/09/2021 9:23 AM CDT) Narrative [email or web address]_[email or web address] - 01/09/2021 9:23 AM CDT The images from this study are not interpreted by Radiology. ??Please refer to the physician's procedure / OR operative note. Ashkan Armstrong MD IMG FLUOROSCOPY PROCEDUR ES Final Result [email or web address] * POCT hCG, urine (01/09/2021 8:36 AM CDT) HCG, ur, POC Negative Lot Number [id number] QC Backgroud Clear Acceptable QC Control Line Acceptable Urine 01/09/2021 8:36 AM CDT us Wang Che MD POINT OF CARE TEST [...] 0900, For 1 dose, Pre-Op, Indications: Pre-Emptive AnalgesiaIndications:Pre-Emptive Analgesia Given 01/09/2021 8:33 AM CDT 975 mg famotidine (PEPCID) tablet 20 mg 20 mg, oral, Once, On Marifer 01/09/21 at 0900, For 1 dose, Pre-Op, Indications: gastroesophageal reflux diseaseIndications:gastroesophag eal reflux disease Given 01/09/2021 8:33 AM CDT [...] 8:33 AM CDT 30 mL/hr 30 mL/hr documented in this encounter Active and Recently [...] to PACU 1st line analgesic., Indications: Pain 40 (Given - Provid er: Gaurav Maxwell RN) [...] Count Last Ordered Date First Ordered Date bupivacaine (MARCAINE) 0.5 % (5 mg/mL) preservative free injection 1 01/09/2021 ceFAZolin (ANCEF) 2,000 mg/2 0 mL in [...] chloride 0.9% flush 0.5-20 mL 1 12/14 sodium chloride 0.9% irrigation 1 Diet Count Last Ordered Date First Orde red Date ADULT DISCHARGE DIET 1 01/09/2021 Nursing Count Last Ordered Date First Orde red Date DISCHARGE CALL PROVIDER 1 01/09/2021 DISCHARGE DRESSING 2 01/09/2021 DISCHARGE INSTRUCTIONS 2 01/09/2021 Discharge Count Last Ordered Date First Orde red Date DISCHARGE PATIENT 1 01/09/2021 documented in this encounter Care Teams Internet Webmaster Relationship Specialty [place] [address] [address] PCP - General Nurse Practitioner 01/09/21 documented as of this encounter
--- OUTSIDE RECORDS SUMMARY | 2024-03-06 11:24 | XMS_ITS | Encounter Summary ---
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 ??Testing performed by the [facility] Molecular Infectious Disease Laboratory. The 2019-Novel Coronavirus Assay (COVID-19) Real Time RT-PCR assay [...] April 18, 2020. First COVID-19 test? No [facility] Employeed in healthcare? No [facility] status? Unknown [facility] Group care resident? No [facility] Hospitalized? No [facility] Is patient in ICU? No [facility] Symptomatic as defined by CDC? No [facility] Nasopharyngeal 01/06/2021 8: 54 AM CDT 01/06/2021 5:03 PM CDT [facility]ative [facility] 01/06/2021 10:05 PM CDT What is the reason for testing?->Screening prior to scheduled procedure or surgery (batch) us Ashkan Armstrong MD LAB MICROBIOLOGY - GENER AL ORDERABLES Final Result [facility] Department [place] [address] documented in this encounter Visit Diagnoses Diagnosis Pre-procedure lab exam Pre-procedural laboratory examination documented in this encounter Care Teams Press Reader Relationship Specialty Start Date End Date Unknown, Notinfile PCP - General 01/06/21 01/08/21 documented as of this encounter
--- OUTSIDE RECORDS SUMMARY | 2024-03-06 11:24 | XMS_ITS | Encounter Summary ---
Author Organization [facility] Address [address] [facility] [address] [place] [address] Care Team Providers Care Automotive Painter Name Role Phone Referral, Self Primary Care Provider Unavailabl e Encounter Details Date Type Department Care Team (Late st Contact Info) Description 01/01/2021 Orders Only [facility] Hand Surgery [address] [facility] [address] [place] [address] Ashkan Armstrong MD [address] [facility] [address] [place] [address] Preop testing (Primary Dx) Social History Tobacco Use Types [...] on file 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
== END 2024-02-29 17:40 | disposition home or self-care (01) | DRG 53 ==
LOC: ANHED 11:55 → ANH3MEDSUR 12:10
PROVIDERS: Physician Assistant; Admitting Provider Internal Medicine; Emergency Provider Nurse Practitioner Family; Visit Provider Nurse Practitioner Acute Care
DX: R56.9 Unspecified convulsions (principal); F41.9 Anxiety disorder, unspecified; E04.1 Nontoxic single thyroid nodule; F17.290 Nicotine dependence, other tobacco product, uncomplicated; Z20.822 Contact with and (suspected) exposure to COVID-19
CPT/HCPCS: 36415; 70450; 70553; 71045; 72125; 80048; 80053; 80307; 81003; 82077; 82550; 82948; 83735; 84443; 84484; 85025; 85027; 85610; 85730; 87636; 93005; 95816; 96365; 96375; 99285; A9270; A9577; J1953; J2060

== ENCOUNTER 2024-05-09 14:02 | Emergency (ER) | payer BC, SELFPAY ==
[2024-05-09] VITALS (10 sets, daily range): BP systolic 115–132; BP diastolic 90–99; PULSE 95–121; RESP 13–36; TEMP 36.3; O2SAT 92–100
--- NOTE | ~2024-05-09 | CT_ITS ---
History: Seizure-like activity PROCEDURE: CT cervical spine without intravenous contrast. COMPARISON: 02/28/2024 TECHNIQUE: Multiple contiguous axial images of the cervical spine were performed without the administration of i ntravenous contrast. DLP: 103 mGy-cm FINDINGS: Preservation of the normal curvature of the cervical spine is identified. No acute fractures are present. The bilateral lung apices are unremarkable. No soft tissue abnormality is present. The airway is patent. Impression: No acute fracture. Reviewed, dictated and finalized at location A. RY SHEAR OPERATOR Impression: No acute fracture.
--- NOTE | ~2024-05-09 | CT_ITS ---
EXAMINATION: CT brain wo con DATE: 05/09/2024 14:47 INDICATION: Seizure-like activity. TECHNIQUE: Computed tomography (CT) of the head was performed without intravenous contrast. The mA wa s adjusted according to patient size. Iterative reconstruction technique was employed. The dose-lengt h product was 605.33 mGy-cm. COMPARISON: Head CT 02/28/2024, brain MRI 02/28/2024 FINDINGS: There is no intracranial hemorrhage, acute infarction, or abnormal intracranial mass lesion . The ventricles are normal in size. There is mucosal thickening in the paranasal sinuses. The mastoi d air cells are normal. The orbits are normal. IMPRESSION: 1. Normal brain. Reviewed, dictated and finalized at location A. Y LEVEL DRAFTER IMPRESSION: 1. Normal brain.
--- NOTE | ~2024-05-09 | XR_ITS ---
EXAMINATION: XR chest 1V portable Exam Date/Time: 05/09/2024 14:45 ASSOCIATE ORACLE RETAIL HISTORY: SEIZURE-LIKE ACTIVITIES Comparison: 02/28/2024. RESULT: Lines, tubes, and devices: None. Lungs and pleura: Clear. Cardiomediastinal silhouette: Stable. Other: No acute osseous or upper abdominal finding. IMPRESSION: No acute cardiopulmonary process. Reviewed, dictated and finalized at location K. CIATE ORACLE RETAIL
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
--- NOTE | 2024-05-09 14:08 | ECG_ITS ---
Test Date: 2024-05-09 14:13:28 Measurements Intervals [place] Rate: 119 P: 36 [place]: 147 QRS: 108 QRSD: 94 T: -10 QT: 302 QTc: 426 Interpretive Statements SINUS TACHYCARDIA RIGHT AXIS DEVIATION DELAYED PRECORDIAL R/S TRANSITION MINIMAL Q WAVES- INFERIOR LEADS BASELINE ARTIFACT- AVF, V1, V4-V6 ABNORMAL ECG Compared to ECG 02/28/2024 09:38:19 No significant changes Electronically Signed On 05-10-2024 10:30:44 INTEGRATION SPECIALIST by Stephen Engel D.O.
[2024-05-09] MEDS: SODIUM CHLORIDE 0.9% IV 1,000 ML 999 ML IV CONT (14:18)
[2024-05-09] MEDS: levETIRAcetam 1000MG/NACL100ML 1,000 MG/100 ML BAG 400 MG IVPB (14:19)
[2024-05-09 14:23] LABS: Basophils Absolute Auto 0.1 K/mm3 (0.0-0.1); Basophils Percent Auto 0.7 % (0.2-1.2); Eosinophils Absolute Auto 0.1 K/mm3 (0-0.3); Eosinophils Percent Auto 1.9 % (0-4.4); Hematocrit 33.9 % (37.0-47.0); Hemoglobin 11.3 g/dL (12.0-15.0); Immature Granulocyte Absolute 0.02 K/mm3 (0.00-0.031); Immature Granulocyte Percent A 0.3 % (0-0.5); Lymphocytes Absolute Auto 2.49 K/mm3 (0.9-3.2); Lymphocytes Percent Auto 37.1 % (18.3-44.2); Mean Corpuscular HGB Conc 33.3 g/dl (32-36); Mean Corpuscular Hemoglobin 30.8 pg (26-34); Mean Corpuscular Volume 92.4 fl (80-100); Mean Platelet Volume 8.9 fl (7.4-10.4); Monocytes Absolute Auto 0.5 K/mm3 (0.1-0.6); Monocytes Percent Auto 7.6 % (2.6-8.5); Neutrophils Absolute Auto 3.5 K/mm3 (1.3-6.7); Neutrophils Percent Auto 52.4 % (45.5-73.1); Platelet Count Result 337 k/mm3 (150-375); Red Blood Count 3.67 M/mm3 (4.2-5.4); White Blood Count 6.7 K/mm3 (4.5-10.0)
--- NOTE | 2024-05-09 14:25 | PC.NURSE ---
Awake and talking to staff. Alert. Pt reports she has been having increasing seizures with having one last night and the day before.
[2024-05-09 14:27] LABS: BEDSIDEPREGUCG Negative (Negative)
[2024-05-09 14:34] LABS: Add Urine Microscopic? NO; Appearance Urine Clear (Clear); Bilirubin Urine Negative (Negative); Blood Urine Negative (Negative); Color Urine Yellow (Yellow); Glucose Urine UA Negative (Negative); Ketones Urine Negative (Negative); Leukocyte Esterase Ur Negative LEU/UL (Negative); Nitrate Urine Negative (Negative); Protein Urine Negative (Negative); Specific Grav Ur 1.013 (1.001-1.035); Urobilinogen Urine 0.2 mg/dL (<2.0)
[2024-05-09 14:37] LABS: Alanine Aminotransferase 53 U/L (6-35); Albumin Level 4.1 g/dL (3.5-5.1); Alkaline Phosphatase 49 U/L (38-126); Anion Gap 10 mmol/L (4-12); Aspartate Amino Transferase 46 U/L (14-36); Bilirubin,Total 0.2 mg/dL (0.2-1.3); Blood Urea Nitrogen 16 mg/dL (7-17); Calcium 8.5 mg/dL (8.4-10.2); Carbon Dioxide 21 mmol/L (22-30); Chloride 107 mmol/L (98-107); Creatine Kinase 53 U/L (30-135); Estimated CRCL calculation 113 ml/min; Estimated Glomerular Filt Rate > 60; Glucose 96 mg/dL (65-110); Sodium 138 mmol/L (137-145)
[2024-05-09 14:46] LABS: Amphetamine Screen Urine Negative (Negative); Barbiturate Screen Urine Negative (Negative); Benzodiazepines Screen Urine Positive (Negative); Cannabinoid Screen Urine Positive (Negative); Cocaine Screen Urine Negative (Negative); Methadone Screen Urine Negative (Negative); Opiate Screen Urine Negative (Negative); Phencyclidine Screen Urine Negative (Negative)
--- OUTSIDE RECORDS SUMMARY | 2024-05-09 16:20 | XMS_ITS | Encounter Summary ---
Author Organization [facility] Address [address] [place] [address] Care Team Providers Care Vc++ Developer Name Role Phone Abimbola Cuba [facility] Primary Care Provider + Jamila Reyes [facility] Primary Care Provider + Indira Brown PA-C Primary Care Provider [phone] Vivian De Guzman MD Primary Care Provider Encounter Details Date Type Department Care Team (Late st Contact Info) Description 08/27/2022 Dashbellt Message Enc [facility] Family & Internal Medicine [address] [address] Abimbola Cuba [facility] [address] [place] [id number] Therapist Social History Tobacco Use Types Packs/Day [...] documented in this encounter Plan of Treatment Upcoming Encounters Date Type Department Care Team (Late st Contact Info) Description 06/05/2024 11:40 AM CDT Office Visit [facility] Family & Internal Medicine - [place] [address] [place] [address] [place] [address] [facility] [address] [place] [address] documented as of this encounter Visit Diagnoses Not on filedocumented in this encounter Additional Health Concerns Assessment Noted Time PHQ-9 Depression Total Score: 27 023 3:27 PM STAFF THERAPIST documented as of this encounter Care Teams Vc++ Developer Relationship Specialty Start Date End Date Abimbola Cuba FNP-BC PCP - General Nurse Practitioner Family 01/01/20 Jamila Reyes, ADULT MINISTRIES DIRECTOR- [address] [facility] [address] [place] [address] PCP - General Nurse Practitioner Family 01/01/2305/13 Indira Brown PA-C [address] [facility] [address] [place] [address] PCP - General PHYSICIAN LAB COORDINATOR 05/24/23 05/08/24 [place] [address] [facility] [address] [place] [address] PCP - General INTERNAL MEDICINE 05/09/24 documented as of this encounter
--- OUTSIDE RECORDS SUMMARY | 2024-05-09 16:20 | XMS_ITS | Clinical Summary ---
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 Gender Identity Not on file Sexual Orientation Not on file Obstetrics History Last Filed Vital Signs Vital Sign Reading Time Taken Comments Blood Pressure 146/91 01/09/2021 11:35 AM CDT Pulse 54 01/09/2021 11:35 AM CDT Temperature 36.6 C (97.9 F) 01/09/2021 10:25 AM CDT Respiratory Rate 16 01/09/2021 11:35 AM CDT Oxygen Saturation 94% 01/09/2021 11:35 AM CDT Inhaled Oxygen Concentration - - Weight 115.7 kg (255 lb 2 oz) 01/09/2021 8:27 AM CDT Height 167.6 cm (5' 6 ) 01/09/2021 8:27 AM CDT Body Mass Index 41.18 01/09/2021 8:27 AM CDT Plan of Treatment Not on file Medical Devices Implanted Type Area Obstetrics Gyn Device Identifier Shelf Expiration Date Model / Serial / Lot [employer] [id number] Susan .035in 9in Trocar Wire Fixation Nonsterile - [id number] Implanted:Qty: 2 on 01/09/2021 by Ashkan Armstrong MD at [facility] Wire Right: [place] [employer] [id number] S / / Insurance CHOICE PLUS [facility] HMO/PPO Address: [address] [address] [place] [id number] [facility] CHOICE PLUS [facility] HMO/PPO Address: [id number] [place] [address] Care Teams Vein Access Technician Relationship Specialty [place] [address] [place] [address] PCP - General Nurse Practitioner 01/09/21
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
--- OUTSIDE RECORDS SUMMARY | 2024-05-09 16:20 | XMS_ITS | Encounter Summary ---
Author Organization [facility] Address [address] [place] [address] Care Team Providers Care Service Supervisor Name Role Phone Ericka Ward NP Primary Care Provider Abimbola Soto [facility] Primary Care Provider + Jamila Reyes [facility] Primary Care Provider + Indira Brown PA-C Primary Care Provider [phone] Vivian De Guzman MD Primary Care Provider [phone] Encounter Details Date Type Department Care Team (Late st Contact Info) Description 12/06/2019 Telephone [facility] Cardiopulmonary Services [address] [place] [address] Lacey Hastings, DISC PAD GRINDER Social History Tobacco Use Types Packs/Day Years [...] Description 06/05/2024 11:40 AM CDT Office Visit [facility] Medical Group Family & Internal Medicine [facility] [address] [place] [address] [place] [address] [facility] [address] [place] [address] documented as of this encounter Visit Diagnoses Not on filedocumented in this encounter Additional Health Concerns Infection Onset Date Last Indicated Resolved Time COVID-19 Rule Out 01/07/2020 01/07/2020 01/08/2020 8:36 PM CDT COVID-19 Rule Out 01/29/2020 01/29/2020 02/02/2020 2:10 PM CARD LACER COVID-19 Rule Out 02/19/2020 02/19/2020 02/19/2020 1:29 PM CARD LACER COVID-19 Confirmed 02/19/2020 02/19/2020 12:34 AM CARD LACER COVID-19 Rule Out 11/08/2020 11/08/2020 11/08/2020 12:43 PM CDT COVID-19 Rule Out 11/08/2020 11/08/2020 11/10/2020 3:30 AM CDT COVID-19 Rule Out 03/30/2021 03/30/2021 03/30/2021 10:39 AM CARD LACER Assessment Noted Time PHQ-9 Depression Total Score: 23 020 9:31 AM CDT documented as of this encounter Care Teams Service Supervisor Relationship Specialty Start Date End Date Ericka Ward, TELE RN PCP - General NURSE PRACTITIONER 09/30/18 12/31/19 Abimbola Cuba, [facility] PCP - General Nurse Practitioner Family 01/01/20 Jamila Reyes, [facility] [address] [place] [id number] PCP - General Nurse Practitioner Family 01/01/2305/13 Indira Brown, PA-C [address] [place] [address] PCP - General PHYSICIAN LOCKSMITH APPRENTICE 05/24/23 05/08/24 [place] [address] [address] [place] [address] PCP - General INTERNAL MEDICINE 05/09/24 documented as of this encounter
--- OUTSIDE RECORDS SUMMARY | 2024-05-09 16:20 | XMS_ITS | Clinical Summary ---
Author Organization [facility] Address [address] [place] [address] Care Team Providers Care Retail Bakery Manager Name Role Phone Vivian De Guzman MD Primary Care Provider [phone] Allergies Active Allergy Reactions Criticality Noted Date Comments Seasonal Other (see comment) Low 07/15/2011 congestion Medications hydrOXYzine (ATARAX) 25 MG tabletIndications: Anxiety TAKE 1/2 TO 1 (ONE-HALF TO ONE) TABLET BY MOUTH UP TO THREE TIMES DAILY NEEDED FOR ANXIETY 60 tablet 2 03/05/20 23 Active ondansetron (ZOFRAN-ODT) 4 MG disintegrating tablet DISSOLVE 1 TABLET IN MOUTH EVERY 8 HOURS NEEDED FOR NAUSEA AND VOMITING 10/07/19 24 Active LO LOESTRIN FE 1 MG-10 MCG / 10 MCG Tab Take 1 tablet by mouth daily. 04/19/19 25 Active levETIRAcetam ER (KEPPRA XR) 750 MG TABLET SR 24 HR 24 hr tablet Take 2 tablets (1,500 mg total) by mouth nightly at bedtime. 03/30/19 25 Active amitriptyline (ELAVIL) 25 MG tablet Take 1 tablet (25 mg total) by mouth nightly at bedtime. 03/30/19 25 Active lacosamide (VIMPAT) 50 MG Tab TAKE 1 TABLET BY MOUTH TWICE DAILY FOR 7 DAYS FOR SEIZURE DISCORDER. START WITH 50 MG TWICE A DAY FOR 1 WEEK, THEN 100 MG TWICE A DAY FOR 1 WEEK, THEN 150 MG TWICE A DAY FOR 1 WEEK THEN 200 MG TWICE A DAY TO CONTINUE. 03/31/19 Active sertraline (ZOLOFT) 50 MG tabletIndications: Severe depression ([facility]) Take 1 tablet (50 mg total) by mouth daily. 30 tablet 05/09/19 Active HYDROcodone-acetam inophen (NORCO) 5-325 MG tablet Take 1 tablet by mouth every 6 (six) hours as needed. 10/07/19 025 Discontinued Active Problems Problem Noted Date Diagnosed Date Seizure ([facility]) 05/09/2024 Assessment & Plan (05/09/2024 11:16 AM RECEIVING INSPECTOR): Patient was evaluated with CT and MRI brain with EEG which were normal at [facility] -Will try to get records from the hospital -Patient to continue current medication per her neurologist -Patient does not like the present neurologist/ wanted to see new neurologist- will do neurologist referral Thyroid nodule 05/09/2024 Assessment & Plan (05/09/2024 11:15 AM RECEIVING INSPECTOR): -Noted on previous CT -Will check a thyroid ultrasound Chronic midline low back pain without sciatica 0 07/31/2022 Excess skin of abdomen 07/31/2022 Former smoker 07/31/2022 Closed nondisplaced fracture of distal phalanx of right little finger 12/11/2020 Class 1 obesity due to exces s calories without serious comorbidity with body mass index (BMI) of 30.0 to 30.9 in adult 11/27/2019 Gastroesophageal reflux disease without esophagi tis 02/01/2019 Fatigue, unspecified type 09/30/2018 Severe depression ([facility]) 09/30/2018 Assessment & Plan (05/09/2024 11:14 AM RECEIVING INSPECTOR): -Not well-controlled -Patient is willing to see psychiatrist for evaluation -Patient to see a counselor for depression -Will start patient on sertraline 50 mg daily[patient failed on Lexapro and BuSpar in the past] -Patient to go to ER if SI or HI Anxiety 02/11/2016 Abnormal heart rhythm 04/30/2015 Resolved Problems Problem Noted Date Diagnosed Date Resolved Date Acute upper respiratory infection 11/29/2018 05/09/2024 Encounters Date Type Department Care Team Description 05/09/2024 10:00 AM RECEIVING INSPECTOR Office Visit [facility] Family & Internal Medicine [facility] [address] [place] [address] Vivian De Guzman MD New Patient (Transfer of care prev desire alvarado pt having frequent depression/anxiety and seizures started feb 27. Pt father has witnessed and says the most recent lasted 1hr. Also wants to discuss thyroid lump that was found.) 05/09/2024 Telephone [facility] Family & Internal Medicine [facility] [address] [place] [address] Vivian De Guzman MD Seizures 05/09/2024 Travel 02/14/2024 9:00 AM RECEIVING INSPECTOR Office Visit [facility] Family & Internal [address] [address] Elodia Uriostegui PA URI (S/s x 5-6 days ) 02/14/2024 Travel from Last 3 Months Immunizations Name Administration Dates Next Due Dtap 10/23/1999 Dtp/Hib 05/02/1996, 6,1995,04/12 Fluzone 6 Months+ Quad (0.5 mL Prefilled Syringe) 01/01/2020 HPV4 (Gardasil) 09/10/2010,05/09/2010,12/25/2009 Hepatitis A (Generic) 09/10/2010,12/25/2009 Hepatitis B Pediatric 1995, 996,1995,01/22 MMR 10/23/1999,01/27/1996 MODERNA COVID-19 (12+) MRNA, LNP-S, PF, 100 MCG/ 0.5 ML DOSE 08/29/2020,07/30/2020 MODERNA COVID-19 (GARAGE SUPERVISOR OSMAN BREA), MRNA, LNP-S, PF, 50 MCG/ [...] Sign Reading Time Taken Comments Blood Pressure 134/86 05/09/2024 9:53 AM RECEIVING INSPECTOR Pulse 74 05/09/2024 9:53 AM RECEIVING INSPECTOR Temperature 36.9 C (98.4 F) 05/09/2024 9:53 AM RECEIVING INSPECTOR Respiratory Rate 19 05/09/2024 9:53 AM RECEIVING INSPECTOR Oxygen Saturation 100% 05/09/2024 9:53 AM RECEIVING INSPECTOR Inhaled Oxygen Concentration - - Weight 74.4 kg (164 lb) 05/09/2024 9:53 AM RECEIVING INSPECTOR Height 167.6 cm (5' 6 ) 05/09/2024 9:53 AM RECEIVING INSPECTOR Body Mass Index 26.47 05/09/2024 9:53 AM RECEIVING INSPECTOR Plan of Treatment Upcoming Encounters Date Type Department Care Team (Late st Contact Info) Description 06/05/2024 11:40 AM CDT Office Visit [facility] Family & Internal Medicine [facility] [address] [place] [address] [place] [address] [facility] [address] [place] [address] Health Maintenance Due Date Last Done Comments [...] topic HPV Vaccines Completed 09/10/2010, 04/16, 12/25/2009 PHQ-2 (Physician Ola) Completed 05/09/2024 Meningococcal B Vaccine Aged Out No l onger eligible based on patient's age to complete this topic Pneumococcal Vaccine: Pediatrics (0 to 5 Years) and At-Risk Patients (6 to 64 Years) Aged Out No longer eligible based on patient's age to complete this topic RSV Immunizations Under 20 Months Aged Out No longer eligible based on patient's age to complete this topic Insurance [facility] Care Teams Retail Bakery Manager Relationship Specialty Start [place] [address] [place] [address] PCP - General INTERNAL MEDICINE 05/09/24
--- OUTSIDE RECORDS SUMMARY | 2024-05-09 16:20 | XMS_ITS | Encounter Summary ---
Author Organization [facility] Address [facility] [place] [address] Care Team Providers Care Bone Glue Maker Name Role Phone Ericka Ward NP Primary Care Provider Abimbola Soto [facility] Primary Care Provider + Jamila Reyes [facility] Primary Care Provider + Indira Brown PA-C Primary Care Provider [phone] Vivian De Guzman MD Primary Care Provider [phone] Encounter Details Date Type Department Care Team (Late st Contact Info) Description 06/30/2019 CleveX Message [facility] Patient Accounts [address] [place] [address] Kal, [facility] Provider Please contact us Social History Tobacco [...] as of this encounter Plan of Treatment Upcoming Encounters Date Type Department Care Team (Late st Contact Info) Description 06/05/2024 11:40 AM CDT Office Visit [facility] Family & Internal Medicine [facility] [address] [place] [address] [place] [address] [address] documented as of this encounter Visit Diagnoses Not on filedocumented in this encounter Additional Health Concerns Infection Onset Date Last Indicated Resolved Time COVID-19 Rule Out 01/07/2020 01/07/2020 01/08/2020 8:36 PM CDT COVID-19 Rule Out 01/29/2020 01/29/2020 02/02/2020 2:10 PM METAL ORGAN PIPE MAKER COVID-19 Rule Out 02/19/2020 02/19/2020 02/19/2020 1:29 PM METAL ORGAN PIPE MAKER COVID-19 Confirmed 02/19/2020 02/19/2020 12:34 AM METAL ORGAN PIPE MAKER COVID-19 Rule Out 11/08/2020 11/08/2020 11/08/2020 12:43 PM CDT COVID-19 Rule Out 11/08/2020 11/08/2020 11/10/2020 3:30 AM CDT COVID-19 Rule Out 03/30/2021 03/30/2021 03/30/2021 10:39 AM METAL ORGAN PIPE MAKER Assessment Noted Time PHQ-9 Depression Total Score: 20 019 9:08 AM CDT documented as of this encounter Care Teams Bone Glue Maker Relationship Specialty Start Date End Date Ericka Ward NP PCP - General NURSE PRACTITIONER 09/30/18 12/31/19 Abimbola Cuba FNP-JUAN JOSE PCP - General Nurse Practitioner Family 01/01/20 Jamila Reyes FNP- [address] [place] [address] PCP - General Nurse Practitioner Family 01/01/2305/13 Indira Brown PA-C [address] [place] [address] PCP - General PHYSICIAN SENIOR ENVIRONMENTAL ENGINEER 05/24/23 05/08/24 [place] [address] [place], [place] [id number] PCP - General INTERNAL MEDICINE 05/09/24 documented as of this encounter
--- OUTSIDE RECORDS SUMMARY | 2024-05-09 16:20 | XMS_ITS | Encounter Summary ---
Author Organization [facility] Address [address] [place] [address] Care Team Providers Care Striker Off Name Role Phone Vivian De Guzman MD Primary Care Provider [phone] Encounter Details Date Type Department Care Team (Latest Contact Info) Description 05/09/2024 Travel Social History Tobacco Use Types Packs/Day [...] Upcoming Encounters Date Type Department Care Team ( Contact Info) Description 06/05/2024 11:40 AM CDT Office Visit [facility] Family & Internal Medicine [address] [address] [place] [address] [place] [address] documented as of this encounter Visit Diagnoses Not on filedocumented in this encounter Additional Health Concerns Assessment Noted Time PHQ-9 Depression Total Score: 22 025 10:57 AM CORPORATE DIRECTOR documented as of this encounter Care Teams Striker Off Relationship Specialty Start [place] [address] [employer] [address] [place] [address] PCP - General INTERNAL MEDICINE 05/09/24 documented as of this encounter
--- OUTSIDE RECORDS SUMMARY | 2024-05-09 16:20 | XMS_ITS | Referral Summary ---
Author Organization [facility] Address [address] [place] [address] Care Team Providers Care Manager Of Financial Planning Name Role Phone Abimbola Cuba NP Primary Care Provider [phone] Allergies No known active allergies Medications HYDROcodone-thuan [...] on file Legal Sex Female 8:54 AM CNC MILL OPERATOR Gender Identity Not on file Sexual [...] on file Medical Devices Implanted Type Area Sammying Machine Operator Device Identifier Shelf Expiration Date Model / Serial / Lot [employer] [id number] Susan .035in 9in Trocar Wire Fixation Nonsterile - [id number] Implanted:Qty: 2 on 01/09/2021 by Ashkan Armstrong MD at [facility] Wire Right: Little Finger [employer] [id number] S / / Insurance [facility] Care Teams Manager Of Financial Planning Relationship Specialty [place] [address] [address] [address] PCP - General Nurse Practitioner 01/09/21
--- OUTSIDE RECORDS SUMMARY | 2024-05-09 16:20 | XMS_ITS | Encounter Summary ---
Author Organization [facility] Address formerly [facility] [place] [address] Care Team Providers Care Rack Puncher Name Role Phone Jamila Reyes [facility] Primary Care Provider + Indira Brown PA-C Primary Care Provider [phone] Vivian De Guzman MD Primary Care Provider [phone] Encounter Details Date Type Department Care Team (Late st Contact Info) Description 02/16/2023 Lesson Prept Message Enc [facility] Family & Internal Medicine [facility] [address] [place] [address] Jamila Reyes, [facility] [address] [place] [address], [address] [place] [address] Back Pain Social History Tobacco Use [...] She will need to be seen correct? PRESS OPERATOR * Bambi Denton LPN - 02/22/2023 1:04 [...] and wants released sooner Please call back PRESS OPERATOR * Namrata Colbert RN - 02/16/2023 12:00 PM CST Patient came to office to be seen. Prefers to be seen by previous provider-appt made for 02/17/2023 7:40 am. Letter given to patient to be off work today and tomorrow and instructed if she tarts feeling worse or if the pain is unbearable she should go to the ER-voiced understanding. PRESS OPERATOR documented in this encounter Plan of Treatment Upcoming Encounters Date Type Department Care Team (Late st Contact Info) Description 06/05/2024 11:40 AM CDT Office Visit [facility] Family & Internal Medicine [address] [address] Vivian De Guzman MD [address] [place], [place] [address] [address] [place] [address] documented as of this encounter Visit Diagnoses Not on filedocumented in this encounter Additional Health Concerns Assessment Noted Time PHQ-9 Depression Total Score: 27 023 3:27 PM CORN PRESS OPERATOR documented as of this encounter Care Teams Rack Puncher Relationship Specialty Start Date End Date Jamila Reyes, [facility]- [address] [place] [address] PCP - General Nurse Practitioner Family 01/01/2305/13 Indira Brown PA-C [address] [address] PCP - General PHYSICIAN CERTIFIED PHLEBOTOMY TECHNICIAN 05/24/23 05/08/24 [place] [address] [place] [address] PCP - General INTERNAL MEDICINE 05/09/24 documented as of this encounter
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
--- OUTSIDE RECORDS SUMMARY | 2024-05-09 16:20 | XMS_ITS | Encounter Summary ---
Author Organization [facility] Address [address] [place] [address] Care Team Providers Care Bait Tier Name Role Phone Abimbola Cuba [facility] Primary Care Provider + Jamila Reyes [facility] Primary Care Provider + Indira Brown PA-C Primary Care Provider [phone] Vivian De Guzman MD Primary Care Provider [phone] Encounter Details Date Type Department Care Team (Late st Contact Info) Description 07/22/2020 Funifi Message [facility] Patient Accounts [address] [place] [address] Kal, [facility] Provider [facility] Patient Financial Services Social History Tobacco Use [...] Description 06/05/2024 11:40 AM CDT Office Visit [facility] Family & Internal Medicine [facility] [address] [place] [address] [place] [address] [facility] [address] [place] [address] documented as of this encounter Visit Diagnoses Not on filedocumented in this encounter Additional Health Concerns Infection Onset Date Last Indicated Resolved Time COVID-19 Rule Out 11/08/2020 11/08/2020 11/08/2020 12:43 PM CDT COVID-19 Rule Out 11/08/2020 11/08/2020 11/10/2020 3:30 AM CDT COVID-19 Rule Out 03/30/2021 03/30/2021 03/30/2021 10:39 AM TABLET COATER Assessment Noted Time PHQ-9 Depression Total Score: 26 020 7:37 AM CDT documented as of this encounter Care Teams Bait Tier Relationship Specialty Start Date End Date Abimbola Cuba [facility]- PCP - General Nurse Practitioner Family 01/01/20 Jamila Reyes, [facility]- [address] [facility], [address] [address] PCP - General Nurse Practitioner Family 01/01/2305/13 Indira Brown, AVIVA [address] [facility] [address] [place] [address] PCP - General PHYSICIAN HYPERION DEVELOPER 05/24/23 05/08/24 [place] [address] [address] PCP - General INTERNAL MEDICINE 05/09/24 documented as of this encounter
--- OUTSIDE RECORDS SUMMARY | 2024-05-09 16:20 | XMS_ITS | Encounter Summary ---
Author Organization [facility] Address [address] [place] [address] Care Team Providers Care Vp Medical Name Role Phone Abimbola Cuba [facility] Primary Care Provider + Jamila Reyes [facility] Primary Care Provider + Indira Brown PA-C Primary Care Provider [phone] Vivian De Guzman MD Primary Care Provider [phone] Encounter Details Date Type Department Care Team (Late st Contact Info) Description 02/17/2020 Conference Hound Message Enc [facility] Group Family & Internal Medicine [address] [address] Abimbola Cuba [facility] [address] [place] [address] Other Social History Tobacco Use [...] COVID-19? Unable to assess 02/19/2020 1:05 PM FISH HEADER documented as of this encounter Progress Notes * CHRISTINA Escalona - 02/19/2020 7:26 AM CST Video visit 02/19/2020 HEADER documented in this encounter Plan of Treatment Upcoming Encounters Date Type Department Care Team (Late st Contact Info) Description 06/05/2024 11:40 AM CDT Office Visit [facility] Family & Internal Medicine - [place] [address] [place] [address] [place] [address] [place] [address] documented as of this encounter Visit Diagnoses Not on filedocumented in this encounter Additional Health Concerns Infection Onset Date Last Indicated Resolved Time COVID-19 Rule Out 02/19/2020 02/19/2020 02/19/2020 1:29 PM FISH HEADER COVID-19 Confirmed 02/19/2020 02/19/2020 12:34 AM FISH HEADER COVID-19 Rule Out 11/08/2020 11/08/2020 11/08/2020 12:43 PM CDT COVID-19 Rule Out 11/08/2020 11/08/2020 11/10/2020 3:30 AM CDT COVID-19 Rule Out 03/30/2021 03/30/2021 03/30/2021 10:39 AM FISH HEADER Assessment Noted Time PHQ-9 Depression Total Score: 26 020 7:37 AM CDT documented as of this encounter Care Teams Vp Medical Relationship Specialty Start Date End Date Abimbola Cuba [facility] PCP - General Nurse Practitioner Family 01/01/20 Jamila Reyes, [facility] [address] [address] [place] [address] PCP - General Nurse Practitioner Family 01/01/2305/13 Indira Brown PA-C [address] [address] [employer] [address] [place] [address] PCP - General PHYSICIAN SOLDERER ASSEMBLY REPAIR 05/24/23 05/08/24 [place] [address] [employer] [address] [place] [address] PCP - General INTERNAL MEDICINE 05/09/24 documented as of this encounter
== END 2024-05-09 15:44 | disposition home or self-care (01) ==
PROVIDERS: Emergency Provider Emergency Medicine
DX: G40.909 Epilepsy, unspecified, not intractable, without status epilepticus (principal); F43.0 Acute stress reaction; F32.9 Major depressive disorder, single episode, unspecified; G47.00 Insomnia, unspecified; F17.290 Nicotine dependence, other tobacco product, uncomplicated
CPT/HCPCS: 36415; 70450; 71045; 72125; 80053; 80307; 81003; 81025; 82550; 85025; 93005; 96361; 96374; 99284; J1953; J7030

== ENCOUNTER 2024-10-02 10:19 | Outpatient (CLI) | payer OTHER, SELFPAY ==
--- OUTSIDE RECORDS SUMMARY | 2024-10-02 10:39 | XMS_ITS | Patient Health Record ---
Author Organization [facility] Address [address] [facility] [address] [address] [address] Care Team Providers Care Chemical Reclamation Equipment Operator Name Role Phone Jacqueline Monge Unavailable [phone] Reason For Referral No Information Plan Of Treatment No Information
--- OUTSIDE RECORDS SUMMARY | 2024-10-02 10:39 | XMS_ITS | Clinical Summary ---
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 Wire Right: Little [place]inger [employer] [id number] S / / Insurance CHOICE PLUS [place] [id number] [facility] CHOICE PLUS Care Teams Finishing Machine Operator Relationship Specialty [place] [address] [place] [address] PCP - General Nurse Practitioner 01/09/21
--- OUTSIDE RECORDS SUMMARY | 2024-10-02 10:39 | XMS_ITS | Referral Summary ---
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 Gender Identity Not on file Sexual [...] on file Medical Devices Implanted Type Area Stuffer Device Identifier Shelf Expiration Date Model / Serial / Lot [employer] [id number] Susan .035in 9in [employer]car Wire Fixation Nonsterile - [id number] Implanted:Qty: 2 on 01/09/2021 by Ashkan Armstrong MD at [facility] Wire Right: [place] [employer] [id number] S / / Insurance [facility] H[facility]PPO Address[place] [address] [facility] CHOICE PLUS [facility] HMO/PPO Address: [facility] [id number] [place] [address] Care Teams Land Development Manager Relationship Specialty [place] [address] [address] [address] [address] PCP - General Nurse Practitioner 01/09/21
[2024-10-02 10:56] LABS: Hematocrit 38.5 % (37.0-47.0); Hemoglobin 12.5 g/dL (12.0-15.0); Mean Corpuscular HGB Conc 32.5 g/dl (32-36); Mean Corpuscular Hemoglobin 30.3 pg (26-34); Mean Corpuscular Volume 93.2 fl (80-100); Platelet Count Result 334 k/mm3 (150-375); Red Blood Count 4.13 M/mm3 (4.2-5.4); White Blood Count 5.3 K/mm3 (4.5-10.0)
[2024-10-02 11:32] LABS: Beta HCG Quantitative < 2.39 mIU/ML
[2024-10-02 11:46] LABS: Thyroid Stimulating Hormone Reflex 2.370 uIU/mL (0.465-4.68)
== END 2024-10-02 10:20 | disposition home or self-care (01) ==
LOC: ANHLAB 10:26
PROVIDERS: PCP Internal Medicine; Visit Provider Nurse Practitioner
DX: N93.8 Other specified abnormal uterine and vaginal bleeding (principal)
CPT/HCPCS: 36415; 84443; 84702; 85027